=== PATIENT | male | born 1975 | race Caucasian/White ===

== ENCOUNTER → 2018-11-18 08:28 | Outpatient (CLI) | payer OTHER, SELFPAY | LOC: RT 08:30 | PROVIDERS: PCP Nurse Practitioner Family; Visit Provider Nurse Practitioner Family | DX: R00.2 Palpitations (principal) | CPT/HCPCS: 93225; 93226 ==

== ENCOUNTER → 2018-12-13 14:56 | Outpatient (CLI) | payer OTHER, SELFPAY | PROVIDERS: PCP Nurse Practitioner Family; Visit Provider Internal Medicine | DX: R07.9 Chest pain, unspecified (principal) | CPT/HCPCS: 93270 ==

== ENCOUNTER → 2018-12-26 10:10 | Outpatient (CLI) | payer OTHER, SELFPAY ==
[2018-12-26 10:31] LABS: Anion Gap 15.3 mEq/L (5-15); Blood Urea Nitrogen 29 mg/dL (7-18); Calcium 9.1 mg/dL (8.5-10.1); Carbon Dioxide 23 mmol/L (21.0-32.0); Chloride 99 mmol/L (98-107); Creatinine,Serum 1.16 mg/dL (0.70-1.30); Estimated Glomerular Filt Rate 69 ml/min (>60); GFR (African American) 84 ML/MIN (>60); Glucose 208 mg/dL (74-106); Potassium 4.3 mmoL/L (3.5-5.1); Sodium 133 mmol/L (136-145)
[2018-12-26 11:20] LABS: Basophils # 0.1 K/mm3 (0-0.2); Basophils % 0.8 % (0.1-2.0); Eosinophils # 0.4 K/mm3 (0.0-0.4); Eosinophils % 6.2 % (0.1-12.0); Hematocrit 48.8 % (42.0-52.0); Hemoglobin 15.7 g/dL (14.1-18.0); Lymphocytes # 1.7 K/mm3 (0.7-4.5); Lymphocytes % 24.3 % (10-50); Mean Corpuscular HGB Conc 32.2 g/dL (31.8-35.4); Mean Corpuscular Hemoglobin 27.8 pg (27.0-31.2); Mean Corpuscular Volume 86.4 fl (80-94); Mean Platelet Volume 8.4 fl (7.4-10.4); Monocytes # 0.3 K/mm3 (0.1-1.0); Monocytes % 4.7 % (1.7-9.3); Neutrophils # 4.6 K/mm3 (1.8-7.8); Neutrophils % 64.1 % (37.0-80.0); Platelet Count 273 K/mm3 (142-424); Red Blood Count 5.65 M/mm3 (4.60-6.20); Red Cell Distribution Width 13.3 % (11.5-17.5); White Blood Count 7.1 K/mm3 (4.8-10.8)
== END ==
PROVIDERS: Visit Provider Internal Medicine
DX: Z95.5 Presence of coronary angioplasty implant and graft (principal)
CPT/HCPCS: 36415; 80048; 85025

== ENCOUNTER 2019-03-18 20:56 | Observation (INO) ==
[2019-03-18 21:15] LABS: Basophils # 0.1 K/mm3 (0-0.2); Basophils % 0.6 % (0.1-2.0); Eosinophils # 0.3 K/mm3 (0.0-0.4); Eosinophils % 2.8 % (0.1-12.0); Hematocrit 45.1 % (42.0-52.0); Hemoglobin 15.2 g/dL (14.1-18.0); Lymphocytes # 2.8 K/mm3 (0.7-4.5); Lymphocytes % 24.9 % (10-50); Mean Corpuscular HGB Conc 33.6 g/dL (31.8-35.4); Mean Corpuscular Volume 83.1 fl (80-94); Mean Platelet Volume 7.9 fl (7.4-10.4); Monocytes # 0.7 K/mm3 (0.1-1.0); Monocytes % 6.6 % (1.7-9.3); Neutrophils # 7.2 K/mm3 (1.8-7.8); Platelet Count 311 K/mm3 (142-424); Red Blood Count 5.43 M/mm3 (4.60-6.20); Red Cell Distribution Width 13.9 % (11.5-17.5); White Blood Count 11.1 K/mm3 (4.8-10.8)
[2019-03-18 21:26] LABS: Anion Gap 19.3 mEq/L (5-15); Blood Urea Nitrogen 25 mg/dL (7-18); Calcium 9.6 mg/dL (8.5-10.1); Carbon Dioxide 24 mmol/L (21.0-32.0); Chloride 100 mmol/L (98-107); Glucose 103 mg/dL (74-106); Sodium 140 mmol/L (136-145)
[2019-03-18 22:45] LABS: Albumin Level 3.9 gm/dL (3.4-5.0); Bilirubin,Direct 0.1 mg/dL (0.0-0.2); Bilirubin,Indirect 0.3 mg/dL (0.0-0.9); Bilirubin,Total 0.4 mg/dL (0.2-1.0); Total Protein,Serum 8.4 gm/dL (6.4-8.2)
--- NOTE | 2019-03-18 22:57 | Emergency Department Note ---
ED Disposition Clinical Impression: Renal insufficiency Chest pain Qualifiers: Chest pain type: precordial pain Qualified Code(s): R07.2 - Precordial pain DM (diabetes mellitus) Qualifiers: Diabetes mellitus type: type 2 Diabetes mellitus penitentiary insulin use: unspecified penitentiary insulin use status Diabetes mellitus complication status: with other specified complication Qualified Code(s): E11.69 - Type 2 diabetes mellitus with other specified complication Disposition: Admitted as Observation Condition on Discharge: Good Referrals: Jonathan Davidson MD [Primary Care Provider] - - Critical Care Critical Care Time: No Attestation: On 03/18/19, the high probability of a clinically significant, sudden or life threatening deterioration of the following system(s) required my full and direct attention, intervention and personal management. The time I documented below is in addition to time spent performing reported procedures but includes the following listed in this critical care notation. Medical Decision Making - Medical Records Medical records reviewed: Yes: I reviewed the patient's medical records. - Angel Inquiry Pt receiving controlled substance: No Vital Signs: 03/18/19 21:03 03/18/19 22:05 03/18/19 22:14 Temperature 98 F Temperature Source Oral Pulse Rate [Left Brachial] 114 H 102 H 102 H Respiratory Rate 20 19 16 Blood Pressure [Left Arm] 154/88 H 117/64 117/64 Blood Pressure Mean [Left Arm] 110 81 81 Blood Pressure Source [Left Arm] Automatic Cuff Automatic Cuff Automatic Cuff Blood Pressure Position [Left Arm] Supine Sitting Supine 02 Sat by Pulse Oximetry 98 98 99 Oxygen Delivery Method Room Air Room Air Room Air 03/18/19 22:20 03/18/19 22:46 Temperature Temperature Source Pulse Rate [Left Brachial] 109 H 105 H Respiratory Rate 16 16 Blood Pressure [Left Arm] 110/59 L 120/51 L Blood Pressure Mean [Left Arm] 76 74 Blood Pressure Source [Left Arm] Automatic Cuff Blood Pressure Position [Left Arm] Supine 02 Sat by Pulse Oximetry 98 96 Oxygen Delivery Method Room Air Room Air - Lab Data Lab results reviewed: Yes: I reviewed the patient's lab results. Lab Results 03/18/19 21:00: WBC 11.1 H, RBC 5.43, Hgb 15.2, Hct 45.1, MCV 83.1, MCH 27.9, MCHC 33.6, RDW 13.9, Plt Count 311, MPV 7.9, Neut % (Auto) 65.0, Lymph % (Auto) 24.9, [place] % (Auto) 6.6, Eos % (Auto) 2.8, Baso % (Auto) 0.6, Neut # (Auto) 7.2, Lymph # (Auto) 2.8, [place] # (Auto) 0.7, Eos # (Auto) 0.3, Baso # (Auto) 0.1 03/18/19 21:00: Sodium 140, Potassium 3.3 L, Chloride 100, Carbon Dioxide 24, Anion Gap 19.3 H, BUN 25 H, Creatinine 1.36 H, Estimated Creat Clear 129, Estimated GFR 57 L, Est GFR ( Amer) 70, Glucose 103, Calcium 9.6, Troponin I < 0.02 03/18/19 21:00: Total Bilirubin 0.4, Direct Bilirubin 0.1, Indirect Bilirubin 0.3, AST 14 L, ALT 32, Alkaline Phosphatase 83, Total Protein 8.4 H, Albumin 3.9 03/18/19 21:11: Influenza Type A Ag Negative, Influenza Type B Ag Negative Result diagrams: 03/18/19 21:00 03/18/19 21:00 Orders (Tests/Meds): ED MEDICATIONS Generic Name Dose Route Start Last Admin Trade Name Freq PRN Reason Stop Dose Admin Sodium Chloride 1,000 mls @ 999 mls/hr 03/18/19 21:15 03/18/19 21:12 Sod Chlor 0.9% 1000ml Bag IV 03/18/19 22:15 999 mls/hr .Q1H1M JEAN-PIERRE Administration Sodium Chloride 1,000 mls @ 100 mls/hr 03/18/19 22:30 03/18/19 22:29 Sod Chlor 0.9% 1000ml Bag IV 04/17/19 22:29 100 mls/hr .Q10H JEAN-PIERRE Administration Nitroglycerin 0.4 mg 03/18/19 22:05 Nitrostat 0.4mg Sl Tablet SL 04/17/19 22:04 Q5MINP PRN Chest Pain Discontinued Medications Generic Name Dose Route Start Last Admin Trade Name Freq PRN Reason Stop Dose Admin Famotidine 20 mg 03/18/19 22:21 03/18/19 22:24 Pepcid 20mg/2ml Vial IV 03/18/19 22:22 20 mg ONCE ONE Administration Ketorolac Tromethamine 30 mg 03/18/19 21:06 03/18/19 21:12 Toradol 30mg/Ml Vial IV 03/18/19 21:07 30 mg ONCE ONE Administration Methylprednisolone Sodium Succinate 125 mg 03/18/19 21:06 03/18/19 21:12 Solu-Medrol 125mg/2ml Vial IV 03/18/19 21:07 125 mg ONCE ONE Administration Metoclopramide HCl 10 mg 03/18/19 22:21 03/18/19 22:24 Reglan 10mg/2ml Vial IVP 03/18/19 22:22 10 mg ONCE ONE Administration Morphine Sulfate 4 mg 03/18/19 22:31 03/18/19 22:34 Morphine 4mg/Ml Syringe IV 03/18/19 22:32 4 mg ONCE ONE Administration Nitroglycerin 0.4 mg 03/18/19 22:11 03/18/19 22:11 Nitrostat 0.4mg Sl Tablet SL 03/18/19 22:12 1 tab ONCE ONE Administration Nitroglycerin 1 gm 03/18/19 22:31 03/18/19 22:34 Nitroglycerin 1 Inch Oint Udp TD 03/18/19 22:32 1 gm ONCE ONE Administration Ondansetron HCl 4 mg 03/18/19 21:06 03/18/19 21:12 Zofran 4mg/2ml Vial IV 03/18/19 21:07 4 mg ONCE ONE Administration ORDERS Category Date Time Status XR chest 2V Stat Exams 03/18/19 21:10 Taken XR thoracic spine 3V Stat Exams 03/18/19 21:10 Taken Troponin I Q3H Lab 03/19/19 00:15 Ordered Troponin I Q3H Lab 03/19/19 03:15 Ordered UA [Urinalysis and Microscopic] Stat Lab 03/18/19 21:07 Ordered ECG Request by /Nse Stat Y 03/18/19 21:06 Ordered ECG Request by Dr/Nse Stat Y 03/18/19 22:08 Ordered - Radiology Data #1 Image(s): Chest, T-Spine Image Reviewed: Yes I reviewed the patient's radiology image Preliminary Findings: Normal/NAD - ECG Data Tracing #1 Arrhythmias present: sinus tach Ischemic changes: non-specific ST-T wave changes Tracing #2 Normal Sinus Rhythm: Yes Ischemic changes: non-specific ST-T wave changes - Physician Consults Physician Consulted: yas Reason -: Admission Chest Pain HPI - General Chief Complaint: Dizziness Stated Complaint: DIZZINESS; N/V; HEART PALPITATIONS Time Seen by Provider: 03/18/19 21:10 Mode of Arrival: EMS Source of Information: Patient, Spouse, EMS, Medical Record Limitations: No Limitations Description of Symptoms (Recalled from ER Triage Doc. by RN): PATIENT PRESENTS TO TX 6 VIA EMS FROM HOME C/O DIZZINESS, N/V, HEART PALPITATIONS AND UPPER BACK PAIN THAT STARTED THIS EVENING. REPORTS URI LAST WEEK. REPORTS HE WAS FEELING BETTER TODAY AND DECIDED TO GO TO A [employer] WHEN SYMPTOMS CAME ON SUDDENLY. PATIENT HAD A CARDIAC STENT PLACED IN . - History of Present Illness HPI narrative: pt with episode of feeling faint and dizzyness - has sig hx of cad and diabetes -pt dev chest pain in the ed which was similar to prev angina MD complaint: chest pain indicative of cardiac Onset (ago): hour(s) Duration: intermittent Activity at onset: during rest Pain location: substernal Severity: similar to previous episodes Quality: aching Pain radiation: none Risk Factors for CAD: Hypertension, Family Hx of CAD, Diabetes Treatments prior to or on arrival for Cardiac Chest Pain: aspirin - RENITA Score for Non-Stemi Age of Patient: 40-49 years old Heart Rate: 110-149 bpm Systolic Blood Pressure: 140-159 mmHg Serum Creatinine: 1.20-1.59 mg/dl CHF [place] Class: I-No CHF Other Risk Factors: None Non-Stemi Risk Score: 83 - Related Data Prior Cardiac Testing/Procedures: Stenting Home Medications Medication Instructions Recorded Confirmed aspirin 81 mg tablet,delayed 81 mg PO DAILY 12/13/18 03/18/19 release gabapentin 800 mg tablet 800 mg PO DAILY 12/13/18 03/18/19 insulin lispro (U-100) 100 unit/mL 100 unit SQ DAILY ml 12/13/18 03/18/19 subcutaneous cartridge metoprolol succinate ER 50 mg 50 mg PO DAILY 12/13/18 03/18/19 tablet,extended release 24 hr simvastatin 10 mg tablet 10 mg PO QHS 12/13/18 03/18/19 tizanidine 4 mg tablet 4 mg PO QHS PRN 12/13/18 03/18/19 ticagrelor 90 mg tablet 90 mg PO BID 02/15/19 03/18/19 lisinopriL [Lisinopril 20mg Tab] 20 mg PO DAILY 03/07/19 03/18/19 Allergies Allergy/AdvReac Type Severity Reaction Status Date / Time No Known Allergies Allergy Verified 03/13/19 09:24 [facility] [place] History - Hepatitis A Screen Drug use history?: No High risk sexual behaviors?: No History of sexually transmitted infection?: No Currently employed?: No Childcare worker?: No Do you have indoor plumbing?: Yes Do you have electricity?: Yes Attestation statement:: This patient has been screened for Hepatitis A risk factors. I have reviewed the patient's past medical history: Yes Medical History: Reports:: Coronary Artery Disease, Diabetes Mellitus Type 1 (INSULIN PUMP), Hyperlipidemia, Hypertension, Palpitations, Renal Disease Denies:: Cancer, Diabetes Mellitus Type 2, Internal Pacemaker, MRSA, Seizures Laterality Cases: Bilateral: Myringotomy (Ear Tubes) Other Surgeries: Yes: Cardiac Catheterization, Coronary Stent. No: Pacemaker Amputation: No Fractures: No - Social History Smoking Status: Never smoker Alcohol Intake: current Alcohol Intake Frequency:: a few times a month Substance Use Type: denies use Occupational Status: employed Housing: house Household Members: spouse Family Hx:: Coronary Artery Disease Comment: Grandfathers-CABG. Sister-Valve Regurg ROS Obtained: Yes All systems reviewed & no additional complaints - Constitutional Constitutional: Denies fever(s) - Eyes Eyes: Denies change in vision - ENT Ears, Nose, Mouth, and Throat: Denies sore throat - Cardiovascular Cardiovascular: Reports as per HPI, Reports chest pain, Denies dyspnea, Denies radiating jaw, neck or arm pain - Respiratory Respiratory: No cough - Gastrointestinal Gastrointestingal: Denies: abdominal pain - Genitourinary Male Genitourinary: Denies hematuria - Musculoskeletal Musculoskeletal: Denies joint pain - Integumentary/Breasts Skin/Breast: Denies rash - Neurologic Neurologic: Denies confusion Physical Exam - General General appearance: alert - Head Head exam: normocephalic - Eye Eye exam: Present: PERRL, EOMI - ENT ENT exam: Present: mucous membranes moist - Neck Neck exam: Present: trachea midline - Respiratory Respiratory exam: Absent: respiratory distress - Cardiovascular Cardiovascular exam: Present: regular rate, systolic murmur - Abdominal Exam Abdominal exam: Present: soft - Extremities Exam Extremities exam: Present: full ROM - Neurological Exam Neurological exam: Present: alert, CN II-XII intact - Psychiatric Psychiatric exam: Present: normal affect - Skin Skin exam: Absent: rash
[2019-03-19 03:37] LABS: Basophils % 0.2 % (0.1-2.0); Eosinophils # 0.1 K/mm3 (0.0-0.4); Hematocrit 37.6 % (42.0-52.0); Lymphocytes # 0.8 K/mm3 (0.7-4.5); Lymphocytes % 6.7 % (10-50); Mean Corpuscular Volume 86.4 fl (80-94); Mean Platelet Volume 8.1 fl (7.4-10.4); Monocytes # 0.2 K/mm3 (0.1-1.0); Monocytes % 1.3 % (1.7-9.3); Neutrophils # 10.1 K/mm3 (1.8-7.8); Neutrophils % 90.8 % (37.0-80.0); Platelet Count 222 K/mm3 (142-424); Red Blood Count 4.35 M/mm3 (4.60-6.20); Red Cell Distribution Width 14.1 % (11.5-17.5); White Blood Count 11.2 K/mm3 (4.8-10.8)
[2019-03-19 03:38] LABS: Hemoglobin 12.4 g/dL (14.1-18.0)
[2019-03-19 03:54] LABS: Blood Urea Nitrogen 34 mg/dL (7-18); Carbon Dioxide 22 mmol/L (21.0-32.0); Chloride 100 mmol/L (98-107); Sodium 135 mmol/L (136-145)
[2019-03-19 03:55] LABS: Lymphocytes % 6 % (10-50); Neutrophils % 90 % (42-76); RBC Morphology Normal; Total Cells Counted 100
[2019-03-19 03:56] LABS: Calcium 8.4 mg/dL (8.5-10.1); Glucose 335 mg/dL (74-106)
--- NOTE | 2019-03-19 09:08 | History & Physical Report ---
*Admission Date: 03/19/19 *Chief complaint: Chest pain/tachycardia *History of present illness: 43-year-old white male with history of coronary disease, status post stent placement in December, along with type 1 diabetes, with insulin pump, along with obesity, hyperlipidemia and other risk factors for cardiac disease who was at a [employer] yesterday evening and felt suddenly tachycardic. He was slightly dizzy, refused treatment at the time, and then had intense back pain that felt like "someone hit me in the back with a baseball bat." Was on his way home when he became more tachycardic and then had some chest pain. Came to the emergency department. In the emergency department x-rays and labs are unremarkable, admitted to hospital overnight. This morning he reports that he has a headache from nitro therapy, but that his chest pain is resolved but he still has a baseline tachycardia that is concerning. [facility] History I have reviewed the patient's past medical history: Yes Medical History: Reports:: Coronary Artery Disease, Diabetes Mellitus Type 1 (INSULIN PUMP), Hyperlipidemia, Hypertension, Palpitations, Renal Disease Denies:: Cancer, Diabetes Mellitus Type 2, Internal Pacemaker, MRSA, Seizures *Have you ever received a pneumonia vaccine?: No *Have you received a flu vaccine this season?: No Laterality Cases: Bilateral: Myringotomy (Ear Tubes) Other Surgeries: Yes: Cardiac Catheterization, Colonoscopy, Coronary Stent, EGD. No: Pacemaker Amputation: No Fractures: No - *Social History Educational Level: Completed High School Smoking Status: Never smoker Alcohol Intake: current Alcohol Intake Frequency:: holidays/special occasions only Substance Use Type: denies use *Occupational Status:: employed Housing: house Household Members: spouse *Travel in the last 8 weeks: None Family Hx:: Cancer, Coronary Artery Disease, Diabetes, Heart Attack, Hyperlipidemia, Hypertension, Kidney Disease Review of Systems - Review of Systems Review of systems:: pertinent systems reviewed and negative unless documented below See HPI, Otherwise 10 point review of systems negative - *Neurologic Denies confusion Meds Home Medications Medication Instructions Recorded Confirmed Type aspirin 81 mg tablet,delayed 81 mg PO DAILY 12/13/18 03/18/19 History release gabapentin 800 mg tablet 800 mg PO DAILY 12/13/18 03/18/19 History insulin lispro (U-100) 100 unit/mL 100 unit SQ DAILY ml 12/13/18 03/18/19 History subcutaneous cartridge metoprolol succinate ER 50 mg 50 mg PO DAILY 12/13/18 03/18/19 History tablet,extended release 24 hr simvastatin 10 mg tablet 10 mg PO QHS 12/13/18 03/18/19 History tizanidine 4 mg tablet 4 mg PO QHS PRN 12/13/18 03/18/19 History ticagrelor 90 mg tablet 90 mg PO BID 02/15/19 03/18/19 History lisinopriL [Lisinopril 20mg Tab] 20 mg PO DAILY 03/07/19 03/18/19 History Hydrocodone/Acetaminophen 1 each PO BID 03/19/19 03/19/19 History [Hydrocodon-Acetaminoph 7.5-325] Omeprazole [Omeprazole 40mg 40 mg PO DAILY 03/19/19 03/19/19 History Capsule] Ticagrelor [Brilinta 90mg Tablet] 90 mg PO BID 03/19/19 03/19/19 History hydroCHLOROthiazide [HCTZ 25mg 25 mg PO DAILY 03/19/19 03/19/19 History tab] Allergies Allergy/AdvReac Type Severity Reaction Status Date / Time No Known Allergies Allergy Verified 03/13/19 09:24 Exam Vital signs and Labs for Last 24 Hours: Temp Pulse Resp BP Pulse Ox 97.6 F 86 17 113/67 96 03/19/19 04:00 03/19/19 04:00 03/19/19 04:00 03/19/19 04:00 03/19/19 04:00 Laboratory Results - last 24 hr 03/18/19 21:00: WBC 11.1 H, RBC 5.43, Hgb 15.2, Hct 45.1, MCV 83.1, MCH 27.9, MCHC 33.6, RDW 13.9, Plt Count 311, MPV 7.9, Neut % (Auto) 65.0, Lymph % (Auto) 24.9, [place] % (Auto) 6.6, Eos % (Auto) 2.8, Baso % (Auto) 0.6, Neut # (Auto) 7.2, Lymph # (Auto) 2.8, [place] # (Auto) 0.7, Eos # (Auto) 0.3, Baso # (Auto) 0.1 03/18/19 21:00: Sodium 140, Potassium 3.3 L, Chloride 100, Carbon Dioxide 24, Anion Gap 19.3 H, BUN 25 H, Creatinine 1.36 H, Estimated Creat Clear 129, Estimated GFR 57 L, Est GFR ( Amer) 70, Glucose 103, Calcium 9.6, Troponin I < 0.02 03/18/19 21:00: Total Bilirubin 0.4, Direct Bilirubin 0.1, Indirect Bilirubin 0.3, AST 14 L, ALT 32, Alkaline Phosphatase 83, Total Protein 8.4 H, Albumin 3.9 03/18/19 21:11: Influenza Type A Ag Negative, Influenza Type B Ag Negative 03/19/19 00:20: Troponin I < 0.02 03/19/19 03:30: WBC 11.2 H, RBC 4.35 L, Hgb 12.4 L D, Hct 37.6 L, MCV 86.4, MCH 28.5, MCHC 33.0, RDW 14.1, Plt Count 222 D, MPV 8.1, Neut % (Auto) 90.8 H, L ymph % (Auto) 6.7 L, [place] % (Auto) 1.3 L, Eos % (Auto) 1.0, Baso % (Auto) 0.2, Neut # (Auto) 10.1 H, Lymph # (Auto) 0.8, [place] # (Auto) 0.2, Eos # (Auto) 0.1, Baso # (Auto) 0.0, Total Counted 100, Neutrophils % (Manual) 90 H, Band Neutrophils % 4.0, Lymphocytes % (Manual) 6 L, Platelet Estimate Normal, RBC Morphology Normal 03/19/19 03:30: Sodium 135 L, Potassium 5.0 D, Chloride 100, Carbon Dioxide 22, Anion Gap 18.0 H, BUN 34 H D, Creatinine 1.54 H, Estimated Creat Clear 112, Estimated GFR 50 L, Est GFR ( Amer) 60, Glucose 335 H D, Calcium 8.4 L D, Magnesium 1.6, Troponin I < 0.02 03/19/19 06:51: POC Glucose 292 H I & O for Last 24 hours: Intake & Output 03/16/19 03/17/19 03/18/19 03/19/19 11:59 11:59 11:59 11:59 Intake Total 1100 / 1100 Balance 1100 / 1100 Weight 278 lb 7.983 oz - Constitutional no acute distress, obese - *Routine HEENT Exam Head: Present: normocephalic, atraumatic Eye: Present: EOMI, PERRL ENT: Present: mucous membranes moist - *Routine Neck Exam Present: supple. Absent: lymphadenopathy - *Routine Respiratory Exam Present: CTA bilaterally - *Routine Cardiovascular Exam Present: RRR - *Routine Abdominal Exam Present: soft, normoactive bowel sounds. Absent: tenderness - *Routine Extremities Exam Absent: cyanosis, clubbing, edema - *Routine Skin Exam Present: warm. Absent: rash - *Routine Neurological Exam Present: alert, oriented X3 Assessment and Plan (1) Chest pain Current visit: Yes Status: Acute Qualifiers: Chest pain type: precordial pain Qualified Code(s): R07.2 - Precordial pain Category: Medical Code(s): R07.9 - Chest pain, unspecified Unusual chest pain. Troponins negative. Continue cardiac medications. CTA of chest today given the back pain component and his tachycardia (2) Renal insufficiency Current visit: Yes Status: Acute Category: Medical Code(s): N28.9 - Disorder of kidney and ureter, unspecified Follow creatinine tomorrow, increase fluid rate (3) DM (diabetes mellitus) Current visit: Yes Status: Chronic Qualifiers: Diabetes mellitus type: type 2 Diabetes mellitus terminal superintendent insulin use: unspecified mcfp insulin use status Diabetes mellitus complication status: with other specified complication Qualified Code(s): E11.69 - Type 2 diabetes mellitus with other specified complication Category: Medical Code(s): E11.9 - Type 2 diabetes mellitus without complications
--- NOTE | 2019-03-19 14:05 | Pharmacy Consult Notes ---
[facility] Pharmacy VTE Monitoring - Patient Demographics Admission date: 03/19/19 Report Date: 03/19/19 Time: 14:04 Allergies/Adverse Reactions: Patient Allergies No Known Allergies Allergy (Verified 03/13/19 09:24) Height: 1.85 m Weight: 126.325 kg Patient Problems: Current Active Problems Chest pain (Acute) Renal insufficiency (Acute) DM (diabetes mellitus) (Chronic) - VTE Risk Labs: VTE Related Lab Results Hgb 12.4 g/dL (14.1-18.0) L D 03/19/19 03:30 Hct 37.6 % (42.0-52.0) L 03/19/19 03:30 Plt Count 222 K/mm3 (142-424) D 03/19/19 03:30 BUN 34 mg/dL (7-18) H D 03/19/19 03:30 Creatinine 1.54 mg/dL (0.70-1.30) H 03/19/19 03:30 Estimated Creat Clear 112 mL/min (50-200) 03/19/19 03:30 VTE Score: 3 VTE Risk Level: Low Risk - Prophylaxis Types of VTE Prophylaxis: TEDS Knee High (SAUL HOSE ORDER PLACED)
[2019-03-20 06:50] LABS: Albumin/Globulin Ratio 0.9 (1.1-1.8); Anion Gap 16.1 mEq/L (5-15); Bilirubin,Total 0.2 mg/dL (0.2-1.0); Calcium 8.2 mg/dL (8.5-10.1); Globulin 3.3 gm/dl (1.3-3.2); Total Protein,Serum 6.3 gm/dL (6.4-8.2)
[2019-03-20 07:20] LABS: Basophils # 0.1 K/mm3 (0-0.2); Basophils % 0.3 % (0.1-2.0); Eosinophils # 0.1 K/mm3 (0.0-0.4); Eosinophils % 0.4 % (0.1-12.0); Hematocrit 39.3 % (42.0-52.0); Hemoglobin 12.9 g/dL (14.1-18.0); Lymphocytes % 14.1 % (10-50); Mean Corpuscular HGB Conc 32.8 g/dL (31.8-35.4); Mean Platelet Volume 7.7 fl (7.4-10.4); Monocytes # 0.7 K/mm3 (0.1-1.0); Monocytes % 5.2 % (1.7-9.3); Neutrophils # 11.1 K/mm3 (1.8-7.8); Neutrophils % 79.9 % (37.0-80.0); Platelet Count 254 K/mm3 (142-424); Red Blood Count 4.63 M/mm3 (4.60-6.20); Red Cell Distribution Width 14.3 % (11.5-17.5); White Blood Count 13.9 K/mm3 (4.8-10.8)
--- NOTE | 2019-03-20 07:28 | Consult Report ---
History of Present Illness Consult date: 03/20/19 Requesting physician: Yunior Porras Consult reason: chest pain Chief complaint: Palpitations, chest pain Additional Medical History:: 1. CAD A. [facility], 12/16/2018, ANGIOGRAPHIC RESULTS The left main artery Normal The left anterior descending artery Has proximal mild 10% luminal irregularities followed by a mid vessel concentric 70% stenosis The circumflex artery Dominant and normal The right coronary artery Nondominant yet still large with mild 10 to 20% luminal irregularities The WAYNE ventriculogram reveals Normal 65% The left ventricular end-diastolic pressure 10 mmHg IMPRESSION Severe proximal to mid LAD disease Successful stenting of the proximal to mid LAD severe disease reduced to 0% with one drug-eluting stent Normal ejection fraction Normal left ventricular end-diastolic pressure 2. DM type 1, insulin pump 3. HTN 4. HLD, on statin therapy History of present illness: 43-year-old white male with history of coronary disease, status post stent placement in December, along with type 1 diabetes, with insulin pump, along with obesity, hyperlipidemia and other risk factors for cardiac disease who was at a [employer] yesterday evening and felt suddenly tachycardic. He was slightly dizzy, refused treatment at the time, and then had intense back pain that felt like "someone hit me in the back with a baseball bat." Was on his way home when he became more tachycardic and then had some chest pain. Came to the emergency department. In the emergency department x-rays and labs are unremarkable, admitted to hospital overnight. This morning he reports that he has a headache from nitro therapy, but that his chest pain is resolved but he still has a baseline tachycardia that is concerning The above per Dr. Porras Patient had cardiac cath with subsequent stenting of his proximal LAD in December of this year. His symptoms of discomfort, shoulder and back discomfort resolved thereafter he relates he has had much more energy since then. He denies missing any of his medications or taking [id number] stimulants for recent cold symptoms. As noted above while at a [employer] party he began feeling tachycardia/palpitations with heart rate noted on his apple watch in the 120-140's bpm range. Reportedly EMS was at the alliance party and obtained a telemetry strip but that is unavailable for review. EKG's this admission have shown sinus tach without pathologic arrhythmias. Troponins have been normal. Mild renal insufficiency has improved with IV fluids. Cardiology consulted for evaluation. This AM pt relates feeling as if his uvula is swollen. No signs of respiratory distress noted and he states this happened one year ago and resolved after about 3 hrs. [facility] History Medical History: Reports:: Coronary Artery Disease, Diabetes Mellitus Type 1 (INSULIN PUMP), Hyperlipidemia, Hypertension, Palpitations, Renal Disease Denies:: Cancer, Diabetes Mellitus Type 2, Internal Pacemaker, MRSA, Seizures *Have you ever received a pneumonia vaccine?: No *Have you received a flu vaccine this season?: No Laterality Cases: Bilateral: Myringotomy (Ear Tubes) Other Surgeries: Yes: Cardiac Catheterization, Colonoscopy, Coronary Stent, EGD. No: Pacemaker Amputation: No Fractures: No - *Social History Educational Level: Completed High School Smoking Status: Never smoker Alcohol Intake: current Alcohol Intake Frequency:: holidays/special occasions only Substance Use Type: denies use *Occupational Status:: employed Housing: house Household Members: spouse *Travel in the last 8 weeks: None Family Hx:: Cancer, Coronary Artery Disease, Diabetes, Heart Attack, Hyperlipidemia, Hypertension, Kidney Disease Meds Home Medications Medication Instructions Recorded Confirmed Type aspirin 81 mg tablet,delayed 81 mg PO DAILY 12/13/18 03/18/19 History release gabapentin 800 mg tablet 800 mg PO DAILY 12/13/18 03/18/19 History insulin lispro 100 unit/mL 100 unit SQ .INSULIN PUMP ml 12/13/18 03/19/19 History subcutaneous cartridge metoprolol succinate 50 mg 50 mg PO DAILY 12/13/18 03/18/19 History tablet,extended release 24 hr simvastatin 10 mg tablet 10 mg PO QHS 12/13/18 03/18/19 History tizanidine 4 mg tablet 4 mg PO BIDP PRN 12/13/18 03/19/19 History lisinopriL [Lisinopril 20mg Tab] 20 mg PO DAILY 03/07/19 03/18/19 History Hydrocodone/Acetaminophen 1 each PO BID 03/19/19 03/19/19 History [Hydrocodon-Acetaminoph 7.5-325] Omeprazole [Omeprazole 40mg 40 mg PO DAILY 03/19/19 03/19/19 History Capsule] Ticagrelor [Brilinta 90mg Tablet] 90 mg PO BID 03/19/19 03/19/19 History hydroCHLOROthiazide [HCTZ 25mg 25 mg PO DAILY 03/19/19 03/19/19 History tab] Allergies Allergy/AdvReac Type Severity Reaction Status Date / Time No Known Allergies Allergy Verified 03/13/19 09:24 Review of Systems - Review of Systems Review of systems:: pertinent systems reviewed and negative unless documented below - *Cardiovascular Reports chest pain, Reports irregular heart rhythm - *Respiratory Denies cough, Denies shortness of breath - *Gastrointestinal Denies loose stools, Denies nausea, Denies vomiting - *Genitourinary Denies blood in urine - *Musculoskeletal Denies joint pain, Denies back pain - *Neurologic Denies confusion, Denies unsteadiness, Denies dizziness Exam Vital signs and Labs for Last 24 Hours: Temp Pulse Resp BP Pulse Ox 97.9 F 77 22 108/54 L 98 03/20/19 04:00 03/20/19 04:00 03/20/19 04:00 03/20/19 04:00 03/20/19 04:00 Laboratory Results - last 24 hr 03/19/19 11:45: POC Glucose 270 H 03/19/19 16:35: POC Glucose 172 H 03/19/19 20:55: POC Glucose 210 H 03/20/19 05:18: Sodium 139, Potassium 4.1, Chloride 103, Carbon Dioxide 24, Anion Gap 16.1 H, BUN 26 H, Creatinine 1.15 D, Estimated Creat Clear 150, Estimated GFR 70, Est GFR ( Amer) 84 D, Glucose 283 H, Calcium 8.2 L, Total Bilirubin 0.2, AST 14 L, ALT 30, Alkaline Phosphatase 76, Total Protein 6.3 L, Albumin 3.0 L D, Globulin 3.3 H, Albumin/Globulin Ratio 0.9 L I & O for Last 24 hours: Intake & Output 03/17/19 03/18/19 03/19/19 03/20/19 11:59 11:59 11:59 11:59 Intake Total 1220 / 1220 1340 / 1340 Balance 1220 / 1220 1340 / 1340 Weight 278 lb 7.983 oz 292 lb 1 oz - *Routine HEENT Exam Head: Present: normocephalic Eye: Present: EOMI, PERRL ENT: Present: mucous membranes moist - *Routine Neck Exam Present: supple. Absent: JVD, carotid bruit - *Routine Respiratory Exam Present: CTA bilaterally. Absent: accessory muscle use, rales, rhonchi, wheezes - *Routine Cardiovascular Exam Present: RRR. Absent: murmur, gallop, rubs - *Routine Abdominal Exam Present: soft. Absent: tenderness, distended, guarding - *Routine Extremities Exam Absent: edema, calf tenderness - *Routine Neurological Exam Present: alert, oriented X3, moving all extremities Assessment and Plan (1) Chest pain Current visit: Yes Status: Acute Qualifiers: Chest pain type: precordial pain Qualified Code(s): R07.2 - Precordial pain Category: Medical Code(s): R07.9 - Chest pain, unspecified (2) Renal insufficiency Current visit: Yes Status: Acute Category: Medical Code(s): N28.9 - Disorder of kidney and ureter, unspecified (3) DM (diabetes mellitus) Current visit: Yes Status: Chronic Qualifiers: Diabetes mellitus type: type 2 Diabetes mellitus rn long term care insulin use: unspecified jail insulin use status Diabetes mellitus complication status: with other specified complication Qualified Code(s): E11.69 - Type 2 diabetes mellitus with other specified complication Category: Medical Code(s): E11.9 - Type 2 diabetes mellitus without complications - Assessment and plan all Dx Assessment and Plan for all problems:: 1. Recurrent episodes of chest discomfort with associated back and shoulder discomfort similar to his angina symptoms prior to recent LAD stenting. Concern for edge stenosis and would recommend repeat left heart catheterization today. 2. Palpitations with sinus tachycardia noted on EKG and telemetry. Continue to monitor with consideration for implantable loop recorder if patient has no recurrent coronary artery disease. 3. Further recommendations to follow pending above results.
--- NOTE | 2019-03-20 08:55 | Progress Note ---
Internal Medicine - PN: Subj *Date: 03/20/19 *Time: 08:54 Interval history: Patient slept well overnight, no further chest pain, has back pain but now he tells me that he has "back pain all the time." His new complaint is posterior throat swelling and "my uvula is swollen and I feel like I am choking." Exam Vital signs and Labs for Last 24 Hours: Temp Pulse Resp BP Pulse Ox 97.9 F 77 22 108/54 L 98 03/20/19 04:00 03/20/19 04:00 03/20/19 04:00 03/20/19 04:00 03/20/19 04:00 Laboratory Results - last 24 hr 03/19/19 11:45: POC Glucose 270 H 03/19/19 16:35: POC Glucose 172 H 03/19/19 20:55: POC Glucose 210 H 03/20/19 05:18: WBC 13.9 H, RBC 4.63, Hgb 12.9 L, Hct 39.3 L, MCV 85.0, MCH 27.9, MCHC 32.8, RDW 14.3, Plt Count 254, MPV 7.7, Neut % (Auto) 79.9, Lymph % (Auto) 14.1, [place] % (Auto) 5.2, Eos % (Auto) 0.4, Baso % (Auto) 0.3, Neut # (Auto) 11.1 H, Lymph # (Auto) 2.0, [place] # (Auto) 0.7, Eos # (Auto) 0.1, Baso # (Auto) 0.1 03/20/19 05:18: Sodium 139, Potassium 4.1, Chloride 103, Carbon Dioxide 24, Anion Gap 16.1 H, BUN 26 H, Creatinine 1.15 D, Estimated Creat Clear 150, Estimated GFR 70, Est GFR ( Amer) 84 D, Glucose 283 H, Calcium 8.2 L, Total Bilirubin 0.2, AST 14 L, ALT 30, Alkaline Phosphatase 76, Total Protein 6.3 L, Albumin 3.0 L D, Globulin 3.3 H, Albumin/Globulin Ratio 0.9 L I & O for Last 24 hours: Intake & Output 03/17/19 03/18/19 03/19/19 03/20/19 11:59 11:59 11:59 11:59 Intake Total 1220 / 1220 192 / 192 Balance 1220 / 1220 1919 / 192 Weight 278 lb 7.983 oz 292 lb 1 oz Narrative: Patient is lying in bed comfortably flat, receiving an echocardiogram. Oropharynx does show minimal posterior pharyngeal swelling with lots of postnasal drainage. Heart rate regular. Breathing easily. No abdominal complaints. No peripheral edema or neurologic deficits. Assessment and Plan (1) Chest pain Current visit: Yes Status: Acute Qualifiers: Chest pain type: precordial pain Qualified Code(s): R07.2 - Precordial pain Category: Medical Code(s): R07.9 - Chest pain, unspecified (2) Renal insufficiency Current visit: Yes Status: Acute Category: Medical Code(s): N28.9 - Disorder of kidney and ureter, unspecified (3) DM (diabetes mellitus) Current visit: Yes Status: Chronic Qualifiers: Diabetes mellitus type: type 2 Diabetes mellitus rn long term care insulin use: unspecified rn long term care insulin use status Diabetes mellitus complication status: with other specified complication Qualified Code(s): E11.69 - Type 2 diabetes mellitus with other specified complication Category: Medical Code(s): E11.9 - Type 2 diabetes mellitus without comp lications - Assessment and plan all Dx Assessment and Plan for all problems:: Multiple complaints, most of which sound chronic. I agree with restudying heart cath, follow-up after this study.
--- NOTE | 2019-03-20 16:38 | Discharge Summary ---
General - General Admission date:: 03/18/19 Discharge date: 03/20/19 HPI HPI: 43-year-old white male with history of coronary disease, status post stent placement in December, along with type 1 diabetes, with insulin pump, along with obesity, hyperlipidemia and other risk factors for cardiac disease who was at a [employer] yesterday evening and felt suddenly tachycardic. He was slightly dizzy, refused treatment at the time, and then had intense back pain that felt like "someone hit me in the back with a baseball bat." Was on his way home when he became more tachycardic and then had some chest pain. Came to the emergency department. In the emergency department x-rays and labs are unremarkable, admitted to hospital overnight. This morning he reports that he has a headache from nitro therapy, but that his chest pain is resolved but he still has a baseline tachycardia that is concerning. Hospital Course Hospital Course: Patient was admitted to the hospital, ruled out for myocardial infarction by enzyme and EKG criteria. Was ruled out for MN, however given his baseline tachycardia and significant presyncopal symptoms he was taken to left heart catheter today which revealed widely patent stents, and noncritical/nonflow limiting coronary disease. Unchanged from previous heart catheter results. Recommended to have continued medical therapy. Because of his posterior chest pain CTA of the lungs was done which revealed no evidence of pulmonary embolism, did reveal a small pulmonary nodule which will be followed as an outpatient. Cardiology recommended discharge with an event monitor and close followup. Patient will be discharged today, event monitor as noted. Medications as noted and followup in my office as scheduled. Objective Vital signs: Temp Pulse Resp BP Pulse Ox 98.5 F 91 H 18 122/54 L 94 L 03/20/19 15:55 03/20/19 15:55 03/20/19 15:55 03/20/19 15:55 03/20/19 15:55 no acute distress, obese - *Routine HEENT Exam Head: Present: normocephalic Eye: Present: EOMI, PERRL - *Routine Neck Exam Present: supple, full ROM. Absent: JVD - *Routine Respiratory Exam Present: CTA bilaterally - *Routine Cardiovascular Exam Present: RRR, Normal S1, Normal S2, tachycardia - *Routine Abdominal Exam Present: soft, normoactive bowel sounds - *Routine Extremities Exam Absent: cyanosis, clubbing, edema - *Routine Skin Exam Present: intact - *Routine Neurological Exam Present: alert, oriented X3 Results Labs on day of discharge: Labs from last 24 hours 03/20/19 03/20/19 03/20/19 16:20 11:18 06:02 WBC RBC Hgb Hct MCV MCH MCHC RDW Plt Count MPV Neut % (Auto) Lymph % (Auto) [place] % (Auto) Eos % (Auto) Baso % (Auto) Neut # (Auto) Lymph # (Auto) [place] # (Auto) Eos # (Auto) Baso # (Auto) Sodium Potassium Chloride Carbon Dioxide Anion Gap BUN Creatinine Estimated Creat Clear Estimated GFR Est GFR ( Amer) Glucose POC Glucose 299 H 189 H 257 H Calcium Total Bilirubin AST ALT Alkaline Phosphatase Total Protein Albumin Globulin Albumin/Globulin Ratio 03/20/19 03/20/19 03/19/19 05:18 05:18 20:55 WBC 13.9 H RBC 4.63 Hgb 12.9 L Hct 39.3 L MCV 85.0 MCH 27.9 MCHC 32.8 RDW 14.3 Plt Count 254 MPV 7.7 Neut % (Auto) 79.9 Lymph % (Auto) 14.1 [place] % (Auto) 5.2 Eos % (Auto) 0.4 Baso % (Auto) 0.3 Neut # (Auto) 11.1 H Lymph # (Auto) 2.0 [place] # (Auto) 0.7 Eos # (Auto) 0.1 Baso # (Auto) 0.1 Sodium 139 Potassium 4.1 Chloride 103 Carbon Dioxide 24 Anion Gap 16.1 H BUN 26 H Creatinine 1.15 D Estimated Creat Clear 150 Estimated GFR 70 Est GFR ( Amer) 84 D Glucose 283 H POC Glucose 210 H Calcium 8.2 L Total Bilirubin 0.2 AST 14 L ALT 30 Alkaline Phosphatase 76 Total Protein 6.3 L Albumin 3.0 L D Globulin 3.3 H Albumin/Globulin Ratio 0.9 L 03/19/19 16:35 WBC RBC Hgb Hct MCV MCH MCHC RDW Plt Count MPV Neut % (Auto) Lymph % (Auto) [place] % (Auto) Eos % (Auto) Baso % (Auto) Neut # (Auto) Lymph # (Auto) [place] # (Auto) Eos # (Auto) Baso # (Auto) Sodium Potassium Chloride Carbon Dioxide Anion Gap BUN Creatinine Estimated Creat Clear Estimated GFR Est GFR ( Amer) Glucose POC Glucose 172 H Calcium Total Bilirubin AST ALT Alkaline Phosphatase Total Protein Albumin Globulin Albumin/Globulin Ratio DS: Diagnosis - Discharge Diagnosis (1) Chest pain Status: Resolved (2) Renal insufficiency Status: Resolved (3) DM (diabetes mellitus) Status: Chronic Discharge Plan - Patient Discharge Instructions ACTIVITY: Continue current activity DIET: continue same diet Patient Instructions: Type 2 Diabetes, Cardiac Catheterization, DI for Cardiac Catheterization, Acute Renal Failure, DI for Surgical Site Infection, DI for Chest Pain - Follow up Plan Follow up with: Jonathan Davidson MD [Primary Care Provider] - 03/27/19 Disposition: Home, [facility] Medications: Home Medications Medication Instructions Recorded Confirmed Type aspirin 81 mg tablet,delayed 81 mg PO DAILY 12/13/18 03/18/19 History release gabapentin 800 mg tablet 800 mg PO DAILY 12/13/18 03/18/19 History insulin lispro 100 unit/mL 100 unit SQ .INSULIN PUMP ml 12/13/18 03/19/19 History subcutaneous cartridge metoprolol succinate 50 mg 50 mg PO DAILY 12/13/18 03/18/19 History tablet,extended release 24 hr simvastatin 10 mg tablet 10 mg PO QHS 12/13/18 03/18/19 History tizanidine 4 mg tablet 4 mg PO BIDP PRN 12/13/18 03/19/19 History lisinopriL [Lisinopril 20mg Tab] 20 mg PO DAILY 03/07/19 03/18/19 History Hydrocodone/Acetaminophen 1 each PO BID 03/19/19 03/19/19 History [Hydrocodon-Acetaminoph 7.5-325] Omeprazole [Omeprazole 40mg 40 mg PO DAILY 03/19/19 03/19/19 History Capsule] Ticagrelor [Brilinta 90mg Tablet] 90 mg PO BID 03/19/19 03/19/19 History hydroCHLOROthiazide [HCTZ 25mg 25 mg PO DAILY 03/19/19 03/19/19 History tab] Prescriptions/Medication Reconciliation: Continued insulin lispro 100 unit/mL subcutaneous cartridge 100 unit SQ .INSULIN PUMP ml aspirin 81 mg tablet,delayed release 81 mg PO DAILY simvastatin 10 mg tablet 10 mg PO QHS tizanidine 4 mg tablet 4 mg PO BIDP PRN PRN Reason: nerves gabapentin 800 mg tablet 800 mg PO DAILY metoprolol succinate 50 mg tablet,extended release 24 hr 50 mg PO DAILY lisinopriL [Lisinopril 20mg Tab] 20 mg PO DAILY Hydrocodone/Acetaminophen [Hydrocodon-Acetaminoph 7.5-325] 1 each PO BID hydroCHLOROthiazide [HCTZ 25mg tab] 25 mg PO DAILY Omeprazole [Omeprazole 40mg Capsule] 40 mg PO DAILY Ticagrelor [Brilinta 90mg Tablet] 90 mg PO BID - Problem Reconciliation Problems Reviewed?: Yes
--- NOTE | 2019-03-20 16:59 | Electrocardiograph Report ---
APPROVED REPORT Exam: Resting ECG HR:111 bpm ECG Measurements Heart Rate 111 AXES NM 138 P 42 QRSd 92 QRS 5 QT 314 T41 QTc 427 <Conclusion> Sinus tachycardia Otherwise normal ECG Electronically signed by : Avinash Suarez, 03/20/2019 16:59:16
--- NOTE | 2019-03-20 21:02 | Cardiology Report ---
APPROVED REPORT EXAM: Comprehensive 2D, Doppler, and color-flow Echocardiogram [place] [employer]: Vida Serrano CRT Ht: 6 ft 1 in Wt: 292lbs BSA: 2.53 BP: 97110/67 mmHg Indications: Hypertension I10, CAD I25.10, Chest Pain R07.89 2D Dimensions LVOT 2.12 cm (M/F) 1.5-2.5 M-Mode Dimensions RVDd 2.77 cm (0.9-2.6)LVDd 5.72 cm (3.5-5.7) LVDs 4.02 cm (3.5-5.7)IVSd 1.30 cm (0.6-1.1) PWd 0.80 cm (0.6-1.1)EF (Teich) 56.10% FS 29.70% EDV (Teich) 161.30 mL ESV (Teich) 70.80 mL LV Diastology E/A Ratio 1.33 Mitral Valve MV A Velocity 74.00 (40-130 cm/s) Left Ventricle Left atrium is mildly enlarged, left ventricle is normal size, mild concentric left ventricular hypertrophy, visually estimated ejection fraction 55% with no regional wall motion abnormality. Grade 1 diastolic dysfunction seen without tissue Doppler evidence of raise left atrial pressure. Right Ventricle Right atrium and right ventricle mildly enlarged with normal contractility. Aortic Valve Aortic valve is minimally thickened and fibrosed leaflet chordae display good mobility, there is no aortic stenosis or aortic insufficiency. Mitral Valve Mitral valve is grossly normal, there is mild mitral regurgitation. Tricuspid Valve Tricuspid valve is grossly normal, there is mild tricuspid regurgitation, tricuspid regurgitation jet velocity is inadequate for calculation of the right ventricular systolic pressure. Pulmonic Valve Pulmonic valve is poorly visualized. Great Vessels Aortic root is normal size. Pericardium No significant pericardial effusion noted. Conclusion 1. Biatrial enlargement, normal left ventricular size, mild concentric left ventricular hypertrophy, visually estimated ejection fraction 55% with no regional wall motion abnormality, grade 1 diastolic dysfunction seen without tissue Doppler evidence of raise left atrial pressure. 2. Mildly enlarged right ventricle with normal contractility. 3. Mild mitral and tricuspid regurgitation. 4. No significant pericardial effusion noted. Electronically signed by : Ramiro Hair, 03/20/2019 21:02:21
== END 2019-03-20 19:40 | disposition home or self-care (01) ==
LOC: 2ND 20:56 → ER 20:56 → 2ND 23:35
PROVIDERS: ADMIT Family Medicine; ATTEND Internal Medicine Adolescent Medicine
CPT/HCPCS: 36415; 71020; 71046; 71275; 72072; 80048; 80053; 80076; 82962; 83735; 84484; 85007; 85025; 87275; 87276; 93005; 93270; 93308; 93458; 96365; 96366; 96375; 99152; 99284; C1725; C1760; C1769; G0378; J1644; J2405; Q9967

== ENCOUNTER → 2019-05-03 11:05 | Outpatient (CLI) | payer OTHER, SELFPAY ==
[2019-05-03 13:33] LABS: Ferritin 357 ng/mL (8-388)
== END ==
PROVIDERS: Visit Provider Nurse Practitioner Family
DX: G25.81 Restless legs syndrome (principal); G47.33 Obstructive sleep apnea (adult) (pediatric)
CPT/HCPCS: 36415; 82728

== ENCOUNTER → 2019-08-31 10:32 | Outpatient (CLI) | payer OTHER, SELFPAY ==
[2019-08-31 11:49] LABS: Coronavirus 19 IgG Antibody Negative (Negative); Coronavirus 19 IgM Antibody Negative (Negative)
== END ==
PROVIDERS: Visit Provider Internal Medicine Gastroenterology
DX: Z01.818 Encounter for other preprocedural examination (principal)
CPT/HCPCS: 36415; 86328

== ENCOUNTER 2019-09-01 08:22 | Day surgery (SDC) | payer OTHER, SELFPAY ==
[2019-08-29 15:26] VITALS: BMI 35.6
--- NOTE | 2019-08-30 09:17 | SUR.PREOP ---
08/30/2019 @ 0917--PHONE CALL MADE TO PATIENT. PATIENT UNDERSTANDS THAT LAB WORK AND COVID TESTING NEEDS TO BE COMPLETED @ 10 ON 08/31/2019. PATIENT UNDERSTANDS IF LAB WORK AND COVID-19 TESTS ARE NOT COMPLETED BY 12PM ON THAT DATE, THE SURGERY SCHEDULED WILL BE CANCELLED AND RESCHEDULED FOR ANOTHER TIME.
[2019-09-01] VITALS (7 sets, daily range): BP systolic 83–131; BP diastolic 55–79; PULSE 64–85; RESP 15–18; TEMP 36.2–36.5; O2SAT 89–99
[2019-09-01 08:57] LABS: POC Glucose,Bedside 93 (70-110)
[2019-09-01 09:45] LABS: POC Glucose,Bedside 100 (70-110)
--- NOTE | 2019-09-01 10:26 | [facility].PROC ---
[facility] Procedure Note Procedure Note:: Colonoscopy Procedure Report: Colonoscopy with cold snare polypectomy Endoscopist: Shay Mckenzie II, MD Referring physician: Jonathan Davidson MD Date of Procedure: September 01, 2019 Equipment: Olympus 180 variable stiffness pediatric colonoscope Sedation: MAC sedation Indication: Mr. Barker is a 44-year-old gentleman who has noted a change in his bowel habits over the last 6 to 8 months. He reports flat, ribbonlike stools. He does get some intermittent rectal pain. He does report incomplete defecation/incomplete bowel evacuation with excessive wiping. He does state that his mother had several adenomatous (precancerous) colon polyps removed. He reports no abdominal pain, weight loss or rectal bleeding. He does take Metamucil regularly. He did have an EGD with me in March 2019 because of dysphagia and this did show grade B reflux esophagitis and a distal esophageal ring that was dilated. He has done well with this. Colonoscopy is performed for diagnostic purposes. Procedure: Prior to the procedure, a history and physical exam was performed, and patient's medications and allergies were reviewed. The risks, benefits and alternatives of the sedation and procedure were discussed with the patient. All questions were answered and informed consent was obtained. The patient was brought to the procedure room. Patient identification and proposed procedure were verified by the physician and the nurse. The patient was placed in a left lateral decubitus position and the scope was passed under direct vision. Throughout the procedure, the patient's blood pressure, pulse, and oxygen saturations were monitored continuously. The colonoscopy was accomplished without difficulty. The patient tolerated the procedure well. Findings: On digital rectal examination there was normal rectal tone. There were no external hemorrhoids. The colonoscope was introduced through the anal canal to the rectum and advanced to the cecum. The ileocecal valve and appendiceal orifice were identified. The scope was advanced a short distance into the ileum which appeared grossly normal. The scope was then withdrawn into the colon. The cecum, ascending and transverse colon and mucosa were grossly normal. There were scattered diverticuli throughout the descending and sigmoid colon (LEFT colon). There was a 11 mm pedunculated sigmoid colon polyp that was removed via cold snare polypectomy. An Endo Clip was placed over the polypectomy site. The scope was withdrawn further and the rectum itself was normal. Upon retroflexion within the rectum there were grade 1 internal hemorrhoids. The preparation was excellent throughout with [place] Preparation Score of 9. The cecal time was 11 minutes. Impression: 1. Sigmoid colon polyp (11 mm) 2. Left-sided diverticulosis 3. Grade 1 internal hemorrhoids Plan: I will follow-up the polyp histology and recommend repeat screening/surveillance colonoscopy in 3 to 5 years based upon the size and pathology. The patient does have some obstipation related symptoms. I would encourage improved bulk fiber supplementation with Konsyl (more soluble fiber than Metamucil) daily.
[2019-09-01 10:38] LABS: POC Glucose,Bedside 137 (70-110)
== END 2019-09-01 11:20 | disposition home or self-care (01) ==
LOC: OUTP 08:24
PROVIDERS: PCP Internal Medicine Adolescent Medicine; Visit Provider Internal Medicine Gastroenterology
PROC: 0DJD8ZZ Inspection of Lower Intestinal Tract, Via Natural or Artificial Opening Endoscopic (ICD-10-PCS; CPT 45378; principal; 2019-09-01 09:30)
DX: Z83.71 Family history of colonic polyps; K63.5 Polyp of colon; K57.30 Diverticulosis of large intestine without perforation or abscess without bleeding; K64.0 First degree hemorrhoids
CPT/HCPCS: 45385; 82962

== ENCOUNTER → 2019-09-18 16:15 | Outpatient (CLI) | payer OTHER, SELFPAY ==
--- NOTE | 2019-09-18 | CT_ITS ---
PROCEDURE: CT ABDOMEN PELVIS WO CON CLINICAL INDICATION: DYSURIA Right flank pain with hematuria COMPARISON: No exams were available for comparison TECHNIQUE: Axial images obtained with sagittal and coronal reformats. All CT scans at the facility use one or more dose reduction, viz: automated exposure control, ma/kV adjustment per patient size (including targeted exams where dose is matched to indication, i.e. head), or iterative reconstruction technique. FINDINGS: LOWER THORAX: There is minimal thickening of the pericardium anteriorly and inferiorly. ABDOMEN & PELVIS: The liver has an unremarkable appearance. Small hyperdensity is noted along the posterior aspect of the gallbladder suspicious for small gallstones which may be confirmed with ultrasound. The spleen is mildly enlarged at 15 cm. Unremarkable appearing adrenal glands. There is a faint questionable calcification in the head of the pancreas image 47 series 4. This however is questionable and may be artifact. The right kidney has an unremarkable appearance. There is a 3 mm nonobstructing stone in the upper pole of the left kidney. No ureteral calculi are apparent. The urinary bladder has an unremarkable appearance. No intestinal obstruction or free air. There is a hyperdensity within the appendix suggesting a small appendicoliths. There is no evidence of appendicitis. Scattered colonic diverticula are present in the sigmoid colon. No evidence of diverticulitis. Degenerative changes are present in the lower thoracic and upper lumbar spine with mild degenerative changes of the hips. IMPRESSION: 1. Suspect cholelithiasis which may be confirmed with ultrasound. 2. Mild splenomegaly. 3. Non-obstructing left nephrolithiasis. No ureteral calculi or hydronephrosis. Dictated by: Osman Shepard MD 09/18/2019 17:02 Electronically signed by Osman Shepard MD in [place] 09/18/2019 17:02
== END ==
LOC: RAD 16:21
PROVIDERS: PCP Internal Medicine Adolescent Medicine; Visit Provider Internal Medicine Adolescent Medicine
DX: R30.0 Dysuria (principal)
CPT/HCPCS: 74176

== ENCOUNTER → 2019-09-19 12:47 | Outpatient (CLI) | payer OTHER, SELFPAY ==
[2019-09-19 13:13] LABS: Basophils # 0.1 K/mm3 (0-0.2); Basophils % 0.7 % (0.1-2.0); Eosinophils # 0.3 K/mm3 (0.0-0.4); Eosinophils % 2.9 % (0.1-12.0); Hematocrit 45.1 % (42.0-52.0); Hemoglobin 15.2 g/dL (14.1-18.0); Lymphocytes # 1.7 K/mm3 (0.7-4.5); Lymphocytes % 18.6 % (10-50); Mean Corpuscular HGB Conc 33.6 g/dL (31.8-35.4); Mean Corpuscular Hemoglobin 27.5 pg (27.0-31.2); Mean Corpuscular Volume 81.8 fl (80-94); Monocytes # 0.5 K/mm3 (0.1-1.0); Neutrophils # 6.8 K/mm3 (1.8-7.8); Neutrophils % 72.8 % (37.0-80.0); Platelet Count 226 K/mm3 (142-424); Red Blood Count 5.51 M/mm3 (4.60-6.20); Red Cell Distribution Width 13.7 % (11.5-17.5); White Blood Count 9.3 K/mm3 (4.8-10.8)
[2019-09-19 13:21] LABS: Alanine Aminotransferase 29 U/L (12-78); Albumin Level 4.8 g/dl (3.5-5.0); Albumin/Globulin Ratio 1.5 (1.1-1.8); Alkaline Phosphatase 94 U/L (38-126); Anion Gap 16.8 mEq/L (5-15); Aspartate Amino Transferase 34 U/L (17-59); Bilirubin,Total 0.6 mg/dl (0.2-1.3); Blood Urea Nitrogen 27 mg/dl (9-20); Carbon Dioxide 25 mmol/L (22.0-30.0); Chloride 96 mmol/L (98-107); Estimated Glomerular Filt Rate 123 ml/min (>60); GFR (African American) 149 ML/MIN (>60); Globulin 3.1 g/dL (1.3-3.2); Glucose 210 mg/dl (74-100); Potassium 3.8 mmoL/L (3.5-5.1); Sodium 134 mmol/L (136-145); Total Protein,Serum 7.9 g/dl (6.3-8.2)
== END ==
PROVIDERS: Visit Provider Internal Medicine Adolescent Medicine
DX: R30.0 Dysuria (principal)
CPT/HCPCS: 36415; 80053; 85025

== ENCOUNTER → 2019-10-04 08:46 | Outpatient (CLI) | payer OTHER, SELFPAY ==
[2019-10-04 10:55] LABS: Coronavirus 19 IgG Antibody Negative (Negative); Coronavirus 19 IgM Antibody Negative (Negative)
== END ==
PROVIDERS: Visit Provider Surgery
DX: Z01.818 Encounter for other preprocedural examination (principal)
CPT/HCPCS: 36415; 86328

== ENCOUNTER 2019-10-06 07:39 | Day surgery (SDC) | payer OTHER, SELFPAY ==
[2019-10-05 08:23] VITALS: BMI 36.3
[2019-10-06] VITALS (13 sets, daily range): BP systolic 120–139; BP diastolic 67–85; PULSE 77–96; RESP 12–20; TEMP 36.2–43; O2SAT 93–99
[2019-10-06 08:09] LABS: POC Glucose,Bedside 173 (70-110)
--- NOTE | 2019-10-06 08:14 | HMH.ANESCL ---
[facility] Anesthesia Checklist - Patient Identification Patient Identification: Arm Band, Verbal (Name & ) - Structural Data Admitted From: Home Planned Operative Procedure/s: lap choly Consent for Planned Operative Procedure(s) Verified: Yes Verified Documents: History and Physical - NPO Status Verified Time NPO: 00:00 - Chart Verification Results Verified: CBC, BMP - Additional verifications Patient : No Anesthesia Reactions: No Hx Blood Transfusions: No Blood Transfusion Reaction: No Cephalosporin Allergy: No Previous Colonoscopy: Yes - Cardiovascular Assessment Heart Sounds: S1 & S2 Pulse Strength: Baseline Pulse Rhythm: Regular Peripheral Edema: No - Airway Assessment C-Spine Mobility Assessed: Yes TMJ Mobility Assessed: Yes Dentition: Good Dentition - Neurological Assessment Level of Consciousness: Awake, Alert, Appropriate Hx Seizures: No Numbness or tingling in extremities: No - Anesthesia Plan Anesthesia Risk discussed: Yes Anesthesia Plan: Verified ASA Class: III Anesthesia Type: General [facility] History I have reviewed the patient's past medical history: Yes Medical History: Reports:: Arrhythmia, Coronary Artery Disease, Diabetes Mellitus Type 1, Gastroesophageal Reflux Disease(GERD), Hypertension, Kidney Stones, Migraine, Palpitations Denies:: Cancer, Diabetes Mellitus Type 2, Internal Pacemaker, MRSA, Seizures *Have you ever received a pneumonia vaccine?: No *Have you received a flu vaccine this season?: No Other Medical History: Denies: Blood Transfusion Reaction Anesthesia experience/problems:: none Laterality Cases: Bilateral: Myringotomy (Ear Tubes) Other Surgeries: Yes: Cardiac Catheterization, Colonoscopy, Coronary Stent, EGD, Sinus Surgery, Other. No: Pacemaker Amputation: No Fractures: No - *Social History Smoking Status: Never smoker Alcohol Intake: current Alcohol Intake Frequency:: a few times a month Substance Use Type: denies use *Occupational Status:: employed Housing: house Household Members: spouse, family *Travel in the last 8 weeks: None Family Hx:: No significant family history
--- NOTE | 2019-10-06 09:48 | P.OP_ITS ---
Date of procedure: 10/06/19 Pre-op Diagnosis:: Chronic calculus cholecystitis Post-op Diagnosis:: Same Procedure performed:: Laparoscopic cholecystectomy Surgeon:: Braydon Berrios MD TECHNICAL APPLICATIONS SPECIALIST:: Rashard Espinoza Anesthesia: GETA Estimated blood loss (mL): 15 Operative findings:: Gallbladder distention Severe pericholecystic fat stranding Infundibular thickening Operative note:: After informed consent was obtained, the patient was taken to the operating room and placed in the supine position. General anesthesia was induced and the abdomen was prepped and draped in a sterile fashion. After infiltration with local anesthetic an infraumbilical incision was made. A Veress needle was placed in position. The abdomen was insufflated. A 5 mm optical trocar was placed in position. Under direct visualization, a 12 mm trocar was placed in the subxiphoid position and 2 additional 5 mm trocars were placed in the right upper quadrant. The gallbladder was elevated up and over the liver margin. The tissue around the cystic duct was carefully dissected. 3 clips were placed proximally and the duct was transected with harmonic dell. Harmonic dell were then utilized to dissect the gallbladder away from the liver margin with careful attention to the control of the cystic artery. The gallbladder was placed in a retrieval bag and removed through the subxiphoid trocar site. The right upper quadrant was thoroughly irrigated. No active bleeding or bile leak was noted. Fascia at the subxiphoid trocar site was reapproximated utilizing the NeoClose device. The remaining trocars were removed. All wounds were irrigated and skin was closed with 4-0 Monocryl in a subcuticular fashion. Steri-Strips were applied. The patient's anesthetic agents were reversed and extubation was completed prior to transfer to recovery in stable condition. Condition: stable Disposition: PACU Specimens:: Gallbladder Complications:: No immediate
--- NOTE | 2019-10-06 10:01 | HMH.ANESI ---
[facility] Anesthesia Record Part I Intake, IV Amount: 2,000 Estimated blood loss (mL): 0 Urine output (mL): 0 Blood Pressure: 122/79 SaO2: 97 Pulse Rate: 81 Respiratory Rate: 12 Temperature: 98 F Patient is:: Awake, Stable Stable to PACU at:: 09:55
--- NOTE | 2019-10-06 10:48 | ECG_ITS ---
APPROVED REPORT Exam: Resting ECG HR:84 bpm ECG Measurements Heart Rate 84 AXES DC 132 P 24 QRSd 86 QRS 26 QT 358 T 41 QTc 423 <Conclusion> Normal sinus rhythm Low voltage QRS Borderline ECG Electronically signed by : Yunior Porras, 10/09/2019 17:14:30
[2019-10-06 11:12] LABS: POC Glucose,Bedside 187 (70-110)
--- NOTE | 2019-10-06 12:39 | SUR.PHASEI ---
1017- Pt c/o pain in left chest radiating into shoulder. anesthesia notified. order to medicate per Psacu orders. 2 mg Morphine Sulfate given IV. 1023- Pt c/o slight nausea. Zofran given IV per PACU order 1025- Pt states pain continuing. #4 on number scale. mediated per PACU order Morphine 2mg IV given 1030- Pt states pain continues. Morphine 2mg given IV. 1035- Pt states pain into left chest/shoulder and shoulder blades increased to #5 on number pain scale (1-10). Mediacted per PACU order with Toradol 30mg IM left buttock. Anethesia notified. Order for stat EKG. 1045- EKG done. Casi notified- cleared per EKG. 1050- Demerol 25mg given IV for increased pain/shivering. 1055- Pt given sips of ice water, tolerating well. c/o mild nausea 1103- Dr Porras beeped- quality control engineer for Stuart 1110- talking with Dr Porras notified of vitals/pain/ pt condition. Vern ordered for pt to be transferred from PACU to ER for further workup. 1115- Talked with Charisse Colon for pt to be transfered to ER from PACU. 1120- pt taken to ER via stretcher connected to vitals montior, cardiac technologist and O2 at 2l via nasal cannula. Handoff report given in ER bay 1 to July Higinio YAN.
--- NOTE | 2019-10-06 13:46 | HMH.ANESII ---
[facility] Anesthesia Record Part II Discharge Time: 11:20 Destination: Emergency Room PACU nurse assessment reviewed?: Yes Patient Condition:: Good Anesthesia Complications:: None Swallowing reflex intact?: Yes Cyanosis?: No Blood Pressure: 128/82 Pulse Rate: 90 Temperature: 97.1 F Mental Status: Alert & Oriented Pain level:: 5 Nausea and/or vomitting:: None Intake, IV Amount: 0 Comments:: Pt discharged to ER d/t persistent chest pain. Dr. Porras notified by RN and ordered to get workup through ER
== END 2019-10-06 11:20 | disposition other institution (70) ==
LOC: OR 07:40
PROVIDERS: PCP Internal Medicine Adolescent Medicine; Visit Provider Surgery
PROC: 0FT44ZZ Resection of Gallbladder, Percutaneous Endoscopic Approach (ICD-10-PCS; CPT 47562; principal; 2019-10-06 09:15)
DX: K80.10 Calculus of gallbladder with chronic cholecystitis without obstruction (principal); Z79.82 Long term (current) use of aspirin; Z79.4 Long term (current) use of insulin; Z79.899 Other long term (current) drug therapy; Z87.442 Personal history of urinary calculi; E10.9 Type 1 diabetes mellitus without complications; K21.9 Gastro-esophageal reflux disease without esophagitis; Z96.22 Myringotomy tube(s) status; I10 Essential (primary) hypertension; E78.5 Hyperlipidemia, unspecified
CPT/HCPCS: 47562; 82962; 93005; 96374; J2405; J2710

== ENCOUNTER 2019-10-06 11:35 | Observation (INO) | payer OTHER, SELFPAY ==
[2019-10-06] VITALS (12 sets, daily range): BP systolic 104–135; BP diastolic 54–77; PULSE 78–106; RESP 16–20; TEMP 36.6–36.8; O2SAT 95–99; BMI 36.3
--- NOTE | 2019-10-06 11:34 | ECG_ITS ---
APPROVED REPORT Exam: Resting ECG HR:88 bpm ECG Measurements Heart Rate 88 AXES OK 124 P 3 QRSd 88 QRS 14 QT 358 T 19 QTc 433 <Conclusion> Normal sinus rhythm Low voltage QRS Borderline ECG Electronically signed by : Yunior Porras, 10/09/2019 17:14:05
--- NOTE | 2019-10-06 11:35 | XR_ITS ---
PROCEDURE: XR CHEST PORTABLE CLINICAL HISTORY: Chest Pain Ever since gallbladder surgery today COMPARISON: XR CHEST 2V from 03/18/2019 CT ANGIO CHEST from 03/19/2019 FINDINGS: The cardiomediastinal silhouette and pulmonary vascularity are within normal limits. The lungs are clear without infiltrates, suspicious nodules, or pleural effusions. There is a small amount of free air seen beneath right hemidiaphragm consistent with the recent surgery. No acute bony abnormalities. IMPRESSION: Small amount of subdiaphragmatic free air otherwise unremarkable portable upright chest Dictated by: Dr. Michael Saldaña MD 10/06/2019 12:[address] Michael Saldaña MD in [place] 10/06/2019 12:42
--- NOTE | 2019-10-06 11:40 | HMH.EDGENADL ---
ED Disposition Clinical Impression: Chest pain Qualifiers: Chest pain type: precordial pain Qualified Code(s): R07.2 - Precordial pain Disposition: Admitted as Observation Condition on Discharge: Fair - Critical Care Critical Care Time: No Attestation: On , the high probability of a clinically significant, sudden or life threatening deterioration of the following system(s) required my full and direct attention, intervention and personal management. The time I documented below is in addition to time spent performing reported procedures but includes the following listed in this critical care notation. Medical Decision Making - Angel Inquiry Pt receiving controlled substance: Yes Angel was queried for this patient: No Reason not queried -: Emergent pt cond-no time Risks and benefits of using a controlled substance: were not discussed with pt by me Vital Signs: 10/06/19 11:35 10/06/19 12:09 10/06/19 12:41 Temperature 98.2 F Temperature Source Oral Pulse Rate Pulse Rate [Right Brachial] 88 87 89 Respiratory Rate 16 16 Blood Pressure Blood Pressure [Right Arm] 118/71 121/73 114/65 Blood Pressure Mean [Right Arm] 86 89 81 Blood Pressure Source Blood Pressure Source [Right Arm] Automatic Cuff Automatic Cuff Automatic Cuff Blood Pressure Position Blood Pressure Position [Right Arm] Sitting Sitting Sitting 02 Sat by Pulse Oximetry 99 99 95 Oxygen Delivery Method Room Air Room Air Room Air Oxygen Flow Rate (LPM) 10/06/19 13:06 10/06/19 13:35 10/06/19 14:51 Temperature Temperature Source Pulse Rate Pulse Rate [Right Brachial] 86 87 106 H Respiratory Rate 16 Blood Pressure Blood Pressure [Right Arm] 105/61 L 104/54 L 111/62 Blood Pressure Mean [Right Arm] 75 70 78 Blood Pressure Source Blood Pressure Source [Right Arm] Automatic Cuff Automatic Cuff Automatic Cuff Blood Pressure Position Blood Pressure Position [Right Arm] Sitting Sitting Sitting 02 Sat by Pulse Oximetry 97 97 98 Oxygen Delivery Method Nasal Cannula Nasal Cannula Room Air Oxygen Flow Rate (LPM) 2 2 10/06/19 15:23 10/06/19 16:28 10/06/19 16:35 Temperature 98.2 F Temperature Source Oral Pulse Rate 78 Pulse Rate [Right Brachial] 97 H 95 H Respiratory Rate 16 Blood Pressure 112/69 Blood Pressure [Right Arm] 116/72 112/69 Blood Pressure Mean [Right Arm] 86 83 Blood Pressure Source Automatic Cuff Blood Pressure Source [Right Arm] Automatic Cuff Automatic Cuff Blood Pressure Position Sitting Blood Pressure Position [Right Arm] Sitting Sitting 02 Sat by Pulse Oximetry 96 99 Oxygen Delivery Method Room Air Room Air Oxygen Flow Rate (LPM) - Lab Data Lab Results 10/06/19 11:51: WBC 11.6 H, RBC 5.10, Hgb 14.2, Hct 41.4 L, MCV 81.1, MCH 27.7, MCHC 34.2, RDW 13.9, Plt Count 216, MPV 8.2, Neut % (Auto) 86.3 H, Lymph % (Auto) 8.5 L, [place] % (Auto) 3.8, Eos % (Auto) 1.1, Baso % (Auto) 0.3, Neut # (Auto) 10.0 H, Lymph # (Auto) 1.0, [place] # (Auto) 0.4, Eos # (Auto) 0.1, Baso # (Auto) 0.0, Total Counted 100, Neutrophils % (Manual) 88 H, Lymphocytes % (Manual) 6 L, Monocytes % (Manual) 4, Eosinophils % (Manual) 2, Platelet Estimate Normal, RBC Morphology Normal 10/06/19 11:51: Sodium 132 L, Potassium 4.2, Chloride 101, Carbon Dioxide 21 L, Anion Gap 14.2, BUN 19, Creatinine 0.80, Estimated Creat Clear 210, Estimated GFR 106, Est GFR ( Amer) 128, Glucose 237 H, Calcium 9.1, Troponin I < 0.01 10/06/19 11:51: Lipase 51 10/06/19 14:35: Troponin I < 0.01 Result diagrams: 10/06/19 11:51 10/06/19 11:51 Orders (Tests/Meds): ED MEDICATIONS Generic Name Dose Route Start Last Admin Trade Name Freq PRN Reason Stop Dose Admin Acetaminophen 650 mg 10/06/19 16:36 Acetaminophen 325mg Tab PO 11/05/19 16:35 Q4HP PRN As Needed for Fever or Pain Hydrocodone Bitart/Acetaminophen 1 tab 10/06/19 21:00 Omega 7.5/325mg Tablet PO 11/05/19 20:59 BID JEAN-PIERRE Aspirin 81 mg 07
--- NOTE | 2019-10-06 11:48 | PC.NURSE ---
lab at bedside
[2019-10-06 11:59] LABS: Basophils % 0.3 % (0.1-2.0); Eosinophils # 0.1 K/mm3 (0.0-0.4); Eosinophils % 1.1 % (0.1-12.0); Hematocrit 41.4 % (42.0-52.0); Hemoglobin 14.2 g/dL (14.1-18.0); Lymphocytes % 8.5 % (10-50); Mean Corpuscular HGB Conc 34.2 g/dL (31.8-35.4); Mean Corpuscular Hemoglobin 27.7 pg (27.0-31.2); Mean Corpuscular Volume 81.1 fl (80-94); Mean Platelet Volume 8.2 fl (7.4-10.4); Monocytes # 0.4 K/mm3 (0.1-1.0); Monocytes % 3.8 % (1.7-9.3); Neutrophils % 86.3 % (37.0-80.0); Platelet Count 216 K/mm3 (142-424); Red Cell Distribution Width 13.9 % (11.5-17.5); White Blood Count 11.6 K/mm3 (4.8-10.8)
[2019-10-06 12:01] LABS: MANUAL DIFFERENTIAL MANUAL DIFFERENTIAL (MANUAL DIFF)
[2019-10-06 12:03] LABS: Chloride 101 mmol/L (98-107); Potassium 4.2 mmoL/L (3.5-5.1); Sodium 132 mmol/L (136-145)
[2019-10-06 12:06] LABS: Anion Gap 14.2 mEq/L (5-15); Blood Urea Nitrogen 19 mg/dl (9-20); Carbon Dioxide 21 mmol/L (22.0-30.0); Creatinine Clearance Estimated 210 mL/min (50-200); Estimated Glomerular Filt Rate 106 ml/min (>60); GFR (African American) 128 ML/MIN (>60)
[2019-10-06 12:07] LABS: Calcium 9.1 mg/dl (8.4-10.2); Glucose 237 mg/dl (74-100)
[2019-10-06 12:19] LABS: Troponin I < 0.01 ng/ml (0.00-0.034)
[2019-10-06 12:38] LABS: Eosinophils % 2 % (0-3); Lymphocytes % 6 % (10-50); Monocytes % 4 % (2-9); Neutrophils % 88 % (42-76); Total Cells Counted 100
[2019-10-06 12:39] LABS: Platelet Estimate Normal; RBC Morphology Normal
--- NOTE | 2019-10-06 12:44 | PC.NURSE ---
Pt states he doesn't feel any better at this time but doesn't feel any worse. Pt's at bedside
[2019-10-06 13:04] LABS: Lipase 51 U/L (23-300)
--- NOTE | 2019-10-06 13:17 | PC.NURSE ---
Pt still complains of pain at this time. aware.
--- NOTE | 2019-10-06 13:27 | PC.NURSE ---
Dr. Lance paged
--- NOTE | 2019-10-06 14:24 | PC.NURSE ---
Pt states his pain is better but he still feels like he is being squeezed.
--- NOTE | 2019-10-06 14:56 | PC.NURSE ---
pt advises his pain is coming back at this time, notified
[2019-10-06 15:21] LABS: Troponin I < 0.01 ng/ml (0.00-0.034)
--- NOTE | 2019-10-06 15:23 | PC.NURSE ---
notified MD 2nd troponin was negative. No new orders at this time
--- NOTE | 2019-10-06 15:44 | PC.NURSE ---
Dr Vern paz.
--- NOTE | 2019-10-06 15:49 | PC.NURSE ---
Dr Pang speaking with Dr Porras who is electronic security technician for Dr Davidson pt's PCP
[2019-10-06 17:53] LABS: POC Glucose,Bedside 176 (70-110)
[2019-10-06 18:48] LABS: Troponin I < 0.01 ng/ml (0.00-0.034)
--- NOTE | 2019-10-06 19:08 | PC.NURSE ---
report given to valeria
[2019-10-07] VITALS: BP 109/75; PULSE 70; PULSE 73; RESP 16; TEMP 36.7; O2SAT 96
--- NOTE | 2019-10-07 03:15 | PC.NURSE ---
AT BEGINNING OF SHIFT PT. STATES THAT HIS CHEST PAIN HAS PRETTY MUCH SUBSIDED, I JUST HAVE BURNING IN MY L SHOULDER THAT HAS NOT GONE AWAY SINCE I'VE BEEN HERE . PT. C/O PAIN IN ABD; TX WITH NORCO PER JUN; EFFECTIVENESS NOTED. DSGS INTACT, UNCHANGED FROM PREVIOUS SHIFT. NSR PER SUPERVISOR MARBLE. NO C/O N/V/D, SOA OR DIZZINESS THUS FAR.
[2019-10-07 03:58] VITALS: BP 105/59; PULSE 60; RESP 16; TEMP 36.6; O2SAT 98
[2019-10-07 04:00] VITALS: PULSE 60
[2019-10-07 05:00] VITALS: BMI 36.5
[2019-10-07 06:59] LABS: Basophils % 0.5 % (0.1-2.0); Eosinophils # 0.3 K/mm3 (0.0-0.4); Eosinophils % 3.8 % (0.1-12.0); Hematocrit 40.2 % (42.0-52.0); Hemoglobin 13.4 g/dL (14.1-18.0); Lymphocytes # 1.8 K/mm3 (0.7-4.5); Lymphocytes % 26.1 % (10-50); Mean Corpuscular HGB Conc 33.5 g/dL (31.8-35.4); Mean Corpuscular Hemoglobin 28.1 pg (27.0-31.2); Mean Platelet Volume 7.6 fl (7.4-10.4); Monocytes # 0.4 K/mm3 (0.1-1.0); Monocytes % 6.5 % (1.7-9.3); Neutrophils # 4.3 K/mm3 (1.8-7.8); Neutrophils % 63.1 % (37.0-80.0); Platelet Count 178 K/mm3 (142-424); Red Blood Count 4.78 M/mm3 (4.60-6.20); White Blood Count 6.8 K/mm3 (4.8-10.8)
[2019-10-07 07:04] LABS: Chloride 100 mmol/L (98-107); Potassium 3.8 mmoL/L (3.5-5.1); Sodium 134 mmol/L (136-145)
[2019-10-07 07:07] LABS: Anion Gap 7.8 mEq/L (5-15); Blood Urea Nitrogen 23 mg/dl (9-20); Calcium 8.4 mg/dl (8.4-10.2); Carbon Dioxide 30 mmol/L (22.0-30.0); Creatinine Clearance Estimated 241 mL/min (50-200); Estimated Glomerular Filt Rate 123 ml/min (>60); GFR (African American) 149 ML/MIN (>60); Glucose 190 mg/dl (74-100)
[2019-10-07 07:20] LABS: Troponin I < 0.01 ng/ml (0.00-0.034)
[2019-10-07 08:00] VITALS: BP 134/79; PULSE 60; PULSE 65; RESP 18; TEMP 36.4; O2SAT 100
--- NOTE | 2019-10-07 08:40 | HMH.HPDC ---
General - General Admission date:: 10/06/19 Discharge date: 10/07/19 *Admission Date: 10/06/19 *Chief complaint: Chest pain *History of present illness: 44-year-old white male with history of coronary disease, status post LAD stenting 1 year ago, repeat angiogram earlier this year with normal results with widely patent stent, who had uncomplicated laparoscopic cholecystectomy yesterday. In the PACU after the procedure was done he began to complain of chest pain. Multiple maneuvers were done to relieve the pain including IV narcotics, positioning and medicines for intestinal gas, but patient became extremely nervous about possible myocardial ischemia. EKG was done which was normal and unchanged from preoperative status. Patient was transferred to the emergency department, where he continued to complain of chest pain. 2 troponins were negative but given patient's history, and has extreme anxiety about his situation he was admitted overnight for rule out [place]. [facility] History I have reviewed the patient's past medical history: Yes Medical History: Reports:: Arrhythmia, Coronary Artery Disease, Diabetes Mellitus Type 1, Gastroesophageal Reflux Disease(GERD), Hyperlipidemia, Hypertension, Kidney Stones, Migraine, Palpitations, Renal Disease Denies:: Cancer, Diabetes Mellitus Type 2, Internal Pacemaker, MRSA, Seizures *Have you ever received a pneumonia vaccine?: No *Have you received a flu vaccine this season?: No Other Medical History: Denies: Blood Transfusion Reaction Laterality Cases: Bilateral: Myringotomy (Ear Tubes) Other Surgeries: Yes: Cardiac Catheterization, Cholecystectomy, Colonoscopy, Coronary Stent, EGD, Sinus Surgery, Other. No: Pacemaker Amputation: No Fractures: No - *Social History Last grade of school completed: Some college Smoking Status: Never smoker Alcohol Intake: current Alcohol Intake Frequency:: a few times a month Substance Use Type: denies use *Occupational Status:: employed Housing: house Household Members: spouse, children *Travel in the last 8 weeks: None Family Hx:: No significant family history Review of Systems - Review of Systems Review of systems:: pertinent systems reviewed and negative unless documented below Exam Vital signs and Labs for Last 24 Hours: Temp Pulse Resp BP Pulse Ox 97.6 F 65 18 134/79 100 10/07/19 08:00 10/07/19 08:00 10/07/19 08:00 10/07/19 08:00 10/07/19 08:00 Laboratory Results - last 24 hr 10/06/19 11:51: WBC 11.6 H, RBC 5.10, Hgb 14.2, Hct 41.4 L, MCV 81.1, MCH 27.7, MCHC 34.2, RDW 13.9, Plt Count 216, MPV 8.2, Neut % (Auto) 86.3 H, Lymph % (Auto) 8.5 L, [place] % (Auto) 3.8, Eos % (Auto) 1.1, Baso % (Auto) 0.3, Neut # (Auto) 10.0 H, Lymph # (Auto) 1.0, [place] # (Auto) 0.4, Eos # (Auto) 0.1, Baso # (Auto) 0.0, Total Counted 100, Neutrophils % (Manual) 88 H, Lymphocytes % (Manual) 6 L, Monocytes % (Manual) 4, Eosinophils % (Manual) 2, Platelet Estimate Normal, RBC Morphology Normal 10/06/19 11:51: Sodium 132 L, Potassium 4.2, Chloride 101, Carbon Dioxide 21 L, Anion Gap 14.2, BUN 19, Creatinine 0.80, Estimated Creat Clear 210, Estimated GFR 106, Est GFR ( Amer) 128, Glucose 237 H, Calcium 9.1, Troponin I < 0.01 10/06/19 11:51: Lipase 51 10/06/19 14:35: Troponin I < 0.01 10/06/19 17:02: POC Glucose 176 H 10/06/19 17:44: Troponin I < 0.01 10/07/19 06:36: WBC 6.8 D, RBC 4.78, Hgb 13.4 L, Hct 40.2 L, MCV 84.0, MCH 28.1, MCHC 33.5, RDW 14.0, Plt Count 178, MPV 7.6, Neut % (Auto) 63.1, Lymph % (Auto) 26.1, [place] % (Auto) 6.5, Eos % (Auto) 3.8, Baso % (Auto) 0.5, Neut # (Auto) 4.3, Lymph # (Auto) 1.8, [place] # (Auto) 0.4, Eos # (Auto) 0.3, Baso # (Auto) 0.0 10/07/19 06:36: Sodium 134 L, Potassium 3.8, Chloride 100, Carbon Dioxide 30 D, Anion Gap 7.8, BUN 23 H, Creatinine 0.70, Estimated Creat Clear 241, Estimated GFR 123, Est GFR ( Amer) 149, Glucose 190 H, Calcium 8.4, Troponin I < 0.01 I & O for Last 24 hours: Intake & Output 10/04/19 10/05/19 10/06/19
[2019-10-07 11:56] LABS: POC Glucose,Bedside 114 (70-110)
[2019-10-07 12:00] VITALS: PULSE 80
[2019-10-07 16:00] VITALS: PULSE 60
[2019-10-07 17:00] LABS: POC Glucose,Bedside 145 (70-110)
== END 2019-10-07 19:16 | disposition home or self-care (01) ==
LOC: ER 11:43 → 2ND 18:36
PROVIDERS: Admitting Provider Internal Medicine Adolescent Medicine; Emergency Provider Emergency Medicine; PCP Internal Medicine Adolescent Medicine; Visit Provider Internal Medicine Adolescent Medicine
DX: K80.10 Calculus of gallbladder with chronic cholecystitis without obstruction (principal); R07.9 Chest pain, unspecified; K21.9 Gastro-esophageal reflux disease without esophagitis; I25.10 Atherosclerotic heart disease of native coronary artery without angina pectoris; E11.9 Type 2 diabetes mellitus without complications; I10 Essential (primary) hypertension; E78.5 Hyperlipidemia, unspecified; Z79.4 Long term (current) use of insulin; Z79.82 Long term (current) use of aspirin; Z79.899 Other long term (current) drug therapy
CPT/HCPCS: 47562; 36415; 71045; 80048; 82962; 83690; 84484; 85007; 85025; 93005; 96374; 96375; 99284; G0378; J2405; J2710

== ENCOUNTER 2019-12-05 20:22 | Observation (INO) | payer OTHER, SELFPAY ==
[2019-12-05] VITALS (9 sets, daily range): BP systolic 109–183; BP diastolic 44–109; PULSE 90–108; RESP 16–18; TEMP 36.6–36.8; O2SAT 97–100; BMI 35.6; BMI 36.0
--- NOTE | 2019-12-05 20:42 | CT_ITS ---
PROCEDURE: CT ABDOMEN PELVIS WO CON CLINICAL INDICATION: right flank pain Right flank pain, history kidney stones COMPARISON: CT CT ABDOMEN PELVIS WO CON from 09/18/2019 TECHNIQUE: Axial images obtained with sagittal and coronal reformats. All CT scans at the facility use one or more dose reduction, viz: automated exposure control, ma/kV adjustment per patient size (including targeted exams where dose is matched to indication, i.e. head), or iterative reconstruction technique. FINDINGS: LOWER THORAX: No acute finding. There is some nonspecific pleural thickening in the left lung base posterior medially. This is unchanged. ABDOMEN & PELVIS: There is diffuse fatty liver. There has been a prior cholecystectomy. There is splenomegaly at 15 cm. The adrenal glands and pancreas have an unremarkable unenhanced appearance. There is nonobstructing 4 mm stone in the upper pole of the left kidney. No ureteral calculi. No hydronephrosis. The appendix is mildly thickened with an appendicoliths. The appendix measures 2 11 mm in with. There is an appendicoliths present. There is no stranding of the periappendiceal fat. There is colonic diverticulosis but no evidence of diverticulitis. Degenerative changes are present in the lower thoracic and upper lumbar spine. IMPRESSION: 1. Prominent appendix measuring up to 11 mm with mild thickening of the wall with an appendicoliths present. Please correlate with clinical findings as to the possibility of mild appendicitis. Follow-up study with IV and oral contrast in 12-24 hours hours may provide further evaluation if clinical findings are indeterminate. 2. Nonobstructing left nephrolithiasis. 3. Colonic diverticulosis without diverticulitis. Dictated by: Osman Shepard MD 12/06/2019 10:14 Osman Shepard MD in [place] 12/06/2019 10:14
--- NOTE | 2019-12-05 20:48 | HMH.EDGENADL ---
ED Disposition Clinical Impression: Appendicitis Qualifiers: Appendicitis type: acute appendicitis Acute appendicitis type: with localized peritonitis Appendicitis gangrene presence: unspecified whether gangrene present Appendicitis perforation presence: unspecified whether perforation present Appendicitis abscess presence: without abscess Qualified Code(s): K35.30 - Acute appendicitis with localized peritonitis, without perforation or gangrene Disposition: Admitted As Inpatient Condition on Discharge: [facility] - Critical Care Critical Care Time: No Attestation: On 12/05/19, the high probability of a clinically significant, sudden or life threatening deterioration of the following system(s) required my full and direct attention, intervention and personal management. The time I documented below is in addition to time spent performing reported procedures but includes the following listed in this critical care notation. Medical Decision Making - Angel Inquiry Pt receiving controlled substance: Yes (Patient receiving IV Dilaudid for pain control) Angel was queried for this patient: No Risks and benefits of using a controlled substance: were discussed with pt by me Vital Signs: 12/05/19 20:31 12/05/19 21:00 12/05/19 21:30 Temperature 98.2 F Temperature Source Oral Pulse Rate Pulse Rate [Left] 108 H 94 H 97 H Respiratory Rate 18 17 18 Blood Pressure Blood Pressure [Right Arm] 183/109 H 114/65 124/64 Blood Pressure Mean [Right Arm] 133 81 84 Blood Pressure Source [Right Arm] Automatic Cuff Automatic Cuff Automatic Cuff Blood Pressure Position [Right Arm] Sitting Supine Supine 02 Sat by Pulse Oximetry 97 99 99 Oxygen Delivery Method Room Air Room Air Room Air 12/05/19 22:00 12/05/19 22:30 12/05/19 23:00 Temperature Temperature Source Pulse Rate Pulse Rate [Left] 91 H 90 98 H Respiratory Rate 17 18 18 Blood Pressure Blood Pressure [Right Arm] 129/67 109/44 L 124/64 Blood Pressure Mean [Right Arm] 87 65 84 Blood Pressure Source [Right Arm] Automatic Cuff Automatic Cuff Automatic Cuff Blood Pressure Position [Right Arm] Supine Supine Supine 02 Sat by Pulse Oximetry 100 99 99 Oxygen Delivery Method Room Air Room Air Room Air 12/05/19 23:30 12/05/19 23:39 Temperature 98.2 F Temperature Source Pulse Rate 96 H Pulse Rate [Left] 104 H Respiratory Rate 17 16 Blood Pressure 120/66 Blood Pressure [Right Arm] 120/66 Blood Pressure Mean [Right Arm] 84 Blood Pressure Source [Right Arm] Automatic Cuff Blood Pressure Position [Right Arm] Supine 02 Sat by Pulse Oximetry 100 Oxygen Delivery Method Room Air Room Air - Lab Data Lab Results 12/05/19 20:30: Urine Color Yellow, Urine Appearance Clear, Urine pH 5.5, Ur Specific [place] 1.025, Urine Protein 1+, Urine Glucose (UA) 3+, Urine Ketones Negative, Urine Blood Trace-i, Urine Nitrate Negative, Urine Bilirubin Negative, Urine Urobilinogen 0.2, Ur Leukocyte Esterase Negative, Urine WBC 5-10, Ur Squamous Epith Cells 5-10 12/05/19 20:30: WBC 8.5, RBC 5.49, Hgb 15.4, Hct 44.7, MCV 81.3, MCH 28.1, MCHC 34.5, RDW 14.1, Plt Count 217, MPV 7.9, Neut % (Auto) 61.2, Lymph % (Auto) 28.4, [place] % (Auto) 6.9, Eos % (Auto) 2.7, Baso % (Auto) 0.8, Neut # (Auto) 5.2, Lymph # (Auto) 2.4, [place] # (Auto) 0.6, Eos # (Auto) 0.2, Baso # (Auto) 0.1 12/05/19 20:30: Sodium 138, Potassium 3.8, Chloride 99, Carbon Dioxide 29, Anion Gap 13.8, BUN 15, Creatinine 1.00, Estimated Creat Clear 165, Estimated GFR 82, Est GFR ( Amer) 99, Glucose 269 H, Calcium 10.0, Total Bilirubin 0.6, AST 41, ALT 39, Alkaline Phosphatase 83, Total Protein 7.9, Albumin 4.5, Globulin 3.4 H, Albumin/Globulin Ratio 1.3, Amylase 55, Lipase 43 12/05/19 20:30: SARS-CoV-2 IgG Ab (Rapid) Negative, SARS-CoV-2 IgM Ab (Rapid) Negative Result diagrams: 12/05/19 20:30 12/05/19 20:30 Orders (Tests/Meds): ED MEDICATIONS Generic Name Dose Route Start Last Admin Trade Name Freq PRN Reason Stop D
[2019-12-05 20:55] LABS: Basophils # 0.1 K/mm3 (0-0.2); Basophils % 0.8 % (0.1-2.0); Eosinophils # 0.2 K/mm3 (0.0-0.4); Eosinophils % 2.7 % (0.1-12.0); Hematocrit 44.7 % (42.0-52.0); Hemoglobin 15.4 g/dL (14.1-18.0); Lymphocytes # 2.4 K/mm3 (0.7-4.5); Lymphocytes % 28.4 % (10-50); Mean Corpuscular HGB Conc 34.5 g/dL (31.8-35.4); Mean Corpuscular Hemoglobin 28.1 pg (27.0-31.2); Mean Corpuscular Volume 81.3 fl (80-94); Mean Platelet Volume 7.9 fl (7.4-10.4); Microscopic, Urine URINE MICROSCOPIC (MICROSCOPIC); Monocytes # 0.6 K/mm3 (0.1-1.0); Monocytes % 6.9 % (1.7-9.3); Neutrophils # 5.2 K/mm3 (1.8-7.8); Neutrophils % 61.2 % (37.0-80.0); Platelet Count 217 K/mm3 (142-424); Red Blood Count 5.49 M/mm3 (4.60-6.20); Red Cell Distribution Width 14.1 % (11.5-17.5); White Blood Count 8.5 K/mm3 (4.8-10.8)
[2019-12-05 20:58] LABS: Chloride 99 mmol/L (98-107); Sodium 138 mmol/L (136-145)
[2019-12-05 20:59] LABS: Potassium 3.8 mmoL/L (3.5-5.1)
[2019-12-05 21:01] LABS: Alanine Aminotransferase 39 U/L (12-78); Albumin Level 4.5 g/dl (3.5-5.0); Albumin/Globulin Ratio 1.3 (1.1-1.8); Alkaline Phosphatase 83 U/L (38-126); Amylase 55 U/L (30-110); Anion Gap 13.8 mEq/L (5-15); Aspartate Amino Transferase 41 U/L (17-59); Bilirubin,Total 0.6 mg/dl (0.2-1.3); Blood Urea Nitrogen 15 mg/dl (9-20); Carbon Dioxide 29 mmol/L (22.0-30.0); Creatinine Clearance Estimated 165 mL/min (50-200); Estimated Glomerular Filt Rate 82 ml/min (>60); GFR (African American) 99 ML/MIN (>60); Globulin 3.4 g/dL (1.3-3.2); Glucose 269 mg/dl (74-100); Lipase 43 U/L (23-300); Total Protein,Serum 7.9 g/dl (6.3-8.2)
[2019-12-05 21:16] LABS: Appearance,Urine CLEAR (Clear); Bilirubin,Urine Negative (Negative); Blood, Urine TRACE-I (Negative); Color,Urine YELLOW (Yellow); Glucose,Urine (UA) 3+ (Negative); Ketones,Urine Negative (Negative); Leukocyte Esterase,Urine Negative (Negative); Nitrate,Urine Negative (Negative); PH,Urine 5.5 (5.0-8.5); Protein,Urine 1+ (Negative); Specific Gravity, Urine 1.025 (1.005-1.030); Urobilinogen,Urine 0.2 EU/dl (0.2)
--- NOTE | 2019-12-05 23:10 | PC.NURSE ---
Speaking with Surgeon nurse practitioner adult
--- NOTE | 2019-12-05 23:13 | PC.NURSE ---
speaking with Dr Vallejo for admission
[2019-12-05 23:20] LABS: Coronavirus 19 IgG Antibody Negative (Negative); Coronavirus 19 IgM Antibody Negative (Negative)
--- NOTE | 2019-12-05 23:33 | PC.ADMIT ---
[email or web address] Admission Note: The patient,Eren Barker,44 y/o, was given written information regarding hospital policies, unit procedures and contact persons. Patient's smoking status: Never smoker. Vital Signs - 8 hr 12/05/19 20:31 12/05/19 21:00 12/05/19 21:30 Temperature 98.2 F Pulse Rate [Left] 108 H 94 H 97 H Respiratory Rate 18 17 18 Blood Pressure [Right Arm] 183/109 H 114/65 124/64 02 Sat by Pulse Oximetry 97 99 99
--- NOTE | 2019-12-05 23:53 | PC.NURSE ---
patient up to floor via wheelchair.
[2019-12-06] VITALS (19 sets, daily range): BP systolic 105–162; BP diastolic 57–96; PULSE 69–99; RESP 14–24; TEMP 36.3–43; O2SAT 88–100; BMI 36.1; BMI 36.2
--- NOTE | 2019-12-06 00:29 | PC.NURSE ---
Pt glucometer reading 225. Self medicated from insulin pump with 3.8 units.
[2019-12-06 00:38] LABS: POC Glucose,Bedside 225 (70-110)
--- NOTE | 2019-12-06 04:26 | PC.NURSE ---
Pt admitted this shift. Denies shortness of breath. Continues to c/o right flank/back pain. Pt has insulin pump in place. Pt used insulin pump to medicate his glucometer reading of 225 at midnight. No c/o of nausea noted.
--- NOTE | 2019-12-06 06:48 | HMH.GSHP ---
HPI HPI: Patient is a pleasant 44-year-old male with history of type 1 diabetes mellitus and history of kidney stones. A couple of months ago he had been having right flank and back pain and was concerned he may have a kidney stone however work-up revealed gallstones. He underwent laparoscopic cholecystectomy by Dr. Berrios. Patient states that he had done well postoperatively from that but then over the past 3 or 4 days had recurrent progressive right posterior flank pain and was concerned he may have another kidney stone. He presented to the emergency department late yesterday evening and underwent work-up including CT scan which revealed findings of 13 mm appendix with appendicolith. Surgery was contacted and plan was made for admission for possible progressive acute appendicitis. [facility] History I have reviewed the patient's past medical history: Yes Medical History: Reports:: Arrhythmia, Coronary Artery Disease, Diabetes Mellitus Type 1, Gastroesophageal Reflux Disease(GERD), Hyperlipidemia, Hypertension, Kidney Stones, Migraine, Palpitations, Renal Disease Denies:: Cancer, Diabetes Mellitus Type 2, Internal Pacemaker, MRSA, Seizures *Have you ever received a pneumonia vaccine?: No *Have you received a flu vaccine this season?: No Other Medical History: Reports: Thyroid Disease (goiters). Denies: Blood Transfusion Reaction Laterality Cases: Bilateral: Myringotomy (Ear Tubes) Other Surgeries: Yes: Cardiac Catheterization, Cholecystectomy, Colonoscopy, Coronary Stent, EGD, Sinus Surgery, Other (BPH laser). No: Pacemaker Amputation: No Fractures: No - *Social History Smoking Status: Never smoker Alcohol Intake: never Alcohol Intake Frequency:: a few times a month Substance Use Type: denies use *Occupational Status:: employed Housing: house Household Members: spouse, children *Travel in the last 8 weeks: None Family Hx:: No significant family history Review of Systems - Review of Systems Review of systems:: pertinent systems reviewed and negative unless documented below Meds Home Medications Medication Instructions Recorded Confirmed Type aspirin 81 mg tablet,delayed 81 mg PO HS 12/13/18 12/06/19 History release gabapentin 800 mg tablet 800 mg PO HS 12/13/18 12/06/19 History metoprolol succinate 50 mg 50 mg PO HS 12/13/18 12/06/19 History tablet,extended release 24 hr tizanidine 4 mg tablet 4 mg PO BIDP PRN 12/13/18 12/06/19 History lisinopriL [Lisinopril 20mg Tab] 10 mg PO HS 03/07/19 12/06/19 History Hydrocodone/Acetaminophen 10 mg PO DAILY 03/19/19 12/06/19 History [Hydrocodone-Acetamin 7.5-325] Ticagrelor [Brilinta 90mg 90 mg PO BID 03/19/19 12/06/19 History Tablet] Venlafaxine HCl [Effexor Xr] 150 mg PO HS 09/01/19 12/06/19 History Allergies Allergy/AdvReac Type Severity Reaction Status Date / Time No Known Allergies Allergy Verified 12/05/19 21:58 Exam Vital signs and Labs for Last 24 Hours: Temp Pulse Resp BP Pulse Ox 97.7 F 73 18 105/57 L 96 12/06/19 04:54 12/06/19 04:54 12/06/19 04:54 12/06/19 04:54 12/06/19 04:54 Laboratory Results - last 24 hr 12/05/19 20:30: Urine Color Yellow, Urine Appearance Clear, Urine pH 5.5, Ur Specific [place] 1.025, Urine Protein 1+, Urine Glucose (UA) 3+, Urine Ketones Negative, Urine Blood Trace-i, Urine Nitrate Negative, Urine Bilirubin Negative, Urine Urobilinogen 0.2, Ur Leukocyte Esterase Negative, Urine WBC 5-10, Ur Squamous Epith Cells 5-10 12/05/19 20:30: WBC 8.5, RBC 5.49, Hgb 15.4, Hct 44.7, MCV 81.3, MCH 28.1, MCHC 34.5, RDW 14.1, Plt Count 217, MPV 7.9, Neut % (Auto) 61.2, Lymph % (Auto) 28.4, [place] % (Auto) 6.9, Eos % (Auto) 2.7, Baso % (Auto) 0.8, Neut # (Auto) 5.2, Lymph # (Auto) 2.4, [place] # (Auto) 0.6, Eos # (Auto) 0.2, Baso # (Auto) 0.1 12/05/19 20:30: Sodium 138, Potassium 3.8, Chloride 99, Carbon Dioxide 29, Anion Gap 13.8, BUN 15, Creatinine 1.00, Estimated Creat Clear 165, Estimated GFR 82, Est GFR ( Amer) 99, Glucose
[2019-12-06 07:55] LABS: POC Glucose,Bedside 133 (70-110)
--- NOTE | 2019-12-06 08:11 | P.CONPHA_ITS ---
[facility] Pharmacy VTE Monitoring - Patient Demographics Admission date: 12/06/19 Report Date: 12/06/19 Time: 08:11 Allergies/Adverse Reactions: Patient Allergies No Known Allergies Allergy (Verified 12/05/19 21:58) Height: 1.85 m Weight: 123.921 kg Patient Problems: Current Active Problems Appendicitis (Acute) - VTE Risk Labs: VTE Related Lab Results Hgb 15.4 g/dL (14.1-18.0) 12/05/19 20:30 Hct 44.7 % (42.0-52.0) 12/05/19 20:30 Plt Count 217 K/mm3 (142-424) 12/05/19 20:30 BUN 15 mg/dl (9-20) 12/05/19 20:30 Creatinine 1.00 mg/dl (0.66-1.25) 12/05/19 20:30 Estimated Creat Clear 165 mL/min (50-200) 12/05/19 20:30 Was VTE Risk Assessment Performed: Yes VTE Score: 1 VTE Risk Level: Very Low Risk Clinical Trial Participant: No - Prophylaxis VTE Prophylaxis Ordered?: Yes Types of VTE Prophylaxis: TEDS Knee High
--- NOTE | 2019-12-06 08:13 | HMH.ANESCL ---
[facility] Anesthesia Checklist - Patient Identification Patient Identification: Arm Band, Verbal (Name & ) - Structural Data Admitted From: Inpatient Planned Operative Procedure/s: lap appy Consent for Planned Operative Procedure(s) Verified: Yes Verified Documents: History and Physical - NPO Status Verified Time NPO: 00:00 - Additional verifications Patient : No Anesthesia Reactions: No Hx Blood Transfusions: No Blood Transfusion Reaction: No Cephalosporin Allergy: No Previous Colonoscopy: Yes - Cardiovascular Assessment Heart Sounds: S1 & S2 Pulse Strength: Baseline Pulse Rhythm: Regular Peripheral Edema: No - Airway Assessment C-Spine Mobility Assessed: Yes TMJ Mobility Assessed: Yes Dentition: Good Dentition - Neurological Assessment Level of Consciousness: Awake, Alert, Appropriate Hx Seizures: No Numbness or tingling in extremities: No - Anesthesia Plan Anesthesia Risk discussed: Yes Anesthesia Plan: Verified ASA Class: III Anesthesia Type: General [facility] History I have reviewed the patient's past medical history: Yes Medical History: Reports:: Arrhythmia, Coronary Artery Disease, Diabetes Mellitus Type 1, Gastroesophageal Reflux Disease(GERD), Hyperlipidemia, Hypertension, Kidney Stones, Migraine, Palpitations, Renal Disease Denies:: Cancer, Diabetes Mellitus Type 2, Internal Pacemaker, MRSA, Seizures *Have you ever received a pneumonia vaccine?: No *Have you received a flu vaccine this season?: No Other Medical History: Reports: Thyroid Disease (goiters). Denies: Blood Transfusion Reaction Anesthesia experience/problems:: none Laterality Cases: Bilateral: Myringotomy (Ear Tubes) Other Surgeries: Yes: Cardiac Catheterization, Cholecystectomy, Colonoscopy, Coronary Stent, EGD, Sinus Surgery, Other (BPH laser). No: Pacemaker Amputation: No Fractures: No - *Social History Smoking Status: Never smoker Alcohol Intake: never Alcohol Intake Frequency:: a few times a month Substance Use Type: denies use *Occupational Status:: employed Housing: house Household Members: spouse, children *Travel in the last 8 weeks: None Family Hx:: No significant family history
--- NOTE | 2019-12-06 08:15 | HMH.PHAINT ---
HOME MEDICATION RECONCILIATION COMPLETED USING LIST FROM HOME PHARMACY
--- NOTE | 2019-12-06 08:54 | HMH.OPNOTE ---
Date of procedure: 12/06/19 Pre-op Diagnosis:: Acute appendicitis Post-op Diagnosis:: Same with possible resolving epiploic appendagitis Procedure performed:: Laparoscopic appendectomy Surgeon:: Hamilton Calderon MD CUSTOMS MANAGER:: Yunior Haile Anesthesia: JENNIFFER Estimated blood loss (mL): 20 Clinical Note:: Patient is a pleasant 44-year-old male with history of type 1 diabetes mellitus and history of kidney stones. A couple of months ago he had been having right flank and back pain and was concerned he may have a kidney stone however work-up revealed gallstones. He underwent laparoscopic cholecystectomy by Dr. Berrios. Patient states that he had done well postoperatively from that but then over the past 3 or 4 days had recurrent progressive right posterior flank pain and was concerned he may have another kidney stone. He presented to the emergency department late yesterday evening and underwent work-up including CT scan which revealed findings of 13 mm appendix with appendicolith. Surgery was contacted and plan was made for admission for possible progressive acute appendicitis. Operative findings:: Patient had a thickened somewhat indurated appendix mostly involving the mid body without necrosis or perforation. There was a nodule consistent with scarring which was consistent with resolving epiploic appendagitis in the right lower quadrant as well. Operative note:: Patient was taken to the operating room. He was given preoperative intravenous antibiotics. In the operating room he was placed in a supine position. General anesthesia was induced via endotracheal tube. Sanchez catheter was placed. Abdomen was prepped and draped in the standard surgical fashion. Subumbilical skin incision was made and while performing abdominal wall lift Veress needle was inserted. CO2 pneumoperitoneum was achieved to 15 mmHg. 12 mm optical trocar was inserted at the umbilicus. Intraperitoneal contents were visualized. There was noted to be somewhat of a fibrotic nodule involving a pedicle of epiploic fat in the right lower quadrant. Patient was positioned in Trendelenburg left side down. 5 mm suprapubic trocar was inserted. Supraumbilical 5 mm trocar was inserted as well. 5 mm 30 degree laparoscope was inserted. Appendix was identified and grasped and retracted anteriorly. Appendix is markedly thickened and firm and indurated particularly involving the mid body of the appendix. The mesoappendix was carefully divided with IONA ultrasonic harmonic dell with care taken to coagulate the appendiceal artery and the process. Dissection was carried down to the appendiceal base which was relatively uninflamed. Appendix was divided at its base with an endoscopic JONAS linear cutting stapling device. Appendix was placed within an Endo Catch retrieval device and removed from the peritoneal cavity via the umbilical trocar site which required some extension of the fascial incision for delivery of the second enlarged appendix. The previously noted fibrotic appearing nodule in the epiploic fat was then grasped with an endoscopic Lawrence. The epiploic fat was then divided with IONA ultrasonic robotic dell. This nodule was placed within an Endo Catch retrieval device and removed via the umbilical trocar site and sent as specimen. Limited irrigation was performed of the pericecal region. There was good hemostasis. Staple line was intact with good hemostasis. Trochars were then removed as CO2 pneumoperitoneum was evacuated. Fascia at the umbilicus was closed with a couple of 0 Vicryl sutures. Local anesthetic was infiltrated. Skin incisions were closed with 4-0 Monocryl in a subcuticular fashion. Steri-Strips and dressings were applied. Condition: stable Disposition: PACU Complications:: None immediately apparent
--- NOTE | 2019-12-06 09:11 | HMH.ANESI ---
[facility] Anesthesia Record Part I Intake, IV Amount: 900 Estimated blood loss (mL): 10 Urine output (mL): 100 Blood Products used (#): none Blood Pressure: 122/69 SaO2: 97 Pulse Rate: 73 Respiratory Rate: 18 Temperature: 97.8 F Patient is:: Drowsy, Nasal O2 Stable to PACU at:: 09:08
[2019-12-06 09:21] LABS: POC Glucose,Bedside 160 (70-110)
--- NOTE | 2019-12-06 13:12 | HMH.GSPN ---
Subjective Patient reports: feels better Narrative: Patient feels better postoperative. His back pain has resolved. Progress Note: A&P Assessment and Plan for All Diagnoses:: Discharge home Exam Vital signs and Labs for Last 24 Hours: Temp Pulse Resp BP Pulse Ox 97.8 F 73 18 122/69 99 12/06/19 09:12 12/06/19 09:12 12/06/19 09:12 12/06/19 09:12 12/06/19 07:53 Laboratory Results - last 24 hr 12/05/19 20:30: Urine Color Yellow, Urine Appearance Clear, Urine pH 5.5, Ur Specific [place] 1.025, Urine Protein 1+, Urine Glucose (UA) 3+, Urine Ketones Negative, Urine Blood Trace-i, Urine Nitrate Negative, Urine Bilirubin Negative, Urine Urobilinogen 0.2, Ur Leukocyte Esterase Negative, Urine WBC 5-10, Ur Squamous Epith Cells 5-10 12/05/19 20:30: WBC 8.5, RBC 5.49, Hgb 15.4, Hct 44.7, MCV 81.3, MCH 28.1, MCHC 34.5, RDW 14.1, Plt Count 217, MPV 7.9, Neut % (Auto) 61.2, Lymph % (Auto) 28.4, [place] % (Auto) 6.9, Eos % (Auto) 2.7, Baso % (Auto) 0.8, Neut # (Auto) 5.2, Lymph # (Auto) 2.4, [place] # (Auto) 0.6, Eos # (Auto) 0.2, Baso # (Auto) 0.1 12/05/19 20:30: Sodium 138, Potassium 3.8, Chloride 99, Carbon Dioxide 29, Anion Gap 13.8, BUN 15, Creatinine 1.00, Estimated Creat Clear 165, Estimated GFR 82, Est GFR ( Amer) 99, Glucose 269 H, Calcium 10.0, Total Bilirubin 0.6, AST 41, ALT 39, Alkaline Phosphatase 83, Total Protein 7.9, Albumin 4.5, Globulin 3.4 H, Albumin/Globulin Ratio 1.3, Amylase 55, Lipase 43 12/05/19 20:30: SARS-CoV-2 IgG Ab (Rapid) Negative, SARS-CoV-2 IgM Ab (Rapid) Negative 12/06/19 00:29: POC Glucose 225 H 12/06/19 07:47: POC Glucose 133 H 12/06/19 09:13: POC Glucose 160 H I & O for Last 24 hours: Intake & Output 12/04/19 12/05/19 12/06/19 12/07/19 11:59 11:59 11:59 11:59 Intake Total 2570 / 2570 Balance 2570 / 2570 Weight 273 lb 3.2 oz - *Routine Abdominal Exam Present: soft
--- NOTE | 2019-12-06 13:14 | HMH.DCSUM ---
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 A couple of months ago he had been having right flank and back pain and was concerned he may have a kidney stone however work-up revealed gallstones. He underwent laparoscopic cholecystectomy by Dr. Berrios. Patient states that he had done well postoperatively from that but then over the past 3 or 4 days had recurrent progressive right posterior flank pain and was concerned he may have another kidney stone. He presented to the emergency department late yesterday evening and underwent work-up including CT scan which revealed findings of 13 mm appendix with appendicolith. Surgery was contacted and plan was made for admission for possible progressive acute appendicitis. Hospital Course Hospital Course: Patient was admitted and given perioperative intravenous antibiotics. He had waxing and waning severe right lower lateral flank pain. Arrangements were made for operation. He was taken to the operating room at which time he underwent laparoscopic appendectomy. He was found to have a distended enlarged indurated appendix. There was also evidence of possible resolving epiploic appendagitis. He underwent laparoscopic appendectomy and also had this fibrotic nodule of epiploic fat removed and sent as a specimen as well. Please see operative dictation for complete details. Postoperatively he was given a bland diet. He tolerated this without difficulty. He convalesced well. He felt better other than some minor abdominal soreness postoperatively and arrangements were made for discharge home several hours after recovery from surgery. Objective Vital signs: Temp Pulse Resp BP Pulse Ox 97.8 F 73 18 122/69 99 12/06/19 09:12 12/06/19 09:12 12/06/19 09:12 12/06/19 09:12 12/06/19 07:53 Results Labs on day of discharge: Labs from last 24 hours 12/06/19 12/06/19 12/06/19 09:13 07:47 00:29 WBC RBC Hgb Hct MCV MCH MCHC RDW Plt Count MPV Neut % (Auto) Lymph % (Auto) [place] % (Auto) Eos % (Auto) Baso % (Auto) Neut # (Auto) Lymph # (Auto) [place] # (Auto) Eos # (Auto) Baso # (Auto) Sodium Potassium Chloride Carbon Dioxide Anion Gap BUN Creatinine Estimated Creat Clear Estimated GFR Est GFR ( Amer) Glucose POC Glucose 160 H 133 H 225 H Calcium Total Bilirubin AST ALT Alkaline Phosphatase Total Protein Albumin Globulin Albumin/Globulin Ratio Amylase Lipase Urine Color Urine Appearance Urine pH Ur Specific [place] Urine Protein Urine Glucose (UA) Urine Ketones Urine Blood Urine Nitrate Urine Bilirubin Urine Urobilinogen Ur Leukocyte Esterase Urine WBC Ur Squamous Epith Cells SARS-CoV-2 IgG Ab (Rapid) SARS-CoV-2 IgM Ab (Rapid) 12/05/19 12/05/19 12/05/19 20:30 20:30 20:30 WBC 8.5 RBC 5.49 Hgb 15.4 Hct 44.7 MCV 81.3 MCH 28.1 MCHC 34.5 RDW 14.1 Plt Count 217 MPV 7.9 Neut % (Auto) 61.2 Lymph % (Auto) 28.4 [place] % (Auto) 6.9 Eos % (Auto) 2.7 Baso % (Auto) 0.8 Neut # (Auto) 5.2 Lymph # (Auto) 2.4 [place] # (Auto) 0.6 Eos # (Auto) 0.2 Baso # (Auto) 0.1 Sodium 138 Potassium 3.8 Chloride 99 Carbon Dioxide 29 Anion Gap 13.8 BUN 15 Creatinine 1.00 Estimated Creat Clear 165 Estimated GFR 82 Est GFR ( Amer) 99 Glucose 269 H POC Glucose Calcium 10.0 Total Bilirubin 0.6 AST 41 ALT 39 Alkaline Phosphatase 83 Total Protein 7.9 Albumin 4.5 Globulin 3.4 H Albumin/Globulin Ratio 1.3 Amylase 55 Lipase 43 Urine Color Urine Appearance U
--- NOTE | 2019-12-06 13:55 | HMH.ANESII ---
[facility] Anesthesia Record Part II Discharge Time: 09:38 Destination: Medical Surgical Department PACU nurse assessment reviewed?: Yes Patient Condition:: Good Anesthesia Complications:: None Swallowing reflex intact?: Yes Cyanosis?: No Blood Pressure: 125/73 Pulse Rate: 70 Temperature: 98.0 F Mental Status: Alert & Oriented Pain level:: 1 Nausea and/or vomitting:: None Intake, IV Amount: 25
--- NOTE | 2019-12-06 14:29 | SUR.PHASEI ---
0913: FSBS 160, no action needed per CINTHYA Bonner. Have patient reattach insulin pump as soon as he is awake.
--- NOTE | 2019-12-06 16:07 | PC.NURSE ---
THIS RN PROVIDED D/C INSTRUCTIONS IN REGARDS TO INFECTION PREVENTION, FOLLOW UP APPOINTMENT AND AFTER SURGERY CARE TO PATIENT AND SPOUSE. PATIENT RECEIVED PRESCRIPTION FOR NORCO 5MG. PATIENT REQUESTED THAT THIS RN PHONE DR. LEDEZMA FOR A HIGHER DOSE. THIS RN SPOKE WITH DR. DARIEN MD STATED THAT THE STRENGTH IS SIGNIFICANT DUE TO PATIENT BEING ABLE TO TAKE UP TO 2 AT A TIME. THIS RN EXPLAINED INFORMATION TO PATIENT , PATIENT VERBALIZED AN UNDERSTANDING.
[2019-12-06 16:48] LABS: Microscopic,Cath URINE MICROSCOPIC (MICROSCOPIC)
[2019-12-06 18:06] LABS: Appearance,Urine/Cath CLEAR (Clear); Bilirubin,Cath Negative (Negative); Blood, Urine/Cath 1+ (Negative); Color,Urine/Cath YELLOW (Yellow); Glucose,Urine/Cath (UA) Negative (Negative); Ketones,Urine/Cath Negative (Negative); Leukocyte Esterase,Cath Negative (Negative); Nitrate,Cath Negative (Negative); PH,Urine/Cath 5.5 (5.0-8.5); Protein,Urine/Cath Negative (Negative); Urobilinogen,Cath 0.2 EU/dl (0.2)
[2019-12-06 18:16] LABS: Squamous Epithelial Ur./Cath Occasional #/hpf (0-5); WBC,Urine/Cath Occasional #/hpf (0-3)
[2019-12-06 18:17] LABS: Bacteria,Urine/Cath TRACE /lpf
== END 2019-12-06 14:10 | disposition home or self-care (01) ==
LOC: ER 20:29 → 2ND 12-06 00:04
PROVIDERS: Admitting Provider Family Medicine; Emergency Provider Emergency Medicine; PCP Internal Medicine Adolescent Medicine; Visit Provider Surgery
PROC: 0DTJ4ZZ Resection of Appendix, Percutaneous Endoscopic Approach (ICD-10-PCS; CPT 44970; principal; 2019-12-06 08:00)
DX: K35.890 Other acute appendicitis without perforation or gangrene (principal); E11.9 Type 2 diabetes mellitus without complications; I25.10 Atherosclerotic heart disease of native coronary artery without angina pectoris; Z95.5 Presence of coronary angioplasty implant and graft; Z79.01 Long term (current) use of anticoagulants; K63.89 Other specified diseases of intestine; I10 Essential (primary) hypertension
CPT/HCPCS: 44970; 74176; 80053; 81001; 82150; 82962; 83690; 85025; 86328; 96365; 96375; 99285; G0378; J2405; J2543; J2710

== ENCOUNTER → 2019-12-25 15:39 | Outpatient (CLI) | payer OTHER, SELFPAY ==
--- NOTE | 2019-12-25 15:42 | US_ITS ---
PROCEDURE: US TESTICULAR CLINICAL INDICATION: RIGHT TESTICULAR PAIN COMPARISON: No exams were available for comparison FINDINGS: The right testicle is 4.4 x 2.1 x 2.5 cm in the left testicle is 4.5 x 2.1 x 2.9 cm. There is bilateral testicular blood flow. The right epididymal head is slightly prominent compared to the left side. No hydrocele or spermatocele apparent. No evidence of varicocele. IMPRESSION: No evidence torsion. Possible mild right epididymitis Dictated by: Osman Shepard MD 12/25/2019 16:39 Osman Shepard MD in [place] 12/25/2019 16:39
== END ==
PROVIDERS: PCP Internal Medicine Adolescent Medicine; Visit Provider Internal Medicine Adolescent Medicine
DX: N50.811 Right testicular pain (principal)
CPT/HCPCS: 76870

== ENCOUNTER 2020-04-22 17:41 | Observation (INO) | payer OTHER, SELFPAY ==
--- NOTE | 2020-04-22 17:28 | ECG_ITS ---
APPROVED REPORT Exam: Resting ECG HR:88 bpm ECG Measurements Heart Rate 88 AXES TX 128 P 23 QRSd 84 QRS 11 QT 350 T 29 QTc 423 Conclusion Normal sinus rhythm T wave abnormality, consider inferior ischemia Abnormal ECG Electronically signed by : Yunior Porras, 04/22/2020 19:34:00
[2020-04-22 17:42] VITALS: BP 167/93; PULSE 89; RESP 16; TEMP 36.9; O2SAT 99; BMI 33.0
[2020-04-22 17:52] VITALS: BMI 33.0
--- NOTE | 2020-04-22 17:53 | XR_ITS ---
PROCEDURE: XR CHEST PORTABLE CLINICAL HISTORY: covid/chest pain COMPARISON: CR XR CHEST 2V from 03/18/[address] ANGIO CHEST from 03/19/2019 CR XR CHEST PORTABLE from 10/06/2019 FINDINGS: The cardiomediastinal silhouette and pulmonary vascularity are within normal limits. The lungs are clear without infiltrates, suspicious nodules, or pleural effusions. No acute bony abnormalities. IMPRESSION: No acute findings. Dictated by: Osman Shepard MD 04/22/2020 19:35 Osman Shepard MD in [place] 04/22/2020 19:35
[2020-04-22 18:00] LABS: Basophils # 0.1 K/mm3 (0-0.2); Basophils % 0.7 % (0.1-2.0); Eosinophils # 0.1 K/mm3 (0.0-0.4); Eosinophils % 1.7 % (0.1-12.0); Lymphocytes # 1.5 K/mm3 (0.7-4.5); Lymphocytes % 17.4 % (10-50); Mean Corpuscular HGB Conc 33.7 g/dL (31.8-35.4); Mean Corpuscular Hemoglobin 26.9 pg (27.0-31.2); Mean Platelet Volume 7.7 fl (7.4-10.4); Monocytes # 0.6 K/mm3 (0.1-1.0); Monocytes % 6.5 % (1.7-9.3); Neutrophils # 6.2 K/mm3 (1.8-7.8); Neutrophils % 73.6 % (37.0-80.0); Platelet Count 252 K/mm3 (142-424); Red Cell Distribution Width 14.5 % (11.5-17.5); White Blood Count 8.4 K/mm3 (4.8-10.8)
[2020-04-22 18:02] LABS: Chloride 93 mmol/L (98-107); Potassium 3.9 mmoL/L (3.5-5.1); Sodium 128 mmol/L (136-145)
[2020-04-22 18:04] LABS: Adenovirus,PCR Not Detected (NotDetected); Coronavirus 229E Not Detected (NotDetected); Coronavirus NL63 Not Detected (NotDetected); Coronavirus OC43 Not Detected (NotDetected); Coronovirus HKU1,PCR Not Detected (NotDetected); Human Metapneumovirus Not Detected (NotDetected); Influenza A, PCR Not Detected (NotDetected); Influenza AH1, 2009 Not Detected (NotDetected); Influenza AH1, PCR Not Detected (NotDetected); Rhinovirus/Enterovirus Not Detected (NotDetected)
[2020-04-22 18:04] LABS: Blood Urea Nitrogen 17 mg/dl (9-20); Creatinine Clearance Estimated 191 mL/min (50-200); Estimated Glomerular Filt Rate 106 ml/min (>60); GFR (African American) 128 ML/MIN (>60)
[2020-04-22 18:05] LABS: Bordetella Pertussis Not Detected (NotDetected); Chlamydophila Pneumoniae, PCR Not Detected (NotDetected); Influenza AH3,PCR Not Detected (NotDetected); Influenza B, PCR Not Detected (NotDetected); Mycoplasma Pneumoniae, PCR Not Detected (NotDetected); Parainfluenza 1, PCR Not Detected (NotDetected); Parainfluenza 2, PCR Not Detected (NotDetected); Parainfluenza 3, PCR Not Detected (NotDetected); Parainfluenza 4, PCR Not Detected (NotDetected); Respiratory Syncytial Virus Not Detected (NotDetected)
[2020-04-22 18:05] LABS: Anion Gap 12.9 mEq/L (5-15); Calcium 9.7 mg/dl (8.4-10.2); Carbon Dioxide 26 mmol/L (22.0-30.0); Red Blood Count 7.01 M/mm3 (4.60-6.20)
[2020-04-22 18:16] LABS: Glucose 413 mg/dl (74-100)
[2020-04-22 18:17] LABS: Troponin I < 0.01 ng/ml (0.00-0.034)
--- NOTE | 2020-04-22 18:28 | HMH.EDGENADL ---
ED Disposition Clinical Impression: Pneumonia due to COVID-19 virus, Hyperglycemia, Chest pain, moderate coronary artery risk Disposition: Admitted As Inpatient Condition on Discharge: Fair Referrals: PCP,No [Primary Care Provider] - - Critical Care Critical Care Time: No Attestation: On 04/22/20, the high probability of a clinically significant, sudden or life threatening deterioration of the following system(s) required my full and direct attention, intervention and personal management. The time I documented below is in addition to time spent performing reported procedures but includes the following listed in this critical care notation. Medical Decision Making - Medical Records Medical records reviewed: Yes: I reviewed the patient's medical records. - Angel Inquiry Pt receiving controlled substance: No Vital Signs: 04/22/20 17:42 Temperature 98.5 F Temperature Source Oral Pulse Rate [Right] 89 Respiratory Rate 16 Blood Pressure [Right Arm] 167/93 H Blood Pressure Mean [Right Arm] 117 Blood Pressure Source [Right Arm] Automatic Cuff Blood Pressure Position [Right Arm] Sitting 02 Sat by Pulse Oximetry 99 Oxygen Delivery Method Room Air - Lab Data Lab Results 04/22/20 17:50: WBC 8.4, RBC 7.01 H, Hgb 18.9 H*, Hct 56.0 H, MCV 80.0, MCH 26.9 L, MCHC 33.7, RDW 14.5, Plt Count 252, MPV 7.7, Neut % (Auto) 73.6, Lymph % (Auto) 17.4, [place] % (Auto) 6.5, Eos % (Auto) 1.7, Baso % (Auto) 0.7, Neut # (Auto) 6.2, Lymph # (Auto) 1.5, [place] # (Auto) 0.6, Eos # (Auto) 0.1, Baso # (Auto) 0.1 04/22/20 17:50: Sodium 128 L, Potassium 3.9, Chloride 93 L, Carbon Dioxide 26, Anion Gap 12.9, BUN 17, Creatinine 0.80, Estimated Creat Clear 191, Estimated GFR 106, Est GFR ( Amer) 128, Glucose 413 H*, Calcium 9.7, Troponin I < 0.01 Result diagrams: 04/22/20 17:50 04/22/20 17:50 Orders (Tests/Meds): ED MEDICATIONS Generic Name Dose Route Start Last Admin Trade Name Freq PRN Reason Stop Dose Admin Sodium Chloride 1,000 mls @ 999 mls/hr 04/22/20 18:45 Sod Chlor 0.9% 1000ml Bag IV 04/22/20 19:45 .Q1H1M JEAN-PIERRE Discontinued Medications Generic Name Dose Route Start Last Admin Trade Name Jeanne PRN Reason Stop Dose Admin Iopamidol 70 ml 04/22/20 18:47 04/22/20 18:48 Iopamidol-370 (76%);100ml Bottle IV 04/22/20 18:48 70 ml ONCE ONE Administration Morphine Sulfate 4 mg 04/22/20 18:10 04/22/20 18:23 Morphine 4mg/Ml Syringe IV 04/22/20 18:11 4 mg ONCE ONE Administration Ondansetron HCl 4 mg 04/22/20 18:10 04/22/20 18:22 Ondansetron 4mg/2ml Vial IV 04/22/20 18:11 4 mg ONCE ONE Administration Sodium Chloride 50 ml 04/22/20 18:47 04/22/20 18:49 0.9 % Sodium Chloride 50 Ml Vial IV 04/22/20 18:48 50 ml ONCE ONE Administration Sodium Chloride 10 ml 04/22/20 18:47 04/22/20 18:48 Sodium Chloride 0.9% 10ml Syr (Rad Only) IV 04/22/20 18:48 10 ml ONCE ONE Administration ORDERS Category Date Time Status CTA Chest [CT angio chest] Stat Cat Scan 04/22/20 18:31 Taken XR chest portable Stat Exams 04/22/20 17:53 Taken Full Resp Panel w/COVID ([facility]) Routine Lab 04/22/20 17:30 Received Troponin I Q3H Lab 04/22/20 21:00 Ordered Troponin I Q3H Lab 04/23/20 00:00 Ordered - CT Data CT Scan: Chest Time Received: 19:[address] Reviewed: Yes: I have reviewed the patient's CT results, I have viewed the radiologist's interpretation Findings Narrative: Pulmonary nodule in the right middle lobe, unchanged from comparison. Patchy peripheral basilar disease consistent with Covid pneumonia, no pulmonary embolism. - ECG Data Tracing #1 Normal ventricular rate 88 bpm, normal CA interval, normal QTC. Consultation was normal sinus rhythm with nonspecific ST changes. ECG initial impression date: 04/22/20 ECG initial impression time: 17:30 - Reevaluation(s) Time: 19:34 Reevaluation #1: Patient has no evidence of pulmonary embolism. He is hyperglycemic
--- NOTE | 2020-04-22 18:31 | CT_ITS ---
PROCEDURE: CT ANGIO CHEST CLINCIAL INDICATION: chest pain Chest pain, positive for Covid19 COMPARISON: CT CT ANGIO CHEST from 03/19/2019 TECHNIQUE: IV Contrast: 70ML Isovue 370 Axial images obtained with sagittal and coronal reformats. All CT scans at the facility use one or more dose reduction, viz: automated exposure control, ma/kV adjustment per patient size (including targeted exams where dose is matched to indication, i.e. head), or iterative reconstruction technique. FINDINGS: HEART AND MEDIASTINAL STRUCTURES: No evidence of pulmonary embolus. Main pulmonary artery is prominent at 3.8 cm within a pulmonary artery/aorta ratio of greater than 1 suggesting pulmonary arterial hypertension. Coronary artery calcification and/or stent noted. There are some mildly prominent mediastinal and hilar lymph nodes. The there is minimal thickening of the pericardium LUNGS AND PLEURAL SPACES: Multifocal patchy areas of ground-glass infiltrate consistent with Covid19 pneumonia. 1 cm nodule in the right middle lobe not significantly changed BONY STRUCTURES: No acute bony abnormalities apparent. UPPER ABDOMEN: Splenomegaly ADDITIONAL FINDINGS: No other significant abnormalities. IMPRESSION: 1. Patchy peripheral multifocal ground-glass infiltrates consistent with Covid19 pneumonia. 2. No evidence of pulmonary embolus. 3. Stable 1 cm right middle lobe nodule Dictated by: Osman Shepard MD 04/23/2020 06:57 Osman Shepard MD in [place] 04/23/2020 06:57
[2020-04-22 19:01] LABS: Hemoglobin 18.9 g/dL (14.1-18.0)
[2020-04-22 19:56] LABS: Coronavirus 19, PCR Detected (NotDetected)
[2020-04-22 20:08] VITALS: BMI 32.6
--- NOTE | 2020-04-22 21:11 | PC.NURSE ---
Attempted to call report to 2nd floor. They state the room is being cleaned at this time. Will attempt again at another time.
[2020-04-22 21:42] VITALS: BP 151/83; PULSE 83; RESP 18; TEMP 36.9; O2SAT 94
--- NOTE | 2020-04-22 21:47 | PC.NURSE ---
patient brought up to floor @ 21:36
[2020-04-22 22:00] VITALS: PULSE 90; RESP 17; O2SAT 98
[2020-04-22 22:00] LABS: Troponin I < 0.01 ng/ml (0.00-0.034)
[2020-04-22 23:16] VITALS: PULSE 100
[2020-04-23] VITALS: BP 130/84; PULSE 90; RESP 17; TEMP 36.6; O2SAT 98
[2020-04-23 01:31] LABS: Troponin I < 0.01 ng/ml (0.00-0.034)
[2020-04-23 04:00] VITALS: BP 104/64; PULSE 60; PULSE 68; RESP 17; TEMP 36.4; O2SAT 94
--- NOTE | 2020-04-23 05:12 | PC.NURSE ---
pt has rested well t/o shift, no complaints of SOA or chest pain, has complained of back pain once and was treated per JUN, has remained on room air, O2 sats 98-99%, has ambulated independently
[2020-04-23 06:49] LABS: POC Glucose,Bedside 248 (70-110)
--- NOTE | 2020-04-23 07:12 | CA_ITS ---
APPROVED REPORT EXAM: Comprehensive 2D, Doppler, and color-flow Echocardiogram Power Manager: Neva Bolden RT(R) Ht: 6 ft 1 in Wt: 250lbs BSA: 2.37 BP: 167/93 mmHg Indications: COVID+, CP, HTN, hyperlipidemia, CAD, GERD, SOB, DM I, cardiac stents 2D Dimensions LVOT 2.04 cm (M/F) 1.5-2.5 M-Mode Dimensions RVDd 2.80 cm (0.9-2.6) LA Diam 4.35 cm (1.9-4.0) LVDd 4.89 cm (3.5-5.7) Ao Diam 3.20 cm (2.0-3.7) LVDs 3.19 cm (3.5-5.7) IVSd 0.81 cm (0.6-1.1) PWd 1.06 cm (0.6-1.1) EF (Teich) 63.80% FS 34.80% EDV (Teich) 112.30 mL ESV (Teich) 40.60 mL LV Diastology E Decel Time 167.00 (160-240 msec) E/A Ratio 1.4 MED E' 7.90 (< 7 cm/sec) E'/MED E' Ratio 12.51 (>14) LAT E' 12.30 (<10 cm/sec) E/LAT E' Ratio 8.03 (>14) Mitral Valve MV E Max Sandip. 99.00 (40-130 cm/s) MV A Velocity 69.00 (40-130 cm/s) E/A Ratio 1.44 MV Decel. Time 167.00 (160-240 ms) MV PHT 49.00 ms Left Ventricle Left atrium is mildly enlarged, left ventricle is normal size, mild concentric left ventricular hypertrophy, visually estimated ejection fraction 55% with no regional wall motion abnormality, diastolic parameters are inconclusive. Right Ventricle Right atrium and right ventricle are normal size and contractility. Aortic Valve Aortic valve is minimally thickened and fibrosed, there is no aortic stenosis or aortic insufficiency. Mitral Valve Mitral valve is grossly normal, there is mild mitral regurgitation. Tricuspid Valve Tricuspid valve is grossly normal, there is mild tricuspid regurgitation, tricuspid regurgitation jet velocity is inadequate for calculation of the right ventricular systolic pressure. Pulmonic Valve Pulmonic valve is poorly visualized. Great Vessels Aortic root is normal size. Pericardium Trivial pericardial effusion noted. Conclusion 1. Mildly enlarged left atrium, normal left ventricular size, mild concentric left ventricular hypertrophy, visually estimated ejection fraction 55% with no regional wall motion abnormality, diastolic parameters are inconclusive. 2. Mild mitral and tricuspid regurgitation. 3. Trivial pericardial effusion noted. Electronically signed by : Ramiro Hair, 04/23/2020 21:07:32
--- NOTE | 2020-04-23 07:33 | P.CONPHA_ITS ---
[facility] Pharmacy VTE Monitoring - Patient Demographics Admission date: 04/22/20 Report Date: 04/23/20 Time: 07:33 Allergies/Adverse Reactions: Patient Allergies No Known Allergies Allergy (Verified 04/22/20 22:17) Height: 1.85 m Weight: 112.179 kg Patient Problems: Current Active Problems Pneumonia due to COVID-19 virus (Acute) Hyperglycemia (Acute) Chest pain, moderate coronary artery risk (Acute) - VTE Risk Labs: VTE Related Lab Results Hgb 18.9 g/dL (14.1-18.0) H* 04/22/20 17:50 Hct 56.0 % (42.0-52.0) H 04/22/20 17:50 Plt Count 252 K/mm3 (142-424) 04/22/20 17:50 BUN 17 mg/dl (9-20) 04/22/20 17:50 Creatinine 0.80 mg/dl (0.66-1.25) 04/22/20 17:50 Estimated Creat Clear 191 mL/min (50-200) 04/22/20 17:50 VTE Score: 4 VTE Risk Level: Low Risk - Prophylaxis VTE Prophylaxis Ordered?: Yes Types of VTE Prophylaxis: TEDS Knee High, Pharmacological Location of Applied Device: Bilateral Lower Extremeties Pharmacologic Type: Enoxaparin
[2020-04-23 08:00] VITALS: BP 122/59; PULSE 62; PULSE 70; RESP 18; TEMP 36.4; O2SAT 98
--- NOTE | 2020-04-23 08:20 | HMH.HPDC ---
General - General Admission date:: 04/22/20 Discharge date: 04/23/20 *Admission Date: 04/22/20 *Chief complaint: chest pressure, COVID *History of present illness: 44-year-old gentleman with type 1 diabetes, recent Covid diagnosis (diagnosed April 08 in our office), coronary artery disease (status post LAD stenting 12/2019) who presented to the office yesterday with worsening chest pressure. On initial presentation he was complaining of chest pressure for 2 to 3 days across his chest and into his back. Denied worsening with exertion or improvement with rest. Has had a mild cough from his Covid but no significant respiratory distress. EKG obtained in the office showed nonspecific ST changes. In conjunction with chest pressure, he was sent to the ER for further work-up. On arrival to the ER he was noted to have significant elevation in his glucose, hyponatremia, and consistent ST abnormalities on his EKG. Troponins obtained that were initially normal. Patient admitted to medicine for observation overnight and further work-up. On assessment this morning, he states he has some improvement in his chest discomfort. Responds best to Dilaudid. Denies any shortness of breath, nausea, vomiting. Blood sugar better this morning on fingerstick in the 200s. Has maintained insulin regimen with his home pump during admission. Stable on room air. Improvement in his hemodynamics with decrease in his heart rate after fluid resuscitation. [facility] History I have reviewed the patient's past medical history: Yes Medical History: Reports:: Arrhythmia, Coronary Artery Disease, Diabetes Mellitus Type 1, Gastroesophageal Reflux Disease(GERD), Hyperlipidemia, Hypertension, Kidney Stones, Migraine, Palpitations, Renal Disease Denies:: Cancer, Diabetes Mellitus Type 2, Internal Pacemaker, MRSA, Seizures *Have you ever received a pneumonia vaccine?: No *Have you received a flu vaccine this season?: No Other Medical History: Reports: Blood Transfusion Reaction, Thyroid Disease Laterality Cases: Bilateral: Myringotomy (Ear Tubes) Other Surgeries: Yes: No Previous Surgery, Appendectomy, Cardiac Catheterization, Cholecystectomy, Colonoscopy, Coronary Stent, EGD, Sinus Surgery, Other (BPH laser). No: Pacemaker Amputation: No Fractures: No - *Social History Last grade of school completed: High school graduate Smoking Status: Never smoker Alcohol Intake: never Alcohol Intake Frequency:: a few times a month Substance Use Type: denies use *Occupational Status:: employed Housing: house Household Members: spouse, children *Travel in the last 8 weeks: None Family Hx:: No significant family history Review of Systems - Review of Systems Review of systems:: pertinent systems reviewed and negative unless documented below (14 point review of systems performed, pertinent positives and negatives as per HPI) - *Neurologic Reports weakness, Denies headache(s) Exam Vital signs and Labs for Last 24 Hours: Temp Pulse Resp BP Pulse Ox 97.6 F 68 17 104/64 L 94 L 04/23/20 04:00 04/23/20 04:00 04/23/20 04:00 04/23/20 04:00 04/23/20 04:00 Laboratory Results - last 24 hr 04/22/20 17:30: Chlamy pneumoniae PCR Not detected, Adenovirus (PCR) Not detected, B. pertussis DNA (PCR) Not detected, Coronavirus OC43 (PCR) Not detected, Coronavirus HKU1 (PCR) Not detected, Coronavirus 229E (PCR) Not detected, SARS-CoV-2 (PCR) Detected A, Coronavirus NL63 (PCR) Not detected, Human Metapneumovir PCR Not detected, Influenza A (H1) PCR Not detected, Influ A (H1N1/09) PCR Not detected, Influenza A (H3) PCR Not detected, Influenza Type A (PCR) Not detected, Influenza Type B (PCR) Not detected, M. pneumoniae (PCR) Not detected, Parainfluenza 1 (PCR) Not detected, Parainfluenza 2 (PCR) Not detected, Parainfluenza 3 (PCR) Not detected, Parainfluenza 4 (PCR) Not detected, RSV (PCR) Not detected, Entero/Rhino (PCR) Not detected 04/22/20 17:50: WBC 8.4, RBC 7.01 H, Hgb 18.9 H*, Hct 56.0 H, MCV
[2020-04-23 08:23] LABS: Alanine Aminotransferase 34 U/L (12-78); Albumin Level 3.4 g/dl (3.5-5.0); Albumin/Globulin Ratio 1.1 (1.1-1.8); Alkaline Phosphatase 73 U/L (38-126); Anion Gap 7.7 mEq/L (5-15); Aspartate Amino Transferase 33 U/L (17-59); Bilirubin,Total 0.5 mg/dl (0.2-1.3); Blood Urea Nitrogen 20 mg/dl (9-20); Calcium 8.8 mg/dl (8.4-10.2); Carbon Dioxide 34 mmol/L (22.0-30.0); Chloride 95 mmol/L (98-107); Creatinine Clearance Estimated 168 mL/min (50-200); Estimated Glomerular Filt Rate 92 ml/min (>60); GFR (African American) 111 ML/MIN (>60); Globulin 3.2 g/dL (1.3-3.2); Glucose 241 mg/dl (74-100); Potassium 4.7 mmoL/L (3.5-5.1); Sodium 132 mmol/L (136-145); Total Protein,Serum 6.6 g/dl (6.3-8.2)
[2020-04-23 08:37] LABS: Basophils % 0.8 % (0.1-2.0); Eosinophils # 0.1 K/mm3 (0.0-0.4); Hematocrit 54.3 % (42.0-52.0); Hemoglobin 17.9 g/dL (14.1-18.0); Lymphocytes # 1.5 K/mm3 (0.7-4.5); Mean Corpuscular HGB Conc 32.9 g/dL (31.8-35.4); Mean Platelet Volume 7.7 fl (7.4-10.4); Monocytes # 0.5 K/mm3 (0.1-1.0); Monocytes % 9.9 % (1.7-9.3); Neutrophils # 3.3 K/mm3 (1.8-7.8); Neutrophils % 60.3 % (37.0-80.0); Platelet Count 233 K/mm3 (142-424); Red Blood Count 6.62 M/mm3 (4.60-6.20); Red Cell Distribution Width 14.5 % (11.5-17.5); White Blood Count 5.4 K/mm3 (4.8-10.8)
[2020-04-23 16:34] LABS: POC Glucose,Bedside 206 (70-110)
== END 2020-04-23 13:15 | disposition home or self-care (01) ==
LOC: ER 19:35 → 2ND 20:09
PROVIDERS: Admitting Provider Internal Medicine Adolescent Medicine; Emergency Provider Emergency Medicine; Visit Provider Internal Medicine Adolescent Medicine
DX: U07.1 COVID-19 (principal); J12.82 Pneumonia due to coronavirus disease 2019; I25.118 Atherosclerotic heart disease of native coronary artery with other forms of angina pectoris; I31.9 Disease of pericardium, unspecified; Z95.5 Presence of coronary angioplasty implant and graft; E11.9 Type 2 diabetes mellitus without complications; I10 Essential (primary) hypertension; E78.5 Hyperlipidemia, unspecified; Z79.899 Other long term (current) drug therapy; Z79.4 Long term (current) use of insulin; Z79.01 Long term (current) use of anticoagulants
CPT/HCPCS: 36415; 71045; 71275; 80048; 80053; 82962; 84484; 85025; 87581; 87633; 87798; 93005; 93306; 96365; 96375; 99284; G0378; J2405; Q9967

== ENCOUNTER → 2020-05-17 08:10 | Outpatient (CLI) | payer OTHER, SELFPAY ==
--- NOTE | 2020-05-17 08:15 | CT_ITS ---
PROCEDURE: CT CERVICAL SPINE WO CON Referring Doctor: Jonathan Davidson Patient Age:44Y CLINICAL INDICATION: NECK PAIN Pain at base of skull for 2 years increased over the last few weeks. Recent covd pneumonia COMPARISON: CT CT ANGIO CHEST from 04/22/2020 TECHNIQUE: No IV contrast Helical axial images obtained with sagittal and coronal reformats. All CT scans at the facility use one or more dose reduction, viz: automated exposure control, ma/kV adjustment per patient size (including targeted exams where dose is matched to indication, i.e. head), or iterative reconstruction technique. FINDINGS: Osseous cervical spine intact-with no fracture nor subluxation is evident. Normal prevertebral soft tissues. . Facets appear intact and unremarkable. With given history attention directed to the upper C-spine/base of skull: The occipital condyles, and osseous elements at cranial cervical junction appears satisfactory with given symptoms. Base of skull appears intact with no lesions here. Mastoid air cells clear. Normal C1-C2 relationships and appearance Overall disc spaces are fairly well maintained except to note a disc space narrowing and cervical spondylosis at C6/7. At C6/7 diffuse posterior disc/osteophyte features posteriorly at this level do indent the thecal sac and yield mild central canal stenosis-with spinal canal measuring approximate 8 mm AP at midline at this level. The posterior spurring most notable just the left of midline. C5/6 disc space well maintained. Only mild Luschka joint hypertrophy to the right with minor central disc bulge. C4/5 disc intact. C3/4 disc intact with some questionable additional epidural density to the left lateral recess. C2/3. Borderline disc space narrowing. On close inspection there does seem to be some curious relative diffuse epidural thickening uppermost C-spine most evident along the posterior aspect of C2 and-C3 and diminishing inferior to this point..-for example on sagittal image 34 the anterior epidural space posterior to C2 measures up to 4.5 Mm-Is typically very thin. On the axial images feature seems slightly more evident to the left noted to extend into left recess and left foramen at C2/3 (axial image 37-39) and to less degree C3/4 (axial image 43) With this the thecal sac narrows slightly to 10-11 mm AP. This is a subtle curious finding but does warrant MRI to further evaluate. Has the patient been on blood thinners? Aurora tonsils appear enlarged bilaterally particular on the right-Where it is seen bulging towards midline coronal image 20 axial 44 of this warrants in clinical correlation and consider ENT follow-up with this degree of prominence There is scattered small-moderate nodes throughout the soft tissues of the neck a likely reactive nodes. Only the very cap of apices of lungs are are imaged and appear clear with with no acute findings.. Thyroid upper normal size a IMPRESSION: Suggestion of curious mild diffuse thickening of the epidural space anteriorly of at the upper C-spine most evident posterior to C2 and C3. This feature slightly more evident the left at C2/3, C3/4 as detailed in text C6/7. Mild disc space narrowing and cervical spondylosis. Disc osteophyte features indent anterior aspect of thecal sac-yield mild spinal stenosis at this level *Recommend MRI C-spine to further evaluate a the above features. enlarged palatine tonsils, most prominent on right. Warrants correlation Dictated by: Isma Nuñez MD 05/17/2020 09:59 Isma Nuñez MD in [place] 05/17/2020 09:59
== END ==
LOC: RAD 08:10
PROVIDERS: PCP Internal Medicine Adolescent Medicine; Visit Provider Internal Medicine Adolescent Medicine
DX: M54.2 Cervicalgia (principal)
CPT/HCPCS: 72125

== ENCOUNTER → 2020-06-13 12:53 | Outpatient (CLI) | payer OTHER, SELFPAY ==
--- NOTE | 2020-06-13 13:00 | MR_ITS ---
PROCEDURE: MR CERVICAL SPINE WO CON CLINICAL INDICATION: NECK PAIN Headaches and left arm numbness. Pt denies injury or trauma and has had a prior abnormal CT c-spine done 05/17/2020. COMPARISON: CT CT CERVICAL SPINE WO CON from 05/17/2020 TECHNIQUE: Standard multiplanar multiecho sequences are performed without contrast. 3-D MIP and myelographic images are also rendered and reviewed FINDINGS: Exam is limited secondary to motion artifact despite repeating the exam. The axial images are nondiagnostic. C2-C3 C3-C4 and C4-C5 have grossly unremarkable appearance. There is degenerative disc disease with bulging disc at C5-C6 with canal stenosis. Bulging disc is also present at C6-C7 with degenerative disc disease and canal stenosis. The bulging disc appears eccentric toward the left on the sagittal images and may be related to disc protrusion. IMPRESSION: Very limited exam. Suggest repeating exam at no additional charge if the patient can remain still. There is degenerative disc disease with bulging disc at C6-C7 with narrowing of the canal. The disc appears eccentric toward the left and may be related to disc protrusion. Cannot adequately evaluate for neural impingement based on this exam. Mild bulging disc is also present at C5-C6. Dictated by: Osman Shepard MD 06/17/2020 09:24 Osman Shepard MD in [place] 06/17/2020 09:24
== END ==
LOC: RAD 12:56
PROVIDERS: PCP Internal Medicine Adolescent Medicine; Visit Provider Internal Medicine Adolescent Medicine
DX: M54.2 Cervicalgia (principal)
CPT/HCPCS: 72141; 76376

== ENCOUNTER → 2020-06-27 11:07 | Outpatient (CLI) | payer OTHER, SELFPAY ==
[2020-06-29 09:16] LABS: Hep A Ab, IgM Negative (Negative); Hepatitis B Core Antibody IgM Negative (Negative); Hepatitis B Surface Antigen Negative (Negative)
[2020-06-29 10:27] LABS: Hepatitis C Antibody <0.1 s/co ratio (0.0-0.9); Rubella Antibodies, IgG <0.90 index (Immune >0.99)
[2020-07-02 02:15] LABS: Mumps Abs, IgG <9.0 AU/mL (Immune >10.9); QuantiFERON-TB Gold Plus Negative (Negative); Varicella Zoster IgG 1978 index (Immune >165)
== END ==
PROVIDERS: Visit Provider Internal Medicine Adolescent Medicine
DX: Z02.0 Encounter for examination for admission to educational institution (principal); I25.118 Atherosclerotic heart disease of native coronary artery with other forms of angina pectoris; I10 Essential (primary) hypertension; E78.2 Mixed hyperlipidemia; Z86.16 Personal history of COVID-19
CPT/HCPCS: 36415; 80074; 86480; 86735; 86762; 86787

== ENCOUNTER → 2020-08-01 08:00 | Outpatient (CLI) | payer OTHER, SELFPAY | PROVIDERS: PCP Internal Medicine Adolescent Medicine; Visit Provider Internal Medicine Adolescent Medicine | DX: M54.2 Cervicalgia (principal) ==

== ENCOUNTER → 2020-10-28 07:49 | Outpatient (CLI) | payer BC, OTHER, SELFPAY ==
[2020-10-28 08:14] LABS: Basophils # 0.1 K/mm3 (0-0.2); Basophils % 0.9 % (0.1-2.0); Eosinophils # 0.3 K/mm3 (0.0-0.4); Eosinophils % 5.1 % (0.1-12.0); Hemoglobin 16.3 g/dL (14.1-18.0); Lymphocytes # 1.3 K/mm3 (0.7-4.5); Lymphocytes % 21.7 % (10-50); Mean Corpuscular HGB Conc 32.6 g/dL (31.8-35.4); Mean Corpuscular Hemoglobin 27.1 pg (27.0-31.2); Mean Corpuscular Volume 83.2 fl (80-94); Mean Platelet Volume 7.9 fl (7.4-10.4); Monocytes # 0.4 K/mm3 (0.1-1.0); Neutrophils # 3.9 K/mm3 (1.8-7.8); Neutrophils % 66.3 % (37.0-80.0); Platelet Count 176 K/mm3 (142-424); Red Blood Count 6.01 M/mm3 (4.60-6.20); Red Cell Distribution Width 12.8 % (11.5-17.5); White Blood Count 5.8 K/mm3 (4.8-10.8)
[2020-10-28 08:40] LABS: Alanine Aminotransferase 54 U/L (12-78); Albumin Level 4.4 g/dl (3.5-5.0); Albumin/Globulin Ratio 1.6 (1.1-1.8); Alkaline Phosphatase 113 U/L (38-126); Aspartate Amino Transferase 33 U/L (17-59); Bilirubin,Total 0.6 mg/dl (0.2-1.3); Blood Urea Nitrogen 17 mg/dl (9-20); Calcium 9.1 mg/dl (8.4-10.2); Carbon Dioxide 30 mmol/L (22.0-30.0); Chloride 95 mmol/L (98-107); Chol/HDL Ratio 4.6 (1-3.5); Cholesterol 192 mg/dl (140-200); Estimated Glomerular Filt Rate 123 ml/min (>60); GFR (African American) 148 ML/MIN (>60); Globulin 2.7 g/dL (1.3-3.2); Glucose 361 mg/dl (74-100); HDL Cholesterol 42 mg/dl (40-60); Sodium 133 mmol/L (136-145); Total Protein,Serum 7.1 g/dl (6.3-8.2)
[2020-10-28 08:49] LABS: Triglycerides 575 mg/dl (30-150)
[2020-10-28 08:51] LABS: Direct LDL Cholesterol 73.47 mg/dL (100-129)
[2020-10-28 12:13] LABS: Hemoglobin A1C 13.9 % (4.0-6.0)
[2020-10-31 14:49] LABS: Testosterone, Total, LC/MS 167.2 ng/dL (264.0-916.0); Testosterone,Free 4.1 pg/mL (6.8-21.5)
== END ==
PROVIDERS: Visit Provider Internal Medicine Adolescent Medicine
DX: I25.10 Atherosclerotic heart disease of native coronary artery without angina pectoris (principal); I10 Essential (primary) hypertension; E10.69 Type 1 diabetes mellitus with other specified complication; R79.89 Other specified abnormal findings of blood chemistry
CPT/HCPCS: 36415; 80053; 80061; 83036; 84402; 84403; 85025

== ENCOUNTER → 2020-12-30 16:04 | Outpatient (CLI) | payer BC, OTHER, SELFPAY ==
[2020-12-30 17:26] LABS: Blood Urea Nitrogen 24 mg/dl (9-20); Estimated Glomerular Filt Rate 105 ml/min (>60); GFR (African American) 127 ML/MIN (>60)
== END ==
PROVIDERS: Visit Provider Internal Medicine Adolescent Medicine
DX: Z01.812 Encounter for preprocedural laboratory examination (principal)
CPT/HCPCS: 36415; 82565; 84520

== ENCOUNTER → 2020-12-31 12:58 | Outpatient (CLI) | payer BC, OTHER, SELFPAY ==
--- NOTE | 2020-12-31 14:37 | MR_ITS ---
PROCEDURE: MR LUMBAR SPINE W CON CLINICAL INDICATION: LUMBAR RADICULOPATHY, ACUTE COMPARISON: MR MR CERVICAL SPINE WO CON from 06/13/2020 TECHNIQUE: Standard multiplanar multiecho sequences are performed with contrast only as ordered. Technologist made multiple attempts to contact the office in an attempt to it the order change for pre and post enhanced images. These attempts however were unsuccessful.. It is recommended that the patient have a routine exam of the lumbar spine which includes the T1 and T2 and STIR images as well as a 3D myelographic images. FINDINGS: No obvious enhancing lesion. No evidence of discitis. No obvious fracture or dislocation. Spinal cord ends at the L1 level. T1-T2: Degenerative disc disease with a small right paracentral lateral and foraminal disc osteophyte complex causing right-sided lateral recess and foraminal narrowing. L2-L3: Degenerative disc disease with bulging disc and mild bilateral lateral recess and foraminal narrowing. L2-L3: Unremarkable. L3-L4: Mild facet and ligamentum hypertrophic change with mild bilateral foraminal narrowing. L4-5: Concentric bulging disc with facet and ligamentum hypertrophic change with a tiny central disc protrusion slightly eccentric toward the left. There may be minimal enhancement of the disc at this region. This is difficult to distinguish from fatty changes or enhancement without unenhanced images. There is canal stenosis at this level. There is some questionable enhancement of the right L5 nerve root at the L4-5 level. L5-S1: Facet and ligamentum hypertrophic change with mild bilateral foraminal narrowing. IMPRESSION: 1. T1-T2: Degenerative disc disease with a small right paracentral lateral and foraminal disc osteophyte complex causing right-sided lateral recess and foraminal narrowing. 2. L2-L3: Degenerative disc disease with bulging disc and mild bilateral lateral recess and foraminal narrowing. 3. L3-L4: Mild facet and ligamentum hypertrophic change with mild bilateral foraminal narrowing. 4. L4-5: Concentric bulging disc with facet and ligamentum hypertrophic change with a tiny central disc protrusion slightly eccentric toward the left. There may be minimal enhancement of the disc at this region. This is difficult to distinguish from fatty changes or enhancement without unenhanced images. There is canal stenosis at this level. There is some questionable enhancement of the right L5 nerve root at the L4-5 level. 5. L5-S1: Facet and ligamentum hypertrophic change with mild bilateral foraminal narrowing. Dictated by: Osman Shepard MD 01/03/2021 08:10 Osman Shepard MD in [place] 01/03/2021 08:10
== END ==
PROVIDERS: PCP Internal Medicine Adolescent Medicine; Visit Provider Internal Medicine Adolescent Medicine
DX: M54.16 Radiculopathy, lumbar region (principal)
CPT/HCPCS: 72149; A9576

== ENCOUNTER → 2021-02-19 10:22 | Outpatient (CLI) | payer BC, OTHER, SELFPAY ==
[2021-02-19 10:39] LABS: Microscopic, Urine URINE MICROSCOPIC (MICROSCOPIC)
[2021-02-19 11:26] LABS: Basophils # 0.1 K/mm3 (0-0.2); Basophils % 1.1 % (0.1-2.0); Eosinophils # 0.3 K/mm3 (0.0-0.4); Eosinophils % 4.1 % (0.1-12.0); Hematocrit 45.7 % (42.0-52.0); Hemoglobin 15.7 g/dL (14.1-18.0); Lymphocytes # 1.7 K/mm3 (0.7-4.5); Lymphocytes % 28.2 % (10-50); Mean Corpuscular HGB Conc 34.3 g/dL (31.8-35.4); Mean Corpuscular Hemoglobin 29.4 pg (27.0-31.2); Mean Corpuscular Volume 85.5 fl (80-94); Mean Platelet Volume 8.9 fl (7.4-10.4); Monocytes # 0.4 K/mm3 (0.1-1.0); Monocytes % 6.1 % (1.7-9.3); Neutrophils # 3.7 K/mm3 (1.8-7.8); Neutrophils % 60.5 % (37.0-80.0); Platelet Count 262 K/mm3 (142-424); Red Blood Count 5.35 M/mm3 (4.60-6.20); Red Cell Distribution Width 13.5 % (11.5-17.5); White Blood Count 6.1 K/mm3 (4.8-10.8)
[2021-02-19 12:25] LABS: Chloride 93 mmol/L (98-107); Potassium 4.7 mmoL/L (3.5-5.1); Sodium 133 mmol/L (136-145)
[2021-02-19 12:27] LABS: Blood Urea Nitrogen 24 mg/dl (9-20); Estimated Glomerular Filt Rate 66 ml/min (>60); GFR (African American) 80 ML/MIN (>60)
[2021-02-19 12:28] LABS: Alanine Aminotransferase 44 U/L (12-78); Albumin Level 4.7 g/dl (3.5-5.0); Albumin/Globulin Ratio 1.7 (1.1-1.8); Alkaline Phosphatase 116 U/L (38-126); Anion Gap 14.7 mEq/L (5-15); Aspartate Amino Transferase 35 U/L (17-59); Bilirubin,Total 0.5 mg/dl (0.2-1.3); Calcium 10.2 mg/dl (8.4-10.2); Carbon Dioxide 30 mmol/L (22.0-30.0); Cholesterol 200 mg/dl (140-200); Globulin 2.8 g/dL (1.3-3.2); Total Protein,Serum 7.5 g/dl (6.3-8.2)
[2021-02-19 12:29] LABS: Chol/HDL Ratio 4.5 (1-3.5); HDL Cholesterol 44 mg/dl (40-60)
[2021-02-19 12:39] LABS: Direct LDL Cholesterol 44.32 mg/dL (100-129)
[2021-02-19 12:57] LABS: INR 0.96 (0.9-1.1); Prothrombin Time 10.9 seconds (10.1-12.5)
[2021-02-19 12:58] LABS: Thyroid Stimulating Hormone 0.25 uIU/mL (0.465-4.68)
[2021-02-19 14:19] LABS: Hemoglobin A1C 11.6 % (4.0-6.0)
[2021-02-19 15:01] LABS: Triglycerides 1017 mg/dl (30-150)
[2021-02-19 15:06] LABS: Glucose 441 mg/dl (74-100)
[2021-02-19 18:11] LABS: Appearance,Urine CLEAR (Clear); Bilirubin,Urine Negative (Negative); Blood, Urine Negative (Negative); Color,Urine YELLOW (Yellow); Glucose,Urine (UA) 3+ (Negative); Ketones,Urine Negative (Negative); Leukocyte Esterase,Urine Negative (Negative); Nitrate,Urine Negative (Negative); Protein,Urine TRACE (Negative); Specific Gravity, Urine 1.015 (1.005-1.030); Urobilinogen,Urine 0.2 EU/dl (0.2)
[2021-02-19 18:24] LABS: WBC,Urine Occasional #/hpf (0-3)
[2021-02-22 11:30] LABS: Testosterone, Total, LC/MS 213.8 ng/dL (264.0-916.0)
== END ==
PROVIDERS: Visit Provider Registered Nurse Critical Care Medicine
DX: Z01.810 Encounter for preprocedural cardiovascular examination (principal); Z11.52 Encounter for screening for COVID-19; I25.10 Atherosclerotic heart disease of native coronary artery without angina pectoris; I10 Essential (primary) hypertension; D69.9 Hemorrhagic condition, unspecified; E10.69 Type 1 diabetes mellitus with other specified complication; R79.89 Other specified abnormal findings of blood chemistry
CPT/HCPCS: 36415; 80053; 80061; 81001; 83036; 84403; 84443; 85025; 85610; 85730; C9803; U0003; U0005

== ENCOUNTER 2021-02-20 08:32 | Day surgery (SDC) | payer BC, OTHER, SELFPAY ==
[2021-02-20] VITALS (13 sets, daily range): BP systolic 109–137; BP diastolic 63–84; PULSE 75–87; RESP 16–18; TEMP 36.8; O2SAT 93–98; BMI 37.3
--- NOTE | 2021-02-20 | IR_ITS ---
APPROVED REPORT Patient Location: Outpatient PROCEDURES Left heart catheterization Left ventriculogram Selective coronary angiogram INDICATION Known coronary artery disease, Preoperative evaluation Informed consent was obtained prior to the procedure. COMPLICATIONS NONE Estimated Blood Loss: LESS THAN 10 ML TECHNIQUE One percent lidocaine used to anesthetize the right anterior aspect of the wrist. The right radial artery was accessed via the Seldinger technique. A 6 Malian sheath was placed in the right radial artery. 2.5 mg of verapamil, 800 mcg of nitroglycerin, 1mg Lidocaine and 5000 U Heparin were given through the arterial sheath. The trap catheter was also used to perform left heart catheterization, left ventriculogram and selective coronary angiogram. At the end of the procedure the sheath was removed good hemostasis was achieved using Traclet band, patient was transferred to the postop holding area in stable condition. ANGIOGRAPHIC RESULTS The left main artery Normal The left anterior descending artery Has a stent in the proximal segment which is widely patent free of in-stent restenosis with excellent proximal distal transitioning. The remaining LAD has mild 10% luminal irregularities The circumflex artery Is a large-caliber dominant vessel and normal The right coronary artery Is nondominant yet still large and has diffuse proximal and distal 10% luminal irregularities The WAYNE ventriculogram reveals Normal 65% The left ventricular end-diastolic pressure 10 mmHg IMPRESSION Widely patent proximal LAD stent with mild nonflow limiting coronary disease throughout as described above Normal ejection fraction Normal left ventricular NaSal pressure PLAN 1. Continue medical management for coronary disease 2. Patient is a low and acceptable risk to proceed with elective back surgery Electronically signed by : Skyler Lance MD 02/20/2021 11:09:01
== END 2021-02-20 13:44 | disposition home or self-care (01) ==
LOC: CATHLAB 08:33
PROVIDERS: PCP Internal Medicine Adolescent Medicine; Visit Provider Internal Medicine
DX: I25.118 Atherosclerotic heart disease of native coronary artery with other forms of angina pectoris (principal); Z95.5 Presence of coronary angioplasty implant and graft; E11.9 Type 2 diabetes mellitus without complications; Z79.899 Other long term (current) drug therapy; I10 Essential (primary) hypertension; Z20.822 Contact with and (suspected) exposure to COVID-19
CPT/HCPCS: 93458; 99152; C1725; C1760; C1769; J1644; Q9967

== ENCOUNTER → 2021-03-04 15:43 | Outpatient (CLI) | payer OTHER, BC, SELFPAY | PROVIDERS: Visit Provider Registered Nurse Critical Care Medicine | DX: Z20.822 Contact with and (suspected) exposure to COVID-19 (principal); B34.9 Viral infection, unspecified | CPT/HCPCS: C9803; U0003; U0005 ==

== ENCOUNTER → 2021-04-29 12:58 | Outpatient (CLI) | payer BC, OTHER, SELFPAY ==
--- NOTE | 2021-04-29 13:20 | MR_ITS ---
FINAL REPORT CLINICAL HISTORY: RT LEG PAIN, S/P LUMBAR MICRODISCECTOMY 8 weeks ago, rt leg numbness/tingling. 23ml prohance FINDINGS: Multiplanar MR imaging of the lumbar spine was performed without contrast. On the sagittal T2-weighted images, there is abnormal decreased signal in the L4-L5 disc. The vertebrae are of normal height. The vertebral alignment is normal. L1-2: There is no significant canal stenosis or neural foraminal narrowing. L2-3: There is no significant canal stenosis or neural foraminal narrowing. L3-4: There is no significant canal stenosis or neural foraminal narrowing. L4-5: There is a moderate diffuse disc bulge with endplate hypertrophy. There is moderate spinal canal stenosis. There is [id number] bilateral neural foraminal narrowing. There is postoperative change involving the elements. There has been right L4-5 laminectomy. There is extensive enhancement in the right lateral recess and in the laminectomy defect consistent with fibrosis seen on image 25 of series 10. L5-S1: There is no significant canal stenosis or neural foraminal narrowing. IMPRESSION: Diffuse disc bulge at L4-L5 with moderate spinal canal stenosis and postoperative changes as described. Reviewed, Interpreted and Dictated by Elpidio Bustamante MD Transcribed by Woody Augustine Authenticated by Elpidio Bustamante MD on 04/29/2021 03:43:42 PM [facility]
[2021-04-29 13:46] LABS: Blood Urea Nitrogen 13 mg/dl (9-20); Estimated Glomerular Filt Rate 105 ml/min (>60); GFR (African American) 127 ML/MIN (>60)
== END ==
LOC: RAD 12:59
PROVIDERS: PCP Internal Medicine Adolescent Medicine; Visit Provider Neurological Surgery
DX: M79.604 Pain in right leg (principal); Z98.890 Other specified postprocedural states
CPT/HCPCS: 36415; 72158; 76376; 82565; 84520; A9576

== ENCOUNTER → 2021-07-09 14:39 | Outpatient (CLI) | payer BC, OTHER, SELFPAY ==
--- NOTE | 2021-07-09 14:43 | XR_ITS ---
FINAL REPORT CLINICAL HISTORY: LT POSTERIOR ELBOW PAIN FINDINGS: LEFT ELBOW 3 views were obtained. There is no acute fracture or dislocation. There is no joint effusion. The joint spaces are intact. There multiple small foreign bodies posterior to the distal humerus. IMPRESSION: No acute process. Multiple small foreign bodies posterior to the distal humerus. Reviewed, Interpreted and Dictated by Hamilton Gresham III, MD Transcribed by Woody Augustine Authenticated by Hamilton Gresham III, MD on 07/09/2021 03:45:51 PM [facility]
== END ==
PROVIDERS: PCP Internal Medicine Adolescent Medicine; Visit Provider Internal Medicine Adolescent Medicine
DX: M25.522 Pain in left elbow (principal)
CPT/HCPCS: 73080

== ENCOUNTER 2021-07-31 22:14 | Emergency (ER) | payer BC, OTHER, SELFPAY ==
[2021-07-31 22:15] VITALS: BP 169/87; PULSE 100; RESP 20; TEMP 36.9; O2SAT 97; BMI 32.8
[2021-07-31 22:35] VITALS: BMI 31.9
--- NOTE | 2021-07-31 22:36 | CT_ITS ---
PROCEDURE INFORMATION: Exam: CT Lumbar Spine With Contrast Exam date and time: 07/31/2021 11:26 PM Age: 46 years old Clinical indication: Other: Pain in incision post op; Prior surgery; Surgery date: 3-7 days post-operative; Surgery type: Lumbar SX last Wednesday TECHNIQUE: Imaging protocol: Computed tomography images of the lumbar spine with intravenous contrast. Radiation optimization: All CT scans at this facility use at least one of these dose optimization techniques: automated exposure control; mA and/or kV adjustment per patient size (includes targeted exams where dose is matched to clinical indication); or iterative reconstruction. Contrast material: ISOVUE; Contrast volume: 75 ml; Contrast route: IV; COMPARISON: MR LUMBAR SPINE WO/W CON 04/29/2021 1:28 PM FINDINGS: Vertebrae: Changes posterior element and interbody fusion procedure are noted at L4-5 with intact appearing hardware. Discs/Spinal canal/Neural foramina: No significant disc protrusion. No severe spinal canal stenosis. No significant neural foraminal narrowing. Gallbladder and bile ducts: Prior cholecystectomy. Kidneys and ureters: Intrarenal stone left kidney. Intraperitoneal space: Bilateral paramedian low back incisions are noted, marked by staple lines. On the right, there is a small fluid collection deep to the staple line measuring 2.8 by 2.3 cm. No rim enhancement or significant localized inflammation. This is likely a seroma. Soft tissues: Unremarkable. IMPRESSION: Small fluid collection deep to the right paramedian staple line is likely a seroma. No significant regional inflammation. No evidence of deep fluid collection. Expected postsurgical change following lumbar fusion procedure.
[2021-07-31 22:42] LABS: Microscopic, Urine URINE MICROSCOPIC (MICROSCOPIC)
[2021-07-31 22:44] LABS: Appearance,Urine CLEAR (Clear); Bilirubin,Urine Negative (Negative); Blood, Urine Negative (Negative); Color,Urine YELLOW (Yellow); Glucose,Urine (UA) 3+ (Negative); Ketones,Urine Negative (Negative); Leukocyte Esterase,Urine Negative (Negative); Nitrate,Urine POSITIVE (Negative); PH,Urine 6.5 (5.0-8.5); Protein,Urine Negative (Negative); Specific Gravity, Urine <= 1.005 (1.005-1.030); Urobilinogen,Urine 0.2 EU/dl (0.2)
[2021-07-31 22:45] LABS: Basophils # 0.1 K/mm3 (0-0.2); Basophils % 1.8 % (0.1-2.0); Eosinophils # 0.2 K/mm3 (0.0-0.4); Eosinophils % 3.4 % (0.1-12.0); Hematocrit 47.4 % (42.0-52.0); Hemoglobin 16.3 g/dL (14.1-18.0); Lymphocytes # 1.2 K/mm3 (0.7-4.5); Lymphocytes % 17.9 % (10-50); Mean Corpuscular HGB Conc 34.3 g/dL (31.8-35.4); Mean Corpuscular Hemoglobin 28.9 pg (27.0-31.2); Monocytes # 0.4 K/mm3 (0.1-1.0); Monocytes % 5.3 % (1.7-9.3); Neutrophils % 71.5 % (37.0-80.0); Platelet Count 344 K/mm3 (142-424); Red Blood Count 5.63 M/mm3 (4.60-6.20); Red Cell Distribution Width 14.4 % (11.5-17.5)
[2021-07-31 22:53] LABS: Alanine Aminotransferase 43 U/L (12-78); Albumin Level 4.4 g/dl (3.5-5.0); Albumin/Globulin Ratio 1.3 (1.1-1.8); Alkaline Phosphatase 169 U/L (38-126); Anion Gap 16.1 mEq/L (5-15); Aspartate Amino Transferase 35 U/L (17-59); Bilirubin,Total 0.6 mg/dl (0.2-1.3); Blood Urea Nitrogen 15 mg/dl (9-20); Calcium 9.8 mg/dl (8.4-10.2); Carbon Dioxide 28 mmol/L (22.0-30.0); Chloride 91 mmol/L (98-107); Creatinine Clearance Estimated 180 mL/min (50-200); Estimated Glomerular Filt Rate 122 ml/min (>60); GFR (African American) 148 ML/MIN (>60); Globulin 3.4 g/dL (1.3-3.2); Potassium 4.1 mmoL/L (3.5-5.1); Sodium 131 mmol/L (136-145); Total Protein,Serum 7.8 g/dl (6.3-8.2)
[2021-07-31 22:59] LABS: C-Reactive Protein 23.2 mg/L (0-4)
[2021-07-31 23:00] VITALS: BP 141/92; PULSE 105; O2SAT 97
[2021-07-31 23:03] LABS: Glucose 551 mg/dl (74-100)
[2021-07-31 23:04] LABS: Lactic Acid 2.7 mmol/L (0.7-2.1)
--- NOTE | 2021-07-31 23:05 | PC.NURSE ---
notified amira of critical glucose 559
[2021-07-31 23:10] LABS: Acetone, Serum (Rapid) None Detected (None Detect)
[2021-07-31 23:13] LABS: Procalcitonin 0.091 ng/mL (0.0-2.0)
--- NOTE | 2021-07-31 23:33 | HMH.EDBACK ---
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 Diabetes mellitus complication status: with other specified complication Qualified Code(s): E11.69 - Type 2 diabetes mellitus with other specified complication Disposition: Home, Self-Care Condition on Discharge: Good Instructions: DI for Low Back Pain Additional Instructions: call surg and pcp in am Referrals: Jonathan Davidson MD [Primary Care Provider] - Amador Benitez MD [Referring] - - Critical Care Critical Care Time: No Attestation: On 07/31/21, the high probability of a clinically significant, sudden or life threatening deterioration of the following system(s) required my full and direct attention, intervention and personal management. The time I documented below is in addition to time spent performing reported procedures but includes the following listed in this critical care notation. Medical Decision Making - Medical Records Medical records reviewed: Yes: I reviewed the patient's medical records. - Angel Inquiry Pt receiving controlled substance: No Vital Signs: 07/31/21 22:15 07/31/21 23:00 07/31/21 23:35 Temperature 98.4 F Temperature Source Oral Pulse Rate 105 H 110 H Pulse Rate [Right] 100 H Respiratory Rate 20 Blood Pressure 141/92 H 141/92 H Blood Pressure [Right Arm] 169/87 H Blood Pressure Mean [Right Arm] 114 02 Sat by Pulse Oximetry 97 97 94 L - Lab Data Lab results reviewed: Yes: I reviewed the patient's lab results. Lab Results 07/31/21 22:30: Acetone Level None detected 07/31/21 22:32: Urine Color Yellow, Urine Appearance Clear, Urine pH 6.5, Ur Specific [place] <= 1.005, Urine Protein Negative, Urine Glucose (UA) 3+, Urine Ketones Negative, Urine Blood Negative, Urine Nitrate Positive, Urine Bilirubin Negative, Urine Urobilinogen 0.2, Ur Leukocyte Esterase Negative, Urine RBC None, Urine WBC Occasional, Ur Squamous Epith Cells None, Urine Bacteria Trace 07/31/21 22:32: WBC 7.0, RBC 5.63, Hgb 16.3, Hct 47.4, MCV 84.0, MCH 28.9, MCHC 34.3, RDW 14.4, Plt Count 344, MPV 8.0, Neut % (Auto) 71.5, Lymph % (Auto) 17.9, [place] % (Auto) 5.3, Eos % (Auto) 3.4, Baso % (Auto) 1.8, Neut # (Auto) 5.0, Lymph # (Auto) 1.2, [place] # (Auto) 0.4, Eos # (Auto) 0.2, Baso # (Auto) 0.1 07/31/21 22:32: Sodium 131 L, Potassium 4.1, Chloride 91 L, Carbon Dioxide 28, Anion Gap 16.1 H, BUN 15, Creatinine 0.70, Estimated Creat Clear 180, Estimated GFR 122, Est GFR ( Amer) 148, Glucose 551 H*, Calcium 9.8, Total Bilirubin 0.6, AST 35, ALT 43, Alkaline Phosphatase 169 H, C-Reactive Protein 23.2 H, Total Protein 7.8, Albumin 4.4, Globulin 3.4 H, Albumin/Globulin Ratio 1.3, Procalcitonin 0.091 07/31/21 22:32: Lactate 2.7 H Result diagrams: 07/31/21 22:32 07/31/21 22:32 Orders (Tests/Meds): ED MEDICATIONS Generic Name Dose Route Start Last Admin Trade Name Freq PRN Reason Stop Dose Admin Lactated Ringer's 1,000 mls @ 999 mls/hr 07/31/21 22:45 07/31/21 22:42 Lactated Ringer's 1000 Ml Bag IV 07/31/21 23:45 999 mls/hr .Q1H1M JEAN-PIERRE Administration Discontinued Medications Generic Name Dose Route Start Last Admin Trade Name Freq PRN Reason Stop Dose Admin Hydromorphone HCl 1 mg 07/31/21 22:36 07/31/21 22:42 Hydromorphone 2mg/Ml Syringe IV 07/31/21 22:37 1 mg ONCE ONE Administration Hydromorphone HCl 2 mg 08/01/21 00:03 08/01/21 00:10 Hydromorphone 2mg/Ml Syringe IV 08/01/21 00:04 2 mg ONCE ONE Administration Insulin Human Regular 10 unit 07/31/21 23:04 07/31/21 23:07 Insulin Human Regular 100 Units/Ml 10ml Vial IVP 07/31/21 23:05 10 unit ONCE ONE Administration Iopamidol 75 ml 07/31/21 23:36 07/31/21 23:37 Iopamidol-370 (76%);100ml Bottle IV 07/31/21 23:37 75 ml ONCE ONE Administration Ketorolac Tromethamine 3
[2021-07-31 23:34] LABS: Bacteria,Urine Trace /lpf; WBC,Urine Occasional #/hpf (0-3)
[2021-07-31 23:35] VITALS: BP 141/92; PULSE 110; O2SAT 94
[2021-08-01 01:19] LABS: Erythrocyte Sedimentation Rate 6 mm/hr (0-15)
[2021-08-01 01:27] VITALS: BP 119/72; PULSE 82; RESP 18; TEMP 36.9; O2SAT 97
== END 2021-08-01 01:28 | disposition home or self-care (01) ==
PROVIDERS: Emergency Provider Emergency Medicine; PCP Internal Medicine Adolescent Medicine
DX: M54.50 Low back pain, unspecified (principal); R42 Dizziness and giddiness; R00.2 Palpitations; N28.9 Disorder of kidney and ureter, unspecified; I25.10 Atherosclerotic heart disease of native coronary artery without angina pectoris; K21.9 Gastro-esophageal reflux disease without esophagitis; E78.5 Hyperlipidemia, unspecified; E11.69 Type 2 diabetes mellitus with other specified complication; G47.33 Obstructive sleep apnea (adult) (pediatric); G43.909 Migraine, unspecified, not intractable, without status migrainosus; Z82.49 Family history of ischemic heart disease and other diseases of the circulatory system; Z79.82 Long term (current) use of aspirin; Z79.899 Other long term (current) drug therapy
CPT/HCPCS: 72132; 80053; 81001; 82009; 83605; 84145; 85025; 85651; 86140; 87040; 96361; 96374; 96375; 96376; 99284; Q9967

== ENCOUNTER → 2021-11-05 06:53 | Outpatient (CLI) | payer BC, OTHER, SELFPAY ==
[2021-11-05 07:42] LABS: Blood Urea Nitrogen 12 mg/dl (9-20); Estimated Glomerular Filt Rate 146 ml/min (>60); GFR (African American) 176 ML/MIN (>60)
--- NOTE | 2021-11-05 10:18 | MR_ITS ---
FINAL REPORT CLINICAL HISTORY: LUMBAR PAIN PT STATED LEFT LEG NERVE PAIN X 6 WEEKS PT STATED HE FELL QUITE A FEW TIMES AFTER HIS SURGERY TINGLING /NUMBNESS 23ML PROHANCE GIVEN COMPARISON: April 29, 2021 FINDINGS: Multiplanar MR imaging of the lumbar spine was performed without and with contrast. Motion on many of the images decreases exam sensitivity. There has been fusion of L4-L5. On the sagittal T2-weighted images, disc degeneration is seen at multiple levels. The vertebral alignment is normal. There is no evidence of fracture. There is significant bone marrow edema in the L4 and L5 vertebrae that may be reactive. The conus has an unremarkable appearance. T12-L1: There is an annular bulge with a right foraminal disc protrusion, stable. There is mild right neural foraminal narrowing. L1-2: There is an annular bulge, facet arthropathy and vertebral osteophytes. No significant canal stenosis or neuroforaminal narrowing is seen. L2-3: No significant canal stenosis or neuroforaminal narrowing is seen. L3-4: No significant canal stenosis or neuroforaminal narrowing is seen. L4-5: There is fusion at this level. There is mild bilateral neural foraminal narrowing. There is contrast enhancement of the posterior soft tissues likely representing postoperative fibrosis. L5-S1: There is an annular bulge and facet arthropathy. There is a new synovial cyst posterior to the left facet joint measuring 8 mm. There is mild right and moderate left neural foraminal narrowing. IMPRESSION: Fusion of L4-L5. Bone marrow edema in L4 and L5 vertebrae may be reactive. Enhancing soft tissues posteriorly at L4-5 likely represents postoperative fibrosis. Multilevel degenerative disc disease with areas of neural foraminal narrowing. Stable right foraminal disc protrusion at T12-L1. Synovial cyst posterior to the left facet joint at L5-S1. Reviewed, Interpreted and Dictated by Hamilton Gersham III, MD Transcribed by Woody Augustine Authenticated and [facility]
== END ==
PROVIDERS: PCP Internal Medicine Adolescent Medicine; Visit Provider Orthopaedic Surgery
DX: M54.50 Low back pain, unspecified (principal)
CPT/HCPCS: 36415; 72158; 76376; 82565; 84520; A9576

== ENCOUNTER 2021-12-30 13:16 | Emergency (ER) | payer BC, OTHER, SELFPAY ==
[2021-12-30] VITALS (9 sets, daily range): BP systolic 118–140; BP diastolic 65–76; PULSE 78–90; RESP 16–20; TEMP 36.6–37.1; O2SAT 96–100; BMI 32.3
--- NOTE | 2021-12-30 13:41 | CT_ITS ---
FINAL REPORT TECHNIQUE: Axial images were performed through the lumbar spine by computed tomography. Coronal and sagittal reconstruction images were also performed. This study was performed with techniques to keep radiation doses as low as reasonably achievable, (ALARA). Individualized dose reduction techniques using automated exposure control or adjustment of mA and/or kV according to the patient''s size were employed. CLINICAL HISTORY: trauma COMPARISON: July 31, 2021 FINDINGS: CT LUMBAR SPINE W/O CONTRAST Sagittal reconstruction images demonstrate no subluxation. The disk heights are preserved. There are moderate degenerative disc changes in the upper lumbar spine. There are postoperative changes from fusion at L4-5. Axial imaging demonstrates no definite central canal or neuroforaminal stenosis. IMPRESSION: No acute fracture or malalignment. Reviewed, Interpreted and Dictated by Livia Kimball MD Transcribed by Jacey Sykes Authenticated and [facility]
--- NOTE | 2021-12-30 13:54 | PC.NURSE ---
PT GONE TO CT VIA W/C
--- NOTE | 2021-12-30 14:19 | HMH.EDGENADL ---
Discharge Plan Disposition Patient Disposition: Home, Self-Care Condition: Good Prescriptions Prescriptions: New diazepam [Valium] 2 mg tablet 2 mg PO BID PRN (Reason: sedation) 4 Days Qty: 8 0RF No Action metoprolol succinate 50 mg tablet extended release 24 hr 50 mg PO HS aspirin [Adult Low Dose Aspirin] 81 mg tablet,delayed release (DR/EC) 81 mg PO HS tizanidine [Zanaflex] 4 mg tablet 4 mg PO BIDP PRN (Reason: nerves) gabapentin 800 mg tablet 800 mg PO HS duloxetine 60 mg capsule,delayed release(DR/EC) 60 mg PO Label Comments: TAKE 1 CAPSULE 1 TIME EACH DAY losartan 50 mg tablet 50 mg PO hydrochlorothiazide 25 mg tablet 25 mg PO DAILY Label Comments: TAKE 1 TABLET 1 TIME EACH DAY. hydrocodone-acetaminophen 10-325 mg tablet 1 tab PO DAILY PRN (Reason: pain) venlafaxine 225 mg tablet extended release 24hr 225 mg PO DAILY rosuvastatin 20 mg tablet 20 mg PO HS Qty: 90 3RF Referrals Follow up/Referrals: Jonathan Davidson MD [Primary Care Provider] - See instructions Clinical Impressions Clinical Impression: Acute lumbar myofascial strain Qualifiers: Encounter type: initial encounter Qualified Code(s): S39.012A - Strain of muscle, fascia and tendon of lower back, initial encounter Instructions Patient Instructions: DI for Lumbar Radiculopathy Discharge ED Provider: Bebeto Carter Adult HPI General Chief complaint: PAIN Stated complaint: Fall@home 12/29/21 back painback surgery 4 wks ago Time Seen by Provider: 12/30/21 14:00 Mode of Arrival: Ambulatory Source of Information: Patient Limitations: No Limitations Description of Symptoms (Recalled from ER Triage Doc. by RN): to ed per pvt car with c/o lower back pain pt states yesterday squatting down picking up something fell forward and caught self started with lower back pain. pt with hx of 3 prior back surgeries since mar. last surgery 11/26. pt states he took 10mg hydrocodone with no relief of symptoms History of Present Illness HPI narrative: This is a 46-year-old male presented to the emergency department with some lower back pain. The patient has a chronic history of low back pain. Has had multiple surgeries. 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 He caught himself as he was falling, however developed some back pain. He states that he has been unable to keep his pain under control since then. Patient states that the pain is dull in nature. Nonradiating. Not having any bowel or bladder issues. No fevers or chest pain or headache or change in vision. No focal weakness. No chest pain or shortness of breath no abdominal pain or vomiting. Related Data Home Medications Medication Instructions Recorded Confirmed aspirin 81 mg tablet,delayed 81 mg PO HS heart health 12/13/18 12/19/21 release (Adult Low Dose Aspirin) gabapentin 800 mg tablet 800 mg PO HS nerve pain 12/13/18 12/19/21 metoprolol succinate 50 mg 50 mg PO HS blood pressure 12/13/18 12/19/21 tablet,extended release 24 hr tizanidine 4 mg tablet (Zanaflex) 4 mg PO BIDP PRN nerves 12/13/18 12/19/21 hydrochlorothiazide 25 mg tablet 25 mg PO DAILY High blood pressure 12/25/19 12/19/21 hydrocodone 10 mg-acetaminophen 1 tab PO DAILY PRN pain 02/19/21 12/19/21 325 mg tablet venlafaxine 225 mg tablet,extended 225 mg PO DAILY 08/06/21 12/19/21 release 24 hr duloxetine 60 mg capsule,delayed 60 mg PO 09/10/21 12/19/21 release losartan 50 mg tablet 50 mg PO 09/10/21 12/19/21 Previous Rx's Medication Instructions Recorded rosuvastatin 20 mg tablet 20 mg PO HS Cholesterol #90 tabs 04/29/21 diazepam 2 mg tablet (Valium) 2 mg PO BID PRN sedation 4 days #8 12/30/21 tabs Allergies Allergy/AdvReac Type Severity Reaction Status Date / Time No Known Allergies Allergy Verified 12/18/21 10:13 [facility] Medical History (Reviewed
== END 2021-12-30 17:40 | disposition home or self-care (01) ==
PROVIDERS: Emergency Provider Emergency Medicine; PCP Internal Medicine Adolescent Medicine
DX: S39.012A Strain of muscle, fascia and tendon of lower back, initial encounter (principal); G89.29 Other chronic pain; I25.10 Atherosclerotic heart disease of native coronary artery without angina pectoris; G47.33 Obstructive sleep apnea (adult) (pediatric); F43.10 Post-traumatic stress disorder, unspecified; R42 Dizziness and giddiness; Z79.82 Long term (current) use of aspirin; Z79.899 Other long term (current) drug therapy; Z83.438 Family history of other disorder of lipoprotein metabolism and other lipidemia; Z83.3 Family history of diabetes mellitus; Z84.1 Family history of disorders of kidney and ureter; Z81.1 Family history of alcohol abuse and dependence
CPT/HCPCS: 72131; 96372; 99285

== ENCOUNTER 2022-01-19 14:31 | Emergency (ER) | payer BC, OTHER, SELFPAY ==
[2022-01-19 14:32] VITALS: BP 151/107; PULSE 109; RESP 20; TEMP 36.5; O2SAT 99; BMI 32.3
--- NOTE | 2022-01-19 14:54 | CT_ITS ---
FINAL REPORT TECHNIQUE: Axial images through the abdomen and pelvis were performed without contrast.This study was performed with techniques to keep radiation doses as low as reasonably achievable, (ALARA). Individualized dose reduction techniques using automated exposure control or adjustment of mA and/or kV according to the patient's size were employed. CLINICAL HISTORY: concern for nephrolitiasis COMPARISON: 12/05/2019 FINDINGS: ABDOMEN: The lung bases are clear. The heart size is normal. Limited images of the liver are unremarkable. Patient is status post cholecystectomy. The spleen is normal. No adrenal mass is identified. The aorta is normal in caliber. There is no significant free fluid or adenopathy. There is no nephrolithiasis. There is mild left hydroureteronephrosis secondary to a 2 mm left UVJ stone. PELVIS: The appendix is not identified. There is descending and sigmoid diverticulosis. The urinary bladder is unremarkable. There is no significant free fluid or adenopathy. Postoperative changes are noted of the lower lumbar spine. IMPRESSION: Mild left hydroureteronephrosis secondary to a 2 mm left UVJ stone. Reviewed, Interpreted and Dictated by Hamilton Gresham III, MD Transcribed by Em Felix Authenticated and [facility]
--- NOTE | 2022-01-19 14:55 | HMH.EDGENADL ---
Discharge Plan Disposition Patient Disposition: Home, Self-Care Condition: Good Prescriptions Prescriptions: New tamsulosin [Flomax] 0.4 mg capsule 0.4 mg PO Q24H Qty: 14 0RF ketorolac 10 mg tablet 10 mg PO Q6H PRN (Reason: pain) 5 Days Qty: 30 0RF No Action metoprolol succinate 50 mg tablet extended release 24 hr 50 mg PO HS aspirin [Adult Low Dose Aspirin] 81 mg tablet,delayed release (DR/EC) 81 mg PO HS tizanidine [Zanaflex] 4 mg tablet 4 mg PO BIDP PRN (Reason: nerves) gabapentin 800 mg tablet 800 mg PO HS duloxetine 60 mg capsule,delayed release(DR/EC) 60 mg PO Label Comments: TAKE 1 CAPSULE 1 TIME EACH DAY losartan 50 mg tablet 50 mg PO hydrochlorothiazide 25 mg tablet 25 mg PO DAILY Label Comments: TAKE 1 TABLET 1 TIME EACH DAY. hydrocodone-acetaminophen 10-325 mg tablet 1 tab PO DAILY PRN (Reason: pain) venlafaxine 225 mg tablet extended release 24hr 225 mg PO DAILY rosuvastatin 20 mg tablet 20 mg PO HS Qty: 90 3RF diazepam [Valium] 2 mg tablet 2 mg PO BID PRN (Reason: sedation) 4 Days Qty: 8 0RF Referrals Follow up/Referrals: Yunior Porras MD [Primary Care Provider] - See instructions Clinical Impressions Clinical Impression: Kidney stone Instructions Patient Instructions: DI for Kidney Stones Discharge ED Provider: Semaj Dougherty General Adult HPI General Chief complaint: Back Pain/Injury Stated complaint: low left side pain Time Seen by Provider: 01/19/22 14:40 Mode of Arrival: Ambulatory Limitations: No Limitations Description of Symptoms (Recalled from ER Triage Doc. by RN): PT REPORTS LEFT SIDED LOWER BACK PAIN THAT RADIATES TO GROIN, HX OF KIDNEY STONES. DECREASED URINARY OUTPUT History of Present Illness HPI narrative: Patient is a 46-year-old male with a past medical history of nephrolithiasis, CAD, diabetes, hypertension, hyperlipidemia who presents with concern for left-sided flank pain. Patient states that he started to get acute onset of left-sided back pain that started today that seems to radiate around his left side and down into his groin. He says that it feels like his previous episodes of nephrolithiasis. He says that he has little bit less urine output than normal. He states he also started develop a little bit of right-sided pain as well. The pain is not worse with movement. He says that it is constant. Rates it as a 10/10. Describes it as a stabbing pain. Has not noted any blood in his urine. Related Data Home Medications Medication Instructions Recorded Confirmed aspirin 81 mg tablet,delayed 81 mg PO HS heart health 12/13/18 12/19/21 release (Adult Low Dose Aspirin) gabapentin 800 mg tablet 800 mg PO HS nerve pain 12/13/18 12/19/21 metoprolol succinate 50 mg 50 mg PO HS blood pressure 12/13/18 12/19/21 tablet,extended release 24 hr tizanidine 4 mg tablet (Zanaflex) 4 mg PO BIDP PRN nerves 12/13/18 12/19/21 hydrochlorothiazide 25 mg tablet 25 mg PO DAILY High blood pressure 12/25/19 12/19/21 hydrocodone 10 mg-acetaminophen 1 tab PO DAILY PRN pain 02/19/21 12/19/21 325 mg tablet venlafaxine 225 mg tablet,extended 225 mg PO DAILY 08/06/21 12/19/21 release 24 hr duloxetine 60 mg capsule,delayed 60 mg PO 09/10/21 12/19/21 release losartan 50 mg tablet 50 mg PO 09/10/21 12/19/21 Previous Rx's Medication Instructions Recorded rosuvastatin 20 mg tablet 20 mg PO HS Cholesterol #90 tabs 04/29/21 diazepam 2 mg tablet (Valium) 2 mg PO BID PRN sedation 4 days #8 12/30/21 tabs ketorolac 10 mg tablet 10 mg PO Q6H PRN pain 5 days #30 01/19/22 tabs tamsulosin 0.4 mg capsule (Flomax) 0.4 mg PO Q24H #14 caps 01/19/22 Allergies Allergy/AdvReac Type Severity Reaction Status Date / Time No Known Allergies Allergy Verified 12/18/21 10:13 [facility] Medical History CAD (coronary artery disea
[2022-01-19 15:01] LABS: Basophils # 0.1 K/mm3 (0-0.2); Basophils % 1.2 % (0.1-2.0); Eosinophils # 0.3 K/mm3 (0.0-0.4); Hematocrit 40.9 % (42.0-52.0); Hemoglobin 13.3 g/dL (14.1-18.0); Lymphocytes # 1.6 K/mm3 (0.7-4.5); Lymphocytes % 21.3 % (10-50); Mean Corpuscular HGB Conc 32.6 g/dL (31.8-35.4); Mean Corpuscular Hemoglobin 26.8 pg (27.0-31.2); Mean Corpuscular Volume 82.2 fl (80-94); Mean Platelet Volume 7.8 fl (7.4-10.4); Monocytes # 0.5 K/mm3 (0.1-1.0); Monocytes % 6.1 % (1.7-9.3); Neutrophils # 5.2 K/mm3 (1.8-7.8); Neutrophils % 67.4 % (37.0-80.0); Platelet Count 298 K/mm3 (142-424); Red Blood Count 4.97 M/mm3 (4.60-6.20); Red Cell Distribution Width 16.2 % (11.5-17.5); White Blood Count 7.7 K/mm3 (4.8-10.8)
[2022-01-19 15:02] LABS: Chloride 98 mmol/L (98-107); Potassium 4.3 mmoL/L (3.5-5.1); Sodium 138 mmol/L (136-145)
[2022-01-19 15:05] LABS: Anion Gap 14.3 mEq/L (5-15); Blood Urea Nitrogen 16 mg/dl (9-20); Carbon Dioxide 30 mmol/L (22.0-30.0); Creatinine Clearance Estimated 113 mL/min (50-200); Estimated Glomerular Filt Rate 60 ml/min (>60); GFR (African American) 72 ML/MIN (>60)
[2022-01-19 15:06] LABS: Calcium 8.9 mg/dl (8.4-10.2); Glucose 208 mg/dl (74-100)
[2022-01-19 15:14] LABS: Microscopic, Urine URINE MICROSCOPIC (MICROSCOPIC)
[2022-01-19 15:17] VITALS: BP 143/86; PULSE 100; RESP 20; O2SAT 96
[2022-01-19 15:21] LABS: Appearance,Urine CLEAR (Clear); Bilirubin,Urine Negative (Negative); Blood, Urine 3+ (Negative); Color,Urine YELLOW (Yellow); Glucose,Urine (UA) 2+ (Negative); Ketones,Urine TRACE (Negative); Leukocyte Esterase,Urine Negative (Negative); Nitrate,Urine Negative (Negative); Protein,Urine 2+ (Negative); Specific Gravity, Urine >= 1.030 (1.005-1.030); Urobilinogen,Urine 0.2 EU/dl (0.2)
[2022-01-19 15:30] VITALS: BP 142/87
[2022-01-19 16:00] VITALS: BP 144/97; PULSE 96; RESP 16; O2SAT 98
--- NOTE | 2022-01-19 16:13 | PC.NURSE ---
contacted rad to check on status of Ct result, rad staff states she would check on it
--- NOTE | 2022-01-19 16:16 | PC.NURSE ---
rounded on pt at this time, notified pt we having contacted rad to check on status ct results and they are checking on it. pt verbalized understanding. pt states no needs at this time, at BS
[2022-01-19 17:15] VITALS: BP 131/78; PULSE 87; RESP 16; TEMP 36.5; O2SAT 99
== END 2022-01-19 17:15 | disposition home or self-care (01) ==
PROVIDERS: Emergency Provider Student in an Organized Health Care Education/Training Program; PCP Internal Medicine Adolescent Medicine
DX: N20.0 Calculus of kidney (principal); Z79.82 Long term (current) use of aspirin; Z79.899 Other long term (current) drug therapy; I25.10 Atherosclerotic heart disease of native coronary artery without angina pectoris; G47.30 Sleep apnea, unspecified; F43.10 Post-traumatic stress disorder, unspecified; Z83.49 Family history of other endocrine, nutritional and metabolic diseases; Z83.3 Family history of diabetes mellitus
CPT/HCPCS: 74176; 80048; 81001; 85025; 96365; 96375; 99284; J2405

== ENCOUNTER → 2022-05-12 09:27 | Outpatient (CLI) | payer BC, OTHER, SELFPAY ==
[2022-05-12 09:57] LABS: Basophils # 0.1 K/mm3 (0-0.2); Eosinophils # 0.1 K/mm3 (0.0-0.4); Hematocrit 46.7 % (42.0-52.0); Hemoglobin 15.1 g/dL (14.1-18.0); Lymphocytes # 1.1 K/mm3 (0.7-4.5); Lymphocytes % 17.8 % (10-50); Mean Corpuscular HGB Conc 32.4 g/dL (31.8-35.4); Mean Corpuscular Hemoglobin 25.9 pg (27.0-31.2); Mean Corpuscular Volume 79.8 fl (80-94); Mean Platelet Volume 7.4 fl (7.4-10.4); Monocytes # 0.4 K/mm3 (0.1-1.0); Monocytes % 5.8 % (1.7-9.3); Neutrophils # 4.4 K/mm3 (1.8-7.8); Neutrophils % 73.3 % (37.0-80.0); Platelet Count 275 K/mm3 (142-424); Red Blood Count 5.84 M/mm3 (4.60-6.20); Red Cell Distribution Width 14.8 % (11.5-17.5)
[2022-05-12 10:06] LABS: Chloride 97 mmol/L (98-107); Sodium 132 mmol/L (136-145)
[2022-05-12 10:07] LABS: Potassium 4.4 mmoL/L (3.5-5.1)
[2022-05-12 10:09] LABS: Alanine Aminotransferase 28 U/L (12-78); Albumin Level 4.3 g/dl (3.5-5.0); Alkaline Phosphatase 177 U/L (38-126); Anion Gap 11.4 mEq/L (5-15); Aspartate Amino Transferase 32 U/L (17-59); Bilirubin,Direct 0.3 mg/dl (0.0-0.4); Bilirubin,Indirect 0.4 mg/dL (0.0-0.9); Bilirubin,Total 0.7 mg/dl (0.2-1.3); Bilirubin,Unconjugated 0.4 mg/dL (0.0-1.1); Blood Urea Nitrogen 13 mg/dl (9-20); Calcium 9.3 mg/dl (8.4-10.2); Carbon Dioxide 28 mmol/L (22.0-30.0); Cholesterol 243 mg/dl (140-200); Estimated Glomerular Filt Rate 122 ml/min (>60); GFR (African American) 148 ML/MIN (>60)
[2022-05-12 10:10] LABS: Chol/HDL Ratio 7.4 (1-3.5); HDL Cholesterol 33 mg/dl (40-60); Magnesium 1.6 mg/dl (1.6-2.3)
[2022-05-12 10:20] LABS: Glucose 533 mg/dl (74-100)
[2022-05-12 10:45] LABS: Direct LDL Cholesterol 79.71 mg/dL (100-129)
[2022-05-12 10:59] LABS: Triglycerides 787 mg/dl (30-150)
[2022-05-12 11:04] LABS: Thyroid Stimulating Hormone 0.56 uIU/mL (0.465-4.68)
[2022-05-12 20:05] LABS: Free T4 (Free Thyroxine) 1.32 ng/dl (0.78-2.19)
== END ==
PROVIDERS: PCP Internal Medicine Adolescent Medicine; Visit Provider Physician Assistant
DX: I25.118 Atherosclerotic heart disease of native coronary artery with other forms of angina pectoris (principal); R00.0 Tachycardia, unspecified; R00.2 Palpitations; I31.9 Disease of pericardium, unspecified; I10 Essential (primary) hypertension; E78.2 Mixed hyperlipidemia
CPT/HCPCS: 36415; 80048; 80061; 80076; 83735; 84439; 84443; 85025

== ENCOUNTER → 2022-05-13 15:14 | Outpatient (CLI) | payer BC, OTHER, SELFPAY | PROVIDERS: PCP Nurse Practitioner Family; Visit Provider Physician Assistant | DX: R00.2 Palpitations (principal); I10 Essential (primary) hypertension | CPT/HCPCS: 93270 ==

== ENCOUNTER → 2022-05-20 08:12 | Outpatient (CLI) | payer BC, OTHER, SELFPAY ==
--- NOTE | 2022-05-20 08:20 | MR_ITS ---
FINAL REPORT TECHNIQUE: Multiplanar and multisequence imaging of the lumbar spine was obtained without contrast. CLINICAL HISTORY: LUMBAR PAIN, MULTIPLE BACK SURGERIES, LAST SURGERY 6 MONTHS AGO, ?? BROKE SCREW COMPARISON: 11/05/2021 FINDINGS: Again seen are postoperative changes from posterior fusion of L4-5. There is normal alignment of the lumbar vertebral bodies. Vertebral body height is preserved. There is a small T2 hyperintense lesion medial to the left L4 pedicle screw which was not present on the prior exam. The spinal cord ends at the level of T12-L1. There is normal signal intensity within the substance of the distal spinal cord. Bone marrow signal intensity is normal. No acute paraspinal abnormality is identified. L1-2: An annular disc bulge is present. There is no central canal stenosis, or foraminal stenosis, stable. L2-3: There is no focal disc herniation, central canal stenosis or neuroforaminal narrowing. L3-4: There is no focal disc herniation, central canal stenosis or neuroforaminal narrowing. L4-5: There is fusion at this level. There is no significant central canal stenosis. There is left greater than right foraminal narrowing due to disc osteophyte complex. This may be slightly worse than the prior. L5-S1: An annular disc bulge is present. There is bilateral facet osteoarthropathy. There is no central canal stenosis. There is mild right and moderate to severe left neural foraminal narrowing, not significantly changed. IMPRESSION: 1. Postoperative change from L4-5 posterior fusion. Small cystic lesion medial to the left L4 pedicle screw , new from prior, significance unclear. 2. Degenerative disc disease, not significantly changed. Reviewed, Interpreted and Dictated by Radha Do MD Transcribed by Jacey Sykes Authenticated and [facility]
--- NOTE | 2022-05-20 13:41 | CA_ITS ---
APPROVED REPORT EXAM: Comprehensive 2D, Doppler, and color-flow Echocardiogram Screw Remover: Neva Bolden RT(R) Ht: 6 ft 1 in Wt: 250lbs BSA: 2.37 BP: 145/84 mmHg Indications: Abn EKG, HTN, palpitations, tachycardia, CAD, VALENTINO, dizziness 2D Dimensions LVOT 2.12 cm (M/F) 1.5-2.5 LVEF ([facility]) 54.70 % M: 52 - 72 LV Volume 87.60 mL M: 62 - 150 LV Volume Index 36.96 mL/m2 M: 34 - 74 M-Mode Dimensions RVDd 2.88 cm (0.9-2.6) LA Diam 3.88 cm (1.9-4.0) LVDd 4.75 cm (3.5-5.7) Ao Diam 3.24 cm (2.0-3.7) LVDs 3.73 cm (3.5-5.7) IVSd 0.81 cm (0.6-1.1) PWd 1.10 cm (0.6-1.1) EF (Teich) 43.50% FS 21.50% EDV (Teich) 104.90 mL ESV (Teich) 59.30 mL LV Diastology E Decel Time 237.00 (160-240 msec) E/A Ratio 0.9 MED E' 8.40 (< 7 cm/sec) E'/MED E' Ratio 8.89 (>14) LAT E' 15.30 (<10 cm/sec) E/LAT E' Ratio 4.88 (>14) Mitral Valve MV E Max Sandip. 75.00 (40-130 cm/s) MV A Velocity 86.00 (40-130 cm/s) E/A Ratio 0.87 MV Decel. Time 237.00 (160-240 ms) MV PHT 69.00 ms Left Ventricle Left atrium is mildly enlarged left ventricle is normal size mild concentric left ventricular hypertrophy, estimated ejection fraction 55% with no regional wall motion abnormality, Doppler evidence of impaired LV relaxation seen. Right Ventricle Right atrium and right ventricular mildly enlarged with normal contractility. Aortic Valve Aortic valve is minimally thickened and fibrosed there is no aortic stenosis or aortic insufficiency. Mitral Valve Mitral valve is grossly normal, there is trace mitral regurgitation. Tricuspid Valve Tricuspid valve grossly normal, there is trace tricuspid regurgitation, tricuspid regurgitation jet velocity is inadequate for calculation of the right ventricular systolic pressure. Pulmonic Valve Pulmonic valve is poorly visualized. Great Vessels Aortic root is normal size. Inferior vena cava is poorly visualized. Pericardium No significant pericardial effusion noted. Conclusion 1. Mild biatrial enlargement, normal left ventricular size, mild concentric left ventricular hypertrophy, estimated ejection fraction 55% with no regional wall motion abnormality, Doppler evidence of impaired LV relaxation seen. 2. Mildly enlarged right ventricle with normal contractility. 3. Trace mitral and tricuspid regurgitation. 4. No significant pericardial effusion noted. Electronically signed by : Ramiro Hair MD 05/20/2022 21:29:36
== END ==
PROVIDERS: PCP Nurse Practitioner Family; Visit Provider Physician Assistant
DX: R00.2 Palpitations (principal); R00.0 Tachycardia, unspecified; E78.2 Mixed hyperlipidemia; I25.118 Atherosclerotic heart disease of native coronary artery with other forms of angina pectoris; I10 Essential (primary) hypertension; I31.9 Disease of pericardium, unspecified; R94.31 Abnormal electrocardiogram [ECG] [EKG]
CPT/HCPCS: 72148; 76376; 93306

== ENCOUNTER → 2022-05-20 13:29 | Outpatient (CLI) | payer BC, OTHER, SELFPAY ==
--- NOTE | 2022-05-20 13:37 | US_ITS ---
FINAL REPORT TECHNIQUE: Sonographic images of the thyroid gland were obtained in the longitudinal and transverse planes. CLINICAL HISTORY: tachycardia FINDINGS: The right lobe of the thyroid gland measures 1.9 x 2.1 x 6.2 cm. Echotexture is homogeneous. There is a small colloid cyst. There is a small hypoechoic nodule measuring 9 mm. The left lobe of the thyroid gland measures 1.9 x 6.0 x 2.0 cm. Echotexture is homogeneous. There is a 1.3 cm isoechoic nodule. The isthmus measures 4 mm. IMPRESSION: TI-RADS 4 right thyroid nodule. No follow-up recommendations based on size. TI-RADS 3 left thyroid nodule. Does not meet criteria for follow-up. Reviewed, Interpreted and Dictated by Radha Do MD Transcribed by Woody Augustine Authenticated and [facility]
== END ==
PROVIDERS: PCP Nurse Practitioner Family; Visit Provider Orthopaedic Surgery
DX: R00.2 Palpitations (principal); R00.0 Tachycardia, unspecified; I25.118 Atherosclerotic heart disease of native coronary artery with other forms of angina pectoris; I31.9 Disease of pericardium, unspecified; I10 Essential (primary) hypertension; E78.2 Mixed hyperlipidemia
CPT/HCPCS: 76536

== ENCOUNTER 2022-11-12 16:43 | Emergency (ER) | payer BC, OTHER, SELFPAY ==
[2022-11-12 16:53] VITALS: BP 153/97; PULSE 107; RESP 18; TEMP 37.1; O2SAT 98; BMI 35.6
[2022-11-12 17:01] VITALS: BP 157/99; PULSE 104; RESP 20; O2SAT 98
[2022-11-12 17:02] LABS: Microscopic, Urine URINE MICROSCOPIC (MICROSCOPIC)
[2022-11-12 17:03] LABS: Appearance,Urine CLEAR (Clear); Blood, Urine 3+ (Negative); Color,Urine YELLOW (Yellow); Glucose,Urine (UA) TRACE (Negative); Ketones,Urine Negative (Negative); Leukocyte Esterase,Urine Negative (Negative); Nitrate,Urine Negative (Negative); Protein,Urine 3+ (Negative); Specific Gravity, Urine >= 1.030 (1.005-1.030); Urobilinogen,Urine 0.2 EU/dl (0.2)
--- NOTE | 2022-11-12 17:07 | CT_ITS ---
PROCEDURE INFORMATION: Exam: CT Abdomen And Pelvis With Contrast Exam date and time: 11/12/2022 5:42 PM Age: 47 years old Clinical indication: Abdominal pain; Flank; Left; Prior surgery; Surgery date: 6+ months; Surgery type: Choleycystectomy, appendectomy, lumbar spine. ; Additional info: Left flank pain TECHNIQUE: Imaging protocol: Computed tomography of the abdomen and pelvis with contrast. Radiation optimization: All CT scans at this facility use at least one of these dose optimization techniques: automated exposure control; mA and/or kV adjustment per patient size (includes targeted exams where dose is matched to clinical indication); or iterative reconstruction. Contrast material: ISOVUE; Contrast volume: 75 ml; Contrast route: IV; REPORTING DATA: Count of CT and Cardiac NM exams in prior 12 months: This patient has received 2 known CTs and 0 known cardiac nuclear medicine studies in the 12 months prior to the current study. COMPARISON: CT ABDOMEN PELVIS WO CON 01/19/2022 3:15 PM FINDINGS: Liver: Normal. No mass. Gallbladder and bile ducts: The patient is status post cholecystectomy. Pancreas: Normal. No ductal dilation. Spleen: Normal. No splenomegaly. Adrenal glands: Normal. No mass. Kidneys and ureters: Normal. No hydronephrosis. Stomach and bowel: There are scattered colonic diverticula without CT evidence for active diverticulitis. Appendix: No evidence of appendicitis. Intraperitoneal space: Unremarkable. No free air. No significant fluid collection. Vasculature: There is atherosclerotic disease of the visualized aorta and its major branch vessels. Lymph nodes: Unremarkable. No enlarged lymph nodes. Urinary bladder: Unremarkable as visualized. Reproductive: Unremarkable as visualized. Bones/joints: There is diffuse degenerative disease of the visualized osseous structures. The patient is status post posterior fusion at L4-L5 intervertebral disc spacer place. Soft tissues: Unremarkable. IMPRESSION: No acute findings.
[2022-11-12 17:11] LABS: Bilirubin,Urine 1+ (Negative)
[2022-11-12 17:14] LABS: Basophils % 0.6 % (0.1-2.0); Eosinophils # 0.2 K/mm3 (0.0-0.4); Eosinophils % 2.3 % (0.1-12.0); Hematocrit 47.2 % (42.0-52.0); Hemoglobin 15.4 g/dL (14.1-18.0); Lymphocytes # 1.7 K/mm3 (0.7-4.5); Lymphocytes % 23.2 % (10-50); Mean Corpuscular HGB Conc 32.5 g/dL (31.8-35.4); Mean Corpuscular Hemoglobin 26.1 pg (27.0-31.2); Mean Platelet Volume 7.7 fl (7.4-10.4); Monocytes # 0.4 K/mm3 (0.1-1.0); Monocytes % 5.4 % (1.7-9.3); Neutrophils # 5.1 K/mm3 (1.8-7.8); Neutrophils % 68.5 % (37.0-80.0); Platelet Count 292 K/mm3 (142-424); Red Cell Distribution Width 15.1 % (11.5-17.5); White Blood Count 7.5 K/mm3 (4.8-10.8)
[2022-11-12 17:30] LABS: Chloride 99 mmol/L (98-107)
[2022-11-12 17:31] VITALS: BP 123/99; PULSE 100; RESP 18; O2SAT 96
[2022-11-12 17:31] LABS: Potassium 4.1 mmoL/L (3.5-5.1); Sodium 140 mmol/L (136-145)
[2022-11-12 17:33] LABS: Alanine Aminotransferase 44 U/L (12-78); Anion Gap 17.1 mEq/L (5-15); Aspartate Amino Transferase 48 U/L (17-59); Blood Urea Nitrogen 19 mg/dl (9-20); Carbon Dioxide 28 mmol/L (22.0-30.0); Creatinine Clearance Estimated 200 mL/min (50-200); Estimated Glomerular Filt Rate 104 ml/min (>60); GFR (African American) 126 ML/MIN (>60)
[2022-11-12 17:33] LABS: RBC,Urine 20-50 #/hpf (0-3)
[2022-11-12 17:34] LABS: Albumin Level 4.5 g/dl (3.5-5.0); Albumin/Globulin Ratio 1.1 (1.1-1.8); Alkaline Phosphatase 94 U/L (38-126); Bilirubin,Total 0.6 mg/dl (0.2-1.3); Calcium 10.3 mg/dl (8.4-10.2); Globulin 4.1 g/dL (1.3-3.2); Glucose 105 mg/dl (74-100); Total Protein,Serum 8.6 g/dl (6.3-8.2)
[2022-11-12 17:34] LABS: Bacteria,Urine Trace /lpf; Mucus,Urine 3+ /lpf; Sperm,Urine 1+ /lpf; Squamous Epithelial Cell,Urine Occasional #/hpf (0-5)
--- NOTE | 2022-11-12 17:39 | HMH.EDGENADL ---
Discharge Plan Disposition Patient Disposition: Home, Self-Care Condition: Fair Prescriptions Prescriptions: New cefdinir 300 mg capsule 300 mg PO BID 5 Days Qty: 10 0RF No Action aspirin [Adult Low Dose Aspirin] 81 mg tablet,delayed release (DR/EC) 81 mg PO HS tizanidine [Zanaflex] 4 mg tablet 4 mg PO BIDP PRN (Reason: nerves) losartan 50 mg tablet 50 mg PO gabapentin 600 mg tablet 600 mg PO QID Patient Comments: TAKE 1 TABLET 4 TIMES EACH DAY hydrochlorothiazide 25 mg tablet 25 mg PO DAILY Patient Comments: TAKE 1 TABLET 1 TIME EACH DAY. hydrocodone-acetaminophen 10-325 mg tablet 1 tab PO DAILY PRN (Reason: pain) ergocalciferol (vitamin D2) [Vitamin D2] 1,250 mcg (50,000 unit) capsule 1,250 mcg PO WEEKLY metoprolol succinate 100 mg tablet extended release 24 hr 100 mg PO DAILY Qty: 90 3RF buspirone 10 mg tablet 10 mg PO BID Qty: 60 1RF venlafaxine 225 mg tablet extended release 24hr 225 mg PO DAILY Qty: 60 1RF rosuvastatin 20 mg tablet 20 mg PO HS Qty: 90 3RF Referrals Follow up/Referrals: Yunior Porras MD [Primary Care Provider] - See instructions Activity Restrictions/Add. Instructions Additional Instructions/Restrictions: At this time was felt you are safe to be discharged home. If new or worsening symptoms please do not hesitate to return the emergency department. Please follow-up with your family doctor in the morning as discussed. Please take your antibiotics as prescribed. Clinical Impressions Clinical Impression: Back pain, Hematuria, Proteinuria Discharge ED Provider: Shane Young General Adult HPI General Chief complaint: Back Pain/Injury Stated complaint: back pain Time Seen by Provider: 11/12/22 17:15 Mode of Arrival: Ambulatory Source of Information: Patient Limitations: No Limitations Description of Symptoms (Recalled from ER Triage Doc. by RN): Presents via POV d/t left lumbar pain x 3 days. +chills/bodyaches that started yesterday. Hx of renal stones (last x 1 yr ago). Tx Hydrocodone without improvement. History of Present Illness HPI narrative: Patient is a 47-year-old male with past medical history of recurrent ureterolithiasis who presents emergency department for evaluation of back pain. Onset was acute, last 24 to 72 hours. Left-sided. There is associated dysuria. Patient denies chest pain, abdominal pain, fevers, other acute complaints at this time. He does state that this feels similar to his previous kidney stones. He has never required intervention for his previous kidney stones and they have all passed spontaneously. Related Data Home Medications Medication Instructions Recorded Confirmed aspirin 81 mg tablet,delayed 81 mg PO HS heart health 12/13/18 07/24/22 release (Adult Low Dose Aspirin) tizanidine 4 mg tablet (Zanaflex) 4 mg PO BIDP PRN nerves 12/13/18 07/24/22 hydrochlorothiazide 25 mg tablet 25 mg PO DAILY High blood pressure 12/25/19 07/24/22 hydrocodone 10 mg-acetaminophen 1 tab PO DAILY PRN pain 02/19/21 07/24/22 325 mg tablet losartan 50 mg tablet 50 mg PO 09/10/21 07/24/22 ergocalciferol (vitamin D2) 1,250 1,250 mcg PO WEEKLY 05/12/22 07/24/22 mcg (50,000 unit) capsule (Vitamin D2) gabapentin 600 mg tablet 600 mg PO QID 06/03/22 07/24/22 Previous Rx's Medication Instructions Recorded rosuvastatin 20 mg tablet 20 mg PO HS Cholesterol #90 tabs 05/08/22 metoprolol succinate 100 mg 100 mg PO DAILY #90 tabs 05/12/22 tablet,extended release 24 hr buspirone 10 mg tablet 10 mg PO BID #60 tabs 07/24/22 venlafaxine 225 mg tablet,extended 225 mg PO DAILY #60 tabs 07/24/22 release 24 hr cefdinir 300 mg capsule 300 mg PO BID 5 days #10 caps 11/12/22 Allergies Allergy/AdvReac Type Severity Reaction Status Date / Time No Known Allergies Allergy Verified 07/24/22 11:23 [facility] Disclaimer: The information contained in this section may have b
[2022-11-12 18:03] VITALS: BP 124/94; PULSE 114; RESP 18; O2SAT 98
--- NOTE | 2022-11-12 18:03 | PC.NURSE ---
MD notified of continued pain. VO Dilaudid 0.5mg IVP once.
[2022-11-12 18:31] VITALS: BP 122/95; PULSE 109; RESP 20; O2SAT 96
[2022-11-12 19:36] VITALS: BP 131/75; PULSE 104; RESP 18; TEMP 37.1; O2SAT 96
== END 2022-11-12 19:37 | disposition home or self-care (01) ==
PROVIDERS: Emergency Provider Emergency Medicine; PCP Internal Medicine Adolescent Medicine
DX: M54.50 Low back pain, unspecified (principal); R31.9 Hematuria, unspecified; I25.10 Atherosclerotic heart disease of native coronary artery without angina pectoris; G47.33 Obstructive sleep apnea (adult) (pediatric); F43.10 Post-traumatic stress disorder, unspecified
CPT/HCPCS: 36415; 74177; 80053; 81001; 85025; 96361; 96374; 96375; 96376; 99285; J2405; Q9967

== ENCOUNTER → 2023-02-13 10:20 | Outpatient (CLI) | payer BC, OTHER, SELFPAY ==
[2023-02-13 11:23] LABS: Alanine Aminotransferase 24 U/L (12-78); Albumin Level 4.2 g/dl (3.5-5.0); Albumin/Globulin Ratio 1.4 (1.1-1.8); Alkaline Phosphatase 70 U/L (38-126); Anion Gap 13.4 mEq/L (5-15); Aspartate Amino Transferase 29 U/L (17-59); Bilirubin,Total 0.3 mg/dl (0.2-1.3); Blood Urea Nitrogen 10 mg/dl (9-20); Calcium 9.5 mg/dl (8.4-10.2); Carbon Dioxide 29 mmol/L (22.0-30.0); Chloride 98 mmol/L (98-107); Chol/HDL Ratio 2.6 (1-3.5); Cholesterol 98 mg/dl (140-200); Estimated Glomerular Filt Rate 91 ml/min (>60); GFR (African American) 110 ML/MIN (>60); Globulin 2.9 g/dL (1.3-3.2); Glucose 72 mg/dl (74-100); HDL Cholesterol 38 mg/dl (40-60); Potassium 3.4 mmoL/L (3.5-5.1); Sodium 137 mmol/L (136-145); Total Protein,Serum 7.1 g/dl (6.3-8.2); Triglycerides 155 mg/dl (30-150); VLDL Cholesterol 31 mg/dL (0-40)
[2023-02-13 11:34] LABS: Direct LDL Cholesterol 47.45 mg/dL (100-129)
[2023-02-13 11:39] LABS: 25-OH Vitamin D, Total 31.2 ng/mL (30-100)
[2023-02-14 08:01] LABS: Testosterone,Total >1500 ng/dL (264-916)
== END ==
PROVIDERS: PCP Internal Medicine Adolescent Medicine; Visit Provider Nurse Practitioner Family
DX: I10 Essential (primary) hypertension (principal); E78.2 Mixed hyperlipidemia; R79.89 Other specified abnormal findings of blood chemistry; E55.9 Vitamin D deficiency, unspecified
CPT/HCPCS: 36415; 80053; 80061; 82306; 84403

== ENCOUNTER 2023-02-24 08:56 | Emergency (ER) | payer BC, SELFPAY ==
[2023-02-24] VITALS (9 sets, daily range): BP systolic 103–137; BP diastolic 60–83; PULSE 62–110; RESP 17–29; TEMP 36.6; O2SAT 95–99; BMI 36.9
--- NOTE | 2023-02-24 08:56 | ECG_ITS ---
APPROVED REPORT Exam: Resting ECG HR:107 bpm ECG Measurements Heart Rate 107 AXES MI 145 P 5 QRSd 90 QRS 6 QT 298 T 124 QTc 361 Conclusion SINUS TACHYCARDIA POSSIBLE INFERIOR MYOCARDIAL INFARCTION , PROBABLY OLD [30 ms Q WAVE IN II/aVF] MODERATE T-WAVE ABNORMALITY, CONSIDER LATERAL ISCHEMIA [-0.1+ mV T-WAVE IN I/aVL/V5/V6] ABNORMAL ECG UNCONFIRMED REPORT Electronically signed by : Yunior Porras MD 02/24/2023 17:10:24
--- NOTE | 2023-02-24 09:02 | XR_ITS ---
FINAL REPORT CLINICAL HISTORY: chest pain COMPARISON: 04/22/2020 FINDINGS: Two views of the chest were obtained. The heart size and pulmonary vascularity are within normal limits. The mediastinum is normal. No acute pulmonary abnormality is identified. There is no pneumothorax. The bony thorax is intact. IMPRESSION: No active cardiopulmonary disease. Reviewed, Interpreted and Dictated by Hamilton Gresham III, MD Transcribed by Rhina Lozano Authenticated and [facility]
--- NOTE | 2023-02-24 09:12 | HMH.EDGENADL ---
Discharge Plan Disposition Patient Disposition: Home, Self-Care Condition: Good Prescriptions Prescriptions: New promethazine 25 mg tablet 25 mg PO Q6H PRN (Reason: sedation) Qty: 12 0RF No Action aspirin [Adult Low Dose Aspirin] 81 mg tablet,delayed release (DR/EC) 81 mg PO HS tizanidine [Zanaflex] 4 mg tablet 4 mg PO BIDP PRN (Reason: nerves) losartan 50 mg tablet 50 mg PO DAILY gabapentin 600 mg tablet 600 mg PO QID Patient Comments: TAKE 1 TABLET 4 TIMES EACH DAY hydrochlorothiazide 25 mg tablet 25 mg PO DAILY Patient Comments: TAKE 1 TABLET 1 TIME EACH DAY. ergocalciferol (vitamin D2) [Vitamin D2] 1,250 mcg (50,000 unit) capsule 1,250 mcg PO WEEKLY metoprolol succinate 100 mg tablet extended release 24 hr 100 mg PO DAILY Qty: 90 3RF rosuvastatin 20 mg tablet 20 mg PO HS Qty: 90 3RF buspirone 10 mg tablet 10 mg PO BID Qty: 60 1RF venlafaxine 225 mg tablet extended release 24hr 225 mg PO DAILY Qty: 60 1RF cefdinir 300 mg capsule 300 mg PO BID 5 Days Qty: 10 0RF Referrals Follow up/Referrals: Yunior Porras MD [Primary Care Provider] - See instructions Activity Restrictions/Add. Instructions Additional Instructions/Restrictions: You were evaluated in the emergency department today. 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 Make sure that you are staying hydrated and keeping an eye on your blood sugar. Use your insulin at home. Take Tylenol and ibuprofen as needed for pain. Follow-up with your primary care provider over the next 3 days. Return to the emergency department for new or worsening symptoms. Clinical Impressions Clinical Impression: Chest pain, Enteritis, Vomiting Instructions Patient Instructions: DI for Atypical Chest Pain, DI for Vomiting -- Adult Discharge ED Provider: Angie Nye General Adult HPI General Chief complaint: Back Pain/Injury Stated complaint: chest pain Time Seen by Provider: 02/24/23 09:01 Mode of Arrival: Ambulatory Source of Information: Patient Limitations: No Limitations Description of Symptoms (Recalled from ER Triage Doc. by RN): Presents to ED with c/o midsternal chest pain, vomiting, and SOA that began at 0400 this morning. Patient states the chest pain woke him up out of his sleep; patient states he was very diaphoretic. PMH: 1-2 stents. Patient states he took 4mg SL Zofran this morning with no relief. -blood thinner History of Present Illness HPI narrative: This patient is a 47-year-old male with a history of type 1 diabetes, hypertension, hyperlipidemia, CAD, VALENTINO, and renal insufficiency presenting to the emergency department for evaluation with concern for vomiting and chest pain. He states that he woke up around 4:00 this morning after going to bed normal last night. When he woke up, he had to run to the bathroom to throw up. After vomiting, he noted that he was having substernal chest pain that is nonradiating. He took 4 mg sublingual Zofran without good relief. He did not have chest pain prior to onset of vomiting. He also complains of mild upper abdominal pain. He denies any fevers, shortness of breath, hematemesis, change in bowel movements, rashes, or other concerns. He does note that he has intermittently been having swelling of his hands and feet, for which she is supposed to follow-up with cardiology today. His last cardiac catheterization was in 2020 on medical record review. He has cardiac stents. Related Data Home Medications Medication Instructions Recorded Confirmed aspirin 81 mg tablet,delayed 81 mg PO [facility] 12/13/18 02/24/23 release (Adult Low Dose Aspirin) tizanidine 4 mg tablet (Zanaflex) 4 mg PO BIDP PRN nerves 12/13/18 02/24/23 hydrochlorothiazide 25 mg tablet 25 mg PO DAILY High blood pressure 12/25/19 02/24/23 losartan 50 mg tablet 50 mg PO DAILY 09/10/21 02/24/23 ergocalcifero
[2023-02-24 09:21] LABS: Basophils % 0.2 % (0.1-2.0); Eosinophils # 0.1 K/mm3 (0.0-0.4); Eosinophils % 0.8 % (0.1-12.0); Hematocrit 50.8 % (42.0-52.0); Hemoglobin 16.4 g/dL (14.1-18.0); Lymphocytes # 0.5 K/mm3 (0.7-4.5); Lymphocytes % 4.6 % (10-50); Mean Corpuscular HGB Conc 32.3 g/dL (31.8-35.4); Mean Corpuscular Hemoglobin 27.1 pg (27.0-31.2); Mean Platelet Volume 7.6 fl (7.4-10.4); Monocytes # 0.3 K/mm3 (0.1-1.0); Monocytes % 2.4 % (1.7-9.3); Neutrophils # 10.4 K/mm3 (1.8-7.8); Platelet Count 272 K/mm3 (142-424); Red Blood Count 6.06 M/mm3 (4.60-6.20); Red Cell Distribution Width 15.8 % (11.5-17.5); White Blood Count 11.3 K/mm3 (4.8-10.8)
[2023-02-24 09:23] LABS: VBG Base Excess 1.2 mmol/L (-2.4-2.3); VBG HCO3 24.6 mmol/L (23-30); VBG Oxygen Saturation 88.1 % (50-70); VBG PCO2 33.5 mmol/L (35-51); VBG PH 7.48 mmol/L (7.31-7.41); VBG PO2 49.1 mmol/L (28-40); VBG Total CO2 25.6 mmol/L (23-27)
[2023-02-24 09:23] LABS: MANUAL DIFFERENTIAL MANUAL DIFFERENTIAL (MANUAL DIFF)
[2023-02-24 09:26] LABS: Alanine Aminotransferase 39 U/L (12-78); Albumin Level 4.4 g/dl (3.5-5.0); Albumin/Globulin Ratio 1.4 (1.1-1.8); Alkaline Phosphatase 77 U/L (38-126); Anion Gap 15.1 mEq/L (5-15); Aspartate Amino Transferase 50 U/L (17-59); Bilirubin,Total 0.7 mg/dl (0.2-1.3); Blood Urea Nitrogen 12 mg/dl (9-20); Calcium 8.9 mg/dl (8.4-10.2); Carbon Dioxide 23 mmol/L (22.0-30.0); Chloride 101 mmol/L (98-107); Creatinine Clearance Estimated 166 mL/min (50-200); Estimated Glomerular Filt Rate 80 ml/min (>60); GFR (African American) 97 ML/MIN (>60); Globulin 3.2 g/dL (1.3-3.2); Glucose 175 mg/dl (74-100); Lactic Acid 2.6 mmol/L (0.7-2.1); Lipase 37 U/L (23-300); Potassium 4.1 mmoL/L (3.5-5.1); Sodium 135 mmol/L (136-145); Total Protein,Serum 7.6 g/dl (6.3-8.2)
[2023-02-24 09:32] LABS: C-Reactive Protein 11.8 mg/L (0-4)
--- NOTE | 2023-02-24 09:38 | PC.NURSE ---
pt to restroom
--- NOTE | 2023-02-24 09:40 | CT_ITS ---
FINAL REPORT CLINICAL HISTORY: chest pain after forceful vomiting, tachy COMPARISON: 04/22/2020 FINDINGS: Thin section axial CT images of the chest were obtained with contrast. 3D reformatted images were also obtained. This study was performed with techniques to keep radiation doses as low as reasonably achievable (ALARA). Individualized dose reduction techniques using automated exposure control or adjustment of mA and/or kV according to the patient's size were employed. There is no evidence of pulmonary embolism. There is no evidence of thoracic aortic aneurysm or dissection. There is no evidence of mediastinal or hilar mass or adenopathy. There is a partially calcified nodule in the medial right lung. There is mild bibasilar atelectasis. There is no evidence of mediastinal air. IMPRESSION: No evidence of pulmonary embolism. No evidence of mediastinal air. Reviewed, Interpreted and Dictated by Hamilton Gresham III, MD Transcribed by Rhina Lozano Authenticated and [facility]
--- NOTE | 2023-02-24 09:40 | CT_ITS ---
FINAL REPORT CLINICAL HISTORY: upper abd pain, intractable vomiting COMPARISON: 11/12/2022 FINDINGS: CT OF THE ABDOMEN AND PELVIS WITH CONTRAST Axial CT images of the abdomen and pelvis were obtained after the administration of IV contrast. Coronal reformatted images were also obtained and reviewed. This study was performed with techniques to keep radiation doses as low as reasonably achievable (ALARA). Individualized dose reduction techniques using automated exposure control or adjustment of mA and/or kV according to the patient's size were employed. Abdomen: The liver has an unremarkable appearance, without evidence of mass or biliary ductal dilatation. Postcholecystectomy. The spleen is unremarkable. No adrenal mass is present. The pancreas has an unremarkable appearance. The kidneys are normal, without evidence of mass or hydronephrosis. The aorta is normal in caliber. There is no free fluid or adenopathy. No mass or abnormal fluid collection is seen. There are fluid-filled bowel loops in a nonspecific pattern. Pelvis: The appendix not visualized. There are several sigmoid diverticula. The urinary bladder is unremarkable. No inflammatory process is seen. There is no evidence of mass or adenopathy. There is no evidence of bowel obstruction. There are postoperative changes in the lower lumbar spine. IMPRESSION: Fluid-filled bowel loops in a nonspecific pattern. Reviewed, Interpreted and Dictated by Hamilton Gresham III, MD Transcribed by Rhina Lozano Authenticated and . [facility]
[2023-02-24 09:42] LABS: Troponin I < 0.01 ng/ml (0.00-0.034)
[2023-02-24 09:46] LABS: Lymphocytes % 3 % (10-50); Monocytes % 4 % (2-9); Neutrophils % 93 % (42-76); Total Cells Counted 100
[2023-02-24 09:47] LABS: Platelet Estimate Normal; RBC Morphology Normal
--- NOTE | 2023-02-24 09:58 | HMH.ITSTN ---
pt requesting meds that use his IV, per rn it takes about 15min
[2023-02-24 10:03] LABS: Erythrocyte Sedimentation Rate 8 mm/hr (0-15)
[2023-02-24 11:49] LABS: Coronavirus 19, PCR Not Detected (NotDetected); Influenza A, PCR Not Detected (NotDetected); Influenza B, PCR Not Detected (NotDetected)
[2023-02-24 12:34] LABS: Troponin I < 0.01 ng/ml (0.00-0.034)
[2023-02-24 13:13] LABS: Reflex Lactic Add Lactic Reflex
== END 2023-02-24 13:10 | disposition home or self-care (01) ==
PROVIDERS: Emergency Provider Emergency Medicine; PCP Internal Medicine Adolescent Medicine
DX: R07.9 Chest pain, unspecified (principal); R00.0 Tachycardia, unspecified; K52.9 Noninfective gastroenteritis and colitis, unspecified; R11.2 Nausea with vomiting, unspecified; E10.9 Type 1 diabetes mellitus without complications; E78.5 Hyperlipidemia, unspecified; I25.10 Atherosclerotic heart disease of native coronary artery without angina pectoris; I11.9 Hypertensive heart disease without heart failure
CPT/HCPCS: 71046; 71275; 74177; 80053; 82803; 83605; 83690; 84484; 85007; 85025; 85378; 85651; 86140; 87636; 93005; 96361; 96374; 96375; 99285; J2405; Q9967

== ENCOUNTER 2023-09-20 12:52 | Outpatient (CLI) | payer MEDICARE, SELFPAY ==
[2023-09-20 13:00] LABS: Microscopic, Urine URINE MICROSCOPIC (MICROSCOPIC)
[2023-09-20 13:33] LABS: Basophils % 0.5 % (0.1-2.0); Eosinophils # 0.1 K/mm3 (0.0-0.4); Hematocrit 53.1 % (42.0-52.0); Hemoglobin 16.6 g/dL (14.1-18.0); Lymphocytes # 1.3 K/mm3 (0.7-4.5); Lymphocytes % 14.4 % (10-50); Mean Corpuscular HGB Conc 31.2 g/dL (31.8-35.4); Mean Corpuscular Hemoglobin 24.4 pg (27.0-31.2); Mean Corpuscular Volume 78.3 fl (80-94); Mean Platelet Volume 7.5 fl (7.4-10.4); Monocytes # 0.8 K/mm3 (0.1-1.0); Monocytes % 8.9 % (1.7-9.3); Neutrophils # 6.6 K/mm3 (1.8-7.8); Neutrophils % 75.2 % (37.0-80.0); Platelet Count 278 K/mm3 (142-424); Red Blood Count 6.78 M/mm3 (4.60-6.20); Red Cell Distribution Width 16.3 % (11.5-17.5); White Blood Count 8.8 K/mm3 (4.8-10.8)
[2023-09-20 13:38] LABS: Appearance,Urine CLEAR (Clear); Blood, Urine 1+ (Negative); Color,Urine YELLOW (Yellow); Glucose,Urine (UA) TRACE (Negative); Ketones,Urine Negative (Negative); Leukocyte Esterase,Urine Negative (Negative); Nitrate,Urine Negative (Negative); Protein,Urine 3+ (Negative); Specific Gravity, Urine >= 1.030 (1.005-1.030); Urobilinogen,Urine 0.2 EU/dl (0.2)
[2023-09-20 14:08] LABS: Blood Urea Nitrogen 14 mg/dl (9-20); Estimated Glomerular Filt Rate 80 ml/min (>60); GFR (African American) 97 ML/MIN (>60)
[2023-09-20 14:17] LABS: Bilirubin,Urine 1+ (Negative)
[2023-09-21 07:14] LABS: Sex Hormone Binding Globulin 25.2 nmol/L (16.5-55.9)
[2023-09-21 12:13] LABS: PSA, Free 0.12 ng/mL; Prostate Specific Ag 0.3 ng/mL (0.0-4.0); Testosterone,Total >1500 ng/dL (264-916)
[2023-09-24 01:08] LABS: Testosterone,Free 31.3 pg/mL (6.8-21.5)
[2023-10-16 09:58] LABS: Dihydrotestosterone DHT 89
== END 2023-09-20 23:59 | disposition home or self-care (01) ==
PROVIDERS: PCP Internal Medicine Adolescent Medicine; Visit Provider Urology
DX: R31.9 Hematuria, unspecified (principal); N20.0 Calculus of kidney; N40.0 Benign prostatic hyperplasia without lower urinary tract symptoms; N20.2 Calculus of kidney with calculus of ureter
CPT/HCPCS: 36415; 81001; 82565; 82670; 84146; 84153; 84154; 84270; 84402; 84403; 84520; 85025

== ENCOUNTER 2023-09-30 08:13 | Outpatient (CLI) | payer MEDICARE, SELFPAY ==
--- NOTE | 2023-09-30 08:13 | CT_ITS ---
FINAL REPORT TECHNIQUE: Axial CT of the abdomen and pelvis, without and with IV contrast. Coronal and sagittal reconstructions were obtained and reviewed. This study was performed with techniques to keep radiation doses as low as reasonably achievable, (ALARA). Individualized dose reduction techniques using automated exposure control or adjustment of mA and/or kV according to the patient's size were employed. CLINICAL HISTORY: Kideny stones enlarged prostate , hematuria COMPARISON: 02/24/2023 FINDINGS: Abdomen: Lung bases are clear. There is moderate splenomegaly with the spleen measuring up to 16.0 cm, similar to the prior study. The remaining solid abdominal organs are unremarkable. Status postcholecystectomy. Precontrast imaging shows no renal stone disease. Postcontrast imaging of the kidneys shows no mass or obstruction. No bowel obstruction or bowel wall thickening. No fluid collection is seen. Pelvis: Status post appendectomy. The prostate is unremarkable. The bladder is within normal limits. Pelvic bowel loops are unremarkable. No fluid collection or adenopathy is seen. IMPRESSION: No evidence of renal stone disease or findings to account for hematuria. Incidental stable splenomegaly. Reviewed, Interpreted and Dictated by Livia Kimball MD Transcribed by Rhina Lozano Authenticated and [facility]
[2023-09-30] MEDS: SODIUM CHLORIDE 0.9% 10ML SYR (RAD ONLY) 10 ML IV (08:29)
[2023-09-30] MEDS: IOPAMIDOL-370 (76%);100ML BOTTLE 75 ML IV (08:29)
== END 2023-09-30 23:59 | disposition home or self-care (01) ==
LOC: RAD 08:13
PROVIDERS: PCP Internal Medicine Adolescent Medicine; Visit Provider Urology
DX: R31.9 Hematuria, unspecified (principal); N20.0 Calculus of kidney; N40.0 Benign prostatic hyperplasia without lower urinary tract symptoms
CPT/HCPCS: 74178; Q9967

== ENCOUNTER 2023-10-05 07:07 | Outpatient (CLI) | payer MEDICARE, SELFPAY ==
[2023-10-05 07:44] LABS: Basophils # 0.1 K/mm3 (0-0.2); Basophils % 0.8 % (0.1-2.0); Eosinophils # 0.2 K/mm3 (0.0-0.4); Eosinophils % 3.2 % (0.1-12.0); Hematocrit 47.3 % (42.0-52.0); Hemoglobin 16.7 g/dL (14.1-18.0); Lymphocytes # 1.8 K/mm3 (0.7-4.5); Lymphocytes % 23.5 % (10-50); Mean Corpuscular HGB Conc 35.2 g/dL (31.8-35.4); Mean Corpuscular Hemoglobin 27.4 pg (27.0-31.2); Mean Corpuscular Volume 77.8 fl (80-94); Mean Platelet Volume 7.2 fl (7.4-10.4); Monocytes # 0.5 K/mm3 (0.1-1.0); Monocytes % 6.7 % (1.7-9.3); Neutrophils # 4.9 K/mm3 (1.8-7.8); Neutrophils % 65.9 % (37.0-80.0); Platelet Count 221 K/mm3 (142-424); Red Blood Count 6.08 M/mm3 (4.60-6.20); Red Cell Distribution Width 16.8 % (11.5-17.5); White Blood Count 7.5 K/mm3 (4.8-10.8)
[2023-10-05 08:43] LABS: Alanine Aminotransferase 25 U/L (12-78); Albumin Level 3.9 g/dl (3.5-5.0); Albumin/Globulin Ratio 1.3 (1.1-1.8); Alkaline Phosphatase 85 U/L (38-126); Anion Gap 8.6 mEq/L (5-15); Aspartate Amino Transferase 32 U/L (17-59); Bilirubin,Total 0.5 mg/dl (0.2-1.3); Blood Urea Nitrogen 12 mg/dl (9-20); Calcium 9.2 mg/dl (8.4-10.2); Carbon Dioxide 30 mmol/L (22.0-30.0); Chloride 102 mmol/L (98-107); Estimated Glomerular Filt Rate 90 ml/min (>60); GFR (African American) 109 ML/MIN (>60); Glucose 92 mg/dl (74-100); Potassium 3.6 mmoL/L (3.5-5.1); Sodium 137 mmol/L (136-145); Total Protein,Serum 6.9 g/dl (6.3-8.2)
[2023-10-05 08:58] LABS: Free Thyroxine Index 1.6 ug/dL (5.93-13.13); T4 (Thyroxine) 4.8 ug/dl (5.53-11.0); Triiodothryronine (T3) Uptake 34 % (23.5-40.5)
[2023-10-05 09:11] LABS: Thyroid Stimulating Hormone 0.97 uIU/mL (0.465-4.68)
[2023-10-05 09:32] LABS: Vitamin B12 385 pg/mL (239-931)
[2023-10-05 09:51] LABS: 25-OH Vitamin D, Total 40.1 ng/mL (30-100)
[2023-10-06 08:32] LABS: Prolactin 14.2 ng/mL (3.9-22.7); Testosterone,Total 331 ng/dL (264-916)
== END 2023-10-05 23:59 | disposition home or self-care (01) ==
LOC: LAB 07:08
PROVIDERS: PCP Internal Medicine Adolescent Medicine; Visit Provider Internal Medicine Adolescent Medicine
DX: E29.1 Testicular hypofunction (principal); E55.9 Vitamin D deficiency, unspecified; R61 Generalized hyperhidrosis; R53.81 Other malaise; R53.83 Other fatigue
CPT/HCPCS: 36415; 80050; 80053; 82306; 82533; 82607; 84146; 84403; 84436; 84443; 84479; 85025

== ENCOUNTER 2023-10-18 15:13 | Outpatient (CLI) | payer MEDICARE, SELFPAY ==
[2023-10-18 15:23] LABS: Microscopic, Urine URINE MICROSCOPIC (MICROSCOPIC)
[2023-10-18 15:50] LABS: Basophils # 0.1 K/mm3 (0-0.2); Basophils % 0.9 % (0.1-2.0); Eosinophils # 0.2 K/mm3 (0.0-0.4); Eosinophils % 2.4 % (0.1-12.0); Hematocrit 49.6 % (42.0-52.0); Hemoglobin 15.6 g/dL (14.1-18.0); Lymphocytes # 1.9 K/mm3 (0.7-4.5); Lymphocytes % 23.4 % (10-50); Mean Corpuscular HGB Conc 31.4 g/dL (31.8-35.4); Mean Corpuscular Volume 76.3 fl (80-94); Mean Platelet Volume 7.4 fl (7.4-10.4); Monocytes # 0.7 K/mm3 (0.1-1.0); Monocytes % 8.3 % (1.7-9.3); Neutrophils # 5.2 K/mm3 (1.8-7.8); Neutrophils % 65.1 % (37.0-80.0); Platelet Count 234 K/mm3 (142-424); Red Cell Distribution Width 17.3 % (11.5-17.5)
[2023-10-18 20:26] LABS: Appearance,Urine CLEAR (Clear); Bilirubin,Urine Negative (Negative); Blood, Urine TRACE-I (Negative); Color,Urine DARK YELLOW (Yellow); Glucose,Urine (UA) TRACE (Negative); Ketones,Urine Negative (Negative); Leukocyte Esterase,Urine Negative (Negative); Nitrate,Urine Negative (Negative); Protein,Urine 3+ (Negative); Specific Gravity, Urine >= 1.030 (1.005-1.030)
[2023-10-18 20:49] LABS: Bacteria,Urine 1+ /lpf; Mucus,Urine 1+ /lpf
[2023-10-20 10:14] LABS: Prolactin 15.2 ng/mL (3.9-22.7)
[2023-10-20 13:00] LABS: Sex Hormone Binding Globulin 24.9 nmol/L (16.5-55.9)
[2023-10-20 15:04] LABS: Testosterone,Total 824 ng/dL (264-916)
== END 2023-10-18 23:59 | disposition home or self-care (01) ==
PROVIDERS: PCP Internal Medicine Adolescent Medicine; Visit Provider Urology
DX: N28.9 Disorder of kidney and ureter, unspecified (principal); R31.9 Hematuria, unspecified; N40.0 Benign prostatic hyperplasia without lower urinary tract symptoms
CPT/HCPCS: 36415; 81001; 84146; 84270; 84403; 85025

== ENCOUNTER 2023-11-19 07:55 | Day surgery (SDC) | payer MEDICARE, SELFPAY ==
[2023-11-17 13:20] VITALS: BMI 39.5
[2023-11-19] VITALS (10 sets, daily range): BP systolic 110–153; BP diastolic 64–93; PULSE 72–88; RESP 12–18; TEMP 36.3–36.7; O2SAT 94–99
[2023-11-19] MEDS: LACTATED RINGERS 1000ML 1,000 ML 25 ML IV (08:25)
[2023-11-19 08:40] LABS: POC Glucose,Bedside 109 (70-110)
--- NOTE | 2023-11-19 09:35 | P.PNANES_ITS ---
[facility] Disclaimer: The information contained in this section may have been updated after the patient was seen, as this information can be updated by other users. Medical History Right chronic serous otitis media Tinnitus, right ear History of ear infection Hearing difficulty of right ear Abnormal electrocardiography Angina pectoris Appendicitis Chest pain Coronary artery disease Diabetes mellitus Hyperlipidemia Hypertension Palpitations Renal insufficiency Shortness of breath Syncope and collapse Sinus tachycardia Posttraumatic stress disorder VALENTINO (obstructive sleep apnea) Dizziness CAD (coronary artery disease) Surgical History History of placement of ear tubes Hx of appendectomy History of extraction of renal calculus History of back surgery Hx laparoscopic cholecystectomy Family History Grandfather Alcoholism Mother Thyroid disorder Kidney disease Diabetes Daughter Seizures Social History Smoking Status: Never smoker second hand exposure: No alcohol intake: current alcohol intake frequency: a few times a week counseling given: No substance use type: denies use current occupational status: retired Travel in the last 8 weeks: None caregiver/support person: Yes (for his sister in law; she is totally blind) foster care: No household members: spouse housing: house marital status: number of children: 2 number of grandchildren: 0 education level: high school service: No long term: No current occupation: retired; he worked with [employer] current occupational exposures/hazards: No Hx Recent Travel: No sexually active: Yes caffeine: Yes physical activity: none working smoke detector in home: Yes fire extinguisher in home: Yes carbon monox detector in home: No firearms in home: Yes firearms unloaded and locked: Yes do you feel safe at home: Yes victim of physical abuse: No victim of emotional abuse: No victim of sexual abuse: No [facility] Anesthesia Checklist Patient Identification Patient Identification: Arm Band, Family and Verbal (Name & ) Structural Data Admitted From: Home Planned Operative Procedure/s: Cysto Consent for Planned Operative Procedure(s) Verified: Yes Verified Documents: Surgical Consent and History and Physical NPO Status Verified Time NPO: 22:30 Chart Verification Results Verified: CBC, BMP, ECG and Chest Xray Additional verifications Fingerstick Blood Glucose: 114 Patient : No Anesthesia Reactions: No Hx Blood Transfusions: No Blood Transfusion Reaction: No Cardiovascular Assessment Heart Sounds: S1 & S2 Pulse Rhythm: Irregular Peripheral Edema: No Airway Assessment Mallampati Score:: Class II C-Spine Mobility Assessed: Yes (FROM) TMJ Mobility Assessed: Yes Dentition: Good Dentition (Nothing loose per pt.) Neurological Assessment Level of Consciousness: Awake, Alert, Appropriate and Follows Commands Hx Seizures: No Numbness or tingling in extremities: No Anesthesia Plan Anesthesia Risk discussed: Yes Anesthesia Plan: Verified ASA Class: III Anesthesia Type: General
[2023-11-19] MEDS: DEXTROSE 5%-LACTATED RINGERS 1,000 ML 100 ML IV (09:43)
--- NOTE | 2023-11-19 10:07 | HMH.PROCNOTE ---
[facility] Procedure Note Date: 11/19/23 Time: 10:08 Procedure Note:: Preop diagnosis: Hematuria Postop diagnosis: Hematuria Operative note: The patient was brought to the operating room LMAC anesthesia was administered. He was prepped and draped using a sterile technique. He underwent flexible cystoscopy. The anterior urethra is unremarkable. The patient's prostatic urethra is open from a prior TUR prostate. The bladder shows fine trabeculation throughout. There is no evidence of bladder stone, tumor, hemorrhage, or infection. The ureteral orifices are normal bilaterally with clear reflux of urine. The patient tolerated the procedure well.
--- NOTE | 2023-11-19 10:20 | EXP.ANES.I ---
[facility] Anesthesia Record Part I Anesthesia Record I Intake, IV Amount: 250 Hydration: Adequate Estimated blood loss (mL): 0 Urine output (mL): 0 Blood Products used (#): none Blood Pressure: 125/76 SaO2: 97 Pulse Rate: 74 Airway Patency: Patent Respiratory Rate: 16 Temperature: 97.9 F Patient is:: Drowsy, Mask O2 (10L/min), Oral/Nasal airway (10.0 oral airway & 34F nasal trumpet in Rt. nare in place upon arrival to PACU. Removed @10:25) and Stable Stable to PACU at:: 10:23
[2023-11-19 10:30] LABS: POC Glucose,Bedside 140 (70-110)
--- NOTE | 2023-11-19 11:29 | EXP.ANES.II ---
[facility] Anesthesia Record Part II Anesthesia Record Part II Discharge Time: 10:48 Destination: Surgical Day Care (OP Surgery) PACU nurse assessment reviewed?: Yes Patient Condition:: Good Anesthesia Complications:: None Swallowing reflex intact?: Yes Airway Patency: Patent Cyanosis?: No Blood Pressure: 125/71 SaO2: 98 Respiratory Rate: 17 Pulse Rate: 75 Temperature: 97.7 F Mental Status: Alert & Oriented Pain level:: 0 Nausea and/or vomitting:: None Intake, IV Amount: 250 Hydration: Adequate
[2023-11-19 14:01] LABS: Microscopic,Cath URINE MICROSCOPIC (MICROSCOPIC)
[2023-11-19 14:42] LABS: Appearance,Urine/Cath CLEAR (Clear); Bilirubin,Cath Negative (Negative); Blood, Urine/Cath Negative (Negative); Color,Urine/Cath YELLOW (Yellow); Glucose,Urine/Cath (UA) Negative (Negative); Ketones,Urine/Cath Negative (Negative); Leukocyte Esterase,Cath Negative (Negative); Nitrate,Cath Negative (Negative); Protein,Urine/Cath 2+ (Negative); Specific Gravity, Urine/Cath 1.025 (1.005-1.030); Urobilinogen,Cath 0.2 EU/dl (0.2)
[2023-11-19 14:58] LABS: WBC,Urine/Cath Occasional #/hpf (0-3)
[2023-11-20 08:36] LABS: PSA, Free 0.13 ng/mL; Prostate Specific Ag 0.4 ng/mL (0.0-4.0)
== END 2023-11-19 11:19 | disposition home or self-care (01) ==
PROVIDERS: PCP Internal Medicine Adolescent Medicine; Visit Provider Urology
PROC: 0TJB8ZZ Inspection of Bladder, Via Natural or Artificial Opening Endoscopic (ICD-10-PCS; CPT 52000; principal; 2023-11-19 10:15)
DX: N40.0 Benign prostatic hyperplasia without lower urinary tract symptoms (principal); R31.9 Hematuria, unspecified; Z80.52 Family history of malignant neoplasm of bladder; E29.1 Testicular hypofunction; N52.9 Male erectile dysfunction, unspecified; R35.1 Nocturia; E11.8 Type 2 diabetes mellitus with unspecified complications; Z79.4 Long term (current) use of insulin
CPT/HCPCS: 52000; 36415; 81001; 82962; 84153; 84154; 87086; J1100; J1885; J2250; J2405; J3010; J7120

== ENCOUNTER 2023-12-03 12:23 | Emergency (ER) | payer MEDICARE, SELFPAY ==
--- NOTE | 2023-12-03 12:28 | XR_ITS ---
FINAL REPORT CLINICAL HISTORY: Left foot pain COMPARISON: None FINDINGS: LEFT FOOT Three views of the left foot demonstrate no acute fracture or dislocation. The visualized joint spaces are normally aligned. The soft tissues are unremarkable. IMPRESSION: No acute bony abnormality. Reviewed, Interpreted and Dictated by Elpidio Bustamante MD Transcribed by Rhina Lozano Authenticated and [facility]
[2023-12-03 12:45] VITALS: BP 144/80; PULSE 88; RESP 22; TEMP 36.9; O2SAT 97; BMI 36.9
--- NOTE | 2023-12-03 13:10 | EXP.UTC ---
Discharge Plan Disposition Patient Disposition: Home, Self-Care Condition: Good Prescriptions Prescriptions: No Action losartan 50 mg tablet 50 mg PO DAILY Patient Comments: TAKE 1 TABLET 1 TIME EACH DAY gabapentin 600 mg tablet 600 mg PO QID Patient Comments: TAKE 1 TABLET 4 TIMES EACH DAY DIRECTED tizanidine 4 mg tablet 4 mg PO BID Patient Comments: TAKE 1 TABLET 2 TIMES EACH DAY metoprolol succinate 100 mg tablet extended release 24 hr 100 mg PO DAILY Patient Comments: TAKE 1 TABLET 2 TIMES EACH DAY oxycodone-acetaminophen 10-325 mg tablet 1 tab PO QIDP PRN (Reason: Pain) Patient Comments: TAKE 1/2 TO 1 TABLET 4 TIMES EACH DAY NEEDED insulin aspart U-100 [Novolog U-100 Insulin aspart] 100 unit/mL solution 200 unit SQ DAILY Patient Comments: INJECT 200 UNITS UNDER THE SKIN 1 TIME EACH DAY DIRECTED USING THE INSULIN PUMP diclofenac sodium 50 mg tablet,delayed release (DR/EC) 50 mg PO DAILY Patient Comments: TAKE 1 TABLET 2 TIMES EACH DAY azelastine 137 mcg (0.1 %) spray,non-aerosol 1 spray INTRANASAL DAILY Patient Comments: SPRAY 2 TIMES IN EACH NOSTRIL 2 TIMES EACH DAY fluticasone propionate 50 mcg/actuation spray,suspension 1 spray INTRANASAL DAILY Patient Comments: SPRAY 1 TIME IN EACH NOSTRIL 1 TIME EACH DAY tadalafil 5 mg tablet 5 mg PO DAILY Patient Comments: TAKE 1 TABLET 1 TIME EACH DAY Referrals Follow up/Referrals: Pattie Sheppard APRN [Nurse Practitioner] - See instructions Yunior Porras MD [Primary Care Provider] - See instructions Crystal May DPM [Staff Physician] - See instructions Activity Restrictions/Add. Instructions Additional Instructions/Restrictions: *weight bearing as tolerated *RICE, Rest the extremity, Ice 15-20 minutes 3-4 times daily, Compress- wear the niles wrap as discussed as much as possible to help reduce swelling and pain, Elevate the extremity when at rest *Niles wrap is for support and help control swelling, use it except in the shower. Be sure that is not to tight but not to loose either *Elevate when resting? *Ibuprofen 600-800mg every 6-8 hours as needed for pain an inflammation. If need something more can take Tylenol in between doses of Ibuprofen to help Immediately follow up with your family doctor for new or worsening of symptoms, or no noticeable improvement over the next 3-5 days Clinical Impressions Clinical Impression: Foot sprain Qualifiers: Encounter type: initial encounter Laterality: left Qualified Code(s): S93.602A - Unspecified sprain of left foot, initial encounter Instructions Patient Instructions: How To Perform RICE (Rest, Ice, Compress, Elevate), Ibuprofen, How to Use a Walking Boot Print Language Print Language: Occitan Discharge ED Provider: Mary Alice Penny [facility] [place] HPI General Stated complaint: AO-Pain and swelling L foot Mode of Arrival: Ambulatory Source of Information: Patient Limitations: No Limitations Time Seen by Provider: 12/03/23 13:10 Description of Symptoms (Recalled from Triage Doc. by RN): PATIENT C/O PAIN TO LEFT FOOT. HE STATES THAT LAST NIGHT HE WAS WALKING THROUGH A QUAIL CAGE ON 2 2X6 BOARDS WHEN HE LOST HIS BALANCE AND ALL OF HIS WEIGHT COME DOWN ON HIS LEFT FOOT ON TE EDGE OF ONE OF THE BOARDS. PATIENT C/O PAIN WITH WEIGHT BEARING TO LATERAL SIDE OF LEFT FOOT HEENT Symptoms (Recalled from RN notes): No Resp Symptoms (Recalled from RN notes): No Skin Symptoms (Recalled from RN notes): No MS Symptoms (Recalled from RN notes): Yes Functional Status (Recalled from RN notes): WNL History of Present Illness Provider Complaint: Patient states he was walking in his coop last night when he lost his balance and all his weight went onto the side of his left foot, and felt and heard a pop states that since then he has been having pain and swelling in his left foot so he came in to get [facility]
[2023-12-03 13:40] VITALS: BP 144/80; PULSE 88; RESP 22; TEMP 36.9; O2SAT 97
== END 2023-12-03 13:50 | disposition home or self-care (01) ==
PROVIDERS: Emergency Provider Nurse Practitioner; PCP Internal Medicine Adolescent Medicine
DX: S93.602A Unspecified sprain of left foot, initial encounter (principal); M79.672 Pain in left foot; W18.30XA Fall on same level, unspecified, initial encounter
CPT/HCPCS: 73630; 99203; 99212; G0463

== ENCOUNTER 2023-12-23 09:07 | Outpatient (POV) | payer MEDICARE, SELFPAY | END 2023-12-23 23:59 | disposition home or self-care (01) | LOC: SC 09:08 | PROVIDERS: Visit Provider Specialist/Technologist | DX: Z00.00 Encounter for general adult medical examination without abnormal findings (principal) ==

== ENCOUNTER 2023-12-25 16:15 | Outpatient (CLI) | payer MEDICARE, SELFPAY ==
--- NOTE | 2023-12-25 16:38 | XR_ITS ---
PROCEDURE INFORMATION: Exam: XR Left Foot Complete; Alignment Exam date and time: 12/25/2023 4:39 PM Age: 48 years old Clinical indication: Pain; Foot; Left; Additional info: Foot pain TECHNIQUE: Imaging protocol: Radiologic exam of the left foot. Views: 3 or more views. COMPARISON: CR XR FOOT LT MIN 3V 12/03/2023 12:27 PM FINDINGS: Bones/joints: A fracture is noted at the proximal 4th metatarsal. No significant displacement. No dislocation or subluxation noted. No radiopaque foreign bodies. Joint spaces are grossly preserved. Soft tissues: See Bones/joints finding. IMPRESSION: Nondisplaced proximal 4th metatarsal fracture
== END 2023-12-25 23:59 | disposition home or self-care (01) ==
LOC: RAD 16:19
PROVIDERS: PCP Internal Medicine Adolescent Medicine; Visit Provider Podiatrist
DX: M79.672 Pain in left foot (principal); S92.345A Nondisplaced fracture of fourth metatarsal bone, left foot, initial encounter for closed fracture; S93.602A Unspecified sprain of left foot, initial encounter
CPT/HCPCS: 73630

== ENCOUNTER 2024-01-18 10:31 | Outpatient (CLI) | payer MEDICARE, SELFPAY ==
--- NOTE | 2024-01-18 10:39 | XR_ITS ---
FINAL REPORT CLINICAL HISTORY: Foot Pain left 4th met fracture COMPARISON: 12/25/2023 FINDINGS: LEFT FOOT Three views of the left foot demonstrate a transverse lucency of the base of the fourth metatarsal, also seen on the prior exam of December 24 and consistent with a subacute fracture. No new fracture is identified. The visualized joint spaces are normally aligned. The soft tissues are unremarkable. IMPRESSION: Transverse lucency of the base of the fourth metatarsal, stable in appearance since the prior exam of December 24, and consistent with a subacute fracture. Reviewed, Interpreted and Dictated by Elpidio Bustamante MD Transcribed by Leslie Reno Authenticated and [facility]
== END 2024-01-18 23:59 | disposition home or self-care (01) ==
LOC: RAD 10:32
PROVIDERS: PCP Internal Medicine Adolescent Medicine; Visit Provider Podiatrist
DX: M79.672 Pain in left foot (principal)
CPT/HCPCS: 73630

== ENCOUNTER 2024-01-24 10:18 | Day surgery (SDC) | payer MEDICARE, SELFPAY ==
[2024-01-18 14:21] VITALS: BMI 36.9
[2024-01-24] MEDS: LACTATED RINGERS 1000ML 1,000 ML 25 ML IV (10:44)
[2024-01-24 11:05] VITALS: BP 136/87; PULSE 86; RESP 18; TEMP 36.3; O2SAT 95
[2024-01-24 11:18] LABS: POC Glucose,Bedside 221 (70-110)
--- NOTE | 2024-01-24 11:24 | P.PNANES_ITS ---
[facility] Disclaimer: The information contained in this section may have been updated after the patient was seen, as this information can be updated by other users. Medical History Mixed hearing loss of right ear SNHL (sensorineural hearing loss) Tympanic membrane perforation Right chronic serous otitis media Tinnitus, right ear History of ear infection Hearing difficulty of right ear Abnormal electrocardiography Angina pectoris Appendicitis Chest pain Coronary artery disease Diabetes mellitus Hyperlipidemia Hypertension Palpitations Renal insufficiency Shortness of breath Syncope and collapse Sinus tachycardia Posttraumatic stress disorder VALENTINO (obstructive sleep apnea) Dizziness CAD (coronary artery disease) Surgical History History of placement of ear tubes Hx of appendectomy History of extraction of renal calculus History of back surgery Hx laparoscopic cholecystectomy Family History Grandfather Alcoholism Mother Thyroid disorder Kidney disease Diabetes Daughter Seizures Social History Smoking Status: Never smoker second hand exposure: No alcohol intake: current alcohol intake frequency: a few times a week counseling given: No substance use type: denies use current occupational status: retired Travel in the last 8 weeks: None caregiver/support person: Yes (for his sister in law; she is totally blind) foster care: No household members: spouse housing: house marital status: number of children: 2 number of grandchildren: 0 education level: high school service: No fpc: No current occupation: retired; he worked with [employer] current occupational exposures/hazards: No Hx Recent Travel: No sexually active: Yes caffeine: Yes physical activity: none working smoke detector in home: Yes fire extinguisher in home: Yes carbon monox detector in home: No firearms in home: Yes firearms unloaded and locked: Yes do you feel safe at home: Yes victim of physical abuse: No victim of emotional abuse: No victim of sexual abuse: No [facility] Anesthesia Checklist Patient Identification Patient Identification: Arm Band and Verbal (Name & ) Structural Data Admitted From: Home Planned Operative Procedure/s: Colonoscopy Consent for Planned Operative Procedure(s) Verified: Yes Verified Documents: Surgical Consent and History and Physical NPO Status Verified Time NPO: 00:00 Additional verifications Anesthesia Reactions: No Hx Blood Transfusions: No Blood Transfusion Reaction: No Airway Assessment Mallampati Score:: Class I C-Spine Mobility Assessed: Yes TMJ Mobility Assessed: Yes Dentition: Good Dentition Neurological Assessment Level of Consciousness: Awake Hx Seizures: No Numbness or tingling in extremities: No Anesthesia Plan Anesthesia Risk discussed: Yes Anesthesia Plan: Verified ASA Class: III Anesthesia Type: MAC
--- NOTE | 2024-01-24 11:48 | EXP.HP ---
History of Present Illness *Admission Date: 01/24/24 *Reason for visit:: Surveillance-personal history of adenomatous polyps and family history *History of present illness: Mr. Barker is a 48-year-old gentleman who is here for surveillance colonoscopy secondary to a personal history of adenomatous polyps and family history of colon cancer (mother in her 40s). The examination is deemed medically necessary for colonoscopy. The patient has been seen, interviewed and examined prior to the procedure by both myself and the anesthesia provider. [facility] Disclaimer: The information contained in this section may have been updated after the patient was seen, as this information can be updated by other users. Medical History Mixed hearing loss of right ear SNHL (sensorineural hearing loss) Tympanic membrane perforation Right chronic serous otitis media Tinnitus, right ear History of ear infection Hearing difficulty of right ear Abnormal electrocardiography Angina pectoris Appendicitis Chest pain Coronary artery disease Diabetes mellitus Hyperlipidemia Hypertension Palpitations Renal insufficiency Shortness of breath Syncope and collapse Sinus tachycardia Posttraumatic stress disorder VALENTINO (obstructive sleep apnea) Dizziness CAD (coronary artery disease) Surgical History History of placement of ear tubes Hx of appendectomy History of extraction of renal calculus History of back surgery Hx laparoscopic cholecystectomy Family History Grandfather Alcoholism Mother Thyroid disorder Kidney disease Diabetes Daughter Seizures Social History Smoking Status: Never smoker second hand exposure: No alcohol intake: current alcohol intake frequency: a few times a week counseling given: No substance use type: denies use current occupational status: retired Travel in the last 8 weeks: None caregiver/support person: Yes (for his sister in law; she is totally blind) foster care: No household members: spouse housing: house marital status: number of children: 2 number of grandchildren: 0 education level: high school service: No senior living: No current occupation: retired; he worked with [employer] current occupational exposures/hazards: No Hx Recent Travel: No sexually active: Yes caffeine: Yes physical activity: none working smoke detector in home: Yes fire extinguisher in home: Yes carbon monox detector in home: No firearms in home: Yes firearms unloaded and locked: Yes do you feel safe at home: Yes victim of physical abuse: No victim of emotional abuse: No victim of sexual abuse: No Other Medical History Have you received the Flu Vaccine for this season: No Have you received the Pneumonia Vaccine: No Review of Systems Review of Systems Review of systems (narrative): Negative *Cardiovascular Comments: Negative *Gastrointestinal Comments: Negative *Genitourinary Comments: Negative *Musculoskeletal Comments: Negative *Neurologic Comments: Negative Meds Home Medications and Allergies Home Medications ?Medication ?Instructions ?Recorded ?Confirmed ?Type diclofenac sodium 50 mg 50 mg PO DAILY 12/03/23 01/18/24 History tablet,delayed release gabapentin 600 mg tablet 600 mg PO QID 12/03/23 01/18/24 History insulin aspart U-100 100 unit/mL 200 unit SQ DAILY 12/03/23 01/18/24 History subcutaneous solution (Novolog U-100 Insulin aspart) losartan 50 mg tablet 50 mg PO DAILY 12/03/23 01/18/24 History metoprolol succinate 100 mg 100 mg PO DAILY 12/03/23 01/18/24 History tablet,extended release 24 hr oxycodone-acetaminophen 10 mg-325 1 tab PO QIDP PRN Pain 12/03/23 01/18/24 History mg tablet tadalafil 5 mg tablet (Cialis) 5 mg PO DAILY 12/03/23 01/18/24 History tizanidine 4 mg tablet 4 mg PO BID 12/03/23 01/18/24 History sodium,potassium,mag sulfates 17.5 See Rx Instructions PO .COMPLEX 01/17/24 01/18/24 Rx gram-3.13 gram-1.6 gram oral soln #354 mL (Suprep Bowel Prep Kit) aspirin 81 mg tablet 81 mg PO DAILY 01/18/24 01/18/24 History buspirone 10 mg tablet 10 mg PO BID 01/18/24 01/18/24 History escitalopram oxalate 20 mg tablet 20 mg PO DAILY 01/18/24 01/18/24 History finerenone 10 mg tablet (Kerendia) 10 mg PO DAILY 01/18/24 01/18/24 History hydrochlorothiazide 25 mg tablet 25 mg PO DAILY 01/18/24 01/18/24 History venlafaxine 225 mg tablet,extended 225 mg PO DAILY 01/18/24 01/18/24 History release 24 hr New Prescriptions to Start Prescriptions: Allergies Allergy/AdvReac Type Severity Reaction Status Date / Time No Known Allergies Allergy Verified 01/18/24 14:08 Exam Data for Last 24 hours Vital signs and Labs for Last 24 Hours: Temp Pulse Resp BP Pulse Ox O2 Del Method 97.3 F L 86 18 136/87 95 Room Air 01/24/24 11:05 01/24/24 11:05 01/24/24 11:05 01/24/24 11:05 01/24/24 11:05 01/24/24 11:05 Laboratory Results - last 24 hr 01/24/24 11:02: POC Glucose 221 H *Routine HEENT Exam Head: Present normocephalic Eye: Present EOMI and PERRL ENT: Present mucous membranes moist *Routine Neck Exam Neck: Present supple *Routine Respiratory Exam Respiratory: Present CTA bilaterally *Routine Cardiovascular Exam Cardiovascular: Present RRR *Routine Abdominal Exam Abdominal: Present soft and normoactive bowel sounds; Absent tenderness *Routine Rectal Exam Rectal:: deferred *Routine Genitalia Exam Genitalia:: deferred *Routine Extremities Exam Extremities: Absent cyanosis, clubbing or edema *Routine Skin Exam Skin: Present warm; Absent rash *Routine Neurological Exam Neurological: Present alert and oriented X3 Assessment and Plan *Assessment and plan (1) Personal history of adenomatous and serrated colon polyps: Status: Acute Category: Medical Code(s): Z86.0101 - Personal history of adenomatous and serrated colon polyps (2) Family history of colon cancer in mother: Status: Acute Category: Medical Code(s): Z80.0 - Family history of malignant neoplasm of digestive organs Plan A/P: 1. Surveillance colonoscopy secondary to personal history of colon polyps and family history of colon cancer (mother with colon cancer in her 40s) is the preprocedural diagnosis. The patient will be anesthetized/sedated using MAC sedation. The patient has been seen and examined. Cardiac and lung assessment prior to the examination is stable. Proceed with planned colonoscopy
[2024-01-24 11:53] VITALS: O2SAT 98
--- NOTE | 2024-01-24 11:59 | P.PCN_ITS ---
[facility] Procedure Note Date: 01/24/24 Time: 12:17 Procedure Note:: Colonoscopy Procedure Report: Colonoscopy Endoscopist: Shay Mckenzie II, MD Referring physician: Yunior Porras M.D. Date of Procedure: January 24, 2024 Equipment: Olympus 190 variable stiffness pediatric colonoscope Sedation: MAC sedation Indication: Mr. Barker is a 48-year-old gentleman who is here for follow-up surveillance colonoscopy secondary to a personal history of adenomatous polyps and family history of colon cancer. The patient did have a colonoscopy in August 2019 and had a single polyp (tubular adenoma) removed. His mother had colon cancer in her 40s. He reports no abdominal pain, weight loss or rectal bleeding. He has noted some flat ribbon shaped stools over the last year. Procedure: Prior to the procedure, a history and physical exam was performed, and patient's medications and allergies were reviewed. The risks, benefits and alternatives of the sedation and procedure were discussed with the patient. All questions were answered and informed consent was obtained. The patient was brought to the procedure room. Patient identification and proposed procedure were verified by the physician and the nurse. The patient was placed in a left lateral decubitus position and the scope was passed under direct vision. Throughout the procedure, the patient's blood pressure, pulse, and oxygen saturations were monitored continuously. The colonoscopy was accomplished without difficulty. The patient tolerated the procedure well. Findings: On digital rectal examination there was normal rectal tone. There were no external hemorrhoids. The prostate was 2+, soft, smooth and mildly asymmetric without nodules. The colonoscope was introduced through the anal canal to the rectum and advanced to the cecum. The ileocecal valve and appendiceal orifice were identified. The scope was advanced a short distance into the ileum which appeared grossly normal. The scope was then withdrawn into the colon. The cecum, ascending and transverse colon and mucosa were grossly normal. There were scattered diverticuli throughout the descending and sigmoid colon (LEFT colon). The rectum itself was normal. Upon retroflexion within the rectum there were grade 2 internal hemorrhoids. The preparation was excellent throughout with [place] Preparation Score of 9. The cecal time was 9 minutes. Impression: 1. Left-sided diverticulosis 2. Grade 2 internal hemorrhoids Plan: Based upon the patient's family history (mother with colon cancer in her 40s), I would recommend repeat surveillance colonoscopy again in 5 years. I would encourage bulking psyllium/Konsyl fiber supplementation on a daily maintenance basis.
[2024-01-24 12:18] VITALS: BP 106/73; PULSE 75; RESP 18; TEMP 36.6; O2SAT 97
[2024-01-24 12:25] VITALS: BP 120/66; PULSE 73; RESP 18; O2SAT 97
[2024-01-24 12:38] VITALS: BP 135/69; PULSE 71; RESP 18; O2SAT 97
[2024-01-24 12:48] VITALS: BP 141/74; PULSE 71; RESP 18; O2SAT 98
== END 2024-01-24 12:48 | disposition home or self-care (01) ==
PROVIDERS: PCP Internal Medicine Adolescent Medicine; Visit Provider Internal Medicine Gastroenterology
PROC: 0DJD8ZZ Inspection of Lower Intestinal Tract, Via Natural or Artificial Opening Endoscopic (ICD-10-PCS; CPT 45378; principal; 2024-01-24 12:00)
DX: K57.30 Diverticulosis of large intestine without perforation or abscess without bleeding (principal); K64.1 Second degree hemorrhoids; Z86.0101 Personal history of adenomatous and serrated colon polyps; Z80.0 Family history of malignant neoplasm of digestive organs; Z79.85 Long-term (current) use of injectable non-insulin antidiabetic drugs
CPT/HCPCS: 45378; 82962; J7120

== ENCOUNTER 2024-04-12 08:07 | Outpatient (CLI) | payer MEDICARE, SELFPAY ==
--- NOTE | 2024-04-12 | CA_ITS ---
FINAL REPORT TECHNIQUE: Ultrasound images of the deep venous system were obtained from the left groin to the calf veins. CLINICAL HISTORY: LEFT FOOT SWELLING X 4 DAYS COMPARISON: None FINDINGS: The deep venous system is normally compressible. Normal flow is identified. IMPRESSION: No evidence of left lower extremity DVT. Reviewed, Interpreted and Dictated by Elpidio Bustamante MD Transcribed by Rhina Lozano Authenticated and [facility]
== END 2024-04-12 23:59 | disposition home or self-care (01) ==
LOC: RT 08:10
PROVIDERS: PCP Internal Medicine Adolescent Medicine; Visit Provider Physician Assistant
DX: M79.89 Other specified soft tissue disorders (principal)
CPT/HCPCS: 93971

== ENCOUNTER 2024-05-09 11:15 | Outpatient (CLI) | payer MEDICARE, SELFPAY ==
[2024-05-09 11:54] LABS: Basophils # 0.1 K/mm3 (0-0.2); Eosinophils # 0.3 K/mm3 (0.0-0.4); Eosinophils % 3.3 % (0.1-12.0); Hematocrit 54.8 % (42.0-52.0); Hemoglobin 17.7 g/dL (14.1-18.0); Lymphocytes # 2.3 K/mm3 (0.7-4.5); Lymphocytes % 25.1 % (10-50); Mean Corpuscular HGB Conc 32.3 g/dL (31.8-35.4); Mean Corpuscular Hemoglobin 25.9 pg (27.0-31.2); Mean Corpuscular Volume 80.1 fl (80-94); Mean Platelet Volume 8.6 fl (7.4-10.4); Monocytes # 0.8 K/mm3 (0.1-1.0); Monocytes % 8.4 % (1.7-9.3); Neutrophils # 5.6 K/mm3 (1.8-7.8); Neutrophils % 61.9 % (37.0-80.0); Platelet Count 258 K/mm3 (142-424); Red Blood Count 6.84 M/mm3 (4.60-6.20); Red Cell Distribution Width 14.6 % (11.5-17.5); White Blood Count 9.1 K/mm3 (4.8-10.8)
[2024-05-09 12:15] LABS: Albumin Level 4.2 g/dl (3.5-5.0)
[2024-05-09 12:16] LABS: Chloride 99 mmol/L (98-107); Sodium 136 mmol/L (136-145)
[2024-05-09 12:18] LABS: Bilirubin,Unconjugated 0.3 mg/dL (0.0-1.1); Blood Urea Nitrogen 15 mg/dl (9-20); Carbon Dioxide 25 mmol/L (22.0-30.0); Estimated Glomerular Filt Rate 104 ml/min (>60); GFR (African American) 125 ML/MIN (>60)
[2024-05-09 12:19] LABS: Alanine Aminotransferase 29 U/L (12-78); Alkaline Phosphatase 100 U/L (38-126); Aspartate Amino Transferase 37 U/L (17-59); Bilirubin,Direct 0.1 mg/dl (0.0-0.4); Bilirubin,Indirect 0.2 mg/dL (0.0-0.9); Bilirubin,Total 0.3 mg/dl (0.2-1.3); Calcium 9.2 mg/dl (8.4-10.2); Chol/HDL Ratio 3.2 (1-3.5); Cholesterol 114 mg/dl (140-200); Glucose 145 mg/dl (74-100); HDL Cholesterol 36 mg/dl (40-60); Magnesium 1.6 mg/dl (1.6-2.3); Total Protein,Serum 7.1 g/dl (6.3-8.2); Triglycerides 207 mg/dl (30-150); VLDL Cholesterol 41 mg/dL (0-40)
[2024-05-09 12:30] LABS: Direct LDL Cholesterol 53.47 mg/dL (100-129)
[2024-05-09 12:36] LABS: Free T4 (Free Thyroxine) 0.64 ng/dl (0.78-2.19)
[2024-05-09 12:40] LABS: Hemoglobin A1C 6.8 % (4.0-6.0)
[2024-05-09 12:50] LABS: Thyroid Stimulating Hormone 0.17 uIU/mL (0.465-4.68)
== END 2024-05-09 23:59 | disposition home or self-care (01) ==
LOC: LAB 11:16
PROVIDERS: PCP Internal Medicine Adolescent Medicine; Visit Provider Nurse Practitioner
DX: I25.118 Atherosclerotic heart disease of native coronary artery with other forms of angina pectoris (principal); R42 Dizziness and giddiness; G47.33 Obstructive sleep apnea (adult) (pediatric); I10 Essential (primary) hypertension; E78.5 Hyperlipidemia, unspecified; E11.9 Type 2 diabetes mellitus without complications; R06.00 Dyspnea, unspecified
CPT/HCPCS: 36415; 80048; 80061; 80076; 83036; 83735; 84439; 84443; 85025

== ENCOUNTER 2024-05-12 10:27 | Outpatient (CLI) | payer MEDICARE, SELFPAY ==
--- NOTE | 2024-05-12 10:30 | CA_ITS ---
APPROVED REPORT EXAM: Comprehensive 2D, Doppler, and color-flow Echocardiogram Chemical Lab Technician: LISA Zamora, RVS Ht: 6 ft 1 in Wt: 316lbs BSA: 2.61 BP: 148/79 mmHg Indications: Chest pain, DM, HTN, CAD, HLD 2D Dimensions IVSd 1.12 cm LVEF (Visual) 48.20 % PWd 1.08 cm LA Volume 61.20 mL LVDd 5.76 cm LA Volume Index 22.80 mL/m2 (M/F) 16-34 LVDs 4.34 cm EF AP4 47.70 % Left Atrium 3.96 cm GL Strain -12.7 % M-Mode Dimensions LA Diam 4.28 cm (1.9-4.0) EPSs 1.32 cm TAPSE 1.45 (<1.7) LV Diastology E Decel Time 253 (160-240 msec) E/A Ratio 1.15 MED A' 9.40 cm/s LAT A' 9.20 cm/s Aortic Valve NIGEL Index 1.03 cm2/m2 AoV Peak Sandip. 146.0 (50-130 cm/s) AO Peak GR. 8.50 mmHg AO Mean GR. 5.00 (<5 mmHg) AO VTI 29.2 (18-25 cm) NIGEL (VTI) 2.75 (2.5-4.5 cm2) Mitral Valve MV A Velocity 82.0 (40-130 cm/s) E/A Ratio 1.15 Pulmonary Valve PV Peak Velocity 101.0 (50-150 cm/s) Left Ventricle The left ventricle is normal size. The left ventricular systolic function is normal. The left ventricular ejection fraction is within the normal range. There is normal left ventricular wall thickness. There is normal LV segmental wall motion. The left ventricular diastolic function is normal. LVEF is 55%. Right Ventricle The right ventricle is normal size. The right ventricular systolic function is normal. Atria The left atrium size is normal. The right atrium size is normal. There is no Doppler evidence of interatrial shunt. Aortic Valve The aortic valve opens well. There is no aortic valvular stenosis. No aortic regurgitation is present. Mitral Valve The mitral valve is normal in structure. No evidence of mitral valve stenosis. Trace mitral regurgitation. Tricuspid Valve Tricuspid valve is grossly normal in structure and function. There is no tricuspid valve regurgitation noted. Pulmonic Valve The pulmonary valve is normal in structure. Trace pulmonic regurgitation. Great Vessels The aortic root is normal in size. The ascending aorta is not well visualized. IVC is normal in size and collapses >50% with inspiration. Pericardium There is no pericardial effusion. Other Information Study Quality: Adequate Conclusion Normal biventricular systolic function. No significant valvular stenosis or regurgitation. Electronically signed by : Adeline Soliman MD 05/17/2024 19:15:39
== END 2024-05-12 23:59 | disposition home or self-care (01) ==
LOC: RT 10:28
PROVIDERS: PCP Internal Medicine Adolescent Medicine; Visit Provider Internal Medicine
DX: I25.118 Atherosclerotic heart disease of native coronary artery with other forms of angina pectoris (principal); R42 Dizziness and giddiness
CPT/HCPCS: 93306

== ENCOUNTER 2024-05-18 09:02 | Day surgery (SDC) | payer MEDICARE, SELFPAY ==
[2024-05-18] VITALS (14 sets, daily range): BP systolic 108–151; BP diastolic 57–90; PULSE 67–95; RESP 16–18; TEMP 36.9; O2SAT 91–97; BMI 40.2
--- NOTE | 2024-05-18 07:08 | IR_ITS ---
APPROVED REPORT Patient Location: Outpatient Bill Cutter: Brandon Haji, RT (R) PROCEDURES Left heart catheterization Left ventriculogram Selective coronary angiogram INDICATION Known coronary artery disease, Elevated angina pectoris Informed consent was obtained prior to the procedure. COMPLICATIONS NONE Estimated Blood Loss: LESS THAN 10 ML TECHNIQUE One percent lidocaine used to anesthetize the right anterior aspect of the wrist. The right radial artery was accessed via the Seldinger technique. A 6 Mal[place]ian sheath was placed in the right radial artery. 2.5 mg of Verapamil, 800 mcg of nitroglycerin, 1mg Lidocaine and 5000 U Heparin were given through the arterial sheath. The JL 3 was also used to perform left heart catheterization, left ventriculogram and selective coronary angiogram. At the end of the procedure the sheath was removed good hemostasis was achieved using Traclet band, patient was transferred to the postop holding area in stable condition. ANGIOGRAPHIC RESULTS The left main artery Normal The left anterior descending artery Mild proximal 10% luminal regularities with a mid vessel stent which is widely patent free of in-stent restenosis with excellent proximal distal transitioning The circumflex artery Dominant with mild 10% luminal regularities The right coronary artery Nondominant 10% luminal regularities The WAYNE ventriculogram reveals Normal 65% The left ventricular end-diastolic pressure 10 mmHg IMPRESSION Widely patent mid LAD stent Normal ejection fraction Normal LVEDP PLAN 1. Continue medical management for coronary disease 2. Patient appears to have advanced sleep apnea. This could be contributing to his symptoms. Recommend evaluation and treatment if not already performed Electronically signed by : Skyler Lance MD 05/18/2024 11:14:06
[2024-05-18 09:25] LABS: Basophils # 0.1 K/mm3 (0-0.2); Eosinophils # 0.4 K/mm3 (0.0-0.4); Eosinophils % 4.5 % (0.1-12.0); Hematocrit 55.2 % (42.0-52.0); Hemoglobin 17.7 g/dL (14.1-18.0); Lymphocytes # 2.5 K/mm3 (0.7-4.5); Mean Corpuscular HGB Conc 32.1 g/dL (31.8-35.4); Mean Corpuscular Hemoglobin 25.5 pg (27.0-31.2); Mean Corpuscular Volume 79.7 fl (80-94); Mean Platelet Volume 8.9 fl (7.4-10.4); Monocytes # 0.7 K/mm3 (0.1-1.0); Monocytes % 8.4 % (1.7-9.3); Neutrophils # 4.1 K/mm3 (1.8-7.8); Neutrophils % 53.8 % (37.0-80.0); Platelet Count 252 K/mm3 (142-424); Red Blood Count 6.93 M/mm3 (4.60-6.20); Red Cell Distribution Width 15.6 % (11.5-17.5); White Blood Count 7.7 K/mm3 (4.8-10.8)
[2024-05-18 09:36] LABS: Anion Gap 13.1 mEq/L (5-15); Blood Urea Nitrogen 16 mg/dl (9-20); Calcium 9.2 mg/dl (8.4-10.2); Carbon Dioxide 37 mmol/L (22.0-30.0); Chloride 90 mmol/L (98-107); Creatinine Clearance Estimated 162 mL/min (50-200); Estimated Glomerular Filt Rate 72 ml/min (>60); GFR (African American) 87 ML/MIN (>60); Glucose 149 mg/dl (74-100); Potassium 3.1 mmoL/L (3.5-5.1); Sodium 137 mmol/L (136-145)
[2024-05-18] MEDS: diphenhydrAMINE 50MG/ML VIAL 50 MG IV (10:42)
[2024-05-18] MEDS: LIDOCAINE 1% 10ML MDV 20 ML IJ (10:42)
[2024-05-18] MEDS: HEPARIN 1,000 UNITS/ML 10ML VIAL (CATH LAB) 10000 UNIT IV (10:42)
[2024-05-18] MEDS: HEPARIN 1,000 UNITS/500ML NS (CATH LAB) 3000 UNIT IV (10:43)
[2024-05-18] MEDS: 0.9 % SODIUM CHLORIDE 500 ML 25 ML IV (10:43)
[2024-05-18] MEDS: VERAPAMIL 2.5MG/ML 2ML VIAL 2.5 MG IV (10:43)
[2024-05-18] MEDS: MIDAZOLAM HCL 1MG/ML 5ML VIAL 1 MG IV (11:12)
[2024-05-18] MEDS: FENTANYL 100MCG/2ML VIAL 50 MCG IV (11:13)
[2024-05-18] MEDS: IOPAMIDOL-370 (76%);100ML BOTTLE 50 ML IV (11:47)
== END 2024-05-18 14:24 | disposition home or self-care (01) ==
PROVIDERS: PCP Internal Medicine Adolescent Medicine; Visit Provider Internal Medicine
DX: I25.118 Atherosclerotic heart disease of native coronary artery with other forms of angina pectoris (principal); R07.9 Chest pain, unspecified; I10 Essential (primary) hypertension; E11.9 Type 2 diabetes mellitus without complications; G47.33 Obstructive sleep apnea (adult) (pediatric); Z79.4 Long term (current) use of insulin; Z79.899 Other long term (current) drug therapy
CPT/HCPCS: 80048; 85025; 93458; 99152; C1725; C1769; J1200; J1644; J2250; J3010

== ENCOUNTER → 2024-06-08 07:31 | Outpatient (CLI) | payer MEDICARE, SELFPAY | LOC: SL 07:31 | PROVIDERS: PCP Nurse Practitioner Family; Visit Provider Nurse Practitioner Family | DX: G47.33 Obstructive sleep apnea (adult) (pediatric) (principal); R06.00 Dyspnea, unspecified; I10 Essential (primary) hypertension; R06.02 Shortness of breath; E11.69 Type 2 diabetes mellitus with other specified complication | CPT/HCPCS: G0399 ==

== ENCOUNTER 2024-06-22 10:11 | Outpatient (CLI) | payer MEDICARE, SELFPAY ==
--- NOTE | 2024-06-22 10:29 | XR_ITS ---
FINAL REPORT TECHNIQUE: 5 views CLINICAL HISTORY: CERVICALGIA FINDINGS: Seven views of the cervical spine were obtained. There is no fracture present. There is no malalignment. There is moderate degenerative disc disease and spondylosis at C6-7. The bony neuroforamina are widely patent. IMPRESSION: Degenerative changes at C6-7. Reviewed, Interpreted and Dictated by Livia Kimball MD Transcribed by Camelia Rios Authenticated and [facility]
[2024-06-22 11:12] LABS: Chloride 98 mmol/L (98-107); Potassium 4.1 mmoL/L (3.5-5.1); Sodium 134 mmol/L (136-145)
[2024-06-22 11:15] LABS: Anion Gap 10.1 mEq/L (5-15); Blood Urea Nitrogen 15 mg/dl (9-20); Calcium 9.6 mg/dl (8.4-10.2); Carbon Dioxide 30 mmol/L (22.0-30.0); Estimated Glomerular Filt Rate 90 ml/min (>60); GFR (African American) 109 ML/MIN (>60); Glucose 170 mg/dl (74-100)
== END 2024-06-22 23:59 | disposition home or self-care (01) ==
LOC: LAB 10:13
PROVIDERS: PCP Internal Medicine Adolescent Medicine; Visit Provider Nurse Practitioner Family
DX: E78.2 Mixed hyperlipidemia (principal); E11.69 Type 2 diabetes mellitus with other specified complication; I10 Essential (primary) hypertension; I25.118 Atherosclerotic heart disease of native coronary artery with other forms of angina pectoris
CPT/HCPCS: 36415; 72050; 80048

== ENCOUNTER 2024-06-29 14:17 | Emergency (ER) | payer MEDICARE, SELFPAY ==
[2024-06-29 14:21] VITALS: BP 126/76; PULSE 83; RESP 18; TEMP 36.7; O2SAT 98; BMI 39.5
[2024-06-29 15:52] VITALS: BP 111/65; PULSE 80; O2SAT 94
--- NOTE | 2024-06-29 16:46 | ED_ITS ---
Discharge Plan Disposition Patient Disposition: Home, Self-Care Prescriptions Prescriptions: No Action testosterone cypionate 200 mg/mL oil 200 mg IM WEEKLY Patient Comments: INJECT 2 ML INTO A MUSCLE EVERY OTHER WEEK rosuvastatin 20 mg tablet 20 mg PO HS Patient Comments: TAKE 1 TABLET 1 TIME EACH DAY Mounjaro 2.5 mg/0.5 mL pen injector 2.5 mg SQ WEEKLY Rx Instructions: for 4 weeks spironolactone [Aldactone] 25 mg tablet 25 mg PO DAILY Qty: 90 3RF metoprolol succinate 100 mg tablet extended release 24 hr 100 mg PO DAILY Qty: 90 3RF oxycodone 10 mg tablet 10 mg PO QID torsemide 20 mg tablet 20 mg PO DAILY Qty: 30 2RF buspirone 10 mg Tablet 10 mg PO BID Kerendia 10 mg Tablet 10 mg PO DAILY venlafaxine 225 mg tablet extended release 24hr 225 mg PO DAILY Patient Comments: TAKE 1 TABLET 1 TIME EACH DAY aspirin 81 mg Tablet 81 mg PO DAILY losartan 50 mg tablet 50 mg PO DAILY Patient Comments: TAKE 1 TABLET 1 TIME EACH DAY gabapentin 600 mg tablet 600 mg PO QID Patient Comments: TAKE 1 TABLET 4 TIMES EACH DAY DIRECTED tizanidine 4 mg tablet 4 mg PO BID Patient Comments: TAKE 1 TABLET 2 TIMES EACH DAY insulin aspart U-100 [Novolog U-100 Insulin aspart] 100 unit/mL solution 200 unit SQ DAILY Patient Comments: INJECT 200 UNITS UNDER THE SKIN 1 TIME EACH DAY DIRECTED USING THE INSULIN PUMP tadalafil [Cialis] 5 mg tablet 5 mg PO DAILY Patient Comments: TAKE 1 TABLET 1 TIME EACH DAY Referrals Follow up/Referrals: Yunior Porras MD [Primary Care Provider] - See instructions Activity Restrictions/Add. Instructions Additional Instructions/Restrictions: Call your family doctor to establish care for this visit to the emergency department and schedule follow-up within 48 hours to ensure improvement. If you have any worsening of your condition or any other concerning signs or symptoms, return to the emergency department or your primary care doctor for further evaluation. If you continue having pain or have any other injuries, you can call Dr. Benitez's office, information is attached here. Boot for weightbearing as tolerated. You do not need to wear it at night Clinical Impressions Clinical Impression: Gastrocnemius muscle tear Print Language Print Language: Citizen Of [place] Discharge ED Provider: Frederic Walton General Adult HPI General Chief complaint: PAIN Stated complaint: Sharp shooting pain Lower L calf muscle Time Seen by Provider: 06/29/24 15:15 Mode of Arrival: Ambulatory Source of Information: Patient Description of Symptoms (Recalled from ER Triage Doc. by RN): Pt states he was getting off of a 4 garrido, and felt a popping sensation from his ankle to the back of his leg. History of Present Illness HPI narrative: Please note that above description of symptoms, in this electronic medical record under categorization of recalled from ER triage doctor by RN are reflective of an initial nursing assessment, however, is not reflective of my full history and physical exam that was personally taken and clarified. Consequentially, this preceding description of symptoms, which may include the patient's categorized chief complaint in the EMR, do not reflect my personal clinical impression, and the ultimate description of history of present illness and patient stated complaints should be deferred to this section of the note. Unless stated otherwise or congruent with this section of the note, additional signs, symptoms, or incongruence should be interpreted as inaccurate with my clinical impression. Related Data Home Medications ?Medication ?Instructions ?Recorded ?Confirmed gabapentin 600 mg tablet 600 mg PO QID 12/03/23 06/22/24 insulin aspart U-100 100 unit/mL 200 unit SQ DAILY 12/03/23 06/22/24 subcutaneous solution (Novolog U-100 Insulin aspart) losartan 50 mg tablet 50 mg PO DAILY 12/03/23 06/22/24 tadalafil 5 mg tablet (Cialis) 5 mg PO DAILY 12/03/23 06/22/24 tizanidine 4 mg tablet 4 mg PO BID 12/03/23 06/22/24 aspirin 81 mg tablet 81 mg PO DAILY 01/18/24 06/22/24 buspirone 10 mg tablet 10 mg PO BID 01/18/24 06/22/24 finerenone 10 mg tablet (Kerendia) 10 mg PO DAILY 01/18/24 06/22/24 venlafaxine 225 mg tablet,extended 225 mg PO DAILY 01/18/24 06/22/24 release 24 hr rosuvastatin 20 mg tablet 20 mg PO HS 05/09/24 06/22/24 testosterone cypionate 200 mg/mL 200 mg IM WEEKLY 05/09/24 06/22/24 intramuscular oil oxycodone 10 mg tablet 10 mg PO QID Chronic back pain 05/25/24 06/22/24 tirzepatide 2.5 mg/0.5 mL 2.5 mg SQ WEEKLY 06/22/24 06/22/24 subcutaneous pen injector (Neetu) Previous Rx's ?Medication ?Instructions ?Recorded torsemide 20 mg tablet 20 mg PO DAILY #30 tabs 05/25/24 metoprolol succinate 100 mg 100 mg PO DAILY #90 tabs 06/22/24 tablet,extended release 24 hr spironolactone 25 mg tablet 25 mg PO DAILY #90 tabs 06/22/24 (Aldactone) Allergies Allergy/AdvReac Type Severity Reaction Status Date / Time No Known Allergies Allergy Verified 06/22/24 09:54 [facility] Disclaimer: The information contained in this section may have been updated after the patient was seen, as this information can be updated by other users. Medical History Mixed hearing loss of right ear SNHL (sensorineural hearing loss) moderate SNHL @ 3-4 KHZ per audiometric Tympanic membrane perforation Right chronic serous otitis media Tinnitus, right ear History of ear infection Hearing difficulty of right ear Abnormal electrocardiography Angina pectoris Appendicitis Chest pain Coronary artery disease Diabetes mellitus Hyperlipidemia Hypertension Palpitations Renal insufficiency Shortness of breath Syncope and collapse Sinus tachycardia Posttraumatic stress disorder VALENTINO (obstructive sleep apnea) Dizziness CAD (coronary artery disease) Surgical History History of cardiac cath History of placement of ear tubes Hx of appendectomy History of extraction of renal calculus History of back surgery Hx laparoscopic cholecystectomy Family History Grandfather Alcoholism Mother Thyroid disorder Kidney disease Diabetes Daughter Seizures Social History Smoking Status: Unknown if ever smoked second hand exposure: No alcohol intake: current alcohol intake frequency: a few times a week counseling given: No substance use type: denies use current occupational status: retired Travel in the last 8 weeks: None caregiver/support person: Yes (for his sister in law; she is totally blind) foster care: No household members: spouse housing: house marital status: number of children: 2 number of grandchildren: 0 education level: high school service: No senior care: No current occupation: retired; he worked with [employer] current occupational exposures/hazards: No Hx Recent Travel: No sexually active: Yes caffeine: Yes physical activity: none working smoke detector in home: Yes fire extinguisher in home: Yes carbon monox detector in home: No firearms in home: Yes firearms unloaded and locked: Yes do you feel safe at home: Yes victim of physical abuse: No victim of emotional abuse: No victim of sexual abuse: No Have you lived/traveled outside US in past 30 days?: No Contact w/someone who lives/traveled outside US past 30 days?: No Exposure to someone with infectious disease in past 14 days?: No Do you have a fever (greater than 100.4 F or 38 C)?: No Have you tested positive for COVID-19: No Exposed to someone with COVID-19 in past 14 days?: No Do you have a sore throat?: No Do you have a cough?: No Do you have any weakness?: No Do you have any diarrhea?: No Are you experiencing any unusual bleeding?: No Do you have any muscle aches/pain?: No Do you have any abdominal pain?: No Are you experiencing loss of taste or smell?: No Other Medical History Have you received the Flu Vaccine for this season: No Have you received the Pneumonia Vaccine: No ROS Obtained: Yes All systems reviewed & no additional complaints except as documented Physical Exam General General appearance: alert Head Head exam: atraumatic and normocephalic Eye Eye exam: Present normal appearance, PERRL and EOMI Neck Neck exam: Present normal inspection, full ROM and trachea midline Respiratory Respiratory exam: Absent respiratory distress, wheezes, stridor, accessory muscle use or prolonged expiratory phase Cardiovascular Cardiovascular exam: Present other (Pulses equal symmetric in upper and lower extremities) Abdominal Exam Abdominal exam: Present soft; Absent distention, tenderness or pulsatile mass Extremities Exam Extremities exam: Absent edema Neurological Exam Neurological exam: Present alert, oriented X3 and CN II-XII intact; Absent motor sensory deficit Skin Skin exam: Present warm and dry; Absent diaphoresis or erythema Medical Decision Making Medical Records Medical records reviewed: Yes I reviewed the patient's medical records. Screening: Per USPSTF and CDC recommendations, given the prevalence of disease in our reg ion, it is our hospital?s policy to screen for HIV and viral Hepatitis for all patients aged 18 and over and those with ongoing risk factors. Angel Inquiry Pt receiving controlled substance: No Angel was queried for this patient: No Vital Signs: 06/29/24 14:21 06/29/24 15:52 06/29/24 16:57 Temperature 98.0 F 98.5 F Temperature Source Temporal Artery Scan Pulse Rate 80 70 Pulse Rate [Right] 83 Respiratory Rate 18 18 Blood Pressure 111/65 135/80 Blood Pressure [Right Arm] 126/76 Blood Pressure Mean [Right Arm] 92 Blood Pressure Source [Right Arm] Automatic Cuff Blood Pressure Position [Right Arm] Sitting 02 Sat by Pulse Oximetry 98 94 L Oxygen Delivery Method Room Air Room Air Room Air Orders (Tests/Meds): ORDERS Category Date Time Status POCUS Point of Care (ER Only) Stat Exams 06/29/24 16:27 Completed Medical Decision Narrative: 48-year-old male presenting with atraumatic left lower extremity pain. He states that he stepped down onto the ball of his left foot, had a acute popping sensation in the back of his calf that he audibly heard. Unable to bear weight due to significant pain. Range of motion still intact, has not taken anything for the pain, came in for further evaluation.. history was obtained via conversation with patient. On arrival, patient hemodynamically stable, alert, oriented x4, appropriate, GCS 15, moving all extremities spontaneously, pupils equal and reactive to light. Full physical exam performed and significant for very clinically well-appearing male no acute distress. He does have tenderness about the posterior medial aspect of his calf. Some swelling. No outward signs of abnormality. Achilles tendon intact, dorsiflexion and plantarflexion of the ankle intact. Neurovascularly intact left lower extremity. Differential includes muscle tear, tendon rupture, among others. X-rays were considered, not deemed necessary. Given structural stability on physical exam, I feel this would be unlikely to yield any obvious or positive results. Bedside [id number] ultrasound was performed. Patient has partial tear of the medial head of his gastrocnemius with associated hematoma along the fascial plane. Patient placed in walking boot because he is unable to bear weight. Because patient at baseline without signs or symptoms of clinical decompensation, deemed appropriate for discharge. Results were relayed to patient who voiced understanding and were agreeable to outpatient management and follow up. I discussed my clinical impression with patient and answered all questions. At this time, the evidence for any other entities in the differential is insufficient to warrant any further testing or ED observation. This was explained as well. Advisory was given that persistent or worsening symptoms require further evaluation. I confirmed the understanding of this discussion. Product Control And Logistics Analyst disclaimer Much of this encounter note is an electronic mathematics improvement teacher spoken language to printed text. Electronic mathematics improvement teacher of the spoken language may permit errors. Although I have reviewed the note, some errors may still exist. Procedures Limited Ultrasound Indication:: Limited soft tissue ultrasound Indication: Soft tissue swelling and pain, audible pop Identified structures: Location: Left lower extremity at the calf Findings: Tear of the muscular body medial head of the gastrocnemius as well as associated hematoma along the fascial plane Impression: Partial tear of the medial head of the gastrocnemius with associated hematoma Images were saved to permanent archive The study was technically adequate Soft Tissue CPT Codes: CPT Neck: 02156-76 CPT Upper extremity: 96532-64 CPT Axilla: 86916-22 CPT Chest wall: 76802-68 CPT Breast: 30414-96-XJ/LT (complete), 22024-76-VS/LT (limited), CPT Upper Back: 09005-64 CPT Lower Back: 47300-10 CPT Abdominal Wall: 33019-12 CPT Pelvic Wall: 10768-84 CPT Lower Extremity: 55978-80 CPT Other Soft Tissue: 53147-09 This study was performed by me, and I personally interpreted all images/videos. Based on my clinical judgement, these images were adequate and did not necessitate further imaging. Critical Care Critical Care Time Critical Care Time: No
[2024-06-29 16:57] VITALS: BP 135/80; PULSE 70; RESP 18; TEMP 36.9; O2SAT 94
== END 2024-06-29 16:59 | disposition home or self-care (01) ==
PROVIDERS: Emergency Provider Emergency Medicine; PCP Internal Medicine Adolescent Medicine
DX: S86.119A Strain of other muscle(s) and tendon(s) of posterior muscle group at lower leg level, unspecified leg, initial encounter (principal); M79.662 Pain in left lower leg; X58.XXXA Exposure to other specified factors, initial encounter; Y93.89 Activity, other specified; Y92.9 Unspecified place or not applicable
CPT/HCPCS: 99283

== ENCOUNTER 2025-01-16 07:12 | Outpatient (CLI) | payer MEDICARE, SELFPAY ==
--- OUTSIDE RECORDS SUMMARY | 2023-11-15 10:00 | XMS_ITS ---
Author Organization [facility] [place] Address [facility] [place] [address] Care Team Providers Care Product Design Manager Name Role Phone EMMANUEL AUGUSTINE Unavailable [phone] Emmanuel Augustine MD Unavailable Unavailable MELLISSA BURK Unavailable [phone] REASON FOR VISIT f/u on Insulin pump Encounters Encounter Location Date Provider Diagnosis [facility] [place] [address] 11/15/2023 MELLISSA BURK Plan Of Treatment No Information Progress Notes * Eren BARKER DDOB:[birth year] (49 yo M)Acc No.[id number]:11/15/2023 Progress Notes Patient: Rand Eren LANTIGUA Provider: Wendy BURK :1975 A ge:48 Y S ex:Male Date:11/15/2023 Address:[address], [place], [id number] Subjective: * Chief Complaints: * 1 . f/u on Insulin pump. * Medical History: Objective: * Vitals: Assessment: Plan: * Treatment: * * Electronic signature of ERNESTO BURK MD on 01/16/2025 at 07:17 AM EDT Sign off status: Pending * Provider: Wendy BURK Date: 0 11/15/2023 Generated for Elbai ng/Fatiffanieg/eTransmitting on: 1 07:17 AM EDT
--- OUTSIDE RECORDS SUMMARY | 2024-07-06 04:45 | XMS_ITS ---
Author Organization [facility] D [facility]KO Address [address] [place] [address] Care Team Providers Care Fiber Optic Technician Name Role Phone Noris Ernst Primary Care Provider [phone] Yunior Porras Unavailable [phone] REASON FOR VISIT med ck,labs Encounters Encounter Location Date Provider Diagnosis [address] [address] 07/06/2024 Yunior Porras Plan Of Treatment Next Appt Details Provider Name:Yunior Porras, 02/13/2025 04:00:00 PM, [address] [place] [address], [id number], Progress Notes * Eren BARKER DDOB:[birth year] (49 yo M)Acc No.[id number]:07/06/2024 Progress Notes Patient: Eren HOU Provider: Reno Porras MD :1975 A ge:49 Y S ex:Male Date:07/06/2024 Address:[address], [id number] Pcp:Noris Ernst Subjective: * Chief Complaints: * 1 . Med ck,labs. * Medical History: Objective: * Vitals: Assessment: Plan: * Treatment: * * Electronic signature of Edilberto Porras MD FAAP on 01/16/2025 at 07:15 AM EDT Sign off status: Pending * Provider: Reno Porras MD Date: 0 07/06/2024 Generated for Rhiannon rothman/Jasmin/Sybil on: 1 07:15 AM EDT
--- OUTSIDE RECORDS SUMMARY | 2024-07-08 17:30 | XMS_ITS ---
Author Organization [facility] Natasha [facility] Address [address] [facility] [address] [place] [address] Care Team Providers Care Biofuels Technology Development Manager Name Role Phone Klever Noris Primary Care Provider [phone] Migration, Provider Unavailable Unavailable REASON FOR VISIT [place] To [facility] Conversion Encounter Medications Medication SIG (Take, [...] Active CONTOUR NEXT GLUCOSE TEST STRIPS BY [facility] [employer] *Please review for potential replacement for e-prescription [...] review and pick correct strength-formulat ion from [employer]es options. If intended option is not shown, [...] review and pick correct strength-formulat ion from [employer]es options. If intended option is not shown, discontinue and re-order from Quick Search* 06/20/2024 Active Encounters Encounter Location Date Provider Diagnosis [facility] [address] [facility] [address] [place], [place] [address] 07/08/2024 Provider Migration Androgen deficiency E29.1 and [...] *Please review and pick correct strength-formulation from [facility] options. If intended option is not shown, discontinue and re-order from Quick Search* Next Appt Details Provider Name:Yunior Porras, 02/13/2025 04:00:00 PM, [address], [address], Progress Notes * Eren BARKER DDOB:[birth year] (49 yo M)Acc No.[id number]:07/08/2024 Patient: Eren HOU Provider: Dylan Frederick :1975 A ge:49 Y S ex:Male Date:07/08/2024 Address:[address] [place] [address], [facility] Pcp:Noris Ernst Subjective: * Chief Complaints: * 1 . [facility] Conversion Encounter. * Medical History: * Medications: T aking Torsemide 20 MG Tablet 1 tab(s) orally once a day , Taking Spironolactone 25 MG Tablet 1 tab(s) orally once a day , Taking Vitamin D3 125 MCG CAPSULE 1 CAP(S) ORALLY ONCE A DAY , Notes to Pharmacist: 500mcg *Please review and pick correct strength-formulation from [facility] options. If intended option is not shown, [...] *Please review and pick correct strength-formulation from [employer]version [employer] options. If intended option is not shown, [...] Electronic signature of Prov ider Migration on 01/16/2025 at 07:14 AM EDT Sign off status: Pending * Provider: Dylan lópez Migration Date: 0 07/08/2024 Generated for Rhiannon rothman/Jamsin/Sybil on: 1 07:14 AM EDT
--- OUTSIDE RECORDS SUMMARY | 2024-12-21 06:00 | XMS_ITS ---
Author Organization [facility] D PAKO Address [address] [place] [address] Care Team Providers Care Technical Documentation Specialist Name Role Phone Noris Ernst Primary Care Provider Yunior Porras Unavailable [phone] REASON FOR VISIT Annual Wellness Encounters Encounter Location Date Provider Diagnosis [address] [address] 12/21/2024 Yunior Porras Plan Of Treatment Next Appt Details Provider Name:Yunior Porras, 02/13/2025 04:00:00 PM, [address] [place] [address], [phone], Progress Notes * Eren BARKER DDOB:[birth year] (49 yo M)Acc No.[id number]:12/21/2024 Progress notes Patient: Eren HOU Provider: Reno Porras MD :1975 A ge:49 Y S ex:Male Date:12/21/2024 Address:[address], [id number] Pcp:Noris Ernst Subjective: * Chief Complaints: * 1 . Annual Wellness. * HPI: g en: Needs flu vaccine. Needs labs unless obtained outside. Needs repeat colonoscopy. * Medical History: Objective: * Vitals: Assessment: Plan: * Treatment: * * Electronic signature of Step sharon Porras MD FAAP on 01/16/2025 at 07:15 AM EDT Sign off status: Pending * Provider: Reno Porras MD Date: 0 12/21/2024 Generated for Rhiannon rothman/Jasmin/Sybil on: 1 07:15 AM EDT History and Physical Notes * HPI (History of Present Illness) Category Sub-Category Detail Notes Category Not es gen Needs flu vaccine. Needs labs unless obtained outside. Needs repeat colonoscopy.
--- OUTSIDE RECORDS SUMMARY | 2024-12-28 07:15 | XMS_ITS ---
Author Organization [facility] Address [address] [place] [address] Care Team Providers Care Station Supervisor Name Role Phone Noris Ernst Primary Care Provider [phone] Yunior Porras Unavailable [phone] Allergies No Known Allergies Results Component Value Reference Range Notes Urinalysis Reviewed date:12/28/2024 11:47:21 AM Interpretation: Performing Lab: Notes/Report: Color/Clarity dark yellow Leuk neg Nitrite neg Urobili 1.0 Protein >=300mg pH 6.0 Blood neg Sp. Gr. 1.025 Ketone 15mg Bili small Glucose >=1000mg Microalbumin (In-House) Reviewed date:12/28/2024 11:47:21 AM Interpretation:Abnormal Performing Lab: Notes/Report: Abnormal ALB 150mg CRE 300mg A:C 30-300mg LIPID PANEL, STANDARD (7600) Reviewed date:01/01/2025 10:17:57 AM Interpretation: Performing Lab:CB, [facility] [id number], [facility] [id number] Rios Diaz Notes/Report: NON-FASTING; NON-FASTING; NON-FASTING; NON-FASTING CHOLESTEROL, TOTAL 145 <200 mg/dL HDL CHOLESTEROL 40 > OR = 40 mg/dL TRIGLYCERIDES 156 <150 mg/dL LDL-CHOLESTEROL 80 Reference range: <100 Desirable range <100 mg/dL for primary prevention; <70 mg/dL for patients with CHD or diabetic patients with > or = 2 CHD risk factors. LDL-C is now calculated using the Luis-Krishnan calculation, which is a validated novel method providing better accuracy than the Friedewald equation in the estimation of LDL-C. Luis SS et al. GRETTA. 2013;310(56): 4103-7732 (http://[employer].[facility]/faq/ZUK462) CHOL/HDLC RATIO 3.6 <5.0 (calc) NON HDL CHOLESTEROL 105 <130 mg/dL (calc) For patients with diabetes plus 1 major ASCVD risk factor, treating to a non-HDL-C goal of <100 mg/dL (LDL-C of <70 mg/dL) is considered a therapeutic option. COMPREHENSIVE METABOLIC PANE (44221) Reviewed date:01/01/2025 10:17:57 AM Interpretation: Performing Lab:TRENA, [place] [employer] [id number] [employer] PublonsDyhoUO[address] Rios Diaz Notes/Report: NON-FASTING; NON-FASTING; NON-FASTING; NON-FASTING GLUCOSE 78 65-99 mg/dL Fasting reference interval UREA NITROGEN (BUN) 12 7-25 mg/dL CREATININE 0.83 0.60-1.29 mg/dL EGFR 108 > OR = 60 mL/min/1.73m2 BUN/CREATININE RATIO SEE NOTE: 6-22 (calc) Not Reported: BUN and Creatinine are within reference range. SODIUM 140 135-146 mmol/L POTASSIUM 4.9 3.5-5.3 mmol/L CHLORIDE 103 98-110 mmol/L CARBON DIOXIDE 30 20-32 mmol/L CALCIUM 9.9 8.6-10.3 mg/dL PROTEIN, TOTAL 7.1 6.1-8.1 g/dL ALBUMIN 4.2 3.6-5.1 g/dL GLOBULIN 2.9 1.9-3.7 g/dL (calc) ALBUMIN/GLOBULIN RATIO 1.4 1.0-2.5 (calc) BILIRUBIN, TOTAL 0.5 0.2-1.2 mg/dL ALKALINE PHOSPHATASE 79 36-130 U/L AST 14 10-40 U/L ALT 15 9-46 U/L HEMOGLOBIN A1c (496) Reviewed date:01/01/2025 10:17:57 AM Interpretation: Performing Lab:TRENA, [address] [employer] [facility] CenterFwjwZQ[address] Rios Diaz Notes/Report: NON-FASTING; NON-FASTING; NON-FASTING; NON-FASTING HEMOGLOBIN A1c 6.4 <5.7 % For someone without known diabetes, a hemoglobin A1c value between 5.7% and 6.4% is consistent with prediabetes and should be confirmed with a follow-up test. For someone with known diabetes, a value <7% indicates that their diabetes is well controlled. A1c targets should be individualized based on duration of diabetes, age, comorbid conditions, and other considerations. This assay result is consistent with an increased risk of diabetes. Currently, no consensus exists regarding use of hemoglobin A1c for diagnosis of diabetes for children. PSA, TOTAL (5363) Reviewed date:01/01/2025 10:17:57 AM Interpretation: Performing Lab:[facility] [id number] [facility] CenterUfksAH[address] Rios Diaz Notes/Report: NON-FASTING; NON-FASTING; NON-FASTING; NON-FASTING PSA, TOTAL 0.39 < OR = 4.00 ng/mL The total PSA value from this assay system is standardized against the WHO standard. The test result will be approximately 20% lower when compared to the equimolar-standardized total PSA ([place]). Comparison of serial PSA results should be interpreted with this fact in mind. This test was performed using the Siemens chemiluminescent method. Values obtained from different assay methods cannot be used interchangeably. PSA levels, regardless of value, should not be interpreted as absolute evidence of the presence or absence of disease. REASON FOR VISIT wellness, labs - is fasting , add PSA Medications Medication SIG (Take, Route, Frequency, Duration) Notes Start Date End Date Status CONTOUR NEXT GLUCOSE TEST STRIPS BY [employer] *Please review for potential replacement for e-prescription and drug interaction check* Active Aspirin 81 MG 1 tab(s) orally once a day; Duration: 30 day(s) Active Kerendia 10 MG 1 tab orally once a day Active oxyCODONE HCl 10 MG 1 tab(s) orally ever y 6 hours Active Losartan Potassium 25 MG 1 tablet Orally Once a day; Duration: 90 days 12/28/2024 Active Mounjaro 10 MG/0.5ML 10mg SUBCUTANEOUSLY ONCE A WEEK; Duration: 30 days 06/20/2024 Active tiZANidine HCl 4 mg TAKE 1 TABLET EVERY 12 HOURS NEEDED FOR BACK AND NECK SPASMS; Duration: 30 Active Vitamin D3 125 MCG 1 CAP(S) ORALLY ONCE A DAY 500mcg *Please review and pick correct strength-formulati on from [employer] options. If intended option is not shown, discontinue and re-order from Quick Search* Active NovoLOG 100 UNIT/ML INJECT 200 UNITS UNDER THE SKIN PRN USING THE INSULIN PUMP. Injection prn using insulin pump; Duration: 30 days Active Testosterone Cypionate 200 MG/ML INJECT 2 ML INTO A MUSCLE EVERY OTHER WEEK; Duration: 30 06/27/2024 Active busPIRone HCl 10 MG 1 tab(s) orally 2 times a day; Duration: 90 days Active Venlafaxine HCl ER 225 MG 1 tab(s) orally once a day; Duration: 90 days Active Metoprolol Succinate ER 25 MG 1 tablet Orally Once a day; Duration: 90 days Active BD SYRINGE 3CC - IM ONCE EVERY 2 WEEKS; Duration: 1 DAYS *Please review for potential replacement for e-prescription and drug interaction check* 03/13/2020 Active Gabapentin 600 MG 1 tab(s) orally 4 times a day; Duration: 30 day(s) 04/26/2023 Active Social History Tobacco Use: Social History Observation Description Date Details (start date - stop date) Never Smoker NA - NA Smoking: Question Answer Notes Are you a: nonsmoker Problems Problem Type SNOMED Code ICD Code Onset Dates Problem Status W/U Status Risk Notes Problem Periapical abscess (disorder) (383562038) Periapical abscess without sinus (K04.7) Active confirmed Problem Dental caries (23195092) Dental caries, unspecified (K02.9) Active confirmed Problem General examination of patient (344868365) Routine medical exam (Z00.00) Active confirmed Problem Neck pain (39671626) Neck pain (M54.2) Active confirmed Problem Cervical radiculopathy (43341278) Radiculopathy, cervical region (M54.12) Active confirmed Vital Signs Temperature 97.6 degrees Fahrenheit 12/29/19 25 Heart Rate 80 /min 12/28/2024 Blood pressure systolic 142 mm Hg 12/29/19 25 Blood pressure diastolic 90 mm Hg 025 Height 73 in 12/28/2024 Weight 252 lbs 12/28/2024 BMI 33.24 kg/m2 12/28/2024 Encounters Encounter Location Date Provider Diagnosis [facility] [address] [address] 12/28/2024 Yunior Porras Essential hypertensi on I10 ; Routine medical exam Z00.00 ; Type 1 diabetes mellitus with other specified complication E10.69 ; Dental caries, unspecified K02.9 ; Neck pain M54.2 ; Elevated PSA R97.20 and Radiculopathy, cervical region M54.12 Assessments Encounter Date Diagnosis (ICD Code) Assessment Notes Treatment Notes Treatment Clinical Notes Section Notes 12/28/2024 Essential hypertension (ICD-10 - I10) - BP slightly elevated in clinic but notes pain from dental infection, notes BP 116/80s average at home - previously discontinued Losartan and spironolactone due to BP improving with weight loss - has history of CAD, will try to initiate low dose Losartan back given CKD and may need to d/c metoprolol 12/28/2024 Routine medical exam (ICD-10 - Z00.00) HRA reviewed. Depression screening normal. No need for cognitive impairment screening. Colonoscopy normal 01/26, 5-year follow-up recommended given mother's family history. Up-to-date with vaccines. No recent falls. Excellent functional status. Nontobacco user Wears seatbelts 12/28/2024 Type 1 diabetes mellitus with other specified complication (ICD-10 - E10.69) - on insluin pump with decreasing insulin requirement given 70 lb weight loss since starting wegovy - continue on insulin pump, will increase dose of Wegovy today - Hgb A1c ordered today as well as urine microalbumin 12/28/2024 Dental caries, unspecified (ICD-10 - K02.9) - following with dentist, treating for dental abscess with clindamycin followed by tooth extraction January 03 per patient 12/28/2024 Neck pain (ICD-10 - M54.2) -Subsacute, notes right sided neck pain radiating with n/t to the right shoulder and down to the right posterior elbow - had X-ray 06/2024 showing DDD in C6-7 - notes he has oingoing pain, did not complete PT/OT due to his concerns with lumbar surgery in the past - will order MRI C-spine to further classify pain and if needing surgical follow up 12/28/2024 Elevated PSA (ICD-10 - R97.20) 12/28/2024 Radiculopathy, cervical region (ICD-10 - M54.12) Plan Of Treatment Medication Medication Name Sig Start Date Stop Date Notes Losartan Potassium 25 MG 1 tablet Orally Once a day; Duration: 90 days 12/28/2024 Mounjaro 10 MG/0.5ML 10mg SUBCUTANEOUSLY ONCE A WEEK; Duration: 30 days 06/20/2024 Treatment Notes Assessment Notes Essential hypertension - BP slightly elevated in clinic but notes pain from dental infection, notes BP 116/80s average at home - previously discontinued Losartan and spironolactone due to BP improving with weight loss - has history of CAD, will try to initiate low dose Losartan back given CKD and may need to d/c metoprolol Routine medical exam HRA reviewed. Depression screening normal. No need for cognitive impairment screening. Colonoscopy normal 01/26, 5-year follow-up recommended given mother's family history. Up-to-date with vaccines. No recent falls. Excellent functional status. Nontobacco user Wears seatbelts Type 1 diabetes mellitus wit h other specified complication - on insluin pump with decreasing insulin requirement given 70 lb weight loss since starting wegovy - continue on insulin pump, will increase dose of Wegovy today - Hgb A1c ordered today as well as urine microalbumin Dental caries, unspecified - following w [facility] dentist, treating for dental abscess with clindamycin followed by tooth extraction January 03 per patient Neck pain -Subsacute, notes right sided neck pain radiating with n/t to the right shoulder and down to the right posterior elbow - had X-ray 06/2024 showing DDD in C6-7 - notes he has oingoing pain, did not complete PT/OT due to his concerns with lumbar surgery in the past - will order MRI C-spine to further classify pain and if needing surgical follow up Pending Test Test Name Order Date MRI SPINE CERVICL WO 12/28/2024 Next Appt Details Follow Up: 2 Months, Reason: Provider Name:Yunior Porras, 02/13/2025 04:00:00 PM, [address] [address], [place], [address], Progress Notes * Eren BARKER DDOB:[birth year] (49 yo M)Acc No.[id number]:12/28/2024 Progress notes Patient: Eren HOU Provider: Reno Porras MD :1975 A ge:49 Y S ex:Male Date:12/28/2024 Address:[facility], [facility] [place], [place]-[address] Pcp:Noris Ernst Subjective: * Chief Complaints: * 1 . Wellness. 2. labs - is fasting , add PSA. * HPI: g en: - asking for PSA, has some straining with urination but not so bad as to want flomax, will obtain these with routine labs -- Hgb A1c, lipid panel, CMP, urine albumin-creatinine ratio - on insulin pump, has steady decrease in requirement of insulin with use of Mounjaro which he is tolerating well currently, denies issues with nausea, vomiting or abdominal pain and having good amount of weight loss (70 lbs since starting 6 months ago) - notes some recent issues with dental infection which he is completing an oral antibiotic for and planning for tooth extractions the first of this month but notes the pain from this is what currently is causing his BP to be elevated, notes home readings are usually 116/80s. - he also notes ongoing right shoulder pain with radiation from the right side of the neck. He notes it has been present since June 2024 and had X-ray then showing DDD in C6-C7, he has not completed PT/OT as he notes he has concerns with doing this due to prior thee,bar surgery, he would be interested in surgery if indicated. - notes adherance to current medication regimen without issues. * Medical History: t ype 1 DM, HTN, Chronic back pain, CAD, Kidney Stones, VALENTINO, Carpal Tunnel release, bilaterally. [facility]. , Thyroid nodules, C-Pap, Normal colonoscopy 01/26. * Surgical History: c ardiac cath with stent, repeat cath in 2020 normal 12/2018, adenoidectomy/ear tubes as child , rectal fistula , Prostate Surgery: [facility] 2016?, cardiac cath 03/2019, L4-5 fusion 07/2021, oral surgery 12/2022. * Hospitalization/Major Diagno stic Procedure: c ardiac-[facility] 03/2019, L4-5 fusion 07/2021, BAck surgery 11/30/21-. * Family History: F ather: alive, diagnosed with Hypertension. M other: alive, diagnosed with Cancer, Diabetes, Hypertension. P aternal Grand Father: alive, diagnosed with Hypertension. P aternal Grand Mother: alive, diagnosed with Hypertension. M aternal Grand Father: alive, diagnosed with Hypertension, Heart Disease. M aternal Grand Mother: , thyroid ca, diagnosed with Hypertension, Heart Disease, Stroke, Cancer, Diabetes. S iblings: alive. C rossy: alive. 1 brother(s) , 1 sister(s) . 2 daughter(s) - healthy. . Mother with colon ca in 40s. * Social History: S moking A re you a: n onsmoker. R ecreational drug use: no. Exercise: no. Home smoke detector use: yes. Caffeine: yes, frequency: rarely. Living Will: No. Alcohol: socially. Travel outside [place]: no. Occupation: retired. * Medications: T aking Vitamin D3 125 MCG CAPSULE 1 CAP(S) ORALLY ONCE A DAY , Notes to Pharmacist: 500mcg *Please review and pick correct strength-formulation from [employer] options. If intended option is not shown, discontinue and re-order from Quick Search*, Taking oxyCODONE HCl 10 MG Tablet 1 tab(s) orally every 6 hours , Taking Kerendia 10 MG Tablet 1 tab orally once a day , Taking Aspirin 81 MG Tablet Delayed Release 1 tab(s) orally once a day , Taking CONTOUR NEXT GLUCOSE TEST STRIPS BY ASCART , Notes to Pharmacist: *Please review for potential replacement for e-prescription and drug interaction check*, Taking BD SYRINGE 3CC - IM ONCE EVERY 2 WEEKS , Notes to Pharmacist: *Please review for potential replacement for e-prescription and drug interaction check*, Taking Gabapentin 600 MG Tablet 1 tab(s) orally 4 times a day , Taking Metoprolol Succinate ER 25 MG Tablet Extended Release 24 Hour 1 tablet Orally Once a day , Taking Venlafaxine HCl ER 225 MG Tablet Extended Release 24 Hour 1 tab(s) orally once a day , Taking busPIRone HCl 10 MG Tablet 1 tab(s) orally 2 times a day , Taking Testosterone Cypionate 200 MG/ML Solution INJECT 2 ML INTO A MUSCLE EVERY OTHER WEEK , Taking NovoLOG 100 UNIT/ML Solution INJECT 200 UNITS UNDER THE SKIN PRN USING THE INSULIN PUMP. Injection prn using insulin pump , Taking Mounjaro 7.5 MG/0.5ML Solution Auto-injector 7.5mg SUBCUTANEOUSLY ONCE A WEEK , Taking tiZANidine HCl 4 mg Tablet TAKE 1 TABLET EVERY 12 HOURS NEEDED FOR BACK AND NECK SPASMS , Discontinued Tadalafil 5 MG Tablet 1 tab(s) orally once a day , Discontinued Crestor 20 MG Tablet 1 tab(s) orally once a day , Medication List reviewed and reconciled with the patient * Allergies: N .K.D.A. Objective: * Vitals: N urse: dw, Pain: 3, Temp: 97.6, RR: 20, HR: 80, BP: 142/90, Ht: 73, Wt: 252, BMI:33.24. * Examination: G eneral Examination: General P leasant and Cooperative, NAD on RA,. Chest: c oncern for samantha prominence that is xyphoid process now palpable due to loss of subcutaneous fat. Heart: R egular Rate and Rhythm, no murmur, rubs or gallops. Lungs: L CTAB, No wheezes, crackles or rhonchi, Good air movement,. Extremities: n o lower extremity edema, right deltoid ttp but notes worsening nerve type pain when turning his head toward the affected side - no focal weakness or deficits. Assessment: * Assessment: 1. E ssential hypertension - I10 (Primary) 2 . R outine medical exam - Z00.00 3 . T ype 1 diabetes mellitus with other specified complication - E10.69 4 . D ental caries, unspecified - K02.9 5 . N chris pain - M54.2 6. E levated PSA - R97.20 7 . R adiculopathy, cervical region - M54.12 Plan: * Treatment: Value Reference Range T RIGLYCERIDES 156 H <150 - mg/dL * C HOLESTEROL, TOTAL 145 <200 - mg/dL * H DL CHOLESTEROL 40 > OR = 40 - mg/dL * L DL-CHOLESTEROL 80 - mg/dL (calc) * C HOL/HDLC RATIO 3.6 <5.0 - (calc) * N ON HDL CHOLESTEROL 105 <130 - mg/dL (calc) * White, Tristian R 01/01/2025 0 8:47:57 AM EDT > na Shira [facility] 01/01/2025 10:17:48 AM EDT > pt [facility] lab was reviewed by Tristian Silva on 01/01/2025 at 10:17 AM EDT ?LAB: COMPREHENSIVE METABOLIC PANEL (75118)* Value Reference Range G LUCOSE 78 65-99 - mg/dL * U MICA NITROGEN (BUN) 12 7-25 - mg/dL * C REATININE 0.83 0.60-1.29 - mg/dL * B UN/CREATININE RATIO SEE NOTE: 6-22 - (calc) * S ODIUM 140 135-146 - mmol/L * P OTASSIUM 4.9 3.5-5.3 - mmol/L * C HLORIDE 103 98-110 - mmol/L * C ARBON DIOXIDE 30 20-32 - mmol/L * C ALCIUM 9.9 8.6-10.3 - mg/dL * P ROTEIN, TOTAL 7.1 6.1-8.1 - g/dL * A LBUMIN 4.2 3.6-5.1 - g/dL * G LOBULIN 2.9 1.9-3.7 - g/dL (calc ) * A LBUMIN/GLOBULIN RATIO 1.4 1.0-2.5 - (calc) * B ILIRUBIN, TOTAL 0.5 0.2-1.2 - mg/dL * A LKALINE PHOSPHATASE 79 36-130 - U/L * A ST 14 10-40 - U/L * A LT 15 9-46 - U/L * E GFR 108 > OR = 60 - mL/min/1 .73m2 * Shira [facility] 01/01/2025 0 8:47:57 AM EDT > na Shira [facility] 01/01/2025 10:17:48 AM EDT > pt [facility] lab was reviewed by Tristian Silva on 01/01/2025 at 10:17 AM EDT ?LAB: HEMOGLOBIN A1c (496)* Value Reference Range H EMOGLOBIN A1c 6.4 H <5.7 - % * Shira [facility] 01/01/2025 0 8:47:57 AM EDT > na Shira [facility] 01/01/2025 10:17:48 AM EDT > pt notifiedThis lab was reviewed by Tristiangurpreet Silva on 01/01/2025 at 10:17 AM EDT ?LAB: PSA, TOTAL (5363)* Value Reference Range P SA, TOTAL 0.39 < OR = 4.00 - ng/mL * Shira Tristian 01/01/2025 0 8:47:57 AM EDT > na Shira [facility] 01/01/2025 10:17:48 AM EDT > pt notifiedThis lab was reviewed by Tristian Silva on 01/01/2025 at 10:17 AM EDT ?LAB: Microalbumin (In-House) (Collection Date & Time - 12/28/2024)?Abnormal * Value Reference Range A LB 150mg * C RE 300mg * A :C 30-300mg * Shira [facility] 12/28/2024 1 1:38:27 AM EDT > Notes: - BP slightly elevated in clinic but notes pain from dental infection, notes BP 116/80s average at home - previously discontinued Losartan and spironolactone due to BP improving with weight loss - has history of CAD, will try to initiate low dose Losartan back given CKD and may need to d/c metoprolol ??2.?Routine medical exam?LAB: Urinalysis (Collection Date & Time - 12/28/2024)* Value Reference Range C olor/Clarity dark yellow * L euk neg * N itrite neg * U robili 1.0 * P rotein >=300mg * p H 6.0 * B lood neg * S p. Gr. 1.025 * K etone 15mg * B iraida small * G lucose >=1000mg * Shira [facility] 12/28/2024 1 1:36:32 AM EDT > Notes: HRA reviewed. Depression screening normal. No need for cognitive impairment screening. Colonoscopy normal 01/26, 5-year follow-up recommended given mother's family history. Up-to-date with vaccines. No recent falls. Excellent functional status. Nontobacco user Wears seatbelts??3.?Type 1 diabetes mellitus with other specified complication? Increase Mounjaro Solution Auto-injector, 10 MG/0.5ML, 10mg, SUBCUTANEOUSLY, ONCE A WEEK, 30 days, 4, Refills 3;?Start Losartan Potassium Tablet, 25 MG, 1 tablet, Orally, Once a day, 90 days, 90Tablet, Refills 1.?LAB: LIPID PANEL, STANDARD (3970)* Value Reference Range T RIGLYCERIDES 156 H <150 - mg/dL * C HOLESTEROL, TOTAL 145 <200 - mg/dL * H DL CHOLESTEROL 40 > OR = 40 - mg/dL * L DL-CHOLESTEROL 80 - mg/dL (calc) * C HOL/HDLC RATIO 3.6 <5.0 - (calc) * N ON HDL CHOLESTEROL 105 <130 - mg/dL (calc) * Tristian Silva R 01/01/2025 0 8:47:57 AM EDT > na Tristian Silva R 01/01/2025 10:17:48 AM EDT > pt notifiedThis lab was reviewed by Tristian Silva on 01/01/2025 at 10:17 AM EDT ?LAB: COMPREHENSIVE METABOLIC PANEL (12017)* Value Reference Range G LUCOSE 78 65-99 - mg/dL * U MICA NITROGEN (BUN) 12 7-25 - mg/dL * C REATININE 0.83 0.60-1.29 - mg/dL * B UN/CREATININE RATIO SEE NOTE: 6-22 - (calc) * S ODIUM 140 135-146 - mmol/L * P OTASSIUM 4.9 3.5-5.3 - mmol/L * C HLORIDE 103 98-110 - mmol/L * C ARBON DIOXIDE 30 20-32 - mmol/L * C ALCIUM 9.9 8.6-10.3 - mg/dL * P ROTEIN, TOTAL 7.1 6.1-8.1 - g/dL * A LBUMIN 4.2 3.6-5.1 - g/dL * G LOBULIN 2.9 1.9-3.7 - g/dL (calc ) * A LBUMIN/GLOBULIN RATIO 1.4 1.0-2.5 - (calc) * B ILIRUBIN, TOTAL 0.5 0.2-1.2 - mg/dL * A LKALINE PHOSPHATASE 79 36-130 - U/L * A ST 14 10-40 - U/L * A LT 15 9-46 - U/L * E GFR 108 > OR = 60 - mL/min/1 .73m2 * Shira [facility] 01/01/2025 0 8:47:57 AM EDT > na Shira [facility] 01/01/2025 10:17:48 AM EDT > pt notifiedThis lab was reviewed by Tristian Silva on 01/01/2025 at 10:17 AM EDT ?LAB: HEMOGLOBIN A1c (496)* Value Reference Range H EMOGLOBIN A1c 6.4 H <5.7 - % * Shira [facility] 01/01/2025 0 8:47:57 AM EDT > na Shira [facility] 01/01/2025 10:17:48 AM EDT > pt notifiedThis lab was reviewed by Tristian Silva on 01/01/2025 at 10:17 AM EDT ?LAB: PSA, TOTAL (5363)* Value Reference Range P SA, TOTAL 0.39 < OR = 4.00 - ng/mL * Shira [facility] 01/01/2025 0 8:47:57 AM EDT > na Shira [facility] 01/01/2025 10:17:48 AM EDT > pt notifiedThis lab was reviewed by Tristian Silva on 01/01/2025 at 10:17 AM EDT ?LAB: Urinalysis (Collection Date & Time - 12/28/2024)* Value Reference Range C olor/Clarity dark yellow * L euk neg * N itrite neg * U robili 1.0 * P rotein >=300mg * p H 6.0 * B lood neg * S p. Gr. 1.025 * K etone 15mg * B iraida small * G lucose >=1000mg * Shira [facility] 12/28/2024 1 1:36:32 AM EDT > ?LAB: Microalbumin (In-House) (Collection Date & Time - 12/28/2024)?Abnormal * Value Reference Range A LB 150mg * C RE 300mg * A :C 30-300mg * Shira [facility] 12/28/2024 1 1:38:27 AM EDT > Notes: - on insluin pump with decreasing insulin requirement given 70 lb weight loss since startingwegovy - continue on insulin pump, will increase dose of Wegovy today - Hgb A1c ordered today as well as urine microalbumin??4.?Dental caries, unspecified? Notes: - following with dentist, treating for dental abscess with clindamycin followed by tooth extraction January 03 per patient??5.?Neck pain?Imaging: MRI SPINE CERVICL WO* Notes: -Subsacute, notes right sided neck pain radiating with n/t to the right shoulder and down tothe right posterior elbow - had X-ray 06/2024 showing DDD in C6-7 - notes he has oingoing pain, did not complete PT/OT due to his concerns with lumbar surgery in [facility] - will order MRI C-spine to further classify pain and if needing surgical follow up ??6.?Elevated PSA?LAB: LIPID PANEL, STANDARD (8700)* Value Reference Range T RIGLYCERIDES 156 H <150 - mg/dL * C HOLESTEROL, TOTAL 145 <200 - mg/dL * H DL CHOLESTEROL 40 > OR = 40 - mg/dL * L DL-CHOLESTEROL 80 - mg/dL (calc) * C HOL/HDLC RATIO 3.6 <5.0 - (calc) * N ON HDL CHOLESTEROL 105 <130 - mg/dL (calc) * ShiraBernardta R 01/01/2025 0 8:47:57 AM EDT > na Shira Tristian R 01/01/2025 10:17:48 AM EDT > pt notifiedThis lab was reviewed by Tristian Silva on 01/01/2025 at 10:17 AM EDT ?LAB: COMPREHENSIVE METABOLIC PANEL (83790)* Value Reference Range G LUCOSE 78 65-99 - mg/dL * U MICA NITROGEN (BUN) 12 7-25 - mg/dL * C REATININE 0.83 0.60-1.29 - mg/dL * B UN/CREATININE RATIO SEE NOTE: 09-24 - (calc) * S ODIUM 140 135-146 - mmol/L * P OTASSIUM 4.9 3.5-5.3 - mmol/L * C HLORIDE 103 98-110 - mmol/L * C ARBON DIOXIDE 30 20-32 - mmol/L * C ALCIUM 9.9 8.6-10.3 - mg/dL * P ROTEIN, TOTAL 7.1 6.1-8.1 - g/dL * A LBUMIN 4.2 3.6-5.1 - g/dL * G LOBULIN 2.9 1.9-3.7 - g/dL (calc ) * A LBUMIN/GLOBULIN RATIO 1.4 1.0-2.5 - (calc) * B ILIRUBIN, TOTAL 0.5 0.2-1.2 - mg/dL * A LKALINE PHOSPHATASE 79 36-130 - U/L * A ST 14 10-40 - U/L * A LT 15 9-46 - U/L * E GFR 108 > OR = 60 - mL/min/1 .73m2 * Shira [facility] 01/01/2025 0 8:47:57 AM EDT > na [facility] 01/01/2025 10:17:48 AM EDT > pt notifiedThis lab was reviewed by Tristian Silva on 01/01/2025 at 10:17 AM EDT ?LAB: HEMOGLOBIN A1c (496)* Value Reference Range H EMOGLOBIN A1c 6.4 H <5.7 - % * Shira [facility] 01/01/2025 0 8:47:57 AM EDT > na [facility] 01/01/2025 10:17:48 AM EDT > pt notifiedThis lab was reviewed by Tristian Silva on 01/01/2025 at 10:17 AM EDT ?LAB: PSA, TOTAL (5363)* Value Reference Range P SA, TOTAL 0.39 < OR = 4.00 - ng/mL * Shira [facility] 01/01/2025 0 8:47:57 AM EDT > na Shira [facility] 01/01/2025 10:17:48 AM EDT > pt notifiedThis lab was reviewed by Tristian Silva on 01/01/2025 at 10:17 AM EDT 7.?Radiculopathy, cervical region?Imaging: MRI SPINE CERVICL WO* * Procedure Codes: 8 1002 URINALYSIS, Modifiers: QW , 39158 MICROALBUMIN, URINE, Modifiers: QW , G2211 Complex e/m visit add on * Follow Up: 2 Months * * Sign off status: Completed true * Provider: Reno Porras MD Date: 0 12/28/2024 Generated for Printi ng/Faxing/eTransmitting on: 1 07:16 AM EDT History and Physical Notes * HPI (History of Present Illness) Category Sub-Category Detail Notes Category Not es gen - asking for PSA, has some straining with urination but not so bad as to want flomax, will obtain these with routine labs -- Hgb A1c, lipid panel, CMP, urine albumin-creatinine ratio - on insulin pump, has steady decrease in requirement of insulin with use of Mounjaro which he is tolerating well currently, denies issues with nausea, vomiting or abdominal pain and having good amount of weight loss (70 lbs since starting 6 months ago) - notes some recent issues with dental infection which he is completing an oral antibiotic for and planning for tooth extractions the first of this month but notes the pain from this is what currently is causing his BP to be elevated, notes home readings are usually 116/80s. - he also notes ongoing right shoulder pain with radiation from the right side of the neck. He notes it has been present since June 2024 and had X-ray then showing DDD in C6-C7, he has not completed PT/OT as he notes he has concerns with doing this due to prior thee,bar surgery, he would be interested in surgery if indicated. - notes adherance to current medication regimen without issues Examination Category Sub-Category Detail Notes Category Not es General Examination Heart: Regular Rate and Rhythm, no murmur, rubs or gallops Lungs: LCTAB, No wheezes, c rackles or rhonchi, Good air movement, Extremities: no lower extremity e kayla, right deltoid ttp but notes worsening nerve type pain when turning his head toward the affected side - no focal weakness or deficits Chest: concern for samantha pr ominence that is xyphoid process now palpable due to loss of subcutaneous fat General [place] t[place], NAD on RA,
--- NOTE | 2025-01-16 07:14 | MR_ITS ---
FINAL REPORT TECHNIQUE: Multiplanar and multisequence imaging of the cervical spine was obtained. CLINICAL HISTORY: NECK PAIN, RADICULOPATHY. NECK AND SHOULDER PAIN ON RIGHT SIDE. NO INJURY OR TRAUMA FINDINGS: Alignment is normal. Vertebral body height is preserved. Signal intensity within the substance of the spinal cord is normal. There are Modic type I changes at C6-7. No acute bone marrow edema. No acute paraspinal abnormality. C2/3: No focal disc herniation, central canal stenosis, or neural foraminal narrowing. C3/4: Annular disc bulge with degenerative endplate changes and facet osteoarthropathy. There is moderate right and mild left neuroforaminal narrowing. C4/5: Annular disc bulge with degenerative endplate changes and facet osteoarthropathy. There is mild central canal stenosis with moderate bilateral neuroforaminal narrowing. C5/6: Right paracentral disc protrusion superimposed on annular disc bulge. There are degenerative endplate changes and facet osteoarthropathy. There is moderate to severe central canal stenosis asymmetric to the right. There is severe right and moderate left neuroforaminal narrowing. C6/7: Annular disc bulge with degenerative endplate changes and facet osteoarthropathy. There is moderate central canal stenosis and severe bilateral neuroforaminal narrowing. C7/T1: No focal disc herniation, central canal stenosis, or neural foraminal narrowing. IMPRESSION: 1. Right paracentral disc protrusion at C5-6 superimposed on annular disc bulge. 2. Multilevel degenerative disc disease most pronounced at C5-6 and C6-7. Reviewed, Interpreted and Dictated by Radha Do MD Transcribed by Em Felix Authenticated and [facility]
--- OUTSIDE RECORDS SUMMARY | 2025-01-16 07:15 | XMS_ITS | Patient Health Record ---
Author Organization [facility] [place] Address [address] [place] [address] Care Team Providers Care Gallery Host Name Role Phone EMMANUEL AUGUSTINE Unavailable [phone] Emmanuel Augustine MD Unavailable Unavailable Allergies No Known Allergies Reason For Referral No Information Medications Medication SIG (Take, Route, Frequency, Duration) Notes Start Date End Date Status Torsemide 20 MG as directed Orally Once a day; Duration: 30 days Active Rosuvastatin Calcium 10 MG 1 tablet Oral ly Once a day Active Morphine Sulfate 15 MG 1 tablet as neede d Orally Once a day 02/16/2023 Active Losartan Potassium 50 MG 1 tablet Orally Once a day Active Potassium Chloride ER 20 MEQ 1 tablet wi th food Orally Once a day; Duration: 30 days Active Vitamin D (Ergocalciferol) 1 .25 MG (13033 UT) 1 capsule Orally weekly Active Metoprolol Succinate ER 50 MG 1 tablet O rally Twice a day Active tiZANidine HCl 4 MG 1 tablet as needed Orally Once a day Active Venlafaxine HCl ER 225 MG 1 tablet with food Orally Once a day Active HYDROcodone-Acetaminophen 10-325 MG 1 tablet as needed Orally Three times a day Active Aspirin 81 MG 1 tablet Orally Once a day Active Kerendia 10 MG 1 tablet Orally Once a day; Duration: 30 day(s) Active busPIRone HCl 10 MG 1 tablet Orally Twic e a day Active Gabapentin 600 MG 1 tablet Orally four times a day Active NovoLOG 100 unit/mL INJECT 200 UNITS UNDER THE SKIN DIRECTED USING THE INSULIN PUMP pump every day; Duration: 30 days Active hydroCHLOROthiazide 25 MG 1 tablet in th e morning Orally Once a day Active Problems Problem Type SNOMED Code ICD Code Onset Dates Problem Status W/U Status Risk Notes Problem Hyperglycemia due to type 2 diabetes mellitus (997811684378116) Type 2 diabetes mellitus with hyperglycemia (E11.65) Active confirmed Problem Isolated proteinuria (68178308715364) Isolated proteinuria (R80.0) Active confirmed Problem Vitamin D deficiency (15700523) Vitamin D deficiency (E55.9) Active confirmed Problem Benign essential hypertension (9798683) Benign essential hypertension (I10) Active confirmed Problem Coronary atherosclerosis (812783852) Coronary atherosclerosis (I25.10) Active confirmed Problem Mixed hyperlipidemia (733120041) Hyperlipemia, mixed (E78.2) Active confirmed Problem Lower urinary tract symptoms due to benign prostatic hypertrophy (38501069091099) BPH w/o urinary obs/LUTS (N40.0) Active confirmed Problem Vertebrogenic low back pain (76535552817841329 1) Vertebrogenic low back pain (M54.51) Active confirmed Encounters Encounter Location Date Provider Diagnosis [facility] [address] [place] [address] 06/02/2024 EMMANUEL AUGUSTINE Benign essential hypertension I10 Assessments Encounter Date Diagnosis (ICD Code) Assessment Notes Treatment Notes Treatment Clinical Notes Section Notes 06/02/2024 Benign essential hypertension (ICD-10 - I10) Plan Of Treatment Pending Test Test Name Order Date Uric Acid, Serum 10/15/2023 Hemoglobin A1c 10/15/2023 Magnesium, Serum 10/15/2023 Prot+CreatU (Random) 10/15/2023 Urinalysis, Complete 10/15/2023 TSH 10/15/2023 CBC With Differential/Platelet 4 Prostate-Specific Ag, Serum 10/15/2023 Vitamin D, 25-Hydroxy 10/15/2023 Lipid Panel With LDL/HDL Ratio 4 Comp. Metabolic Panel (14) 10/15/2023 Insurance Providers Payer Name Payer Address Payer Phone Subscriber Number Group Number Insured Name Patient Relationship to Insured Coverage Start Date Coverage End Date [employer] [address] [address] [place] [address] [id number] Eren Barker Self - patient is the insured Medical (General) History Medical History History ICD Code Diabetes Heart Disease Surgical History Surgery Date(Month/Year) L4 and L5 Fusion 2021 Left and Right Carpel Tunnel Surgery Heart Stent 2020 Hospitalization History Reason Date(Month/Year) [facility] 2020
--- OUTSIDE RECORDS SUMMARY | 2025-01-16 07:15 | XMS_ITS | Clinical Summary ---
Author Organization [facility] , [facility] Address [address] [place] [address] Phone Care Team Providers Care Theatrical Rigger Name Role Phone Jonathan Davidson MD Unavailable [phone] Emmanuel FRYE, Amador Mohamud Unavailable [phone] Reason for Visit and Chief Complaint The Chief Complaint is: increased LBP Problems Includes: Problems addressed during this encounter and other active Problems Current Visit Onset Date Resolved Date Provider Conditio n Status Lower Back Pain 07/03/2021 Amador Benitez MD Act lorna Last Documented On 2 2:29PM ; [facility] Past Visits Onset Date Resolved Date Provider Condition Status Joint Pain Right Thumb 01/28/2022 Victorino Sawyer MD Active Last Documented On 2 8:21AM ; [facility], [facility] Neck Pain 07/03/2021 Amador Benitez MD Active Last Documented On 2 2:43PM ; [facility], [facility] Plan of Treatment Patient was seen by myself Brandon Sykes PA-C. Patient will follow up with Dr. Benitez after we get a lumbar spine MRI. - Last Documented On 05/12/2022 1:48PM ; [facility], [facility] Instructions to patient Lose weight Last Documented On 3 12:50PM ; [facility], [facility] Assessments Includes: Assessments from this encounter Findings Low back pain possible pseudoarthrosis - Last Documented On 05/12/2022 1:48PM ; [facility], [facility] Instructions Includes: Instructions from this encounter Instructions to patient Lose weight Last Documented On 3 12:50PM ; [facility], [facility] Medical Equipment - Implanted Devices Includes: Current Devices No Medical Equipment Recorded Medications Includes: Medications discussed during this encounter and other current Medications Current Medications (continue as prescribed) Venlafaxine HCl ER 225 MG Or al Tablet Extended Release 24 Hour 06/30/2021 Provider: Jonathan Davidson Diagnosis: Last Documented On 2 3:42PM By Laila Loyd ; [facility], [facility] Vitamin D (Ergocalciferol) 1 .25 MG (42743 UT) Oral Capsule 06/28/2021 Provider: Jonathan Davidson Diagnosis: Last Documented On 2 3:43PM By Laila Loyd ; [facility], [facility] tiZANidine HCl 4 MG Oral Tablet 06/28/2021 Provider: Jonathan Davidson Diagnosis: Last Documented On 2 3:43PM By Laila Loyd ; [facility], [facility] Testosterone Cypionate 200 M G/ML Intramuscular Solution 06/28/2021 Provider: Jonathan Davidson Diagnosis: Last Documented On 2 3:43PM By Laila Loyd ; [facility], [facility] Rosuvastatin Calcium 20 MG Oral Tablet 06/28/2021 Pr ovider: Diagnosis: Last Documented On 2 3:42PM By Laila Loyd ; [facility], [facility] Metoprolol Succinate ER 50 M G Oral Tablet Extended Release 24 Hour 06/28/2021 Provider: Jonathan Davidson Diagnosis: Last Documented On 2 3:42PM By Laila Loyd ; [facility], [facility] Losartan Potassium 50 MG Oral Tablet 06/28/2021 Prov ider: Jonathan Davidson Diagnosis: Last Documented On 2 3:42PM By Laila Loyd ; [facility], [facility] hydroCHLOROthiazide 25 MG Oral Tablet 06/28/2021 Pro vider: Jonathan Davidson Diagnosis: Last Documented On 2 3:42PM By Laila Loyd ; [facility], [facility] DULoxetine HCl 60 MG Oral Ca psule Delayed Release Particles 06/28/2021 Provider: Jonathan Davidson Diagnosis: Last Documented On 2 3:42PM By Laila Loyd ; [facility], [facility] Gabapentin 800 MG Oral Tablet 06/11/2021 Provider: Jonathan Davidson Diagnosis: 400mg bid / 800mg qhs Last Documented On 2 3:44PM By Laila Loyd ; [facility] HYDROcodone-Acetaminophen 10-325 MG Oral Tablet 2021 Provider: Diagnosis: Last Documented On 2 3:44PM By Laila Loyd ; [facility] Past Medications on file Diclofenac Sodium 50 MG Oral Tablet Delayed Release 03/24/2022 - 04/23/2022 Provider: Victorino Sawyer MD Diagnosis: take 1 tablet Q 8hrs for pain Last Documented On 2 3:32PM By Roma Salazar ; [facility] Diclofenac Sodium 50 MG Oral Tablet Delayed Release 03/10/2022 - 04/09/2022 Provider: Victorino Sawyer MD Diagnosis: take 1 tablet Q 8hrs for pain Last Documented On 2 11:41AM By Roma Salazar ; [facility] oxyCODONE HCl 5 MG Oral Tablet 01/01/2022 - 01/16/2022 Provider: Amador Benitez MD Diagnosis: 1 tab every 12 hours prn pain Last Documented On 2 12:15PM By Amador Benitez ; [facility] Clindamycin HCl 300 MG Oral Capsule 12/16/2021 - 12/23/2021 Provider: Brandon Low Diagnosis: Take 2 tablets by mouth every 8 hours Last Documented On 2 10:25AM By Joanne Lutz ; [facility] Percocet 5-325 MG Oral Tablet 12/15/2021 - 12/30/2021 Provider: Amador Benitez MD Diagnosis: Take 1 tablet every 8 hrs prn pain Last Documented On 2 3:58PM By Amador Benitez ; [facility] Clindamycin HCl 300 MG Oral Capsule 12/10/2021 - 12/24/2021 Provider: Brandon Low Diagnosis: three times a day Last Documented On 2 11:23AM By Joanne Lutz ; [facility] Percocet 10-325 MG Oral Tablet 11/24/2021 - 12/09/2021 Provider: Amador Benitez MD Diagnosis: 1 po q 4h prn pain Last Documented On 2 2:25PM By Amador Benitez ; [facility] Percocet 5-325 MG Oral Tablet 08/04/2021 - 09/03/2021 Provider: Amador Benitez MD Diagnosis: 1 tab every 6 hrs breathrough pain Last Documented On 2 4:50PM By Amador Benitez ; [facility] Percocet 5-325 MG Oral Tablet 07/23/2021 - 08/07/2021 Provider: Amador Benitez MD Diagnosis: 1 po q 4h prn pain Last Documented On 2 10:24AM By Amador Benitez ; [facility] Medications Administered Includes: Administered Medications from this encounter No Administered Medications Recorded Vital Signs Includes: Vital Signs from this encounter Vital Name 05/12/2022 01:02P Height (in) 73 Weight (lb) 265 Body Mass Index 35 Body Surface Area 2.4 Note: MG Last Documented: On 05/12/2022 1:02PM ; [facility] Results Includes: Results discussed during this encounter No Results Recorded For Specified Dates History of Present Illness Includes: History of Present Illness from this encounter HPI Eren Barker is a 46 year old male. - Allergy list reviewed - Problem list reviewed - Medication list reviewed with patient Follow-up on his L4-L5 lumbar fusion previous surgery was done July 23, 2021 he said he was doing well up until about 2 months ago when he started to get this constant left sided lower back pain radiates to the back of the knee especially with standing movement does tend to seem to help it. No bowel or bladder issues with this. He says his A1c is around 8. No complaints of any bowel or bladder issues. He is on [place] 10 Social History Description Last Updated Tobacco non-user 05/29/2022 Last Documented On 3 12:49PM ; [facility] Not a current smoker. 05/29/2022 Last Documented On 3 12:49PM ; [facility] Retired from work 12/22/2021 Last Documented On 3 12:49PM ; [facility] No tobacco use 11/23/2021 Last Documented On 3 12:49PM ; [facility], [facility] Not a smoker 11/01/2021 Last Documented On 3 12:49PM ; [facility], [facility] Alcohol use 07/03/2021 Last Documented On 3 12:49PM ; [facility], [facility] No caffeine use 07/03/2021 Last Documented On 3 12:49PM ; [facility], [facility] Not exercising regularly 07/03/2021 Last Documented On 3 12:49PM ; [facility], [facility] Not using drugs 07/03/2021 Last Documented On 3 12:49PM ; [facility], [facility] Recent change in diet Type 1 diabetic Last Documented On 3 12:49PM ; [facility], [facility] Non-smoker 07/03/2021 Last Documented On 3 12:49PM ; [facility], [facility] Smoking Status Unknown Procedures and Surgical History Includes: Procedures from this encounter Procedures Code Diagnosis Performing Provider Service L ocation Service Date use of tobacco assessment performed 1000F Last Documented On 3 12:50PM ; [facility], [facility] no influenza immunization patient refuse d Last Documented On 3 12:50PM ; [facility], [facility] an X-ray was performed 14418 Last Documented On 3 12:50PM ; [facility] a CT scan was performed 48943 Last Documented On 3 12:50PM ; [facility] an MRI was performed [id number] Last Documented On 3 12:50PM ; [facility], [facility] History of EKG Last Documented On 3 12:50PM ; [facility], [facility] Surgical History Last Updated History of appendectomy 07/03/2021 Last Documented On 3 12:49PM ; [facility], [facility] History of back surgery 07/03/2021 Last Documented On 3 12:49PM ; [facility], [facility] History of History of Gallbladder 2021 Last Documented On 3 12:49PM ; [facility], [facility] Medical History Includes: Medical History addressed during this encounter Description Last Updated History of arthritis 07/03/2021 Last Documented On 3 12:49PM ; [facility], [facility] History of diabetes mellitus 07/03/2021 Last Documented On 3 12:49PM ; [facility], [facility] History of heart disease 07/03/2021 Last Documented On 3 12:49PM ; [facility], [facility] No recent immunization for flu 04/2021 Last Documented On 3 12:49PM ; [facility], [facility] Recent immunization for pneumococcal pne umonia 04/202107/03/2021 Last Documented On 3 12:49PM ; [facility], [facility] Family History Includes: Family History addressed during this encounter Description Last Updated Diabetes mellitus 07/03/2021 Last Documented On 3 12:49PM ; [facility], [facility] Family history of cancer 07/03/2021 Last Documented On 3 12:49PM ; [facility], [facility] Family history of heart disease 07/04/19 22 Last Documented On 3 12:49PM ; [facility], [facility] Review of Systems Includes: Review of Systems from this encounter Systemic: Not feeling tired and no recent weight loss. Recent weight gain. Head: No headache and no sinus pain. Eyes: No vision problems, no Cataracts, no Glasses/Contacts, and no Glaucoma. Otolaryngeal: No hearing loss and no tinnitus. Cardiovascular: No chest pain or discomfort. Palpitations. No Hypertension. High Cholesterol. Pulmonary: No daytime asthma symptoms and no chronic cough. No wheezing. Gastrointestinal: No heartburn and no abdominal pain. No Indigestion, no Acid Reflux, no Peptic Ulcer, no GI Stomach Bleed, and no Ulcers. Endocrine: No hot flashes. Muscle weakness and Diabetes. No Hypothyroid and no Hyperthyroid. Hematologic: No easy bleeding, no tendency for easy bruising, and no Anemia. Musculoskeletal: Arthritis and lower back pain. No soft tissue swelling and no localized joint pain. Neurological: No dizziness and no convulsions. Numbness. Psychological: No anxiety, no emotional lability, no depression, and no insomnia. Not crying for no reason. Skin: No dry skin. No Ulcers, no Scars, and no rash. Allergic and Immunologic: No complaint of seasonal allergic reaction. Mental Status Includes: Mental Status from this encounter Description No anxiety Functional Status Includes: Functional Status from this encounter No Functional Status Recorded Physical Exam Includes: Physical Exam from this encounter Allergies Includes: Active Allergies No Known Allergies Encounters Encounter Provider Location Date Check-In Time Check- Out Time Diagnosis Follow Up Brandon Sykes PA-C [facility] 3 12:47PM 1:24PM Insurance Includes: Active Insurance Policies Plan Name Member ID Group # Subscriber Relationship Effect lorna Dates 1 - [facility] [id number] Eren Barker Self 04/05/2021 - Unknown 2 - [facility] [id number] JACKELINE BARKER 022 - Unknown Clinical Notes Includes: Clinical Notes from this encounter * Progress note Date Encounter Last Documented by 05/12/2022 Follow Up Last documented on 05/12/2022; 1:48 PM, Brandon Sykes PA-C; [facility], [facility] Active Problems & Conditions - Joint Pain Right Thumb - Lower Back Pain - Neck Pain Chief Complaint The Chief Complaint is: Increased LBP. Referred Here Referred by PCP. History of Present Illness Eren Barker is a 46 year old male. - Allergy list reviewed - Problem list reviewed - Medication list reviewed with patient Follow-up on his L4-L5 lumbar fusion previous surgery was done July 23, 2021 he said he was doing well up until about 2 months ago when he started to get this constant left sided lower back pain radiates to the back of the knee especially with standing movement does tend to seem to help it. No bowel or bladder issues with this. He says his A1c is around 8. No complaints of any bowel or bladder issues. He is on [place] 10 Current Medication - DULoxetine HCl 60 MG Oral Capsule Delayed Release Particles once a day 30 days, 0 refills - Gabapentin 800 MG Oral Tablet 400mg bid / 800mg qhs, 30 days, 0 refills - hydroCHLOROthiazide 25 MG Oral Tablet once a day 30 days, 0 refills - HYDROcodone-Acetaminophen 10-325 MG Oral Tablet three times a day 30 days, 0 refills - Losartan Potassium 50 MG Oral Tablet once a day 30 days, 0 refills - Metoprolol Succinate ER 50 MG Oral Tablet Extended Release 24 Hour once a day 30 days, 0 refills - Rosuvastatin Calcium 20 MG Oral Tablet once a day 30 days, 0 refills - Testosterone Cypionate 200 MG/ML Intramuscular Solution once a week 28 days, 0 refills - tiZANidine HCl 4 MG Oral Tablet once a day 30 days, 0 refills - Venlafaxine HCl ER 225 MG Oral Tablet Extended Release 24 Hour once a day 30 days, 0 refills - Vitamin D (Ergocalciferol) 1.25 MG (04955 UT) Oral Capsule once a week 28 days, 0 refills Past Medical/Surgical History Reported: Immunization History: No recent immunization for flu 04/2021. Recent immunization for pneumococcal pneumonia. Diagnoses: Heart disease. Diabetes mellitus. Arthritis Procedural: - History of Gallbladder Surgical: - Appendectomy - Back surgery Social History Not a current smoker. Current diet: Recent change in diet Type 1 diabetic. Caffeine use: No caffeine use. Tobacco use: No tobacco use. Tobacco non-user. Not a smoker. Non-smoker. Alcohol: Alcohol use. Drug Use: Not using drugs. Habits: Not exercising regularly. Work: Retired from work. Allergies - No Known Allergies Family History Cancer Heart disease Diabetes mellitus Review Of Systems Systemic: Not feeling tired and no recent weight loss. Recent weight gain. Head: No headache and no sinus pain. Eyes: No vision problems, no Cataracts, no Glasses/Contacts, and no Glaucoma. Otolaryngeal: No hearing loss and no tinnitus. Cardiovascular: No chest pain or discomfort. Palpitations. No Hypertension. High Cholesterol. Pulmonary: No daytime asthma symptoms and no chronic cough. No wheezing. Gastrointestinal: No heartburn and no abdominal pain. No Indigestion, no Acid Reflux, no Peptic Ulcer, no GI Stomach Bleed, and no Ulcers. Endocrine: No hot flashes. Muscle weakness and Diabetes. No Hypothyroid and no Hyperthyroid. Hematologic: No easy bleeding, no tendency for easy bruising, and no Anemia. Musculoskeletal: Arthritis and lower back pain. No soft tissue swelling and no localized joint pain. Neurological: No dizziness and no convulsions. Numbness. Psychological: No anxiety, no emotional lability, no depression, and no insomnia. Not crying for no reason. Skin: No dry skin. No Ulcers, no Scars, and no rash. Allergic and Immunologic: No complaint of seasonal allergic reaction. Physical Findings - Vitals taken 05/12/2022 01:02 pm MG Height 73 in Weight 265 lbs Body Mass Index 35 kg/m2 Body Surface Area 2.4 m2 Standard Measurements: - Patient was overweight. Previous scar with his back was healed he had 5 out of 5 EHL gastroc quadricep tibialis anterior strength bilaterally blunted Achilles and patellar reflexes bilaterally negative straight leg raise bilaterally he can walk on his toes Tests 2 views of the lumbar spine show hardware looks okay there may be a halo around left L5 screw May 12, 2022 Assessment Low back pain possible pseudoarthrosis Previous Tests Musculoskeletal: History of EKG. Imaging: X-Ray: An X-ray was performed. CT Scan: A CT scan was performed. MRI Scan: An MRI was performed. Available previous imaging studies were reviewed Available previous history reviewed Counseling/Education - Lose weight Plan Patient was seen by myself Brandon Sykes PA-C. Patient will follow up with Dr. Benitez after we get a lumbar spine MRI. Notes This dictation was done with voice recognition software and may contain errors and omissions. Practice Management Use of tobacco assessment performed; No influenza immunization patient refused. Care Team - Jonathan Davidson
--- OUTSIDE RECORDS SUMMARY | 2025-01-16 07:15 | XMS_ITS | Clinical Summary ---
Author Organization [facility] , [facility] Address [address] [place] [address] Phone Care Team Providers Care Message Clerk Name Role Phone Jonathan Davidson MD Unavailable [phone] Amador Benitez MD Unavailable [phone] Reason for Visit and Chief Complaint [facility] Problems Includes: Problems addressed during this encounter and other active Problems All Visits Onset Date Resolved Date Provider Condition S tatus Joint Pain Right Thumb 01/28/2022 Victorino Sawyer MD Active Last Documented On 2 8:21AM ; [facility] Lower Back Pain 07/03/2021 Amador Benitez MD Act lorna Last Documented On 2 2:29PM ; [facility] Neck Pain 07/03/2021 Amador Benitez MD Active Last Documented On 2 2:43PM ; [facility] Plan of Treatment No Plan of Treatment Recorded Assessments Includes: Assessments from this encounter No Assessments Recorded Medical Equipment - Implanted Devices Includes: Current Devices No Medical Equipment Recorded Medications Includes: Medications discussed during this encounter and other current Medications New / Renewed during this visit Victorino Sawyer MD on 03/24/2022 Diclofenac Sodium 50 MG Oral Tablet Delayed Release Provider: Victorino Sawyer MD 30 day supply: 60 tablet, 0 refills Diagnosis: take 1 tablet Q 8hrs for pain Pharmacy: [facility] - [address] [facility], [phone] - Last Documented On 2 3:32PM By Roma Salazar ; [facility], [facility] Current Medications (continue as prescribed) Venlafaxine HCl ER 225 MG Or al Tablet Extended Release 24 Hour 06/30/2021 Provider: Jonathan Davidson Diagnosis: Last Documented On 2 3:42PM By Laila Loyd ; [facility], [facility] Vitamin D (Ergocalciferol) 1 .25 MG (03188 UT) Oral Capsule 06/28/2021 Provider: Jonathan Davidson Diagnosis: Last Documented On 2 3:43PM By Laila Loyd ; [facility], [facility] tiZANidine HCl 4 MG Oral Tablet 06/28/2021 Provider: Jonathan Davidson Diagnosis: Last Documented On 2 3:43PM By Laila Loyd ; [facility] Testosterone Cypionate 200 M G/ML Intramuscular Solution 06/28/2021 Provider: Jonathan Davidson Diagnosis: Last Documented On 2 3:43PM By Laila Loyd ; [facility] Rosuvastatin Calcium 20 MG Oral Tablet 06/28/2021 Pr ovider: Diagnosis: Last Documented On 2 3:42PM By Laila Loyd ; [facility], [facility] Metoprolol Succinate ER 50 M G Oral Tablet Extended Release 24 Hour 06/28/2021 Provider: Jonathan Davidson Diagnosis: Last Documented On 2 3:42PM By Laila Loyd ; [facility], [facility] Losartan Potassium 50 MG Oral Tablet 06/28/2021 Prov ider: Jonathan Davidson Diagnosis: Last Documented On 2 3:42PM By Laila Loyd ; [facility], [facility] hydroCHLOROthiazide 25 MG Oral Tablet 06/28/2021 Pro vider: Jonathan Davidson Diagnosis: Last Documented On 2 3:42PM By Laila Loyd ; [facility], [facility] DULoxetine HCl 60 MG Oral Ca psule Delayed Release Particles 06/28/2021 Provider: Jonathan Davidson Diagnosis: Last Documented On 2 3:42PM By Laila Loyd ; [facility], [facility] Gabapentin 800 MG Oral Tablet 06/11/2021 Provider: Jonathan Davidson Diagnosis: 400mg bid / 800mg qhs Last Documented On 2 3:44PM By Laila [facility] HYDROcodone-Acetaminophen 10-325 MG Oral Tablet 2021 Provider: Diagnosis: Last Documented On 3:44PM By [facility] Medications Administered Includes: Administered Medications from this encounter No Administered Medications Recorded Results Includes: Results discussed during this encounter No Results Recorded For Specified Dates History of Present Illness Includes: History of Present Illness from this encounter No History of Present Illness Recorded Social History No Social History Recorded - Smoking Status Unknown Medical History Includes: Medical History addressed during this encounter No Medical History Recorded Family History Includes: Family History addressed during this encounter No Family History Recorded Review of Systems Includes: Review of Systems from this encounter No Review of Systems Recorded Mental Status Includes: Mental Status from this encounter No Mental Status Recorded Functional Status Includes: Functional Status from this encounter No Functional Status Recorded Physical Exam Includes: Physical Exam from this encounter No Physical Exam Recorded Allergies Includes: Active Allergies No Known Allergies Encounters Encounter Provider Location Date Check-In Time Check-Out Time Diagnosis [facility] Victorino Sawyer MD Surgery 03/24/2022 2:50PM 11:59PM Insurance Includes: Active Insurance Policies Plan Name Member ID Group # Subscriber Relationship Effect lorna Dates 1 - [facility] [id number] Eren Barker Self 04/05/2021 - Unknown 2 - [facility] [id number] TAMIKAJACKELINE 022 - Unknown Clinical Notes Includes: Clinical Notes from this encounter No Clinical Notes Recorded
--- OUTSIDE RECORDS SUMMARY | 2025-01-16 07:15 | XMS_ITS ---
Author Organization [facility] Address [address] [place] [address] Phone Care Team Providers Care Resaw Feeder Name Role Phone Jonathan Davidson MD Unavailable [phone] Amador Benitez MD Unavailable [phone] Reason for Referral Date Encounter Description Provider Reason for Referral 04/29/22 Post Op Victorino Sawyer MD Referral To Physician 02/25/22 Follow Up Victorino Sawyer MD Referral To Physician 02/11/22 Post Op Victorino Sawyer MD Referral To Physician Problems Includes: Active, inactive, and resolved Problems All Visits Onset Date Resolved Date Provider Condition S tatus Joint Pain Right Thumb 01/28/2022 Victorino Sawyer MD Active Last Documented On 2 8:21AM ; [facility] Lower Back Pain 07/03/2021 Amador Benitez MD Act lorna Last Documented On 2 2:29PM ; [facility] Neck Pain 07/03/2021 Amador Benitez MD Active Last Documented On 2 2:43PM ; [facility] Plan of Treatment Referrals To Diagnosis Consult for Pain Management Panchito Hoskins MD Note: DENNISE HOSKINS FOR [facility] TRIAL Last Documented On 3 10:06AM ; [facility] Instructions to patient Lose weight Last Documented On 4 1:42PM ; [facility] Lose weight Last Documented On 3 12:50PM ; [facility] Lose weight Last Documented On 3 10:39AM ; [facility] Lose weight Last Documented On 2 9:32AM ; [facility] Lose weight Last Documented On 2 1:03PM ; [facility] Lose weight Last Documented On 2 8:25AM ; [facility] Lose weight Last Documented On 2 9:37AM ; [facility] No intervention and counseli ng on cessation of tobacco use Last Documented On 2 1:24PM ; [facility] Lose weight Last Documented On 2 1:24PM ; [facility] No intervention and counseli ng on cessation of tobacco use Last Documented On 2 9:48AM ; [facility] Lose weight Last Documented On 2 9:48AM ; [facility] No intervention and counseli ng on cessation of tobacco use Last Documented On 2 9:37AM ; [facility] Lose weight Last Documented On 2 9:37AM ; [facility] No intervention and counseli ng on cessation of tobacco use Last Documented On 2 11:28AM ; [facility] Lose weight Last Documented On 2 1:00PM ; [facility] Lose weight Last Documented On 2 8:46AM ; [facility] Lose weight Last Documented On 2 2:30PM ; [facility] Lose weight Last Documented On 2 8:44AM ; [facility] Lose weight Last Documented On 2 3:02PM ; [facility] Assessments Includes: Assessments for all patient encounters Findings Encounter Date Overweight Follow Up with Amador Benitez MD 05/28/2022 Last Documented On 4 1:42PM ; [facility] Instructions Includes: Instructions for all patient encounters Instructions to patient Lose weight Last Documented On 4 1:42PM ; [facility] Lose weight Last Documented On 3 12:50PM ; [facility] Lose weight Last Documented On 3 10:39AM ; [facility] Lose weight Last Documented On 2 9:32AM ; [facility] Lose weight Last Documented On 2 1:03PM ; [facility] Lose weight Last Documented On 2 8:25AM ; [facility] Lose weight Last Documented On 2 9:37AM ; [facility] No intervention and counseli ng on cessation of tobacco use Last Documented On 2 1:24PM ; [facility] Lose weight Last Documented On 2 1:24PM ; [facility] No intervention and counseli ng on cessation of tobacco use Last Documented On 2 9:48AM ; [facility] Lose weight Last Documented On 2 9:48AM ; [facility] No intervention and counseli ng on cessation of tobacco use Last Documented On 2 9:37AM ; [facility] Lose weight Last Documented On 2 9:37AM ; [facility] No intervention and counseli ng on cessation of tobacco use Last Documented On 2 11:28AM ; [facility] Lose weight Last Documented On 2 1:00PM ; [facility] Lose weight Last Documented On 2 8:46AM ; [facility] Lose weight Last Documented On 2 2:30PM ; [facility] Lose weight Last Documented On 2 8:44AM ; [facility] Lose weight Last Documented On 2 3:02PM ; [facility] Medical Equipment - Implanted Devices Includes: Current and historical Devices No Medical Equipment Recorded Medications Includes: Current and historical Medications Current Medications (continue as prescribed) Venlafaxine HCl ER 225 MG Or al Tablet Extended Release 24 Hour 06/30/2021 Provider: Jonathan Davidson Diagnosis: Last Documented On 2 3:42PM By Laila Loyd ; [facility] Vitamin D (Ergocalciferol) 1 .25 MG (75809 UT) Oral Capsule 06/28/2021 Provider: Jonathan Davidson Diagnosis: Last Documented On 2 3:43PM By Laila Loyd ; [facility] tiZANidine HCl 4 MG Oral Tablet 06/28/2021 Provider: Jonathan Davidson Diagnosis: Last Documented On 2 3:43PM By Laila Loyd ; [facility] Testosterone Cypionate 200 M G/ML Intramuscular Solution 06/28/2021 Provider: Jonathan Davidson Diagnosis: Last Documented On 2 3:43PM By Laila Loyd ; [facility] Rosuvastatin Calcium 20 MG Oral Tablet 06/28/2021 Pr ovider: Diagnosis: Last Documented On 2 3:42PM By Laila Loyd ; [facility] Metoprolol Succinate ER 50 M G Oral Tablet Extended Release 24 Hour 06/28/2021 Provider: Jonathan Davidson Diagnosis: Last Documented On 2 3:42PM By Laila Loyd ; [facility] Losartan Potassium 50 MG Oral Tablet 06/28/2021 Prov ider: Jonathan Davidson Diagnosis: Last Documented On 2 3:42PM By Laila Loyd ; [facility] hydroCHLOROthiazide 25 MG Oral Tablet 06/28/2021 Pro vider: Jonathan Davidson Diagnosis: Last Documented On 2 3:42PM By Laila Loyd ; [facility] DULoxetine HCl 60 MG Oral Ca psule Delayed Release Particles 06/28/2021 Provider: Jonathan Davidson Diagnosis: Last Documented On 2 3:42PM By Laila Loyd ; [facility] Gabapentin 800 MG Oral Tablet 06/11/2021 Provider: Jonathan Davidson Diagnosis: 400mg bid / 800mg qhs Last Documented On 2 3:44PM By Laila Loyd ; [facility] HYDROcodone-Acetaminophen 10-325 MG Oral Tablet 2021 Provider: Diagnosis: Last Documented On 2 3:44PM By Laila Loyd ; [facility] Past Medications on file Diclofenac Sodium 50 MG Oral Tablet Delayed Release 03/24/2022 - 04/23/2022 Provider: Victorino Sawyer MD Diagnosis: take 1 tablet Q 8hrs for pain Last Documented On 2 3:32PM By Roma Salazar ; [facility] Diclofenac Sodium 50 MG Oral Tablet Delayed Release 03/10/2022 - 04/09/2022 Provider: Victorino Sawyer MD Diagnosis: take 1 tablet Q 8hrs for pain Last Documented On 2 11:41AM By Roma Salazar ; [facility] oxyCODONE HCl 5 MG Oral Tablet 01/01/2022 - 01/16/2022 Provider: Amador Benitez MD Diagnosis: 1 tab every 12 hours prn pain Last Documented On 2 12:15PM By Amador Benitez ; [facility] Clindamycin HCl 300 MG Oral Capsule 12/16/2021 - 12/23/2021 Provider: Brandon Low Diagnosis: Take 2 tablets by mouth every 8 hours Last Documented On 2 10:25AM By Joanne Lutz ; [facility] Percocet 5-325 MG Oral Tablet 12/15/2021 - 12/30/2021 Provider: Amador Benitez MD Diagnosis: Take 1 tablet every 8 hrs prn pain Last Documented On 2 3:58PM By Amador Benitez ; [facility] Clindamycin HCl 300 MG Oral Capsule 12/10/2021 - 12/24/2021 Provider: Brandon Low Diagnosis: three times a day Last Documented On 2 11:23AM By Joanne Lutz ; [facility] Percocet 10-325 MG Oral Tablet 11/24/2021 - 12/09/2021 Provider: Amador Benitez MD Diagnosis: 1 po q 4h prn pain Last Documented On 2 2:25PM By Amador Benitez ; [facility] Percocet 5-325 MG Oral Tablet 08/04/2021 - 09/03/2021 Provider: Amador Benitez MD Diagnosis: 1 tab every 6 hrs breathrough pain Last Documented On 2 4:50PM By Amador Benitez ; [facility] Percocet 5-325 MG Oral Tablet 07/23/2021 - 08/07/2021 Provider: Amador Benitez MD Diagnosis: 1 po q 4h prn pain Last Documented On 2 10:24AM By Amador Benitez ; [facility] Medications Administered Includes: Administered Medications in patient's chart No Administered Medications Recorded Results Includes: Results from 01/17/2024 through 01/16/2025 No Results Recorded For Specified Dates History of Present Illness History of Present Illness not supported for this document type No History of Present Illness Recorded Social History Description Last Updated Tobacco non-user 05/29/2022 Last Documented On 4 1:42PM ; [facility] Not a current smoker. 05/29/2022 Last Documented On 4 1:42PM ; [facility] Retired from work 12/22/2021 Last Documented On 2 1:57PM ; [facility] No tobacco use 11/23/2021 Last Documented On 2 11:29AM ; [facility] Not a smoker 11/01/2021 Last Documented On 2 12:26PM ; [facility] Alcohol use 07/03/2021 Last Documented On 2 10:51AM ; [facility] No caffeine use 07/03/2021 Last Documented On 2 10:51AM ; [facility] Not exercising regularly 07/03/2021 Last Documented On 2 10:51AM ; [facility] Not using drugs 07/03/2021 Last Documented On 2 10:51AM ; [facility] Recent change in diet Type 1 diabetic Last Documented On 2 10:51AM ; [facility] Non-smoker 07/03/2021 Last Documented On 2 10:51AM ; [facility] Smoking Status Unknown Procedures and Surgical History Surgical History Last Updated History of appendectomy 07/03/2021 Last Documented On 2 10:51AM ; [facility] History of back surgery 07/03/2021 Last Documented On 2 10:51AM ; [facility] History of History of Gallbladder 2021 Last Documented On 2 10:51AM ; [facility] Medical History Includes: Medical History in patient's chart Description Last Updated History of arthritis 07/03/2021 Last Documented On 2 10:51AM ; [facility] History of diabetes mellitus 07/03/2021 Last Documented On 2 10:51AM ; [facility] History of heart disease 07/03/2021 Last Documented On 2 10:51AM ; [facility] No recent immunization for flu 04/2021 Last Documented On 2 10:51AM ; [facility] Recent immunization for pneumococcal pne umonia 04/202107/03/2021 Last Documented On 2 10:51AM ; [facility] Family History Includes: Family History in patient's chart Description Last Updated Diabetes mellitus 07/03/2021 Last Documented On 2 10:51AM ; [facility] Family history of cancer 07/03/2021 Last Documented On 2 10:51AM ; [facility] Family history of heart disease 07/04/19 22 Last Documented On 2 10:51AM ; [facility] Review of Systems Review of Systems not supported for this document type No Review of Systems Recorded Mental Status Description No anxiety Functional Status No Functional Status Recorded Physical Exam Physical Exam not supported for this document type No Physical Exam Recorded Allergies Includes: Active, inactive, and resolved Allergies No Known Allergies Insurance Includes: Active Insurance Policies Plan Name Member ID Group # Subscriber Relationship Effect lorna Dates 1 - [facility] [id number] Eren Barker Self 04/05/2021 - Unknown 2 - [facility] [id number] JACKELINE BARKER 022 - Unknown Clinical Notes Includes: Signed Clinical Notes starting from 03/19/2022 No Clinical Notes Recorded
--- OUTSIDE RECORDS SUMMARY | 2025-01-16 07:15 | XMS_ITS | Clinical Summary ---
Author Organization [facility] Address [address] [place] [address] Care Team Providers Care Meat Stock Clerk Name Role Phone Sindi Hyatt Xi WALKER Primary Care Provider [phone] Allergies Active Allergy Reactions Criticality Noted Date Comments Meloxicam Other (See Comments) Low 06/11/2016 Migraine Headache Medications gabapentin (NEURONTIN) 800 MG tablet Take 800 mg by mouth Daily. 2 7 Active lisinopril (PRINIVIL,ZESTR IL) 30 MG tablet Take 30 mg by mouth Daily. 2 7 Active simvastatin (ZOCOR) 10 MG tablet Take 10 mg by mouth Daily. 2 7 Active tiZANidine (ZANAFLEX) 4 MG tablet Take 4 mg by mouth Daily As Needed. 2 7 Active aspirin 81 MG EC tablet Take 81 mg by mouth Daily. Active GLUCAGON EMERGENCY 1 MG injection Inject 1 mg under the skin As Needed. 3 7 Active VIVIENNE CONTOUR NEXT TEST test strip 2 7 Active alfuzosin (UROXATRAL) 10 MG 24 hr tablet Take 10 mg by mouth Daily. Active Insulin Infusion Pump device Inject under the skin Continuous As Needed (PT STATES HE AVERAGES ABOUT 100 UNITS OF HUMALOG PER DAY PER PUMP.). Active HYDROcodone-anjum taminophen (NORCO) 7.5-325 MG per tablet Take 1 tablet by mouth Every 6 (Six) Hours As Needed for Moderate Pain . 20 tablet 8 Active metoprolol succinate XL (TOPROL-XL) 50 MG 24 hr tablet Take 50 mg by mouth Daily. Active diclofenac (VOLTAREN) 75 MG EC tablet Take 75 mg by mouth 2 (Two) Times a Day. Active Testosterone Cypionate 200 MG/ML kit Inject into the shoulder, thigh, or buttocks. Active Active Problems Problem Noted Date Diagnosed Date Spondylosis of lumbar region without myelopathy or radiculopathy 09/15/2016 Spinal stenosis of lumbar region 09/15/2016 Displacement of lumbar inter vertebral disc without myelopathy 09/15/2016 Diabetes mellitus type 1 with complications 09/03 Essential hypertension 09/15/2016 Diabetic polyneuropathy asso ciated with type 1 diabetes mellitus 09/15/2016 Lumbar foraminal stenosis 09/15/2016 Family History Medical History Relation Name Comments Hypertension Father Cancer Maternal Aunt Arthritis Mother Diabetes Mother Hearing loss Mother Hypertension Mother Thyroid disease Mother Relation Name Status Comments Father Maternal Aunt Mother Social History Tobacco Use Types Packs/Day Years Used Date Smoking Tobacco: Never Smokeless Tobacco: Never Alcohol Use Standard Drinks/Week Comments Yes 0 (1 standard drink = 0.6 oz pur e alcohol) Abuse Screen Answer Date Recorded Unsafe at Home or Work/School Not on file Feels Threatened by Someone? Not on file 02/2023 Does Anyone Keep You from Co ntacting Others or Doint Things Outside the Home? Not on file 01/13/2023 Physical Sign of Abuse Present Not on file 1 Housing Stability Answer Date Recorded Current Living Arrangements Not on file 01/03 Potentially Unsafe Housing Conditions Not on noel e 01/13/2023 Family and Community Support Answer Skip e Recorded Help with Day-to-Day Activities Not on file 01/13/2023 Lonely or Isolated Not on file 01/13/2023 Employment Answer Date Recorded Do you want help finding or keeping work or a cyndy b? Not on file 01/13/2023 Disabilities Answer Date Recorded Concentrating, Remembering, or Making Decisions Difficulty Not on file 01/13/2023 Doing Errands Independently Difficulty Not on fi le 01/13/2023 Education Answer Date Recorded Help with school or training? Not on file Preferred Language Not on file 01/13/2023 Sex and Gender Information Value Date Recorded Sex Assigned at Not on file Legal Sex Male 2:19 PM EST Gender Identity Not on file Sexual Orientation Not on file Last Filed Vital Signs Vital Sign Reading Time Taken Comments Blood Pressure 129/68 09/02/2017 11:45 AM EDT Pulse 72 09/02/2017 11:45 AM EDT Temperature 36.8 C (98.2 F) 12/31/2017 9:15 AM EDT Respiratory Rate 16 09/02/2017 11:15 AM EDT Oxygen Saturation 99% 09/02/2017 11:45 AM EDT Inhaled Oxygen Concentration - - Weight 131 kg (288 lb) 12/31/2017 9:15 AM EDT Height 185.4 cm (6' 1 ) 12/31/2017 9:15 AM EDT Body Mass Index 38 12/31/2017 9:15 AM EDT Plan of Treatment Health Maintenance Due Date Last Done Comments TDAP/TD VACCINES (1 - Tdap) 07/03/1995 ANNUAL PHYSICAL 08/04/2016 HEPATITIS C SCREENING 08/04/2016 COLOGUARD 2021 COLON CANCER SCREENING 5 YEA R SIGMOIDOSCOPY 2021 COLONOSCOPY 2021 COL[address]ECTAL CANCER SCREENING 2021 CT COLONOGRAPHY 2021 FECAL OCCULT BLOOD TEST 2021 FIT Testing (1 year) 2021 INFLUENZA VACCINE 11/03/2024 Pneumococcal Vaccine 0-49 Aged Out No longer eligible based on patient's age to complete this topic Insurance [employer] Care Teams Meat Stock Clerk Relationship Specialty Start Date End Date Sindi Hyatt APRN [address] [place] [id number] PCP - General Family Medicine 06/08/17
--- OUTSIDE RECORDS SUMMARY | 2025-01-16 07:16 | XMS_ITS | Clinical Summary ---
Author Organization [facility] Address [address] [place] [address] Care Team Providers Care Financial Investigator Name Role Phone AmriktalKlarissa mehta RN Unavailable [phone] Jonathan Davidson MD Primary Care Provider [phone] DostalKlarissa mehta RN Unavailable [phone] Darryl Larry MD Unavailable Allergies No known active allergies Medications lisinopril 10 MG tablet TAKE 1 TABLET 1 TIME EACH DAY 1 Active rosuvastatin (Crestor) 20 MG tablet TAKE 1 TABLET 1 TIME EACH DAY FOR CHOLESTEROL. 1 Active metoprolol succinate XL (Toprol-XL) 50 MG 24 hr tablet TAKE 1 TABLET 1 TIME EACH DAY 1 Active gabapentin (Neurontin) 800 MG tablet 1 (one) time each day. 1 Active hydroCHLOROthiazide (HYDRODiuril) 25 MG tablet TAKE 1 TABLET 1 TIME EACH DAY 1 Active venlafaxine XR (Effoxor-XR) 150 MG 24 hr capsule TAKE 1 TABLET 1 TIME EACH DAY 1 Active HYDROcodone-acetami nophen ([place]) 10-325 MG tablet TAKE 1 TABLET 3 TIMES EACH DAY 1 Active ergocalciferol 1.25 MG (06872 UT) capsule TAKE 1 CAPSULE 1 TIME EACH WEEK 1 Active oxyCODONE-acetamino phen (Percocet) 10-325 MG tablet TAKE 1 AND 1/2 TABLETS EVERY 6 HOURS NEEDED FOR PAIN Active tiZANidine (Zanaflex) 4 MG tablet at night if needed. Active testosterone cypionate (Depo-Testosterone) 200 MG/ML injection INJECT 2 ML INTO A MUSCLE 1 TIME EACH WEEK Active losartan (Cozaar) 50 MG tablet TAKE 1 TABLET 1 TIME EACH DAY Active Insulin Infusion Pump device Inject under the skin. Novolog R Active NovoLOG 100 UNIT/ML injection USE DIRECTED IN INSULIN PUMP. UP TO 100 UNITS A DAY. 1 Active DULoxetine (Cymbalta) [address] capsule Take 60 mg by mouth 1 (one) time each day. Do not crush or chew. Active aspirin (Aspirin Low Dose) 81 MG EC tablet 1 (one) time each day at the same time. Active pregabalin (Lyrica) 50 MG capsuleIndications: Right foot drop,Diabetic polyneuropathy associated with type 1 diabetes mellitus Take 1 capsule (50 mg total) by mouth 3 (three) times a day. 90 capsule 1 1 Active Active Problems Problem Noted Date Diagnosed Date Chronic pain 03/21/2021 Mixed hyperlipidemia 03/21/2021 Multiple complications of type 1 diabetes [facility] 03/21/2021 Obstructive sleep apnea syndrome 03/21/2021 Posttraumatic stress disorder 03/21/2021 CAD (coronary artery disease) 03/04/2021 Chronic renal insufficiency 03/04/2021 Diabetic peripheral neuropathy 08/24/2018 Sinus tachycardia 08/24/2018 Benign prostatic hyperplasia 11/05/2016 Diabetes mellitus type 1 with complications 09/03 Displacement of lumbar inter vertebral disc without myelopathy 09/15/2016 Diabetic polyneuropathy asso ciated with type 1 diabetes mellitus 09/15/2016 Essential hypertension 09/15/2016 Lumbar foraminal stenosis 09/15/2016 Spinal stenosis of lumbar region 09/15/2016 Resolved Problems Problem Noted Date Diagnosed Date Resolved Date Chronic sinusitis 03/21/2021 12/24/2024 Immunizations Immunization Administration Dates Next Due Hep A, Adult 07/25/2020 Hep B, Adolescent or Pediatric 07/25/2020 MMR 07/25/2020 Tdap 07/29/2020 Family History Medical History Relation Name Comments Diabetes Father Diabetes Mother Coronary artery disease Other Grandparent Relation Name Status Comments Father Mother Other Grandparent Social History Tobacco Use Types Packs/Day Years Used Date Smoking Tobacco: Never Smokeless Tobacco: Never Alcohol Use Standard Drinks/Week Comments Never 0 (1 standard drink = 0.6 oz pur e alcohol) Sex and Gender Information Value Date Recorded Sex Assigned at Male 03/07/2021 6:35 AM EST Legal Sex Male 6:00 PM EDT Gender Identity Male 03/07/2021 6:35 AM EST Sexual Orientation Not on file Last Filed Vital Signs Vital Sign Reading Time Taken Comments Blood Pressure 112/74 04/15/2021 3:02 PM EST Pulse 84 03/07/2021 1:00 PM EST Temperature 37.1 C (98.8 F) 03/07/2021 12:30 PM EST Respiratory Rate 16 03/07/2021 1:00 PM EST Oxygen Saturation 90% 03/07/2021 1:00 PM EST Inhaled Oxygen Concentration - - Weight 118 kg (260 lb) 04/15/2021 3:02 PM EST Height 185.4 cm (6' 1 ) 04/15/2021 3:02 PM EST Body Mass Index 34.3 04/15/2021 3:02 PM EST Plan of Treatment Health Maintenance Due Date Last Done Comments [facility]-Depression Screening 1976 [facility]-/Child/Adol SDOH Screenings 1976 [facility]- SDOH Screenings 1994 [facility]-Adult SDOH Screenings 1994 [facility]-Hepatitis B Vaccines (2 of 3 - 19+ 3-dose series) 08/22/2020 07/25/2020 CT Colonography 2021 Colonoscopy 2021 FIT-DNA 2021 FIT 2021 FOBT 2021 Sigmoidoscopy 2021 [facility]-Colorectal Cancer Screening 2021 [id number] Vaccine (2 - 20 - season) 2024 08/16/2020 [facility]-Influenza Vaccine (#1) 2024 [facility]-Zoster Vaccines (1 of 2) 2026 [facility]-DTaP,Tdap,and Td Vaccine s (2 - Td or Tdap) 07/29/2030 07/29/2020 [facility]-Hepatitis A Vaccines Aged Out 07/25/2020 No longer eligible based on patient's age to complete this topic HPV Vaccines Aged Out No longer eligi ble based on patient's age to complete this topic [facility]-HIB Vaccines Aged Out No longer e ligible based on patient's age to complete this topic [facility]-IPV Vaccines Aged Out No longer e ligible based on patient's age to complete this topic [facility]-Pneumococcal Vaccine: Pediatrics (0 to 5 Years) and At-Risk Patients (6 to 49 Years) Aged Out No long er eligible based on patient's age to complete this topic [facility]-Rotavirus Vaccines Aged Out No lo nger eligible based on patient's age to complete this topic Medical Devices Implanted Type Area Pressing Machine Operator Device Identifier Shelf Expiration Date Model / Serial / Lot Insulin Pump Insulin Pump Left: Hip Insurance [facility] Care Teams Financial Investigator Relationship Specialty Start Date End Date Jonathan Davidson MD [address] [facility] [address] [place] [address] PCP - General 02/13/21 Klarissa Karimi RN [address] [place] [address] Nurse Practitioner Neurosurgery 01/29/21 Klarissa Karimi RN [address] [place] [address] Nurse Practitioner Neurosurgery 02/13/21 Darryl Larry MD [id number] [place] [address] Surgeon Neurosurgery 04/15/21
--- OUTSIDE RECORDS SUMMARY | 2025-01-16 07:16 | XMS_ITS ---
Care Plan - [facility], [facility] Created on: January 16, 2025 Eren Barker : 1975 Sex: Male Author Organization [facility] , [facility] Address [address] [place] [address] Phone Care Team Providers Care Pressure Sealer And Tester Name Role Phone Jonathan Davidson MD Unavailable [phone] Emmanuel FRYE, Amador Mohamud Unavailable [phone]
--- OUTSIDE RECORDS SUMMARY | 2025-01-16 07:16 | XMS_ITS | Clinical Summary ---
Author Organization [facility] ([place], [place], [place], [place]) Address [address] [place] [address] Care Team Providers Care Breed To Wean Production Technician Name Role Phone Unavailable Primary Care Provider Unavailabl e Social History Tobacco Use Types Packs/Day Years Used Date Smoking Tobacco: Never Assessed Sex and Gender Information Value Date Recorded Sex Assigned at Not on file Legal Sex Male 6:45 PM CDT Gender Identity Not on file Sexual Orientation Not on file Plan of Treatment Not on file
--- OUTSIDE RECORDS SUMMARY | 2025-01-16 07:16 | XMS_ITS | Clinical Summary ---
Author Organization [facility] , [facility] Address [address] [place] [address] Phone Care Team Providers Care Motor Vehicle Technician Name Role Phone Jonathan Davidson MD Unavailable [phone] Amador Benitez MD Unavailable [phone] Reason for Referral Date Encounter Description Provider Reason for Referral 04/29/22 Post Op Victorino Sawyer MD Referral To Physician Reason for Visit and Chief Complaint The Chief Complaint is: right thumb pain Problems Includes: Problems addressed during this encounter and other active Problems Current Visit Onset Date Resolved Date Provider Conditio n Status Lower Back Pain 07/03/2021 Amador Benitez MD Act lorna Last Documented On 2 2:29PM ; [facility], [facility] Past Visits Onset Date Resolved Date Provider Condition Status Joint Pain Right Thumb 01/28/2022 Victorino Sawyer MD Active Last Documented On 2 8:21AM ; [facility], [facility] Neck Pain 07/03/2021 Amador Benitez MD Active Last Documented On 2 2:43PM ; [facility] Plan of Treatment Overall Smooth is doing very well with regard to his bilateral carpal tunnel, he had a great result from surgery. His nocturnal symptoms have resolved and his day time carpal tunnel symptoms have improve greatly. Pre-operatively we discussed his underlying diabetic polyneuropathy which is longstanding ans has been present for over 10 years. He does have some residual hand numbness and difficulty performing some tasks that limits his hand function. Overall his carpal tunnel symptoms have improved significantly and it is my opinion that his residual symptoms are attributes to his underlying diabetic polyneuropathy which will likely continue to be limiting for him and may worsen over time. He also lacks protection sensation of his feet and notes diabetic neuropathy in his feet. - Last Documented On 04/29/2022 11:27AM ; [facility], [facility] Instructions to patient Lose weight Last Documented On 3 10:39AM ; [facility], [facility] Assessments Includes: Assessments from this encounter No Assessments Recorded Instructions Includes: Instructions from this encounter Instructions to patient Lose weight Last Documented On 3 10:39AM ; [facility], [facility] Medical Equipment - Implanted Devices Includes: Current Devices No Medical Equipment Recorded Medications Includes: Medications discussed during this encounter and other current Medications Current Medications (continue as prescribed) Venlafaxine HCl ER 225 MG Or al Tablet Extended Release 24 Hour 06/30/2021 Provider: Jonathan Davidson Diagnosis: Last Documented On 2 3:42PM By Laila Javier [facility], [facility] Vitamin D (Ergocalciferol) 1 .25 MG (74287 UT) Oral Capsule 06/28/2021 Provider: Jonathan Davidson Diagnosis: Last Documented On 2 3:43PM By Laila Javier [facility], [facility] tiZANidine HCl 4 MG Oral Tablet 06/28/2021 Provider: Jonathan Davidson Diagnosis: Last Documented On 2 3:43PM By Laila Javier [facility], [facility] Testosterone Cypionate 200 M G/ML Intramuscular Solution 06/28/2021 Provider: Jonathan Davidson Diagnosis: Last Documented On 2 3:43PM By Laila Javier [facility], [facility] Rosuvastatin Calcium 20 MG Oral Tablet 06/28/2021 Pr ovider: Diagnosis: Last Documented On 2 3:42PM By Laila Javier [facility], [facility] Metoprolol Succinate ER 50 M G Oral Tablet Extended Release 24 Hour 06/28/2021 Provider: Jonathan Davidson Diagnosis: Last Documented On 2 3:42PM By Laila Javier [facility], [facility] Losartan Potassium 50 MG Oral Tablet 06/28/2021 Prov ider: Jonathan Davidson Diagnosis: Last Documented On 2 3:42PM By Laila Loyd ; [facility], [facility] hydroCHLOROthiazide 25 MG Oral Tablet 06/28/2021 Pro vider: Jonathan Davidson Diagnosis: Last Documented On 2 3:42PM By Laila Loyd ; [facility], [facility] DULoxetine HCl 60 MG Oral Ca psule Delayed Release Particles 06/28/2021 Provider: Jonathan Davidson Diagnosis: Last Documented On 2 3:42PM By Laila Loyd ; [facility], [facility] Gabapentin 800 MG Oral Tablet 06/11/2021 Provider: Jonathan Davidson Diagnosis: 400mg bid / 800mg qhs Last Documented On 2 3:44PM By Laila Loyd ; [facility], [facility] HYDROcodone-Acetaminophen 10-325 MG Oral Tablet 2021 Provider: Diagnosis: Last Documented On 2 3:44PM By Laila Loyd ; [facility], [facility] Past Medications on file Diclofenac Sodium 50 MG Oral Tablet Delayed Release 03/24/2022 - 04/23/2022 Provider: Victorino Sawyer MD Diagnosis: take 1 tablet Q 8hrs for pain Last Documented On 2 3:32PM By Roma Salazar ; [facility], [facility] Diclofenac Sodium 50 MG Oral Tablet Delayed Release 03/10/2022 - 04/09/2022 Provider: Victorino Sawyer MD Diagnosis: take 1 tablet Q 8hrs for pain Last Documented On 2 11:41AM By Roma Salazar ; [facility], [facility] oxyCODONE HCl 5 MG Oral Tablet 01/01/2022 - 01/16/2022 Provider: Amador Benitez MD Diagnosis: 1 tab every 12 hours prn pain Last Documented On 2 12:15PM By Amador Benitez ; [facility], [facility] Clindamycin HCl 300 MG Oral Capsule 12/16/2021 - 12/23/2021 Provider: Brandon Low Diagnosis: Take 2 tablets by mouth every 8 hours Last Documented On 2 10:25AM By Joanne Lutz ; [facility], [facility] Percocet 5-325 MG Oral Tablet 12/15/2021 - 12/30/2021 Provider: Amador Benitez MD Diagnosis: Take 1 tablet every 8 hrs prn pain Last Documented On 2 3:58PM By Amador Benitez ; [facility], [facility] Clindamycin HCl 300 MG Oral Capsule 12/10/2021 - 12/24/2021 Provider: Brandon Low Diagnosis: three times a day Last Documented On 2 11:23AM By Joanne Lutz ; [facility], [facility] Percocet 10-325 MG Oral Tablet 11/24/2021 - 12/09/2021 Provider: Amador Benitez MD Diagnosis: 1 po q 4h prn pain Last Documented On 2 2:25PM By Amador Benitez ; [facility], [facility] Percocet 5-325 MG Oral Tablet 08/04/2021 - 09/03/2021 Provider: Amador Benitez MD Diagnosis: 1 tab every 6 hrs breathrough pain Last Documented On 2 4:50PM By Amador Benitez ; [facility], [facility] Percocet 5-325 MG Oral Tablet 07/23/2021 - 08/07/2021 Provider: Amador Benitez MD Diagnosis: 1 po q 4h prn pain Last Documented On 2 10:24AM By Amador Benitez ; [facility], [facility] Medications Administered Includes: Administered Medications from this encounter No Administered Medications Recorded Vital Signs Includes: Vital Signs from this encounter Vital Name 04/29/2022 10:45A Blood Pressure Sitting R 135/81 Pulse Rate-Sitting (bpm) 89 Height (in) 73 Weight (lb) 260 Body Mass Index 34.3 Body Surface Area 2.4 Note: bb Last Documented: On 04/29/2022 10:46A M ; [facility], [facility] Results Includes: Results discussed during this encounter No Results Recorded For Specified Dates History of Present Illness Includes: History of Present Illness from this encounter HPI Eren Barker is a 46 year old male. - Allergy list reviewed - Problem list reviewed - Medication list reviewed - Previous history of new onset pain Injury is not work related or an automotive accident - Patient pain level from 1-10: was 0 0 - No previous treatment. 46-year-old male returns for an initial postoperative follow up of a right ultrasound guided carpal tunnel release performed on 03/24/2022. His nocturnal median nerve symptoms have completely resolved, his day time symptoms are improving but he has some residual numbness at the tips of all fingers which is likely due to his diabetic neuropathy. He now has some occasional nocturnal numbness in the small finger and he describes sleeping in a position with his elbow maximally flexed. He also lacks protection sensation of his feet and notes diabetic neuropathy in his feet. Social History Description Last Updated Tobacco non-user 05/29/2022 Last Documented On 3 10:39AM ; [facility], [facility] Not a current smoker. 05/29/2022 Last Documented On 3 10:39AM ; [facility] Retired from work 12/22/2021 Last Documented On 3 10:39AM ; [facility], [facility] No tobacco use 11/23/2021 Last Documented On 3 10:39AM ; [facility], [facility] Not a smoker 11/01/2021 Last Documented On 3 10:39AM ; [facility], [facility] Alcohol use 07/03/2021 Last Documented On 3 10:39AM ; [facility], [facility] No caffeine use 07/03/2021 Last Documented On 3 10:39AM ; [facility], [facility] Not exercising regularly 07/03/2021 Last Documented On 3 10:39AM ; [facility], [facility] Not using drugs 07/03/2021 Last Documented On 3 10:39AM ; [facility], [facility] Recent change in diet Type 1 diabetic Last Documented On 3 10:39AM ; [facility], [facility] Non-smoker 07/03/2021 Last Documented On 3 10:39AM ; [facility], [facility] Smoking Status Unknown Procedures and Surgical History Includes: Procedures from this encounter Procedures Code Diagnosis Performing Provider Service L ocation Service Date use of tobacco assessment performed 1000F Last Documented On 3 10:39AM ; [facility] follow-up visit in one month Last Documented On 3 10:39AM ; [facility] referral to physician Last Documented On 3 10:39AM ; [facility], [facility] an X-ray was performed 50009 Last Documented On 3 10:46AM ; [facility] Surgical History Last Updated History of appendectomy 07/03/2021 Last Documented On 3 10:39AM ; [facility], [facility] History of back surgery 07/03/2021 Last Documented On 3 10:39AM ; [facility], [facility] History of History of Gallbladder 2021 Last Documented On 3 10:39AM ; [facility], [facility] Medical History Includes: Medical History addressed during this encounter Description Last Updated History of arthritis 07/03/2021 Last Documented On 3 10:39AM ; [facility] History of diabetes mellitus 07/03/2021 Last Documented On 3 10:39AM ; [facility], [facility] History of heart disease 07/03/2021 Last Documented On 3 10:39AM ; [facility] No recent immunization for flu 04/2021 Last Documented On 3 10:39AM ; [facility] Recent immunization for pneumococcal pne umonia 04/202107/03/2021 Last Documented On 3 10:39AM ; [facility], [facility] Family History Includes: Family History addressed during this encounter Description Last Updated Diabetes mellitus 07/03/2021 Last Documented On 3 10:39AM ; [facility] Family history of cancer 07/03/2021 Last Documented On 3 10:39AM ; [facility] Family history of heart disease 07/04/19 22 Last Documented On 3 10:39AM ; [facility] Review of Systems Includes: Review of Systems [...] GI Stomach Bleed, and no Ulcers. Endocrine: Hot flashes. No muscle weakness. Diabetes and Hypothyroid. No Hyperthyroid. Hematologic: No easy bleeding, no tendency for easy bruising, and no Anemia. Musculoskeletal: No Arthritis. Lower back pain. No soft tissue swelling. Pain localized to one or more joints. Neurological: No dizziness and no convulsions. Numbness. Psychological: Anxiety and emotional lability. No depression. Insomnia. Not crying for no reason. Skin: No dry skin. No Ulcers, no Scars, and no rash. Allergic and Immunologic: No complaint of seasonal allergic reaction. Reviewed on 04-29-2022 Mental Status Includes: Mental Status from this encounter Description Anxiety Functional Status Includes: Functional Status from this encounter No Functional Status Recorded Physical Exam Includes: Physical Exam from this encounter Allergies Includes: Active Allergies No Known Allergies Encounters Encounter Provider Location Date Check-In Time Check- Out Time Diagnosis Post Op Victorino Sawyer MD [facility] 3 10:35AM 11:27AM Insurance Includes: Active Insurance Policies Plan Name Member ID Group # Subscriber Relationship Effect lorna Dates 1 - [facility] [id number] Eren Barker Self 04/05/2021 - Unknown 2 - [facility] [id number] JACKELINE BARKER 022 - Unknown Clinical Notes Includes: Clinical Notes from this encounter * Progress note Date Encounter Last Documented by 04/29/2022 Post Op Last documented on 04/29/2022; 11:27 AM, [facility] Sawyer [facility] Active Problems & Conditions - Joint Pain Right Thumb - Lower Back Pain - Neck Pain Chief Complaint The Chief Complaint is: Right thumb pain. Referred Here Referred by. History of Present Illness Eren Barker is a 46 year old male. - Allergy list reviewed - Problem list reviewed - Medication list reviewed - Previous history of new onset pain Injury is not work related or an automotive accident - Patient pain level from 1-10: was 0 0 - No previous treatment. 46-year-old male returns for an initial postoperative follow up of a right ultrasound guided carpal tunnel release performed on 03/24/2022. His nocturnal median nerve symptoms have completely resolved, his day time symptoms are improving but he has some residual numbness at the tips of all fingers which is likely due to his diabetic neuropathy. He now has some occasional nocturnal numbness in the small finger and he describes sleeping in a position with his elbow maximally flexed. He also lacks protection sensation of his feet and notes diabetic neuropathy in his feet. Current Medication - DULoxetine HCl 60 MG [...] refills - Vitamin D (Ergocalciferol) 1.25 MG (51356 UT) Oral Capsule once a week 28 [...] GI Stomach Bleed, and no Ulcers. Endocrine: Hot flashes. No muscle weakness. Diabetes and Hypothyroid. No Hyperthyroid. Hematologic: No easy bleeding, no tendency for easy bruising, and no Anemia. Musculoskeletal: No Arthritis. Lower back pain. No soft tissue swelling. Pain localized to one or more joints. Neurological: No dizziness and no convulsions. Numbness. Psychological: Anxiety and emotional lability. No depression. Insomnia. Not crying for no reason. Skin: No dry skin. No Ulcers, no Scars, and no rash. Allergic and Immunologic: No complaint of seasonal allergic reaction. Reviewed on 04-29-2022 Physical Findings - Vitals taken 04/29/2022 10:45 am bb BP-Sitting R 135/81 mmHg Pulse Rate-Sitting 89 bpm Height 73 in Weight 260 lbs Body Mass Index 34.3 kg/m2 Body Surface Area 2.4 m2 Standard Measurements: - Patient was overweight. PHYSICAL EXAM: CONSTITUTIONAL: Well developed, well groomed, well nourished patient in no acute distress who appears stated age, height and weight. PSYCHIATRIC: The patient is alert and oriented to person, place, date and situation. Mood and affect are normal for current situation. NEUROLOGICAL: Sensation normal bilateral upper and lower extremities. LYMPHATIC: No pitting edema noted in the lower extremities. SKIN: No lesions noted on upper or lower extremities. Skin is dry, warm and with normal turgor. VASCULAR: No swelling in upper or lower extremities other than described below in extremity exam. Radial Pulses normal in both upper extremities. GAIT AND STATION: Normal gait without assistive devices. Station normal. RIGHT WRIST/HAND: Able to make a full composite fist Able to fully flex and extend all fingers Hand is warm and well perfused Well healed incision with no sign of infection Improved median nerve sensation Sensation intact to light touch distally in all nerve distribution. Mild postoperative pillar pain Elbow hyperflexion is negative. Tinel at the wrist negative. He reports decreased sensation in all fingers from the nail bed to the finger tip. Previous Tests Imaging: X-Ray: An X-ray was performed. Therapy - Follow-up visit in one month. - Referral to physician. Counseling/Education - Lose weight Plan Overall Smooth is doing very well with regard to his bilateral carpal tunnel, he had a great result from surgery. His nocturnal symptoms have resolved and his day time carpal tunnel symptoms have improve greatly. Pre-operatively we discussed his underlying diabetic polyneuropathy which is longstanding ans has been present for over 10 years. He does have some residual hand numbness and difficulty performing some tasks that limits his hand function. Overall his carpal tunnel symptoms have improved significantly and it is my opinion that his residual symptoms are attributes to his underlying diabetic polyneuropathy which will likely continue to be limiting for him and may worsen over time. He also lacks protection sensation of his feet and notes diabetic neuropathy in his feet. Notes Transcribed by Danna Flowers, acting as a scribe for Dr. Sawyer. This dictation was done with voice recognition software and may contain errors and omissions. Practice Management Use of tobacco assessment performed. Care Team - Jonathan Davidson
--- OUTSIDE RECORDS SUMMARY | 2025-01-16 07:16 | XMS_ITS | Clinical Summary ---
Author Organization [facility] Address [address] [place] [address] Phone Care Team Providers Care Music Therapist Name Role Phone Jonathan Davidson MD Unavailable [phone] Emmanuel FRYE, Amador Mohamud Unavailable [phone] Reason for Visit and Chief Complaint The Chief Complaint is: increased LBP Problems Includes: Problems addressed during this encounter and other active Problems Current Visit Onset Date Resolved Date Provider Conditio n Status Lower Back Pain 07/03/2021 Amador Benitez MD Act lorna Last Documented On 2 2:29PM ; [facility] Past Visits Onset Date Resolved Date Provider Condition Status Joint Pain Right Thumb 01/28/2022 Victorino Sawyer MD Active Last Documented On 2 8:21AM ; [facility] Neck Pain 07/03/2021 Amador Benitez MD Active Last Documented On 2 2:43PM ; [facility], [facility] Plan of Treatment Pending Tests Order Diagnosis Results Due Ordering P rovider Therapy - Physical Therapy Lumbar 05/28/22 Amador Benitez MD Last Documented On 3 11:08AM ; [facility], [facility] Referrals To Diagnosis Consult for Pain Management Panchito Hoskins MD Note: DENNISE HOSKINS FOR SCS TRIAL Last Documented On 3 10:06AM ; [facility], [facility] Instructions to patient Lose weight Last Documented On 4 1:42PM ; [facility], [facility] Assessments Includes: Assessments from this encounter Findings - Overweight - Last Documented On 06/18/2023 1:42PM ; [facility], [facility] Instructions Includes: Instructions from this encounter Instructions to patient Lose weight Last Documented On 4 1:42PM ; [facility], [facility] Medical Equipment - Implanted Devices Includes: Current Devices No Medical Equipment Recorded Medications Includes: Medications discussed during this encounter and other current Medications Current Medications (continue as prescribed) Venlafaxine HCl ER 225 MG Or al Tablet Extended Release 24 Hour 06/30/2021 Provider: Jonathan Davidson Diagnosis: Last Documented On 2 3:42PM By Laila Loyd ; [facility], [facility] Vitamin D (Ergocalciferol) 1 .25 MG (71155 UT) Oral Capsule 06/28/2021 Provider: Jonathan Davidson Diagnosis: Last Documented On 2 3:43PM By Laila Loyd ; [facility], [facility] tiZANidine HCl 4 MG Oral Tablet 06/28/2021 Provider: Jonathan Davidson Diagnosis: Last Documented On 2 3:43PM By Laila Loyd ; [facility] Testosterone Cypionate 200 M G/ML Intramuscular Solution 06/28/2021 Provider: Jonathan Davidson Diagnosis: Last Documented On 2 3:43PM By Laila Loyd ; [facility], [facility] Rosuvastatin Calcium 20 MG Oral Tablet 06/28/2021 Pr ovider: Diagnosis: Last Documented On 2 3:42PM By Laila Loyd ; [facility], [facility] Metoprolol Succinate ER 50 M G Oral Tablet Extended Release 24 Hour 06/28/2021 Provider: Jonathan Davidson Diagnosis: Last Documented On 2 3:42PM By Laila Loyd ; [facility], [facility] Losartan Potassium 50 MG Oral Tablet 06/28/2021 Prov ider: Jonathan Davidson Diagnosis: Last Documented On 2 3:42PM By Laila Loyd ; [facility], [facility] hydroCHLOROthiazide 25 MG Oral Tablet 06/28/2021 Pro vider: Jonathan Davidson Diagnosis: Last Documented On 2 3:42PM By Laila Loyd ; [facility], [facility] DULoxetine HCl 60 MG Oral Ca psule Delayed Release Particles 06/28/2021 Provider: Jonathan Davidson Diagnosis: Last Documented On 2 3:42PM By Laila Loyd ; [facility], [facility] Gabapentin 800 MG Oral Tablet 06/11/2021 Provider: Jonathan Davidson Diagnosis: 400mg bid / 800mg qhs Last Documented On 2 3:44PM By Laila Loyd ; [facility] HYDROcodone-Acetaminophen 10-325 MG Oral Tablet 2021 Provider: Diagnosis: Last Documented On 2 3:44PM By Laila Loyd ; [facility], [facility] Past Medications on file Diclofenac Sodium 50 MG Oral Tablet Delayed Release 03/24/2022 - 04/23/2022 Provider: Victorino Sawyer MD Diagnosis: take 1 tablet Q 8hrs for pain Last Documented On 2 3:32PM By Roma Salazar ; [facility] Diclofenac Sodium 50 MG Oral Tablet Delayed Release 03/10/2022 - 04/09/2022 Provider: Victorino Sawyer MD Diagnosis: take 1 tablet Q 8hrs for pain Last Documented On 2 11:41AM By Roma Salazar ; [facility], [facility] oxyCODONE HCl 5 MG Oral Tablet 01/01/2022 - 01/16/2022 Provider: Amador Benitez MD Diagnosis: 1 tab every 12 hours prn pain Last Documented On 2 12:15PM By Amador Benitez ; [facility], [facility] Clindamycin HCl 300 MG Oral Capsule 12/16/2021 - 12/23/2021 Provider: Brandon Low Diagnosis: Take 2 tablets by mouth every 8 hours Last Documented On 2 10:25AM By Joanne Lutz ; [facility], [facility] Percocet 5-325 MG Oral Tablet 12/15/2021 - 12/30/2021 Provider: Amador Benitez MD Diagnosis: Take 1 tablet every 8 hrs prn pain Last Documented On 2 3:58PM By Amador Benitez ; [facility] Clindamycin HCl 300 MG Oral Capsule 12/10/2021 - 12/24/2021 Provider: Brandon Low Diagnosis: three times a day Last Documented On 2 11:23AM By Joanne Lutz ; [facility] Percocet 10-325 MG Oral Tablet 11/24/2021 - 12/09/2021 Provider: Amador Benitez MD Diagnosis: 1 po q 4h prn pain Last Documented On 2 2:25PM By Amador Benitez ; [facility] Percocet 5-325 MG Oral Tablet 08/04/2021 - 09/03/2021 Provider: Amador Benitez MD Diagnosis: 1 tab every 6 hrs breathrough pain Last Documented On 2 4:50PM By Amador Benitez ; [facility] Percocet 5-325 MG Oral Tablet 07/23/2021 - 08/07/2021 Provider: Amador Benitez MD Diagnosis: 1 po q 4h prn pain Last Documented On 2 10:24AM By Amador Benitez ; [facility] Medications Administered Includes: Administered Medications from this encounter No Administered Medications Recorded Vital Signs Includes: Vital Signs from this encounter Vital Name 05/28/2022 08:28A Height (in) 73 Weight (lb) 260 Body Mass Index 34.3 Body Surface Area 2.4 Note: mg Last Documented: On 05/28/2022 8:28AM ; [facility] Results Includes: Results discussed during this encounter No Results Recorded For Specified Dates History of Present Illness Includes: History of Present Illness from this encounter MAYO Barker is a 46 year old male. - Allergy list reviewed - Problem list reviewed - Medication list reviewed with patient Social History Description Last Updated Tobacco non-user 05/29/2022 Last Documented On 4 1:42PM ; [facility] Not a current smoker. 05/29/2022 Last Documented On 4 1:42PM ; [facility] Retired from work 12/22/2021 Last Documented On 3 8:26AM ; [facility] Alcohol use 07/03/2021 Last Documented On 3 8:26AM ; [facility] No caffeine use 07/03/2021 Last Documented On 3 8:26AM ; [facility] Not exercising regularly 07/03/2021 Last Documented On 3 8:26AM ; [facility] Not using drugs 07/03/2021 Last Documented On 3 8:26AM ; [facility], [facility] Recent change in diet Type 1 diabetic Last Documented On 3 8:26AM ; [facility], [facility] Smoking Status Unknown Procedures and Surgical History Includes: Procedures from this encounter Procedures Code Diagnosis Performing Provider Service L ocation Service Date use of tobacco assessment performed 1000F Last Documented On 3 8:28AM ; [facility], [facility] review of medications documented 1160F Last Documented On 4 1:42PM ; [facility], [facility] Surgical History Last Updated History of appendectomy 07/03/2021 Last Documented On 3 8:26AM ; [facility] History of back surgery 07/03/2021 Last Documented On 3 8:26AM ; [facility] History of History of Gallbladder 2021 Last Documented On 3 8:26AM ; [facility] Medical History Includes: Medical History addressed during this encounter Description Last Updated History of arthritis 07/03/2021 Last Documented On 3 8:26AM ; [facility] History of diabetes mellitus 07/03/2021 Last Documented On 3 8:26AM ; [facility] History of heart disease 07/03/2021 Last Documented On 3 8:26AM ; [facility] No recent immunization for flu 04/2021 Last Documented On 3 8:26AM ; [facility], [facility] Recent immunization for pneumococcal pne umonia 04/202107/03/2021 Last Documented On 3 8:26AM ; [facility], [facility] Family History Includes: Family History addressed during this encounter Description Last Updated Diabetes mellitus 07/03/2021 Last Documented On 3 8:26AM ; [facility] Family history of cancer 07/03/2021 Last Documented On 3 8:26AM ; [facility], [facility] Family history of heart disease 03/31/20 22 Last Documented On 3 8:26AM ; [facility] Review of Systems Includes: Review of Systems [...] Location Date Check-In Time Check-Out Time Diagnosis Follow Up Amador Benitez MD [facility] 3 8:23AM 8:56AM Overweight Insurance Includes: Active Insurance Policies Plan Name Member ID Group # Subscriber Relationship Effect lorna Dates 1 - [facility] [id number] Eren Barker Self 04/05/2021 - Unknown 2 - [facility] [id number] JACKELINE BARKER 022 - Unknown Clinical Notes Includes: Clinical Notes from this encounter * Progress note Date Encounter Last Documented by 05/28/2022 Follow Up Last documented on 06/18/2023; 1:42 PM, Amador Benitez MD; [facility] Active Problems & Conditions - Joint Pain Right Thumb - Lower Back Pain - Neck Pain Chief Complaint The Chief Complaint is: Increased LBP. Referred Here Referred by PCP. History of Present Illness Eren Barker is a 46 year old male. - Allergy list reviewed - Problem list reviewed - Medication list reviewed with patient Current Medication - DULoxetine HCl 60 MG Oral Capsule Delayed Release Particles Capsule, delayed-release particles once a day 30 days, 0 refills [...] MG Oral Tablet Extended Release 24 Hour Tablet, extended-release 24 hour once a day 30 days, 0 refills - Rosuvastatin Calcium 20 MG Oral Tablet once a day 30 days, 0 refills - Testosterone Cypionate 200 MG/ML Intramuscular Solution once a week 28 days, 0 refills - tiZANidine HCl 4 MG Oral Tablet once a day 30 days, 0 refills - Venlafaxine HCl ER 225 MG Oral Tablet Extended Release 24 Hour Tablet, extended-release 24 hour once a day 30 days, 0 refills - Vitamin D (Ergocalciferol) 1.25 MG (27229 UT) Oral Capsule Capsule, conventional once a week 28 days, 0 refills Past Medical/Surgical History Reported: Immunization History: No recent immunization for flu 04/2021. Recent immunization for pneumococcal pneumonia. Diagnoses: Heart disease. Diabetes mellitus. Arthritis Surgical: - Appendectomy - History of Gallbladder - Back surgery Social History Not a current smoker. Current diet: Recent change in diet Type 1 diabetic. Caffeine use: No caffeine use. Tobacco use: Tobacco non-user. Alcohol: Alcohol use. Drug Use: Not using [...] allergic reaction. Physical Findings - Vitals taken 05/28/2022 08:28 am mg Height 73 in Weight 260 lbs Body Mass Index 34.3 kg/m2 Body Surface Area 2.4 m2 Assessment - Overweight Previous Tests Available previous imaging studies were reviewed Available previous history reviewed Counseling/Education - Lose weight Plan StartCited - Other Therapy/Physical Therapy: Lumbar Instructions: See PT order attached Referral/Pain Management: Consult for Pain Management Instructions: DENNISE HOSKINS FOR SCS TRIAL EndCited Notes This dictation was done with voice recognition software and may contain errors and omissions. Patient is here for follow-up of her his lumbar MRI for his low back pain. He has good strength in both lower extremities and his incision is healed.The MRI was reviewed and he does not have significant stenosis and he may have a questionable pseudoarthrosis. We discussed various treatment options and would like to refer him to pain management to help him address this discomfort. He may be a candidate for spinal cord stimulator. I would like him to do his stretching and strengthening program so we will set him up for some therapy as well. we are not going to consider revision surgery at this time. Practice Management Use of tobacco assessment performed Review of medications documented. Care Team - Jonathan Davidson Health Reminders - Assess BMI satisfied 05/28/2022. - Assess Tobacco Use satisfied 05/29/2022. - Follow Up Plan BMI Management satisfied 06/18/2023.
--- OUTSIDE RECORDS SUMMARY | 2025-01-16 07:16 | XMS_ITS | Encounter Summary ---
Author Organization Healthcare Address [address] [place] [address] Care Team Providers Care Meal Room Hand Name Role Phone Dostaler, Klarissa Reina RN Unavailable [phone] Jonathan Davidson MD Primary Care Provider [phone] DostalerKlarissa RN Unavailable [phone] Darryl Larry MD Unavailable Encounter Details Date Type Department Care Team (Late st Contact Info) Description 03/19/2023 [facility] [address] [place] [address] LucaNoris S, PLASTICS TOOLING ENGINEER [address] [place] [address] Erectile dysfunction, unspecified erectile dysfunction type (Primary Dx) Social History Tobacco Use Types Packs/Day Years [...] AM EST Sexual Orientation Not on file documented as of this encounter Plan of Treatment Not on file documented as of this encounter Visit Diagnoses Diagnosis Erectile dysfunction, unspecified erectile dysfunction type- Primary documented in this encounter Additional Health Concerns Assessment Noted Time A fall risk assessment has been complete d for the patient 04/15/2021 3:09 PM EST documented as of this encounter Care Teams Meal Room Hand Relationship Specialty Start Date End Date Jonathan Davidson MD [facility] [address], [place] [id number] PCP - General 02/13/21 Klarissa Karimi RN [address] [place] [address] Nurse Practitioner Neurosurgery 01/29/21 Klarissa Karimi RN [address] [place] [address] Nurse Practitioner Neurosurgery 02/13/21 Darryl Larry MD [address] [facility] [address] [place] [address] Surgeon Neurosurgery 04/15/21 documented as of this encounter
--- OUTSIDE RECORDS SUMMARY | 2025-01-16 07:16 | XMS_ITS | Referral Summary ---
Author Organization [employer] ([place], [place], [place], [place]) Address [address] [place] [address] Care Team Providers Care Materials Engineering Technician Name Role Phone Unavailable Primary Care [...]
--- OUTSIDE RECORDS SUMMARY | 2025-01-16 07:16 | XMS_ITS | Encounter Summary ---
Author Organization [employer] ([place], [place], [place], [place]) Address [address] [place] [address] Care Team Providers Care Laboratory Apparatus Glass Grinder Name Role Phone Unavailable Primary Care Provider Unavailabl e Encounter Details Date Type Department Care Team (Late st Contact Info) Description 07/07/2022 Outside Orders [facility] Central Scheduling [address] [place] [address] Panchito Castillo MD [address] [place] [address] [address] [place] [address] Chronic pain syndrome (Primary Dx) Social History Tobacco Use Types Packs/Day Years Used Date Smoking Tobacco: Never Assessed Sex and Gender Information Value Date Recorded Sex Assigned at Not on file Legal Sex Male 6:45 PM CDT Gender Identity Not on file Sexual Orientation Not on file documented as of this encounter Plan of Treatment Not on file documented as of this encounter Visit Diagnoses Diagnosis Chronic pain syndrome- Primary documented in this encounter
--- OUTSIDE RECORDS SUMMARY | 2025-01-16 07:17 | XMS_ITS | Patient Health Record ---
Author Organization [facility] Address [address] [place], [place] [address] Care Team Providers Care Electronic Systems Technician Name Role Phone Klever Noris Primary Care Provider Yunior Porras Unavailable [phone] Shivani Chavarria Unavailable [phone] Shivani Singh Unavailable [phone] Migration, Provider Unavailable Unavailable Allergies No Known Allergies Results Component Value Reference Range Notes Urinalysis Reviewed date:12/28/2024 11:47:21 AM Interpretation: Performing Lab: Notes/Report: Color/Clarity dark yellow Leuk neg Nitrite neg Urobili 1.0 Protein >=300mg pH 6.0 Blood neg Sp. Gr. 1.025 Ketone 15mg Bili small Glucose >=1000mg Microalbumin (In-House) Reviewed date:12/28/2024 11:47:21 AM Interpretation:Abnormal Performing Lab: Notes/Report: Abnormal ALB 150mg CRE 300mg A:C 30-300mg LIPID PANEL, STANDARD (3060) Reviewed date:01/01/2025 10:17:57 AM Interpretation: Performing Lab:CB, [facility] [address] [facility], [place] OrtizJullPS[address] [place] Notes/Report: NON-FASTING; NON-FASTING; NON-FASTING; NON-FASTING CHOLESTEROL, TOTAL 145 <200 mg/dL HDL CHOLESTEROL 40 > OR = 40 mg/dL TRIGLYCERIDES 156 <150 mg/dL LDL-CHOLESTEROL 80 Reference range: <100 Desirable range <100 mg/dL for primary prevention; <70 mg/dL for patients with CHD or diabetic patients with > or = 2 CHD risk factors. LDL-C is now calculated using the Mary calculation, which is a validated novel method providing better accuracy than the Friedewald equation in the estimation of LDL-C. Luis DARLING et al. GRETTA. 2013;310(19): 9905-0405 (http://TapTalents.Collision Hub/faq/ACT663) CHOL/HDLC RATIO 3.6 <5.0 (calc) NON HDL CHOLESTEROL 105 <130 mg/dL (calc) For patients with diabetes plus 1 major ASCVD risk factor, treating to a non-HDL-C goal of <100 mg/dL (LDL-C of <70 mg/dL) is considered a therapeutic option. COMPREHENSIVE METABOLIC PANE Rand (18675) Reviewed date:01/01/2025 10:17:57 AM Interpretation: Performing Lab:CB, [facility] [address], [place] BrennanDcopTK[address] [place] Notes/Report: NON-FASTING; NON-FASTING; NON-FASTING; NON-FASTING [...] Reviewed date:01/01/2025 10:17:57 AM Interpretation: Performing Lab:TRENA, [facility] [address] [facility], [facility]X[address] [place] Notes/Report: NON-FASTING; NON-FASTING; NON-FASTING; NON-FASTING [...] (5363) Reviewed date:01/01/2025 10:17:57 AM Interpretation: Performing Lab:TRENA, [facility] [address] [facility], Bessie KnagQY[address] [place] Notes/Report: NON-FASTING; NON-FASTING; NON-FASTING; NON-FASTING PSA, TOTAL 0.39 < OR = 4.00 ng/mL The total PSA value from this assay system is standardized against the WHO standard. The test result will be approximately 20% lower when compared to the equimolar-standardized total PSA (Stephanie Syracuse). Comparison of serial PSA results should be interpreted with this fact in mind. This test was performed using the Siemens chemiluminescent method. Values obtained from different assay methods cannot be used interchangeably. PSA levels, regardless of value, should not be interpreted as absolute evidence of the presence or absence of disease. Venous Doppler : Lower Extre mity Reviewed date:04/12/2024 10:19:45 AM Interpretation: Performing Lab: Notes/Report: Reason For Referral Reason Please arrange Left Lower Extremity venous US for left foot edema, need to rule out DVT. Patient prefers US to be done at [facility] if possible to be done quickly. Diagnosis 1 Swelling of left madhav t (M79.89) Referral Organization [facility] Referring Provider First Name Shivani Referring Provider Last Name Francisco Referring Provider Speciality Family Pra ctice Referral Priority Urgent Referral Appointment Date 04/12/2024 Medications Medication SIG (Take, Route, Frequency, Duration) Notes Start Date End Date Status Mounjaro 10 MG/0.5ML 10mg SUBCUTANEOUSLY ONCE A WEEK; Duration: 30 days 06/20/2024 Active BD SYRINGE 3CC - IM ONCE EVERY 2 WEEKS; Duration: 1 DAYS *Please review for potential replacement for e-prescription and drug interaction check* 03/13/2020 Active Kerendia 10 MG 1 tab orally once a day Active Metoprolol Succinate ER 25 MG 1 tablet Orally Once a day; Duration: 90 days Active Losartan Potassium 25 MG 1 tablet Orally Once a day; Duration: 90 days 12/28/2024 Active tiZANidine HCl 4 mg TAKE 1 TABLET EVERY 12 HOURS; Duration: 30 Active CONTOUR NEXT GLUCOSE TEST STRIPS BY [employer] *Please review for potential replacement for e-prescription and drug interaction check* Active Aspirin 81 MG 1 tab(s) orally once a day; Duration: 30 day(s) Active Vitamin D3 125 MCG 1 CAP(S) ORALLY ONCE A DAY 500mcg *Please review and pick correct strength-formulati on from [employer] options. If intended option is not shown, discontinue and re-order from Quick Search* Active NovoLOG 100 UNIT/ML INJECT 200 UNITS UNDER THE SKIN PRN USING THE INSULIN PUMP. Injection prn using insulin pump; Duration: 30 days Active oxyCODONE HCl 10 MG 1 tab(s) orally ever y 6 hours Active Testosterone Cypionate 200 MG/ML INJECT 2 ML INTO A MUSCLE EVERY OTHER WEEK; Duration: 30 06/27/2024 Active Gabapentin 600 MG 1 tab(s) orally 4 times a day; Duration: 30 day(s) 04/26/2023 Active Venlafaxine HCl ER 225 mg TAKE 1 TABLET 1 TIME EACH DAY; Duration: 90 Active busPIRone HCl 10 MG 1 tab(s) orally 2 times a day; Duration: 90 days Active Immunizations Vaccine Route Administration Date Status Comme nts MMR-ll SC Subcutaneous 07/25/2020 Administered Hep-B (Pediatric/Adol.)preservat lorna free/Engerix-B IM Intramuscular 07/25/2020 Administered Hep A Adult 2 Dose IM Intramuscular 07/25/2020 Administere d Boostrix IM Intramuscular 07/29/2020 Administered Social History Tobacco Use: Social History Observation Description Date Details (start date - stop date) Never Smoker NA - NA Smoking: Question Answer Notes Are you a: nonsmoker Problems Problem Type SNOMED Code ICD Code Onset Dates Problem Status W/U Status Risk Notes Problem Type 1 diabetes mellitus with other specified complication (E10.69) Active confirmed Problem Mixed hyperlipidemia (353789259) Mixed hyperlipidemia (E78.2) Active confirmed Problem Insomnia (110799823) Other insomnia (G47.09) Active confirmed Problem Chronic pain (87119149) Other chronic pain (G89.29) Active confirmed Problem Dental caries (43217492) Dental caries, unspecified (K02.9) Active confirmed Problem Periapical abscess (disorder) (399022146) Periapical abscess without sinus (K04.7) Active confirmed Problem Cervical radiculopathy (49027477) Radiculopathy, cervical region (M54.12) Active confirmed Problem Cervicalgia (44908903) Cervicalgia (M54.2) Active confirmed Problem Vitamin D deficiency (36894902) Vitamin D deficiency (E55.9) Active confirmed Problem General examination of patient (077046916) Routine medical exam (Z00.00) Active confirmed Problem Hematuria (25782465) Hematuria (R31.9) Active confirmed Problem Neuropathy (981989570) Neuropathy (G62.9) Active confirmed Problem Essential hypertension (51683002) Essential hypertension (I10) Active confirmed Problem Androgen deficiency (60491691) Androgen deficiency (E29.1) Active confirmed Problem Inflammatory polyarthropathy (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, 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) Active confirmed Problem Neck pain (30968216) Neck pain (M54.2) Active confirmed Problem Atherosclerosis of coronary artery without angina pectoris (449437175513344) Atherosclerosis of three affiliated coronary artery of three affiliated heart without angina pectoris (I25.10) Active confirmed Problem Atherosclerotic heart disease of three affiliated coronary artery without angina pectoris (282439386741714) Coronary artery disease involving three affiliated coronary artery of three affiliated heart without angina pectoris (I25.10) Active confirmed Problem Erectile dysfunction (disorder) (242146254) Erectile dysfunction, unspecified erectile dysfunction type (N52.9) Active confirmed Problem History of polyp of colon (situation) (892420029) History of colon polyps (Z86.010) Active confirmed Problem Posttraumatic stress disorder (90874179) PTSD (post-traumatic stress disorder) (F43.10) Active confirmed Problem Obstructive sleep apnea syndrome (28874844) VALENTINO (obstructive sleep apnea) (G47.33) Active confirmed Problem Generalized anxiety disorder (10177269) JOS (generalized anxiety disorder) (F41.1) Active confirmed Problem Polyneuropathy due to diabetes mellitus type I (894278303) Diabetic polyneuropathy associated with type 1 diabetes mellitus (E10.42) Active confirmed Problem Chronic sinusitis (61916092) Purulent post-nasal discharge (J32.9) Active confirmed Problem Anxiety attack (047090870) Anxiety attack (F41.0) Active confirmed Problem Carpal tunnel syndrome (95757391) Carpal tunnel syndrome, bilateral (G56.03) Active confirmed Problem Other specified diabetes mellitus with other specified complication, unspecified whether brand ambassadors promotional sales insulin use (E13.69) Active confirmed Vital Signs Heart Rate 80 /min 12/28/2024 Temperature 97.6 degrees Fahrenheit 12/28/2024 Blood pressure diastolic 90 mm Hg 12/28/2024 Height 73 in 12/28/2024 Blood pressure systolic 142 mm Hg 12/28/2024 Weight 252 lbs 12/28/2024 BMI 33.24 kg/m2 12/28/2024 Encounters Encounter Location Date Provider Diagnosis [facility] [address] [place] [address] 07/08/2024 Provider Migration Androgen deficiency E29.1 and Diabetic polyneuropathy associated with type 1 diabetes mellitus E10.42 [facility] [address] [address] 02/08/2024 Yunior Porras Androgen deficiency E29.1 ; VALENTINO (obstructive sleep apnea) G47.33 ; Type 1 diabetes mellitus with other specified complication E10.69 ; Coronary artery disease involving three affiliated coronary artery of three affiliated heart without angina pectoris I25.10 and Routine medical exam Z00.00 [place] [facility] [address] [address] 02/23/2024 Shivani Aura ALYI with cough and congestion J06.[address] [address] 04/11/2024 Shivani Francisco Swelling of left madhav t M79.89 and Recurrent acute suppurative otitis media of right ear without spontaneous rupture of tympanic membrane H66.004 [facility] [address] [address] 05/16/2024 Yunior Porras Essential hypertensi on I10 ; Androgen deficiency E29.1 ; Peripheral edema R60.9 and Atherosclerosis of three affiliated coronary artery of three affiliated heart without angina pectoris I25.10 [place] [facility] [address] [address] 06/20/2024 Yuniorsharon Porras Cervicalgia M54.2 ; Diabetic polyneuropathy associated with type 1 diabetes mellitus E10.42 ; Type 1 diabetes mellitus with other specified complication E10.69 and VALENTINO (obstructive sleep apnea) G47.33 [place] [facility] [address] [address] 08/08/2024 Yuniorsharon Porras Type 1 diabetes mellitus with other specified complication E10.69 and Coronary artery disease involving three affiliated coronary artery of three affiliated heart without angina pectoris I25.10 [place] [facility] [address] [address] 10/05/2024 Yunior Porras Type 1 diabetes mellitus with other specified complication E10.69 ; Essential hypertension I10 and Routine medical exam Z00.00 [place] [facility] [address] [address] 12/28/2024 Yuniorsharon Porras Essential hypertensi on I10 ; Routine medical exam Z00.00 ; Type 1 diabetes mellitus with other specified complication E10.69 ; Dental caries, unspecified K02.9 ; Neck pain M54.2 ; Elevated PSA R97.20 and Radiculopathy, cervical region M54.12 [place] [facility] [address] [address] 02/21/2024 Yunior Zacson Muscle spasm of back M62.830 [place] [facility] [address] [address] 02/23/2024 Noris McNees Muscle spasm of back M62.830 [facility] [address] [address] 03/30/2024 Norsi McNees [place] [facility] [address] [address] 05/18/2024 Yunior Besson [place] [facility] [address] [address] 06/12/2024 Yunior Besson [facility] [address] [address] 07/11/2024 Noris Ernst [facility] [facility] [address] [address] 10/10/2024 Yunior Porras Muscle spasm of back M62.830 [place] [facility] [address] [address] 01/05/2025 Noris Ernst [facility] [address] [address] 01/15/2025 Noris Ernst Type 1 diabetes mellitus with other specified complication E10.69 and Muscle spasm of back M62.830 Assessments Encounter Date Diagnosis (ICD Code) Assessment Notes Treatment Notes Treatment Clinical Notes Section Notes 02/21/2024 Muscle spasm of back (ICD-10 - M62.830) 02/23/2024 URI with cough and congestion (ICD-10 - J06.9) Discussed the etiology and expected course of a viral URI. Discussed supportive care and symptom management with PO fluids, Antipyretics, and antihistamines. Discussed the rational for not prescribing antibiotics for viral infection. Discussed the signs and symptoms of worsening condition and need for reassessment in clinic or ED. 02/23/2024 Muscle spasm of back (ICD-10 - M62.830) 07/08/2024 Androgen deficiency (ICD-10 - E29.1) 07/08/2024 Diabetic polyneuropathy associated with type 1 diabetes mellitus (ICD-10 - E10.42) 10/10/2024 Muscle spasm of back (ICD-10 - M62.830) 01/15/2025 Type 1 diabetes mellitus with other specified complication (ICD-10 - E10.69) 12/28/2024 Routine medical exam (ICD-10 - Z00.00) HRA reviewed. Depression screening normal. No need for cognitive impairment screening. Colonoscopy normal 01/26, 5-year follow-up recommended given mother's family history. Up-to-date with vaccines. No recent falls. Excellent functional status. Nontobacco user Wears seatbelts 12/28/2024 Essential hypertension (ICD-10 - I10) - BP slightly elevated in clinic but notes pain from dental infection, notes BP 116/80s average at home - previously discontinued Losartan and spironolactone due to BP improving with weight loss - has history of CAD, will try to initiate low dose Losartan back given CKD and may need to d/c metoprolol 10/05/2024 Type 1 diabetes mellitus with other specified complication (ICD-10 - E10.69) - Currently on Mounjaro 5mg and tolerating well - Able to decrease insulin requirement, has lost a total of over 40lbs - Interested to increase dose, will go up to 7.5mg - Continue follow up with endocrine 10/05/2024 Essential hypertension (ICD-10 - I10) - BP well controlled in clinic - Discontinued losartan and has remained normotensive at home - He has also discontinued his furosemide and spironolactone since losing weight as BP has become low - Agree with holding BP meds and monitroing at home - Continue metoprolol and aspirin for CAD 06/20/2024 Diabetic polyneuropathy associated with type 1 diabetes mellitus (ICD-10 - E10.42) Good candidate for GLP for weight loss as well as neuropathy improvement as well as VALENTINO and other issues. 05/16/2024 Essential hypertension (ICD-10 - I10) Stable, WNL in clinic today, continue current management. 05/16/2024 Androgen deficiency (ICD-10 - E29.1) CBC on 05/09 with cardiology noted hgb of 17.7, otherwise labs grossly stable. Will have patient follow up in 2 months for repeat CBC and total testosterone. 02/08/2024 VALENTINO (obstructive sleep apnea) (ICD-10 - G47.33) Doing well on CPAP device. Patient feels like it is helpful 08/08/2024 Type 1 diabetes mellitus with other specified complication (ICD-10 - E10.69) Overall doing very nicely. Good weight loss, good improvement of diabetes control. Increase dose to 5 mg weekly. Follow-up 2 months for titration and side effect reevaluation 08/08/2024 Coronary artery disease involving three affiliated coronary artery of three affiliated heart without angina pectoris (ICD-10 - I25.10) Doing well with the addition of GLP. No side effects of chest pain, abdominal pain. On statin and other goal-directed therapies 04/11/2024 Recurrent acute suppurative otitis media of right ear without spontaneous rupture of tympanic membrane (ICD-10 - H66.004) Recurrent otitis media. Discouraged Qtip use. Discontinue ciprodex drops as he does not have a perforation and his ear canals are normal. Start Augmentin as above, start probiotic, and increase Flonase to bid for the next week. Asked patient to call his ENT and schedule a follow-up with him having recurrent otitis media. Patient voices understanding and agrees with the plan of care above. 04/11/2024 Swelling of left foot (ICD-10 - M79.89) Patient low risk per Well's criteria without extensive unilateral lower leg edema, but he is diabetic and on testosterone shots which increase his risk for DVT so will proceed with obtaining a left lower leg venous US. I personally will review results once final. Encouraged patient to wear compression stocking, but he refuses as it aggravates his chronic neuropathy. Reviewed s/s of PE and for patient to seek care in the ED immediately if they develop. Patient and his voice understanding and agree with the plan of care above. Patient discussed with Attending Dr. Porras who agrees with the plan of care above. 06/20/2024 Cervicalgia (ICD-10 - M54.2) X-ray ordered. Please note all reviewed personally, then will reassess whether PT or other intervention will be needed 02/08/2024 Androgen deficiency (ICD-10 - E29.1) Overall doing well. Monitoring of testosterone continues. CBC has been normal. Good therapeutic response to androgen therapy 05/16/2024 Peripheral edema (ICD-10 - R60.9) No notable edema on exam today, patient has been taking torsemide per cardiology. Continue management per cardiology. 02/08/2024 Type 1 diabetes mellitus with other specified complication (ICD-10 - E10.69) Follows with endocrinology. On insulin pump device. No changes in plan 06/20/2024 Type 1 diabetes mellitus with other specified complication (ICD-10 - E10.69) Discussed risk of hypoglycemia, he continues to monitor glucose well. A1c has been very well-controlled 10/05/2024 Routine medical exam (ICD-10 - Z00.00) HRA [...] ordered today as well as urine microalbumin 01/15/2025 Muscle spasm of back (ICD-10 - M62.830) 12/28/2024 Dental caries, unspecified (ICD-10 - K02.9) - following with dentist, treating for dental abscess with clindamycin followed by tooth extraction January 03 per patient 05/16/2024 Atherosclerosis of three affiliated coronary artery of three affiliated heart without angina pectoris (ICD-10 - I25.10) Patient scheduled for heart cath this coming Wednesday, 05/19 because of dyspnea that cardiology thinks is his anginal equivalent -he has had a normal echo and normal stress test but they plan to do cath because of a previous situation which he had an isolated stent put in during similar circumstances in 2019. Please note I reviewed cardiology notes and results, will review cardiac cath data once it is available 06/20/2024 VALENTINO (obstructive sleep apnea) (ICD-10 - G47.33) Discussed side effect profile of to his appetite. He has an aunt who has been diagnosed with thyroid cancer. She does not have any in syndrome. He will find out exactly what kind of cancer she has and I have given him a written note about medullary cancer and he will not start the medicine if it is getting 02/08/2024 Coronary artery disease involving three affiliated coronary artery of three affiliated heart without angina pectoris (ICD-10 - I25.10) Currently asymptomatic. On goal-directed therapy 02/08/2024 Routine medical exam (ICD-10 - Z00.00) Up-to-date with vaccines. Up-to-date with colon screening. No recent falls. Excellent functional status. Depression screening not indicated given his ongoing treatment which has been doing well. No evidence of cognitive impairment. Does not use tobacco or alcohol products 12/28/2024 Neck pain (ICD-10 - M54.2) -Subsacute, [...] region (ICD-10 - M54.12) Plan Of Treatment Pending Test Test Name Order Date X ray : Spines, Cervical 06/20/2024 C-TESTOSTERONE 03/04/2020 C-TESTOSTERONE 05/30/2020 C-CMP 05/30/2020 C-TSH 05/30/2020 C-THYROID PROFILE 03/27/2019 C-HGBA1C 05/30/2020 C-DRUG SCREEN 10 PANEL 07/05/2020 M-Complete Blood Count Auto Diff 021 M-Comprehensive Metabolic Panel 07/26/19 M-Comprehensive Metabolic Panel 12/19/19 23 M-Comprehensive Metabolic Panel 02/24/20 M-Basic Metabolic Panel 05/15/2019 M-Hemoglobin A1C 05/15/2019 M-Hemoglobin A1C 02/17/2019 M-Hemoglobin A1C 07/25/2020 M-Hemoglobin A1C 02/23/2022 M-Lipid Panel 07/25/2020 M-Lipid Panel 05/15/2019 M-Lipid Panel 02/23/2022 M-Lipid Panel 12/18/2022 M-Vitamin B12 09/30/2023 M-Vitamin D 25 Hydroxy 09/30/2023 M-Vitamin D 25 Hydroxy 12/18/2022 M-Testosterone, Free+Total LC/MS 022 M-Testosterone, Total, LC/MS 07/25/2020 M-Testosterone 12/18/2022 M-QuantiFERON TB Gold (In Tube) 06/28/19 21 SED RATE BY MODIFIED WESTERGREN (809) RHEUMATOID FACTOR (4418) 07/06/2023 DANIAL MULTIPLEX W/REFLEX 11 AB CASCADE (69 936) 07/06/2023 MRI SPINE CERVICL WO 12/28/2024 Next Appt Details Provider Name:Yunior Porras, 02/13/2025 04:00:00 PM, [address] [address], [place], [address], Insurance Providers Payer Name Payer Address Payer Phone Subscriber Number Group Number Insured Name Patient Relationship to Insured Coverage Start Date Coverage End Date [employer] [address] [address] [place] [address] [id number] Lucero Eren Self - patient is the insured Medications Administered Medication Instructions Date of Administration Dosage Notes Ceftriaxone 500 10/26/2023 500 mg Medical (General) History Medical History History ICD Code type 1 DM HTN Chronic back pain CAD Kidney Stones VALENTINO Carpal Tunnel release, bilaterally. [facility] Thyroid nodules C-Pap Normal colonoscopy 01/26 Surgical History Surgery Date(Month/Year) cardiac cath with stent, repeat cath in 2020 normal 12/2018 adenoidectomy/ear tubes as child rectal fistula Prostate Surgery: [facility] Procedure 2016? cardiac cath 03/2019 L4-5 fusion 07/2021 oral surgery 12/2022 Hospitalization History Reason Date(Month/Year) BAck surgery 11/30/21- L4-5 fusion 07/2021 [facility] 03/2019
--- OUTSIDE RECORDS SUMMARY | 2025-01-16 07:17 | XMS_ITS | Clinical Summary ---
Author Organization [facility] , [facility] Address [address] [place] [address] Phone Care Team Providers Care Chemical Detection Expert Name Role Phone Jonathan Davidson MD Unavailable [phone] Amador Benitez MD Unavailable [phone] Reason for Visit and Chief Complaint [Patient Encounter] Problems Includes: Problems addressed during this encounter and other active Problems All Visits Onset Date Resolved Date Provider Condition S tatus Joint Pain Right Thumb 01/28/2022 Victorino Sawyer MD Active Last Documented On 2 8:21AM ; [facility] Lower Back Pain 07/03/2021 Amador Benitez MD Act lorna Last Documented On 2 2:29PM ; [facility], [facility] Neck Pain 07/03/2021 Amador Benitez MD Active Last Documented On 2 2:43PM ; [facility], [facility] Plan of Treatment No Plan of Treatment Recorded Assessments Includes: Assessments from this encounter No Assessments Recorded Medical Equipment - Implanted Devices Includes: Current Devices No Medical Equipment Recorded Medications Includes: Medications discussed during this encounter and other current Medications New / Renewed during this visit Victorino Sawyer MD on 03/10/2022 Diclofenac Sodium 50 MG Oral Tablet Delayed Release Provider: Victorino Sawyer MD 30 day supply: 60 tablet, 0 refills Diagnosis: take 1 tablet Q 8hrs for pain Pharmacy: [facility] - [address], [id number] - Last Documented On 2 11:41AM By Roma Salazar ; [facility], [facility] Current Medications (continue as prescribed) Venlafaxine HCl ER 225 MG Or al Tablet Extended Release 24 Hour 06/30/2021 Provider: Jonathan Davidson Diagnosis: Last Documented On 2 3:42PM By Laila Loyd ; [facility], [facility] Vitamin D (Ergocalciferol) 1 .25 MG (69058 UT) Oral Capsule 06/28/2021 Provider: Jonathan Davidson Diagnosis: Last Documented On 2 3:43PM By Laila Loyd ; [facility], [facility] tiZANidine HCl 4 MG Oral Tablet 06/28/2021 Provider: Jonathan Davidson Diagnosis: Last Documented On 2 3:43PM By Laila Loyd ; [facility] Testosterone Cypionate 200 M G/ML Intramuscular Solution 06/28/2021 Provider: Jonathan Davidson Diagnosis: Last Documented On 2 3:43PM By Laila Loyd ; [facility] Rosuvastatin Calcium 20 MG Oral Tablet 06/28/2021 Pr ovider: Diagnosis: Last Documented On 2 3:42PM By Laila Loyd ; [facility], [facility] Metoprolol Succinate ER 50 M G Oral Tablet Extended Release 24 Hour 06/28/2021 Provider: Jonathan Davidson Diagnosis: Last Documented On 2 3:42PM By Laila Loyd ; [facility], [facility] Losartan Potassium 50 MG Oral Tablet 06/28/2021 Prov ider: Jonathan Davidson Diagnosis: Last Documented On 2 3:42PM By Laila Loyd ; [facility], [facility] hydroCHLOROthiazide 25 MG Oral Tablet 06/28/2021 Pro vider: Jonathan Davidson Diagnosis: Last Documented On 2 3:42PM By Laila Loyd ; [facility], [facility] DULoxetine HCl 60 MG Oral Ca psule Delayed Release Particles 06/28/2021 Provider: Jonathan Davidson Diagnosis: Last Documented On 2 3:42PM By Laila Loyd ; [facility], [facility] Gabapentin 800 MG Oral Tablet 06/11/2021 Provider: Jonathan Davidson Diagnosis: 400mg bid / 800mg qhs Last Documented On 2 3:44PM By Laila Washingtonsarah LUGO[facility] HYDROcodone-Acetaminophen 10-325 MG Oral Tablet [...] Location Date Check-In Time Check-Out Time Diagnosis [Patient Encounter] Victorino Sawyer MD 03/10/2022 11:09AM 11:59PM Insurance Includes: Active Insurance Policies Plan Name Member ID Group # Subscriber Relationship Effect lorna Dates 1 - [facility] [id number] Eren Barker Self 04/05/2021 - Unknown 2 - [facility] [id number] - Unknown Clinical Notes Includes: Clinical Notes from this encounter No Clinical Notes Recorded
== END 2025-01-16 23:59 | disposition home or self-care (01) ==
LOC: RAD 07:12
PROVIDERS: PCP Internal Medicine Adolescent Medicine; Visit Provider Internal Medicine Adolescent Medicine
DX: M50.122 Cervical disc disorder at C5-C6 level with radiculopathy (principal); M50.123 Cervical disc disorder at C6-C7 level with radiculopathy
CPT/HCPCS: 72141

== ENCOUNTER 2025-03-11 02:03 | Observation (INO) | payer MEDICARE, SELFPAY ==
--- OUTSIDE RECORDS SUMMARY | 2024-07-08 16:30 | XMS_ITS ---
Author Organization [facility] Natasha [facility] Address [address] [facility] [address] [place] [address] Care Team Providers Care Document Photographer Name Role Phone Klever Noris Primary Care Provider Migration, Provider Unavailable Unavailable REASON FOR VISIT [facility] To [facility] Conversion Encounter Medications Medication SIG (Take, Route, Frequency, Duration) Notes Start Date End Date Status NovoLOG 100 UNIT/ML INJECT 150 UNITS UNDER THE SKIN PRN USING THE INSULIN PUMP. Active Tadalafil 5 MG 1 tab(s) orally once a day; Duration: 90 days Active tiZANidine HCl 4 MG 1 tab orally ever 12 hours; Duration: 30 days Active Metoprolol Succinate ER 100 MG TAKE 1 TABLET 2 TIMES EACH DAY; Duration: 90 Active Cetirizine HCl 10 MG 1 tab(s) orally at bedtime; Duration: 30 days 11/04/2023 Active Gabapentin 600 MG 1 tab(s) orally 4 times a day; Duration: 30 day(s) 04/26/2023 Active BD SYRINGE 3CC - IM ONCE EVERY 2 WEEKS; Duration: 1 DAYS *Please review for potential replacement for e-prescription and drug interaction check* 03/13/2020 Active CONTOUR NEXT GLUCOSE TEST STRIPS BY [employer] *Please review for potential replacement for e-prescription and drug interaction check* Active Aspirin 81 MG 1 tab(s) orally once a day; Duration: 30 day(s) Active Kerendia 10 MG 1 tab orally once a day Active oxyCODONE HCl 10 MG 1 tab(s) orally every 6 hours Active Vitamin D3 125 MCG 1 CAP(S) ORALLY ONCE A DAY 500mcg *Please review and pick correct strength-formulat ion from [employer] options. If intended option is not shown, discontinue and re-order from Quick Search* Active busPIRone HCl 10 MG 1 tab(s) orally 2 times a day; Duration: 90 days Active Spironolactone 25 MG 1 tab(s) orally onc e a day Active Losartan Potassium 50 MG 1 tab(s) orally once a day; Duration: 90 days Active Crestor 20 MG 1 tab(s) orally once a day; Duration: 90 days Active Venlafaxine HCl ER 225 MG 1 tab(s) orally once a day; Duration: 90 days Active Torsemide 20 MG 1 tab(s) orally once a day Active Testosterone Cypionate 200 MG/ML INJECT 2 ML INTO A MUSCLE EVERY OTHER WEEK; Duration: 06/27/2024 Active Mounjaro 2.5 MG/0.5 ML 2.5MG SUBCUTANEOUSLY ONCE A WEEK; Duration: 90 DAYS *Please review and pick correct strength-formulat ion from [employer] options. If intended option is not shown, discontinue and re-order from Quick Search* 06/20/2024 Active Encounters Encounter Location Date Provider Diagnosis [facility] [address] [facility] [address] [place], [place] [address] 07/08/2024 Provider Migration Androgen deficiency E29.1 and Diabetic polyneuropathy associated with type 1 diabetes mellitus E10.42 Assessments Encounter Date Diagnosis (ICD Code) Assessment Notes Treatment Notes Treatment Clinical Notes Section Notes 07/08/2024 Androgen deficiency (ICD-10 - E29.1) 07/08/2024 Diabetic polyneuropathy associated with type 1 diabetes mellitus (ICD-10 - E10.42) Plan Of Treatment Medication Medication Name Sig Start Date Stop Date Notes busPIRone HCl 10 MG 1 tab(s) orally 2 ti mes a day; Duration: 90 days Losartan Potassium 50 MG 1 tab(s) orally once a day; Duration: 90 days Crestor 20 MG 1 tab(s) orally once a day; Duration: 90 days Venlafaxine HCl ER 225 MG 1 tab(s) orally once a day; Duration: 90 days Testosterone Cypionate 200 MG/ML INJECT 2 ML INTO A MUSCLE EVERY OTHER WEEK; Duration: 06/27/2024 Mounjaro 2.5 MG/0.5 ML 2.5MG SUBCUTANEOUSLY ONCE A WEEK; Duration: 90 DAYS 06/20/2024 *Please review and pick correct strength-formulation [facility]. If intended option is not shown, discontinue and re-order from Quick Search* Next Appt Details Provider Name:Yunior Porras, 06/12/2025 04:30:00 PM, [address], [address], Progress Notes * Eren BARKER DDOB:[birth year] (49 yo M)Acc No.[id number]:07/08/2024 Patient: Eren HOU Provider: Dylan Frederick :1975 A ge:49 Y S ex:Male Date:07/08/2024 Address:[address] [place] [address], [phone] Pcp:Noris Ernst Subjective: * Chief Complaints: * 1 . [facility] En[facility]. * Medical History: * Medications: T aking Torsemide 20 MG Tablet 1 tab(s) orally once a day , Taking Spironolactone 25 MG Tablet 1 tab(s) orally once a day , Taking Vitamin D3 125 MCG CAPSULE 1 CAP(S) ORALLY ONCE A DAY , Notes to Pharmacist: 500mcg *Please review and pick correct strength-formulation from [facility] options. If intended option is not shown, discontinue and re-order from Quick Search*, Taking oxyCODONE HCl 10 MG Tablet 1 tab(s) orally every 6 hours , Taking Kerendia 10 MG Tablet 1 tab orally once a day , Taking Aspirin 81 MG Tablet Delayed Release 1 tab(s) orally once a day , Taking CONTOUR NEXT GLUCOSE TEST STRIPS BY [facility] , Notes to Pharmacist: *Please review for potential replacement for e-prescription and drug interaction check*, Taking BD SYRINGE 3CC - IM ONCE EVERY 2 WEEKS , Notes to Pharmacist: *Please review for potential replacement for e-prescription and drug interaction check*, Taking Gabapentin 600 MG Tablet 1 tab(s) orally 4 times a day , Taking Cetirizine HCl 10 MG Tablet 1 tab(s) orally at bedtime , Taking Metoprolol Succinate ER 100 MG Tablet Extended Release 24 Hour TAKE 1 TABLET 2 TIMES EACH DAY , Taking tiZANidine HCl 4 MG Tablet 1 tab orally ever 12 hours , Taking Tadalafil 5 MG Tablet 1 tab(s) orally once a day , Taking NovoLOG 100 UNIT/ML Solution INJECT 150 UNITS UNDER THE SKIN PRN USING THE INSULIN PUMP. Objective: * Vitals: Assessment: * Assessment: 1. A ndrogen deficiency - E29.1 2 . D iabetic polyneuropathy associated with type 1 diabetes mellitus - E10.42 Plan: * Treatment: 2. D iabetic polyneuropathy associated with type 1 diabetes mellitus Start Mounjaro SOLUTION, 2.5 MG/0.5 ML, 2.5MG, SUBCUTANEOUSLY, ONCE A WEEK, 90 DAYS, 12, Refills 1, Notes to Pharmacist: *Please review and pick correct strength-formulation from [employer]Underline. [employer] options. If intended option is not shown, discontinue and re-order from Quick Search*. 3. O thers Start Crestor Tablet, 20 MG, 1 tab(s), orally, once a day, 90 days, 90, Refills 1; S tart Venlafaxine HCl ER Tablet Extended Release 24 Hour, 225 MG, 1 tab(s), orally, once a day, 90 days, 90, Refills 1; S tart busPIRone HCl Tablet, 10 MG, 1 tab(s), orally, 2 times a day, 90 days, 180 Tablet, Refills 1; S tart Losartan Potassium Tablet, 50 MG, 1 tab(s), orally, once a day, 90 days, 90, Refills 1. * * Electronic signature of Prov ider Migration on 03/11/2025 at 02:09 AM EST Sign off status: Pending * Provider: Dylan lópez Migration Date: 0 07/08/2024 Generated for Rhiannon rothman/Jasmin/Sybil on: 1 05/12/2024 02:09 AM EST
--- OUTSIDE RECORDS SUMMARY | 2024-12-21 05:00 | XMS_ITS ---
Author Organization 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 Name Role Phone Noris Ernst Primary Care Provider Yunior Porras Unavailable [phone] REASON FOR VISIT Annual Wellness Encounters Encounter Location Date Provider Diagnosis [address] [address] 12/21/2024 Yunior Porras Plan Of Treatment Next Appt Details Provider Name:Yunior Porras, 06/12/2025 04:30:00 PM, [address] [place] [address], [phone], Progress Notes * Eren BARKER DDOB:[birth year] (49 yo M)Acc No.[id number]:12/21/2024 Progress notes Patient: Eren HOU Provider: Reno Porras MD :1975 A ge:49 Y S ex:Male Date:12/21/2024 Address:[address], [id number] Pcp:Noris Ernst Subjective: * Chief Complaints: * 1 . Annual Wellness. * HPI: g en: Needs flu vaccine. Needs labs unless obtained outside. Needs repeat colonoscopy. * Medical History: Objective: * Vitals: Assessment: Plan: * Treatment: * * Electronic signature of Step sharon Porras MD FAAP on 03/11/2025 at 02:11 AM EST Sign off status: Pending * Provider: Reno Porras MD Date: 0 12/21/2024 Generated for Rhiannon rothman/Jasmin/Sybil on: 1 05/12/2024 02:11 AM EST History and Physical Notes * HPI (History of Present Illness) Category Sub-Category Detail Notes Category Not es gen Needs flu vaccine. Needs labs unless obtained outside. Needs repeat colonoscopy.
--- OUTSIDE RECORDS SUMMARY | 2025-02-13 11:00 | XMS_ITS ---
Author Organization [facility] Address [address] [place] [address] Care Team Providers Care Griddle Attendant Name Role Phone Noris Ernst Primary Care Provider [phone] Yunior Porras Unavailable [phone] REASON FOR VISIT med ck Encounters Encounter Location Date Provider Diagnosis [address] [address] 02/13/2025 Yunior Porras Plan Of Treatment Next Appt Details Provider Name:Yunior Porras, 06/12/2025 04:30:00 PM, [address] [place] [address], [phone], Progress Notes * Eren BARKER DDOB:[birth year] (49 yo M)Acc No.[id number]:02/13/2025 Progress Notes Patient: Eren HOU Provider: Reno Porras MD :1975 A ge:49 Y S ex:Male Date:02/13/2025 Address:[address], [id number] Pcp:Noris Ernst Subjective: * Chief Complaints: * 1 . Med ck. * Medical History: Objective: * Vitals: Assessment: Plan: * Treatment: * * Electronic signature of Edilberto Porras MD FAAP on 03/11/2025 at 02:10 AM EST Sign off status: Pending * Provider: Reno Porras MD Date: 1 04/15/2024 Generated for Rhiannon rothman/Jasmin/Sybil on: 05/12/2024 02:10 AM EST
[2025-03-11] VITALS (12 sets, daily range): BP systolic 127–173; BP diastolic 64–90; PULSE 78–90; RESP 12–19; TEMP 36.4–37.1; O2SAT 97–99; BMI 31.6; BMI 32.6
--- OUTSIDE RECORDS SUMMARY | 2025-03-11 02:10 | XMS_ITS | Clinical Summary ---
Author Organization [facility] Address [address] [place] [address] Care Team Providers Care Farm Demonstrator Name Role Phone Sindi Hyatt Xi WALKER Primary Care Provider [phone] Allergies Active Allergy Reactions Criticality Noted Date [...] patient's age to complete this topic Insurance [employer] Care Teams Farm Demonstrator Relationship Specialty Start Date End Date Sindi Hyatt APRN [address] [place] [id number] PCP - General Family Medicine 06/08/17
--- OUTSIDE RECORDS SUMMARY | 2025-03-11 02:11 | XMS_ITS | Patient Health Record ---
Author Organization [facility] Address [address] [address] Care Team Providers Care Linux Kernel Engineer Name Role Phone EMMANUEL AUGUSTINE Unavailable [phone] Emmanuel Augustine MD Unavailable Unavailable Allergies No [...] Active Vitamin D (Ergocalciferol) 1 .25 MG (48951 UT) 1 capsule Orally weekly Active Metoprolol [...] Hyperglycemia due to type 2 diabetes mellitus (092396980862380) Type 2 diabetes mellitus with hyperglycemia (E11.65) Active confirmed Problem Isolated proteinuria (12996019845910) Isolated proteinuria (R80.0) Active confirmed Problem Vitamin D deficiency (73860554) Vitamin D deficiency (E55.9) Active confirmed Problem Benign essential hypertension (6717139) Benign essential hypertension (I10) Active confirmed Problem Coronary atherosclerosis (238888249) Coronary atherosclerosis (I25.10) Active confirmed Problem Mixed hyperlipidemia (321620836) Hyperlipemia, mixed (E78.2) Active confirmed Problem Lower urinary tract symptoms due to benign prostatic hypertrophy (68416365502384) BPH w/o urinary obs/LUTS (N40.0) Active confirmed Problem Vertebrogenic low back pain (37160255629889598 1) Vertebrogenic low back pain (M54.51) Active confirmed Encounters Encounter Location Date Provider Diagnosis [facility] [address] [place] [address] 06/02/2024 EMMANUEL AUGUSTINE Benign essential hypertension I10 [...] Coverage End Date [employer] [address] [address] [place] [address] [id number] Eren Barker Self - patient is the insured Medical (General) History Medical History History ICD Code Diabetes Heart Disease Surgical History Surgery Date(Month/Year) L4 and L5 Fusion 2021 Left and Right Carpel Tunnel Surgery Heart Stent 2020 Hospitalization History Reason Date(Month/Year) [facility] 2020
--- OUTSIDE RECORDS SUMMARY | 2025-03-11 02:12 | XMS_ITS | Data Portability ---
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 If symptoms are not improved with Uroxatral and we will proceed with cystoscopy with possible TURP. [email or web address] Not available 08/21/2017 11:31:44 09/09/2017 09/09/2017 Force of stream much improved after procedure. Urine for C&S. [email or web address] Not available 09/19/2017 19:49:23 Plan of Treatment Reminders Order Date Submit Date Provider Last Modified By Organization Details Last Modified Time Details Appointments None recorded. Lab urinalysis , dipstick, auto 2017 018 [email or web address] 14 [facility], [address] [place] [address], [address], [place], [address], 8 18:36:59 culture, urine 2017 018 [email or web address] 14 [facility], [address] [place] [address], [place], [address], 8 12:19:04 urinalysis , dipstick, auto 2017 018 [email or web address] 14 [facility], [address], [address], [place], [address], 8 11:31:10 Referral None recorded. Procedures None recorded. Surgeries transureth ral incision of prostate (SURG) 2017 018 [facility], [address], [place], [address], 8 12:55:27 Imaging electrocar diogram 2018 019 [email or web address] [facility], [address] [facility] , [facility], [place], [address], 9 14:45:44 Medication Orders Bactrim DS 800 mg-160 mg tablet 2017 018 [facility], [address] [place] [address], [id number], 9 14:06:24 alfuzosin ER 10 mg tablet,ext ended release 24 hr 2017 018 [facility], [address] [place] [address], [id number], 9 14:06:19 Patient TargetsNo targets recorded. Patient InstructionsNo instructions recorded. Reason for Referral None Reported. Results Created Date Observation Date Name Description Value Unit Range Abnormal Flag Note LastModifiedBy Organization Detail LastModifiedTime 09/10/19 18 09/09/2017 urina lysis , dipst ick, auto Unknown Analyte Red Not Available Critical access hospital With [facility] [address], [place], [address], 09/09/2017 15:15:50 09/10/19 18 09/09/2017 urina lysis , dipst ick, auto Unknown Analyte Bloody Not Available Critical access hospital With [facility] [address], [place], [address], 09/09/2017 15:15:50 09/10/19 18 09/09/2017 urina lysis , dipst ick, auto Unknown Analyte 1.020 Not Available Critical access hospital With [address], [place], [address], 09/09/2017 15:15:50 09/10/19 18 09/09/2017 urina lysis , dipst ick, auto Unknown Analyte 5.0 Not Available Critical access hospital With [address], [place], [address], 09/09/2017 15:15:50 09/10/19 18 09/09/2017 urina lysis , dipst ick, auto Unknown Analyte 500 Mildred/ul (++) Not Available [facility] With [address], [place], [address], 09/09/2017 15:15:50 09/10/19 18 09/09/2017 urina lysis , dipst ick, auto Unknown Analyte Positi ve Not Available [facility] With [address], [place], [address], 09/09/2017 15:15:50 09/10/19 18 09/09/2017 urina lysis , dipst ick, auto Unknown Analyte 30 mg/dl (+) Not Available [facility] With [address], [place], [address], 09/09/2017 15:15:50 09/10/19 18 09/09/2017 urina lysis , dipst ick, auto Unknown Analyte >1000 mg/dl Not Available [facility] With [address], [place], [address], 09/09/2017 15:15:50 09/10/19 18 09/09/2017 urina lysis , dipst ick, auto Unknown Analyte Negati ve Not Available [facility] With [address], [place], [address], 09/09/2017 15:15:50 09/10/19 18 09/09/2017 urina lysis , dipst ick, auto Unknown Analyte 1 mg/dl Not Available [facility] With [address], [place], [address], 09/09/2017 15:15:50 09/10/19 18 09/09/2017 urina lysis , dipst ick, auto Unknown Analyte Negati ve Not Available [facility] With [address], [place], [address], 09/09/2017 15:15:50 09/10/19 18 09/09/2017 urina lysis , dipst ick, auto Unknown Analyte *Color interf erence Not Available [facility] With [address], [place], [address], 09/09/2017 15:15:50 09/10/19 18 09/09/2017 urina lysis , dipst ick, auto Unknown Analyte Clean Catch Not Available [facility] With [address], [place], [address], 09/09/2017 15:15:50 09/10/19 18 09/09/2017 urina lysis , dipst ick, auto Unknown Analyte Automa joe Not Available [facility] With [address], [place], [address], 09/09/2017 15:15:50 08/13/19 18 08/12/2017 urina lysis , dipst ick, auto Unknown Analyte Yellow Not Available Critical access hospital With [address], [place], [address], 08/12/2017 16:44:37 08/13/19 18 08/12/2017 urina lysis , dipst ick, auto Unknown Analyte Clear Not Available Critical access hospital With [address], [place], [address], 08/12/2017 16:44:37 08/13/19 18 08/12/2017 urina lysis , dipst ick, auto Unknown Analyte 1.015 Not Available Critical access hospital With [address], [place], [address], 08/12/2017 16:44:37 08/13/19 18 08/12/2017 urina lysis , dipst ick, auto Unknown Analyte 6.5 Not Available Critical access hospital With [address], [place], [address], 08/12/2017 16:44:37 08/13/19 18 08/12/2017 urina lysis , dipst ick, auto Unknown Analyte Negati ve Not Available [facility] With [address], [place], [address], 08/12/2017 16:44:37 08/13/19 18 08/12/2017 urina lysis , dipst ick, auto Unknown Analyte Negati ve Not Available [facility] With [address], [place], [address], 08/12/2017 16:44:37 08/13/19 18 08/12/2017 urina lysis , dipst ick, auto Unknown Analyte 30 mg/dl (+) Not Available [facility] With [address], [place], [address], 08/12/2017 16:44:37 08/13/19 18 08/12/2017 urina lysis , dipst ick, auto Unknown Analyte 100 mg/dl Not Available [facility] With [address], [place], [address], 08/12/2017 16:44:37 08/13/19 18 08/12/2017 urina lysis , dipst ick, auto Unknown Analyte Negati ve Not Available Critical access hospital [facility] [place] With [address], [place], [address], 08/12/2017 16:44:37 08/13/19 18 08/12/2017 urina lysis , dipst ick, auto Unknown Analyte 1 mg/dl Not Available [facility] [address], [place], [address], 08/12/2017 16:44:37 08/13/19 18 08/12/2017 urina lysis , dipst ick, auto Unknown Analyte Negati ve Not Available [facility] With [address], [place], [address], 08/12/2017 16:44:37 08/13/19 18 08/12/2017 urina lysis , dipst ick, auto Unknown Analyte Negati ve Not Available [facility] [place] With [address], [place], [address], 08/12/2017 16:44:37 08/13/19 18 08/12/2017 urina lysis , dipst ick, auto Unknown Analyte Clean Catch Not Available [facility] [place] With [address], [place], [address], 08/12/2017 16:44:37 08/13/19 18 08/12/2017 urina lysis , dipst ick, auto Unknown Analyte Automa joe Not Available [facility] With [address], [place], [address], 08/12/2017 16:44:37 09/10/19 18 09/09/2017 cultu re, urine results Sourc e: CCUR Colle cted: 09/09 19:07 Site: Recei roslyn : 09/09 20:17 URINE SCREE N(CUL TURE) FINAL 09/11 12:25 09/10 COLON Y COUNT : 10,00 0 - 100,0 00 CFU/M L Proba ble Staph yloco ccus sp.; ID and sensi tivit y in progr ess. 09/11 See [facility] [facility] Resul t Below ISOLA CHARAN AND SENSI TIVIT Y RESUL TS [facility] 01 Staph yloco ccus epide rmidi s __ [facility] ORG# 01 ANTIB IOTIC S VANESSA INT __ Amox/ K Clav' ate(c ) <=4/2 R Amp/S ulbac williamson(c ) <=8/4 R Ampic illin <=2 R Cefaz oneyda <=4 R Cipro floxa ignacio >2 R Dapto mycin <=0.5 S Genta micin <=4 S Levof loxac in >4 R Nitro furan toin <=32 S Oxaci llin >2 R Rifam pin <=1 S Tetra cycli ne <=4 S Trime th/Gaston lfa >2/38 R Vanco mycin 2 S Not Available [facility] [address] [facility], [place], [address], 09/11/2017 12:25:31 09/14/19 18 09/02/2017 elect caren dior am No observ ation record ed. [email or web address] [facility] [address], [place], [address], 09/13/2017 13:09:54 08/24/19 19 08/19/2018 elect caren thomasgr am No observ ation record ed. 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 BARCODE [facility] [address], [place], [address], 08/31/2018 10:51:58 Result Notes None recorded. Problems Name Problem SNOMED Code Status Onset Date Resolution Date Notes Provider Name and Address Organization Details Recorded Time Benign prostatic hyperplasia 755886959 Active 2016 Gallo Calle [facility] 7 14:30:26 Diabetes mellitus 79054828 Active 2018 ZEV RICHARDSON MD [address] [place] [address], [address], [facility] 9 17:09:02 Sinus tachycardia 28719953 Active 2018 ZEV RICHARDSON MD [address] [place] [address], [address], [facility] 9 17:10:01 Diabetic peripheral neuropathy 715552057 Active 2018 ZEV RICHARDSON MD [address] [place] [address], [address], [facility] 9 17:10:10 Problem Notes None recorded. Procedures Surgical History Date Name Laterality Status Provider Name and Address Organization Details Recorded Time 09/07/19 19 Echocardiogram completed ZEV RICHARDSON MD [address] [place] [address], [address], [facility] 09/08/2018 08:14:59 09/07/19 19 Stress Test - Nuclear completed ZEV RICHARDSON MD [address] [place] [address], [address], [facility] 09/08/2018 08:19:01 03/04/20 17 Catheter Insertion; Sanchez completed KATYA GUZMAN MD [address] [place] [address], [address], [facility] 03/09/2017 07:24:41 03/01/20 17 CONTACT LASER VAPORIZATION, WITH TRANSURETHRAL RESECTION OF PROSTATE (SURG) completed [facility] 03/02/2017 13:28:18 CYSTOSCOPY (SURG) completed [facility] 03/02/2017 12:04:11 Imaging Results None recorded. Procedure Notes None recorded. Medical Equipment None Reported. Allergies No known drug allergies Medications Name Sig Start Date Stop Date Status Note LastModified by Organization Details LastModified Time tizanidine 4 mg tablet Take 1 tablet every day by oral route. active Not Available Not Available No t Available metoprolol succinate ER 50 mg tablet,exten ded release Take 1 tablet every day by oral route. active Not Available Not Available No t Available simvastatin 10 mg tablet Take 1 tablet every day by oral route. active Not Available Not Available No t Available hydrocodone 10 mg-acetamino phen 325 mg tablet Take 1 tablet every 4 hours by oral route. active Not Available Not Available No t Available Macrobid 100 mg capsule Take 1 capsule twice a day by oral route for 10 days. 08/25 completed Not Available Not Available Not Available gabapentin 800 mg tablet Take 1 tablet every day by oral route. active Not Available Not Available No t Available lisinopril 30 mg tablet Take 1 tablet every day by oral route. active Not Available Not Available No t Available Bactrim DS 800 mg-160 mg tablet Take 1 tablet every 12 hours by oral route for 10 days. 08/25 completed Not Available Not Available Not Available alfuzosin ER 10 mg tablet,exten ded release 24 hr Take 1 tablet every day by oral route for 30 days. 08/25 completed Not Available Not Available Not Available Aspir-81 active Not Available Not Avai lable Not Available lisinopril 08/25 completed Not Available Not Available Not Available Humalog U-100 Insulin active Not Available Not Available Not Available gabapentin 08/25 completed Not Available Not Available Not Available Lantus U-100 Insulin 11/05 completed Not Available Not Available Not Available Vitals Date Recorded Body height Body mass index (BMI) Body weight Systolic And Diastolic Provider Name and Address Organization Details Last Updated DateTime 08/12/2017 185.42 cm 35 kg/m2 002969.98 g 140/90 mm[Hg] Gallo Calle [facility] 08/12/2017 16:43:37 Date Recorded Body height Body mass index (BMI) Body weight Heart rate Systolic And Diastolic Provider Name and Address Organization Details Last Updated DateTime 08/25/2018 185.42 cm 37.6 kg/m2 391509.8 3 g 94 /min 138/82 mm[Hg] Tara Danielle [facility] 9 14:09:51 Date Recorded Body height Body mass index (BMI) Body weight Systolic And Diastolic Provider Name and Address Organization Details Last Updated DateTime 09/09/2017 185.42 cm 35 kg/m2 514755.98 g 138/88 mm[Hg] Gallo Calle [facility] 09/09/2017 15:14:52 Social History Question Answer Notes LastModified by Organizat ion Details LastModified Time Tobacco Sm[facility] 04/30/2016 16:28:04 How Much Tobacco Do You Chew? None Information not available 08/25/2018 Which Illicit Or Recreational Drugs Have You Used? None Per Patient Information not available 08/25/2018 Marital Status [facility] Informatio n not available 04/30/2016 What Was The Date Of Your Most Recent Tobacco Screening? 08/25/2018 Information not available 05/23/2019 Sex: Unknown Functional Status Question Answer Note LastModified by Organizat ion Details LastModified Time What is your level of alcohol consumption? 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 Family History Relationship Description Onset Age of this Age Resolved Age Notes LastModified by Organization Details LastModified Time Unspecified Relation Kidney stone [facility] Not available 04/06 16:27:37 Unspecified Relation Diabetes mellitus [email or web address] Not available 2016 16:27:45 Unspecified Relation Family history of malignant neoplasm [email or web address] Not available 2016 16:27:52 Medical History Condition Response Kidney Stones Y Diabetes Y Thyroid Disorder Y Hypertension Y Past Encounters Encounter ID Performer Location Encounter Start Date Encounter Closed Date Diagnosis/Indication Diagnosis SNOMED-CT Code Diagnosis ICD10 Code Diagnosis IMO Codes Diagnosis Note [id number] KATYA GUZMAN MD [facility] [address],[place] [address] 8 04/30/2016 15:52:30 05/11/2016 14:10:45 Benign prostatic hyperplasia with outflow obstruction 110553968 N40.1 [id number] KATYA GUZMAN MD [facility] [address],[place] [address] 8 11/05/2016 14:21:56 11/06/2016 12:32:20 Benign prostatic hyperplasia with outflow obstruction 605151496 N40.1 [id number] KATYA GUZMAN MD SURGERY SCHEDULE [address] [place] [address] 11/17/2016 12:11:17 11/17/2016 12:13:18 [id number] KATYA GUZMAN MD [facility] [address],[place] [address] 8 03/04/2017 14:18:17 03/10/2017 12:10:25 Retention of urine 861118573 R33.9 [id number] KATYA GUZMAN MD [facility] [address],[place] [address] 8 03/18/2017 15:59:52 03/19/2017 09:07:31 Acute urinary tract infection 307682022 N39.0 Benign pro static hyperplasia with outflow obstruction 184349555 N40.1 [id number] KATYA GUZMAN MD [facility] [address],[place] [address] 8 08/12/2017 14:59:16 08/23/2017 10:41:14 Benign prostatic hyperplasia with outflow obstruction 195135607 N40.1 [id number] KATYA GUZMAN MD [facility] [address],[place] [address] 8 09/09/2017 15:01:19 09/20/2017 11:29:48 Acute urinary tract infection 712527835 N39.0 Benign pro static hyperplasia with outflow obstruction 931379193 N40.1 [id number] ZEV RICHARDSON MD CARDIOLOG Y [address] ,[address] [place], [place] [address] 08/25/2018 12:44:21 08/25/2018 14:45:44 Atypical chest pain 668038164 R07.89 Impression and plan as above. Dyspnea on exertion 6084 5006 R06.09 The patient presents with atypical chest pain and dyspnea on exertion with an intermedia te risk of ASCVD. In the setting of his diabetes this may represent an anginal equivalent . Accordingl y a stress test and echocardio gram will be obtained. [id number] ZEV RICHARDSON MD [facility] [address] [place] [address] 09/06/2018 07:56:00 09/08/2018 13:01:01 [id number] ZEV [place]ICHARDSON [place] [address] 09/06/2018 08:06:39 09/08/2018 09:41:45 Dyspnea on exertion 63136645 R06.09 The patient presents with atypical chest pain and dyspnea on exertion with an intermedia te risk of ASCVD. In the setting of his diabetes this may represent an anginal equivalent . Accordingl y a stress test and echocardio gram will be obtained. Health Concerns Section Related Observation LastModified by Organization Detai ls LastModified Time None Recorded Concern Status LastModified by Organization Details LastModified Time None Recorded Advance Directives Directive None Recorded Payers Insurance Date Sequence Insurance Name Policy Number Policy Villarreal Covered Member ID Villarreal Member ID Guarantor Name 05/15/2016 1 *SELF PAY* Ti teresa Barker 02/28/2020 1 [facility] [id number] Jackeline Barker [id number] Eren Barker 02/28/2020 1 [facility] [id number] Eren Barker [id number] Eren Barker Notes Date Note Type Note Provider Name and Address Organization Details Recorded Time 08/12/2017 text/html 42-year-old male in the office for acute evaluation of benign prostatic hyperplasia with lower urinary tract symptoms. He has history of greenlight laser vaporization of the prostate. He has discontinued Uroxatral. He had abrupt onset of worsening lower urinary tract symptoms. The force of stream has dramatically weakened. He has urinary hesitancy. He voids 6-8 times daily and 1-2 times nightly. KATYA GUZMAN MD [address] [place] [address] [place], [address], [facility] 08/21/2017 11:33:02 09/09/2017 text/html 42-year-old male in the office for follow-up evaluation of benign prostatic hyperplasia with lower urinary tract symptoms. He has history of greenlight laser vaporization of prostate and had abrupt onset recurrence of symptoms. He underwent cystoscopy with TUIP and bladder neck contracture opening on 09/02/17. His voiding symptoms are much improved. He continues to have some dysuria with frequency and urgency. Urinalysis suspicious for UTI. KATYA GUZMAN MD [address] [place] [address], [address], [facility] 09/19/2017 19:51:07 08/25/2018 text/html Mr. Elkins is a 43-year-old white male seen in consultation at the request of Sindi Hyatt APRN. The patient was undergoing a routine office visit when he felt as if his blood sugar had fallen so it was checked and found to be 268. His heart rate was found to be elevated at 110 in the setting of sinus tachycardia. He was asked to drink a glass of water and his heart rate was subsequently rechecked and found to be 122. The EKG interpretation was of sinus tachycardia and possible inferior infarct. The patient does admit to episodes of substernal chest pressure over the last 5-6 months that last anywhere from 5 minutes to 3 hours. They are not exertional nor may they be reproduced with physical activity. They typically happen in the late afternoon when the patient is relaxing watching television. They're occasionally associated with some diaphoresis and on some occasions he notes a very focal area of burning over his left deltoid area. The patient has diabetes and hypertension as coronary artery disease risk factors in addition to hyperlipidemia for which he is receiving low dose of Zocor. He suffers from significant hypertriglyceridemia and is being prescribed a fibrate acid derivative. His most recent lipid profile shows a total cholesterol 146, triglyceride of 524, and HDL of 30 with a non-calculable LDL. His father has been told of plaque . Assuming an LDL of 100 he has an intermediate 13% 10 year ASCVD risk. The patient denies problems with orthopnea, PND, syncope. ZEV RICHARDSON MD [address] [place] [address], [address], [facility] 08/25/2018 14:40:00
--- OUTSIDE RECORDS SUMMARY | 2025-03-11 02:13 | XMS_ITS | Patient Health Record ---
Author Organization [facility] Address [address] [place], [place] [address] Care Team Providers Care Airplane And Engine Inspector Name Role Phone KorinaNoris mariscal Primary Care Provider Yunior Porras Unavailable [phone] Shivani Singh Unavailable [phone] Migration, Provider Unavailable Unavailable Allergies No Known [...] 10:17:57 AM Interpretation: Performing Lab:CB, [facility] [id number], [place]iz[place]xkzDS[address] [place] Notes/Report: NON-FASTING; NON-FASTING; NON-FASTING; NON-FASTING [...] of LDL-C. Luis DARLING et al. GRETTA. 2013;310(44): 0931-8955 ([email or web address]) CHOL/HDLC RATIO 3.6 <5.0 (calc) NON HDL CHOLESTEROL 105 <130 mg/dL (calc) For patients with diabetes plus 1 major ASCVD risk factor, treating to a non-HDL-C goal of <100 mg/dL (LDL-C of <70 mg/dL) is considered a therapeutic option. COMPREHENSIVE METABOLIC PANE Rand (27507) Reviewed date:01/01/2025 10:17:57 AM Interpretation: Performing Lab:T[facility] [id number] [facility] [place] Notes/Report: NON-FASTING; NON-FASTING; NON-FASTING; NON-FASTING [...] (496) Reviewed date:01/01/2025 10:17:57 AM Interpretation: Performing Lab:TRENA [id number] [facility], [place] ZmgdWZ[address] [place] Notes/Report: NON-FASTING; NON-FASTING; NON-FASTING; NON-FASTING [...] Reviewed date:01/01/2025 10:17:57 AM Interpretation: Performing Lab:TRENA [facility] [id number] [facility] [place] MlbjAP[address] [place] Notes/Report: NON-FASTING; NON-FASTING; NON-FASTING; NON-FASTING PSA, TOTAL 0.39 < OR = 4.00 ng/mL The total PSA value from this assay system is standardized against the WHO standard. The test result will be approximately 20% lower when compared to the equimolar-standardized total PSA (Stephanie Continental). Comparison of serial PSA results should be interpreted with this fact in mind. This test was performed using the Siemens chemiluminescent method. Values obtained from different assay methods cannot be used interchangeably. PSA levels, regardless of value, should not be interpreted as absolute evidence of the presence or absence of disease. MRI SPINE CERVICL WO Reviewed date:01/19/2025 09:44:03 AM Interpretation: Performing Lab: Notes/Report: Venous Doppler : Lower Extre mity Reviewed date:04/12/2024 10:19:45 AM Interpretation: Performing Lab: Notes/Report: Reason For Referral Reason Please arrange Left Lower Extremity venous US for left foot edema, need to rule out DVT. Patient prefers US to be done at [facility] if possible to be done quickly. Diagnosis 1 Swelling of left madhav t (M79.89) Referral Organization [facility] Referring Provider First Name Shivani Referring Provider Last Name Francisco Referring Provider Speciality Family Pra ctice Referral Priority Urgent Referral Appointment Date 04/12/2024 Reason Yunior Porras Arth ur 01/18/2025 08:22:26 PM EDT > has a disc protrusion in his neck... Diagnosis 1 Cervicalgia (M54.2) Diagnosis 2 Neck pain (M54.2) Diagnosis 3 Radiculopathy, cervi luis region (M54.12) Referral Organization [facility] Referring Provider First Name Yunior Referring Provider Last Name Vern Referring Provider Speciality Internal M edicine General Notes Marci Berry 10:28:16 AM > faxed and they will call him Referral Priority Routine Medications Medication SIG (Take, Route, Frequency, Duration) Notes Start Date End Date Status Mounjaro 12.5 MG/0.5ML 10mg SUBCUTANEOUSLY ONCE A WEEK; Duration: 30 days 06/20/2024 Active CONTOUR NEXT GLUCOSE TEST STRIPS BY Dr. ZPRERNA *Please review for potential replacement for e-prescription and drug interaction check* Active NovoLOG 100 unit/mL INJECT 200 UNITS UNDER THE SKIN NEEDED USING THE INSULIN PUMP; Duration: 30 Active BD SYRINGE 3CC - IM ONCE EVERY 2 WEEKS; Duration: 1 DAYS *Please review for potential replacement for e-prescription and drug interaction check* 03/13/2020 Active oxyCODONE HCl 10 MG 1 tab(s) orally ever y 6 hours Active busPIRone HCl 10 MG 1 tab(s) orally 2 times a day; Duration: 90 days Active Aspirin 81 MG 1 tab(s) orally once a day; Duration: 30 day(s) Active Testosterone Cypionate 200 MG/ML INJECT 2 ML INTO A MUSCLE EVERY OTHER WEEK; Duration: 30 02/28/2025 Active Venlafaxine HCl ER 225 mg TAKE 1 TABLET 1 TIME EACH DAY; Duration: 90 Active Vitamin D3 125 MCG 1 CAP(S) ORALLY ONCE A DAY 500mcg *Please review and pick correct strength-formulati on from [employer] options. If intended option is not shown, discontinue and re-order from Quick Search* Active Kerendia 10 MG 1 tab orally once a day Active Metoprolol Succinate ER 25 MG 1 tablet Orally Once a day; Duration: 90 days Active Losartan Potassium 25 MG 1 tablet Orally Once a day; Duration: 90 days 12/28/2024 Active tiZANidine HCl 4 mg TAKE 1 TABLET EVERY 12 HOURS; Duration: 30 Active Gabapentin 600 MG 1 tab(s) orally 4 times a day; Duration: 30 day(s) 04/26/2023 Active Immunizations Vaccine Route Administration Date Status Comme nts Boostrix IM Intramuscular 07/29/2020 Administered Hep A Adult 2 Dose IM Intramuscular 07/25/2020 Administere d Hep-B (Pediatric/Adol.)preservat lorna free/Engerix-B IM Intramuscular 07/25/2020 Administered MMR-ll SC Subcutaneous 07/25/2020 Administered Social History Tobacco Use: Social History Observation Description Date Details (start date - stop date) Never Smoker NA - NA Smoking: Question Answer Notes Are you a: nonsmoker Problems Problem Type SNOMED Code ICD Code Onset Dates Problem Status W/U Status Risk Notes Problem Type 1 diabetes mellitus with other specified complication (E10.69) Active confirmed Problem Mixed hyperlipidemia (533293154) Mixed hyperlipidemia (E78.2) Active confirmed Problem Insomnia (132749470) Other insomnia (G47.09) Active confirmed Problem Chronic pain (80131354) Other chronic pain (G89.29) Active confirmed Problem Dental caries (70469936) Dental caries, unspecified (K02.9) Active confirmed Problem Periapical abscess (disorder) (774945021) Periapical abscess without sinus (K04.7) Active confirmed Problem Cervical radiculopathy (09998892) Radiculopathy, cervical region (M54.12) Active confirmed Problem Cervicalgia (05096857) Cervicalgia (M54.2) Active confirmed Problem Vitamin D deficiency (80978060) Vitamin D deficiency (E55.9) Active confirmed Problem General examination of patient (426369816) Routine medical exam (Z00.00) Active confirmed Problem Hematuria (82314879) Hematuria (R31.9) Active confirmed Problem Neuropathy (909405207) Neuropathy (G62.9) Active confirmed Problem Essential hypertension (20936232) Essential hypertension (I10) Active confirmed Problem Androgen deficiency (92507530) Androgen deficiency (E29.1) Active confirmed Problem Inflammatory polyarthropathy (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, 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) Active confirmed Problem Neck pain (59311825) Neck pain (M54.2) Active confirmed Problem Atherosclerosis of coronary artery without angina pectoris (742386095572607) Atherosclerosis of [place] coronary artery of [place] heart without angina pectoris (I25.10) Active confirmed Problem Atherosclerotic heart disease of [place] coronary artery without angina pectoris (302122046325102) Coronary artery disease involving [place] coronary artery of [place] heart without angina pectoris (I25.10) Active confirmed Problem Erectile dysfunction (disorder) (164527403) Erectile dysfunction, unspecified erectile dysfunction type (N52.9) Active confirmed Problem History of polyp of colon (situation) (900364436) History of colon polyps (Z86.010) Active confirmed Problem Posttraumatic stress disorder (33364130) PTSD (post-traumatic stress disorder) (F43.10) Active confirmed Problem Obstructive sleep apnea syndrome (26145197) VALENTINO (obstructive sleep apnea) (G47.33) Active confirmed Problem Generalized anxiety disorder (44870771) JOS (generalized anxiety disorder) (F41.1) Active confirmed Problem Polyneuropathy due to diabetes mellitus type I (467573020) Diabetic polyneuropathy associated with type 1 diabetes mellitus (E10.42) Active confirmed Problem Chronic sinusitis (71003978) Purulent post-nasal discharge (J32.9) Active confirmed Problem Anxiety attack (632510519) Anxiety attack (F41.0) Active confirmed Problem Carpal tunnel syndrome (94216241) Carpal tunnel syndrome, bilateral (G56.03) Active confirmed Problem Other specified diabetes mellitus with other specified complication, unspecified whether medical terminologist insulin use (E13.69) Active confirmed Vital Signs Heart Rate 80 /min 03/08/2025 Temperature 98 degrees Fahrenheit 03/08/2025 Blood pressure diastolic 78 mm Hg 03/08/2025 Height 73 in 03/08/2025 Blood pressure systolic 130 mm Hg 03/08/2025 Weight 248.3 lbs 03/08/2025 BMI 32.76 kg/m2 03/08/2025 Encounters Encounter Location Date Provider Diagnosis [facility] [address] [place], [place] [address] 07/08/2024 Provider Migration Androgen deficiency E29.1 and Diabetic polyneuropathy associated with type 1 diabetes mellitus E10.42 [facility] [address] [address] 04/11/2024 Shivani Singh Swelling of left madhav t M79.89 and Recurrent acute suppurative otitis media of right ear without spontaneous rupture of tympanic membrane H66.004 [place] [facility] [address] [address] 05/16/2024 Yunior Porras Essential hypertensi on I10 ; Androgen deficiency E29.1 ; Peripheral edema R60.9 and Atherosclerosis of [place] coronary artery of [place] heart without angina pectoris I25.10 [place] [facility] [address] [address] 06/20/2024 Yunior Porras Cervicalgia M54.2 ; Diabetic polyneuropathy associated with type 1 diabetes mellitus E10.42 ; Type 1 diabetes mellitus with other specified complication E10.69 and VALENTINO (obstructive sleep apnea) G47.33 [place] [facility] [address] [address] 08/08/2024 Yunior Porras Type 1 diabetes mellitus with other specified complication E10.69 and Coronary artery disease involving [place] coronary artery of [place] heart without angina pectoris I25.10 [place] [facility] [address] [address] 10/05/2024 Yunior Porras Type 1 diabetes mellitus with other specified complication E10.69 ; Essential hypertension I10 and Routine medical exam Z00.00 [place] [facility] [address] [address] 12/28/2024 Yunior Porras Essential hypertensi on I10 ; Routine medical exam Z00.00 ; Type 1 diabetes mellitus with other specified complication E10.69 ; Dental caries, unspecified K02.9 ; Neck pain M54.2 ; Elevated PSA R97.20 and Radiculopathy, cervical region M54.12 [place] [facility] [address] [address] 03/08/2025 Yunior Porras Type 1 diabetes mellitus with other specified complication E10.69 ; Essential hypertension I10 ; VALENTINO (obstructive sleep apnea) G47.33 ; Coronary artery disease involving [place] coronary artery of [place] heart without angina pectoris I25.10 and Neuropathy G62.9 [place] [facility] [address] [address] 03/30/2024 Noris Klever [place] [facility] [address] [address] 05/18/2024 Yunior Porras [place] [facility] [address] [address] 06/12/2024 Yunior Vern [place] [facility] [address] [address] 07/11/2024 Noris Ernst [place] [facility] [address] [address] 10/10/2024 Yunior Porras Muscle spasm of back M62.830 [place] [facility] [address] [address] 01/05/2025 Noris Ernst [place] [facility] [address] [address] 01/15/2025 Noris Ernst Type 1 diabetes mellitus with other specified complication E10.69 and Muscle spasm of back M62.830 Assessments Encounter Date Diagnosis (ICD Code) Assessment Notes Treatment Notes Treatment Clinical Notes Section Notes 04/11/2024 Recurrent acute suppurative otitis media of [...] agrees with the plan of care above. 05/16/2024 Essential hypertension (ICD-10 - I10) Stable, WNL in clinic today, continue current management. 05/16/2024 Androgen deficiency (ICD-10 - E29.1) CBC on 2/4 with cardiology noted hgb of 17.7, otherwise labs grossly stable. Will have patient follow up in 2 months for repeat CBC and total testosterone. 06/20/2024 Diabetic polyneuropathy associated with type 1 diabetes mellitus (ICD-10 - E10.42) Good candidate for GLP for weight loss as well as neuropathy improvement as well as VALENTINO and other issues. 07/08/2024 Androgen deficiency (ICD-10 - E29.1) 07/08/2024 Diabetic polyneuropathy associated with type 1 diabetes mellitus (ICD-10 - E10.42) 08/08/2024 Type 1 diabetes mellitus with other specified complication (ICD-10 - E10.69) Overall doing very nicely. Good weight loss, good improvement of diabetes control. Increase dose to 5 mg weekly. Follow-up 2 months for titration and side effect reevaluation 08/08/2024 Coronary artery disease involving [place] coronary artery of [place] heart without angina pectoris (ICD-10 - I25.10) Doing well with the addition of GLP. No side effects of chest pain, abdominal pain. On statin and other goal-directed therapies 10/05/2024 Type 1 diabetes mellitus with other [...] - Continue metoprolol and aspirin for CAD 10/10/2024 Muscle spasm of back (ICD-10 - M62.830) 12/28/2024 Routine medical exam (ICD-10 - Z00.00) [...] CKD and may need to d/c metoprolol 06/20/2024 Cervicalgia (ICD-10 - M54.2) X-ray ordered. Please note all reviewed personally, then will reassess whether PT or other intervention will be needed 01/15/2025 Type 1 diabetes mellitus with other specified complication (ICD-10 - E10.69) 03/08/2025 Type 1 diabetes mellitus with other specified complication (ICD-10 - E10.69) Has done well with Mounjaro. A1c 6.4% at last lab draw. Will increase to 12.5, side effects discussed, follow-up 3 months, will do labs at that point 03/08/2025 Essential hypertension (ICD-10 - I10) Blood pressure under good control, no changes in plans 01/15/2025 Muscle spasm of back (ICD-10 - M62.830) 03/08/2025 VALENTINO (obstructive sleep apnea) (ICD-10 - G47.33) Doing better with sleep apnea treatment. No change 12/28/2024 Type 1 diabetes mellitus with other specified complication (ICD-10 - E10.69) - on insluin pump with decreasing insulin requirement given 70 lb weight loss since starting wegovy - continue on insulin pump, will increase dose of Wegovy today - Hgb A1c ordered today as well as urine microalbumin 10/05/2024 Routine medical exam (ICD-10 - Z00.00) HRA reviewed. Depression screening normal. No need for cognitive impairment screening. Colonoscopy normal 01/26, 5-year follow-up recommended given mother's family history. Up-to-date with vaccines. No recent falls. Excellent functional status. Nontobacco user Wears seatbelts 05/16/2024 Peripheral edema (ICD-10 - R60.9) No notable edema on exam today, patient has been taking torsemide per cardiology. Continue management per cardiology. 06/20/2024 Type 1 diabetes mellitus with other specified complication (ICD-10 - E10.69) Discussed risk of hypoglycemia, he continues to monitor glucose well. A1c has been very well-controlled 05/16/2024 Atherosclerosis of [place] coronary artery of [place] heart without angina pectoris (ICD-10 - I25.10) [...] cardiac cath data once it is available 12/28/2024 Dental caries, unspecified (ICD-10 - K02.9) - following with dentist, treating for dental abscess with clindamycin followed by tooth extraction January 03 per patient 06/20/2024 VALENTINO (obstructive sleep apnea) (ICD-10 - [...] start the medicine if it is getting 03/08/2025 Coronary artery disease involving [place] coronary artery of [place] heart without angina pectoris (ICD-10 - I25.10) Stable, GLP helpful, other medications on board 03/08/2025 Neuropathy (ICD-10 - G62.9) Patient ask about medical marijuana. I discussed with him that I would be very concerned about this given his other multiple medical problems and risks of dementia, heart disease, excetra. He will stay on opiates. Managed through pain clinic, did discuss about trying to cut back on gabapentin given some memory concerns that he is had. 12/28/2024 Neck pain (ICD-10 - M54.2) -Subsacute, [...] X ray : Spines, Cervical 06/20/2024 C-TESTOSTERONE 05/30/2020 C-TESTOSTERONE 03/04/2020 C-CMP 05/30/2020 C-TSH 05/30/2020 C-THYROID PROFILE 03/27/2019 C-HGBA1C 05/30/2020 C-DRUG SCREEN 10 PANEL 07/05/2020 M-Complete Blood Count Auto Diff 021 M-Comprehensive Metabolic Panel 07/26/19 M-Comprehensive Metabolic Panel 12/19/19 M-Comprehensive Metabolic Panel 02/24/20 M-Basic Metabolic Panel 05/15/2019 M-Hemoglobin A1C 02/23/2022 M-Hemoglobin A1C 02/17/2019 M-Hemoglobin A1C 05/15/2019 M-Hemoglobin A1C 07/25/2020 M-Lipid Panel 07/25/2020 M-Lipid Panel 05/15/2019 M-Lipid Panel 12/18/2022 M-Lipid Panel 02/23/2022 M-Vitamin B12 09/30/2023 M-Vitamin D 25 Hydroxy 09/30/2023 M-Vitamin D 25 Hydroxy 12/18/2022 M-Testosterone, Free+Total LC/MS 022 M-Testosterone, Total, LC/MS 07/25/2020 M-Testosterone 12/18/2022 M-QuantiFERON TB Gold (In Tube) 06/28/19 SED RATE BY MODIFIED WESTERGREN (809) RHEUMATOID FACTOR (4418) 07/06/2023 DANIAL MULTIPLEX W/REFLEX 11 AB CASCADE (19 946) 07/06/2023 Next Appt Details Provider Name:Yunior Bahena Vern, 06/12/2025 04:30:00 PM, [address], [address], Insurance Providers Payer Name Payer Address Payer Phone Subscriber Number Group Number Insured Name Patient Relationship to Insured Coverage Start Date Coverage End Date [employer] [address] [address] [place] [address] [id number] Eren Barker Self - patient is the insured Medications [...] Date(Month/Year) BAck surgery 11/30/21- L4-5 fusion 07/2021 [facility] 03/2019
--- NOTE | 2025-03-11 02:17 | ECG_ITS ---
APPROVED REPORT Exam: Resting ECG HR:84 bpm ECG Measurements Heart Rate 84 AXES NH 124 P 66 QRSd 104 QRS 66 QT 394 T 88 QTc 434 Conclusion SINUS RHYTHM NONSPECIFIC T-WAVE ABNORMALITY No STEMI Electronically signed by : JERALD MENDEZ, 03/12/2025 07:50:55
[2025-03-11 02:32] LABS: Hematocrit 48.2 % (42.0-52.0); Hemoglobin 15.7 g/dL (14.1-18.0); Immature Granulocytes % 0.3 %; Mean Corpuscular HGB Conc 32.6 g/dL (31.8-35.4); Mean Corpuscular Hemoglobin 27.2 pg (27.0-31.2); Mean Corpuscular Volume 83.5 fl (80-94); Nucleated Red Blood Cells % 0 %; Platelet Count 222 K/mm3 (142-424); Red Blood Count 5.77 M/mm3 (4.60-6.20); Red Cell Distribution Width-SD 40.3 fL; White Blood Count 7.4 K/mm3 (4.8-10.8)
[2025-03-11 02:32] LABS: Lactate Venous 1.4 mmol/L (0.4-2.0); VBG HCO3 26.3 mmol/L (23-30); VBG PCO2 46.3 mmol/L (35-51); VBG PH 7.37 mmol/L (7.31-7.41); VBG PO2 36.8 mmol/L (28-40)
[2025-03-11 02:40] LABS: Alanine Aminotransferase 21 U/L (12-78); Albumin Level 3.8 g/dl (3.5-5.0); Albumin/Globulin Ratio 1.2 (1.1-1.8); Alkaline Phosphatase 58 U/L (38-126); Anion Gap 7.9 mEq/L (5-15); Aspartate Amino Transferase 30 U/L (17-59); Bilirubin,Total 0.6 mg/dl (0.2-1.3); Blood Urea Nitrogen 13 mg/dl (9-20); Calcium 8.8 mg/dl (8.4-10.2); Carbon Dioxide 27 mmol/L (22.0-30.0); Chloride 100 mmol/L (98-107); Creatinine Clearance Estimated 155 mL/min (50-200); Creatinine,Serum 0.90 mg/dl (0.66-1.25); Estimated Glomerular Filt Rate 90 ml/min (>60); GFR (African American) 109 ML/MIN (>60); Globulin 3.2 g/dL (1.3-3.2); Glucose 217 mg/dl (74-100); Potassium 3.9 mmoL/L (3.5-5.1); Sodium 131 mmol/L (136-145); Total Protein,Serum 7.0 g/dl (6.3-8.2)
[2025-03-11 02:46] LABS: D-Dimer 0.38 ug/mL (0.0-0.5)
[2025-03-11] MEDS: LACTATED RINGERS 1000ML 1,000 ML 999 ML IV (02:58)
[2025-03-11 03:02] LABS: Troponin I < 0.01 ng/ml (0.00-0.034)
[2025-03-11 03:29] LABS: Free T4 (Free Thyroxine) 0.73 ng/dl (0.78-2.19)
[2025-03-11 03:40] LABS: Hepatitis C Ab Qual. W/ RFX NEGATIVE (Negative)
[2025-03-11 03:43] LABS: Thyroid Stimulating Hormone 0.20 uIU/mL (0.465-4.68)
[2025-03-11] MEDS: ACETAMINOPHEN 500MG TAB 1000 MG PO (04:30)
--- NOTE | 2025-03-11 04:35 | CT_ITS ---
PROCEDURE INFORMATION: Exam: CT Cervical Spine Without Contrast Exam date and time: 03/11/2025 5:05 AM Age: 49 years old Clinical indication: Injury or trauma; Fall; Other: Syncope TECHNIQUE: Imaging protocol: Computed tomography of the cervical spine without contrast. Radiation optimization: All CT scans at this facility use at least one of these dose optimization techniques: automated exposure control; mA and/or kV adjustment per patient size (includes targeted exams where dose is matched to clinical indication); or iterative reconstruction. COMPARISON: MR CERVICAL SPINE WO CON 01/16/2025 7:11 AM FINDINGS: Bones: No acute fracture. Normal alignment. No significant disc bulge or herniation. Narrowing and irregularity is seen at C6-C7, posterior osteophyte complex is noted at that level with moderate spinal stenosis. No severe spinal canal stenosis. No significant neural foraminal narrowing. Lungs: Lung apices are normal. Soft tissues: Unremarkable. IMPRESSION: 1. No acute cervical spine fracture. 2. Degenerative changes most prominent at C5-C6 and C6-C7, not significantly changed from recent MRI.
--- NOTE | 2025-03-11 04:35 | CT_ITS ---
PROCEDURE INFORMATION: Exam: CT Head Without Contrast Exam date and time: 03/11/2025 5:03 AM Age: 49 years old Clinical indication: Injury or trauma; Fall; Blunt trauma (contusions or hematomas); Additional info: Syncope struck head TECHNIQUE: Imaging protocol: Computed tomography of the head without contrast. Radiation optimization: All CT scans at this facility use at least one of these dose optimization techniques: automated exposure control; mA and/or kV adjustment per patient size (includes targeted exams where dose is matched to clinical indication); or iterative reconstruction. COMPARISON: MR CERVICAL SPINE WO CON 01/16/2025 7:11 AM FINDINGS: Brain: Normal. No hemorrhage. Unremarkable white matter. No mass effect. Cerebral ventricles: No ventriculomegaly. Paranasal sinuses: Diffuse mucoperiosteal thickening is seen within the maxillary frontal ethmoidal and sphenoid sinuses. Mastoid air cells: Visualized mastoid air cells are well aerated. Bones: Unremarkable. No acute fracture. Soft tissues: Unremarkable. IMPRESSION: 1. No acute process noted. 2. Pansinusitis.
--- NOTE | 2025-03-11 05:11 | HMH.EDGENADL ---
Discharge Plan Disposition Patient Disposition: Admitted Condition: Good Clinical Impressions Clinical Impression: Syncope Discharge ED Provider: Cornelia Veras Adult HPI General Chief complaint: Syncope Stated complaint: passed out, tired Time Seen by Provider: 03/11/25 02:09 Mode of Arrival: Ambulatory Source of Information: Patient and Spouse Description of Symptoms (Recalled from ER Triage Doc. by RN): PT brought to the Ed for evaluation of syncope episode. PT stated he got up to go to kitchen and that is the last thing he remembers until was yelling his name. PT c/o BAY History of Present Illness HPI narrative: 49-year-old male presents to the ER for evaluation of syncope. Patient states he got up to go to the kitchen and woke up on the floor. He states in the past he has had episodes of near syncope with ringing in the ears and lightheadedness but this is the first time he has ever fully passed out. He denies any associated chest pain, nausea, vomiting, numbness, tingling, or weakness. He states he has some headache in the back of his head where he struck his head on the floor. He does not take any blood thinners. Denies palpitations. Denies any recent illness. No other complaints or concerns. Related Data Home Medications ?Medication ?Instructions ?Recorded ?Confirmed gabapentin 600 mg tablet 600 mg PO QID 12/03/23 03/09/25 insulin aspart U-100 100 unit/mL 200 unit SQ DAILY 12/03/23 03/09/25 subcutaneous solution (Novolog U-100 Insulin aspart) tizanidine 4 mg tablet 4 mg PO BID 12/03/23 03/09/25 aspirin 81 mg tablet 81 mg PO DAILY 01/18/24 03/09/25 finerenone 10 mg tablet (Kerendia) 10 mg PO DAILY 01/18/24 03/09/25 rosuvastatin 20 mg tablet 20 mg PO HS 05/09/24 03/09/25 testosterone cypionate 200 mg/mL 200 mg IM WEEKLY 05/09/24 03/09/25 intramuscular oil oxycodone 10 mg tablet 10 mg PO QID Chronic back pain 05/25/24 03/09/25 metoprolol succinate 100 mg 50 mg PO DAILY 10/09/24 03/09/25 tablet,extended release 24 hr oxycodone-acetaminophen 10 mg-325 1 tab PO Q6H PRN 10/09/24 03/09/25 mg tablet tirzepatide 7.5 mg/0.5 mL mg SQ 10/09/24 03/09/25 subcutaneous pen injector (Neetu) Previous Rx's ?Medication ?Instructions ?Recorded buspirone 10 mg tablet 15 mg (1.5 x 10 mg) PO BID #90 tabs 03/09/25 prazosin 2 mg capsule 4 mg (2 x 2 mg) PO HS 30 days #60 03/09/25 caps propranolol 10 mg tablet 10 mg PO ONCE PRN panic attacks 30 03/09/25 days #30 tabs venlafaxine 75 mg capsule,extended 75 mg PO DAILY 30 days #30 caps 03/09/25 release 24 hr Allergies Allergy/AdvReac Type Severity Reaction Status Date / Time No Known Allergies Allergy Verified 03/09/25 08:01 [facility] Disclaimer: The information contained in this section may have been updated after the patient was seen, as this information can be updated by other users. Medical History Mixed hearing loss of right ear SNHL (sensorineural hearing loss) moderate SNHL @ 3-4 KHZ per audiometric Tympanic membrane perforation Right chronic serous otitis media Tinnitus, right ear History of ear infection Hearing difficulty of right ear Abnormal electrocardiography Angina pectoris Appendicitis Chest pain Coronary artery disease Diabetes mellitus Hyperlipidemia Hypertension Palpitations Renal insufficiency Shortness of breath Syncope and collapse Sinus tachycardia Posttraumatic stress disorder VALENTINO (obstructive sleep apnea) Dizziness CAD (coronary artery disease) Surgical History History of cardiac cath History of placement of ear tubes Hx of appendectomy History of extraction of renal calculus History of back surgery Hx laparoscopic cholecystectomy Family History Grandfather Alcoholism Mother Thyroid disorder Kidney disease Diabetes Daughter Seizures Social History Smoking Status: Never smoker second hand exposure: No alcohol intake: current alcohol intake frequency: a few times a week counseling given: No substance use type: denies use current occupational status: retired Travel in the last 8 weeks?: None caregiver/support person: Yes (for his sister in law; she is totally blind) foster care: No household members: spouse housing: house marital status: number of children: 2 number of grandchildren: 0 education level: high school service: No correction: No current occupation: retired; he worked with [employer] current occupational exposures/hazards: No Hx Recent Travel: No sexually active: Yes caffeine: Yes physical activity: none working smoke detector in home: Yes fire extinguisher in home: Yes carbon monox detector in home: No firearms in home: Yes firearms unloaded and locked: Yes do you feel safe at home: Yes victim of physical abuse: No victim of emotional abuse: No victim of sexual abuse: No Have you lived/traveled outside [place] in past 30 days?: No Contact w/someone who lives/traveled outside [place] past 30 days?: No Exposure to someone with infectious disease in past 14 days?: No Do you have a fever (greater than 100.4 F or 38 C)?: No Have you tested positive for COVID-19?: No Exposed to someone with COVID-19 in past 14 days?: No Do you have a sore throat?: No Do you have a cough?: No Do you have any weakness?: Yes Do you have any diarrhea?: No Are you experiencing any unusual bleeding?: No Do you have any muscle aches/pain?: No Do you have any abdominal pain?: No Are you experiencing loss of taste or smell?: No Other Medical History Have you received the Flu Vaccine for this season: No Have you received the Pneumonia Vaccine: No ROS Obtained: Yes Systems reviewed as appropriate & no additional complaints except as documented Per HPI Physical Exam General General appearance: alert and in no apparent distress Head Head exam: atraumatic and normocephalic Eye Eye exam: Present PERRL and EOMI ENT ENT exam: Present mucous membranes moist Neck Neck exam: Present normal inspection and full ROM; Absent tenderness Chest Chest inspection: Present symmetric chest wall rise; Absent tenderness Respiratory Respiratory exam: Present normal lung sounds bilaterally; Absent respiratory distress, wheezes or stridor Cardiovascular Cardiovascular exam: Present regular rate and normal rhythm Abdominal Exam Abdominal exam: Present soft; Absent distention, tenderness, guarding or rebound Extremities Exam Extremities exam: Present full ROM and normal capillary refill; Absent edema Neurological Exam Neurological exam: Present alert, oriented X3, CN II-XII intact and normal gait; Absent motor sensory deficit Psychiatric Psychiatric exam: Present normal affect and normal mood Skin Skin exam: Present warm and dry Medical Decision Making Medical Records Medical records reviewed: Yes I reviewed the patient's medical records. Screening: Per USPSTF and CDC recommendations, given the prevalence of disease in our region, it is our hospital?s policy to screen for HIV and viral Hepatitis for all patients aged 18 and over and those with ongoing risk factors. MR Comment: Most recent cardiology note from October was reviewed by me and demonstrates patient has a history of drug-eluting stent placed in 2019. He did have complaints of dizziness and lightheadedness secondary to blood pressure and it appears they have been changing his home medications since he started losing weight. Most recent recommendation from Dre Edwards was to continue monitoring blood pressure and if it remained low to decrease Toprol to 25 mg daily and if no improvement stop the Toprol. Angel Inquiry Pt receiving controlled substance: No Vital Signs: 03/11/25 02:13 03/11/25 02:17 03/11/25 03:30 Temperature 97.5 F L 97.5 F L Temperature Source Oral Pulse Rate 84 78 Pulse Rate [Right] 84 Respiratory Rate 14 14 19 Blood Pressure 127/64 165/87 H Blood Pressure [Right Arm] 127/64 Blood Pressure Mean [Right Arm] 85 02 Sat by Pulse Oximetry 98 98 98 Oxygen Delivery Method Room Air Room Air Room Air 03/11/25 04:41 03/11/25 06:01 03/11/25 06:03 Temperature 98.6 F Temperature Source Pulse Rate 84 85 85 Pulse Rate [Right] Respiratory Rate 18 18 16 Blood Pressure 136/81 142/72 H 142/72 H Blood Pressure [Right Arm] Blood Pressure Mean [Right Arm] 02 Sat by Pulse Oximetry 98 98 Oxygen Delivery Method Room Air Room Air Room Air Lab Data Lab Results 03/11/25 02:25: WBC 7.4, RBC 5.77, Hgb 15.7, Hct 48.2, MCV 83.5, MCH 27.2, MCHC 32.6, RDW 13.3, Plt Count 222, MPV 9.0, Neut % (Auto) 58.9, Lymph % (Auto) 26.7, [place] % (Auto) 7.0, Eos % (Auto) 6.6, Baso % (Auto) 0.5, Neut # (Auto) 4.3, Lymph # (Auto) 2.0, [place] # (Auto) 0.5, Eos # (Auto) 0.5 H, Baso # (Auto) 0.0, D-Dimer 0.38, Sodium 131 L, Potassium 3.9, Chloride 100, Carbon Dioxide 27, Anion Gap 7.9, BUN 13, Creatinine 0.90, Estimated Creat Clear 155, Estimated GFR 90, Est GFR ( Amer) 109, Glucose 217 H, Calcium 8.8, Total Bilirubin 0.6, AST 30, ALT 21, Alkaline Phosphatase 58, Troponin I < 0.01, Total Protein 7.0, Albumin 3.8, Globulin 3.2, Albumin/Globulin Ratio 1.2, TSH 0.20 L, Free T4 0.73 L, HCV Ab KATY w/Rflx PCR Qn Negative, HIV Ag/Ab Combo Qual Negative 03/11/25 02:28: VBG pH 7.37, VBG pCO2 46.3, VBG pO2 36.8, VBG HCO3 26.3, VBG Total CO2 27.7 H, VBG O2 Saturation 72.1 H, VBG Base Excess 1.0, VBG Lactic Acid 1.4 03/11/25 05:21: Troponin I 0.02 03/11/25 02:25 03/11/25 02:25 Orders (Tests/Meds): ED MEDICATIONS Discontinued Medications Generic Name Dose Route Start Last Admin Trade Name Freq PRN Reason Stop Dose Admin Acetaminophen 1,000 mg 03/11/25 04:28 03/11/25 04:30 Acetaminophen 500mg Tab PO 03/11/25 04:29 1,000 mg ONCE ONE Administration Lactated Ringer's 1,000 mls @ 999 mls/hr 03/11/25 02:17 03/11/25 04:38 Lactated Ringer's 1000 Ml Bag IV 03/11/25 03:17 Infused .Q1H1M ONE Infusion Ketorolac Tromethamine 30 mg 03/11/25 05:39 03/11/25 05:45 Ketorolac 30mg/Ml Vial IV 03/11/25 05:40 30 mg ONCE ONE Administration ORDERS Category Date Time Status CT cervical spine wo con Stat Cat Scan 03/11/25 04:[address] head/brain wo con Stat Cat Scan 03/11/25 04:35 Completed CXR --portable [XR chest portable] Stat Exams 03/11/25 05:42 Completed CBC w/Auto Diff [Complete Blood Count Auto Diff] Stat Lab 03/11/25 02:25 Completed CMP [Comprehensive Metabolic Panel] Stat Lab 03/11/25 02:25 Completed D-Dimer Stat Lab 03/11/25 02:25 Completed Free T4 (Free Thyroxine) Stat Lab 03/11/25 02:25 Completed HIV Combo Stat Lab 03/11/25 02:25 Completed Hepatitis C Ab Qual. W/ RFX Stat Lab 03/11/25 02:25 Completed TSH [Thyroid Stimulating Hormone] Stat Lab 03/11/25 02:25 Completed Trop I [Troponin I] Stat Lab 03/11/25 02:25 Completed Troponin I Q3H Lab 03/11/25 05:21 Completed Troponin I Q3H Lab 03/11/25 08:30 Ordered VBG [Venous Blood Gas] Stat RT 03/11/25 02:28 Completed Medical Decision Narrative: In summary, this 49-year-old male with a history of CAD, diabetes, hypertension, hyperlipidemia presents to the emergency department today with syncope. On initial evaluation patient is hemodynamically stable, afebrile, GCS 15, independently ambulatory into the ER, no focal findings appreciated on exam, notably his cardiopulmonary exam is benign with no peripheral edema, normal rate and rhythm. Differential diagnosis includes but is not limited to ACS, PE, arrhythmia, thyroid derangement, electrolyte abnormality, dehydration, vasovagal syncope, I did consider the possibility of intracranial bleed since patient does take aspirin daily though I do not suspect that he had acute intracranial hemorrhage that caused the syncope. I did also consider the possibility of arrhythmia genic abnormalities such as WPW, Brugada, HCM, or prolonged QT. Based on these concerns, I ordered hematologic and serum labs, cardiac workup, CT imaging. ECG personally interpreted demonstrates sinus rhythm, rate 84, normal axis, normal SC and QTc, no ischemic changes, no STEMI, no WPW, no Brugada, no evidence of HCM, no prolonged QT. Patient received IV fluids initially for treatment. Labs personally reviewed demonstrate no leukocytosis or anemia, normal platelets, VBG with normal pH, no hypercarbia, VBG lactic normal at 1.4, D-dimer normal at 0.38, PE is excluded by years criteria so CTA PE is not indicated. CMP with slight hyponatremia which is nonactionable at this time, no transaminitis, good kidney function, undetectable initial troponin. Low TSH and T4. Patient was complaining of headache. Tylenol administered. Patient placed into ED observation at 0400 for serial troponins to rule out evolving UT and preclude unnecessary admission. He remains on the quality assurance monitor and has been frequently reassessed. XR personally interpreted demonstrates no acute thoracic abnormality, see radiology read for final interpretation. CT imaging personally interpreted demonstrate no acute intracranial bleed, mass, or midline shift, no skull fracture, see radiology read for final interpretation. CT C-spine without acute osseous injury. See radiology read for final interpretation. Patient still had some headache after receiving Tylenol so Toradol was administered since he does not have intracranial pathology. Repeat troponin was uptrending at 0.02. This is still within normal however with patient's cardiac history and unprovoked syncope with no prodromal symptoms that would be indicative of vasovagal etiology, this does significantly increase my concern about the etiology of his syncope potentially being cardiac in nature. I recommended to the patient that he be admitted to the hospital for continued cardiac monitoring, trend troponin, and workup of his syncope. On further discussion he is agreeable to this. I discussed this case with the hospitalist, Cristhian, including the patient's history and current findings. We discussed that he is hemodynamically stable, alert, oriented, and well-appearing with no evidence of traumatic injury. Patient was graciously accepted for admission. He was admitted in stable condition. Critical Care Critical Care Time Critical Care Time: No
--- NOTE | 2025-03-11 05:42 | XR_ITS ---
PROCEDURE INFORMATION: Exam: XR Chest Exam date and time: 03/11/2025 5:49 AM Age: 49 years old Clinical indication: Other: Syncope TECHNIQUE: Imaging protocol: Radiologic exam of the chest. Views: 1 view. COMPARISON: CT ANGIO CHEST PE PROTOCOL 02/24/2023 10:38 AM FINDINGS: Lungs: Unremarkable. No consolidation. Pleural spaces: Unremarkable. No pleural effusion. No pneumothorax. Heart/Mediastinum: Unremarkable. No cardiomegaly. Bones/joints: Unremarkable. IMPRESSION: No acute findings.
[2025-03-11] MEDS: KETOROLAC 30MG/ML VIAL 30 MG IV (05:45)
[2025-03-11 05:47] LABS: Troponin I 0.02 ng/ml (0.00-0.034)
--- NOTE | 2025-03-11 06:24 | P.HP_ITS ---
<Statement entered by Angel Padron MD - 03/11/25 14:13> Agree with plan of care as outlined by the SCULPTURE CONSERVATOR below. Personally evaluated patient. He endorses several month history of dizziness/lightheadedness, presyncope but never syncope until yesterday. He does take a few sedative medications including gabapentin, Percocet, tizanidine these are chronic and preceded before symptoms started. Also has propranolol on med list, but has not taken this. Had an episode of syncope without precipitating symptoms, concern for cardiogenic syncope. At the same time patient has significant hypothyroidism, has had issues in the past with thyroid dosing and discontinued medication. Started IV levothyroxine 150 mcg daily. Monitor overnight on cardiac telemetry, follow-up ECHO in the morning. History of Present Illness *Admission Date: 03/11/25 *Reason for visit:: Passed out *History of present illness: This is a 49-year-old male who has a past medical stenting to the LAD, angina, hypothyroidism, coronary artery disease, diabetes, hyperlipidemia, hypertension, renal insufficiency, obstructive sleep apnea, and palpitations who presents after he passed out. Due to patient's symptoms, he presented to the emergency room for evaluation. While in the emergency room, chest x-ray was negative for any acute cardiopulmonary process. CT scan of the head was negative for any acute intracranial process. CT scan of the cervical spine was negative for any acute findings. Patient's EKG revealed a sinus rhythm with a QTc of 434, normal axis, negative STEMI. Due to patient's symptoms, he presented to the emergency room for evaluation. During my evaluation of patient, patient states he got up to go to the kitchen and woke up patient mentions he has had episodes of near syncope in the past with ringing in the ears and lightheadedness but this time he just passed Sanchez out. On further questioning, patient states he does have a history of hypothyroidism. He was previously prescribed Synthroid but was discontinued and has been off this medication for approximately 1 year. He was seeing a stenciling machine tender Dr. Villafana who would perform ultrasounds of the thyroid and noticed cysts. He states that he was often on this medication because of cyst rupture and would flood his system with extra T4. He has a new stenciling machine tender that he has not seen in some time discontinue the thyroid medication. Of note, patient is also on testosterone therapy. Patient states he has been on testosterone for approximately 10 years or more. He states his levels are checked every 3 months. He reports that he has to have his dosage altered often. He is currently denying any lightheadedness, dizziness, fever, chills, rigors, nausea, vomiting, shortness of breath, headache, blurred vision, double vision, chest pain, shortness of breath, dyspnea, or diarrhea. Additional pertinent vitals obtained include a sodium 131, blood glucose of 217, troponins were negative, and TSH was 0.2/T4 was 0.73. [facility] Disclaimer: The information contained in this section may have been updated after the patient was seen, as this information can be updated by other users. Medical History Mixed hearing loss of right ear SNHL (sensorineural hearing loss) moderate SNHL @ 3-4 KHZ per audiometric Tympanic membrane perforation Right chronic serous otitis media Tinnitus, right ear History of ear infection Hearing difficulty of right ear Abnormal electrocardiography Angina pectoris Appendicitis Chest pain Coronary artery disease Diabetes mellitus Hyperlipidemia Hypertension Palpitations Renal insufficiency Shortness of breath Syncope and collapse Sinus tachycardia Posttraumatic stress disorder VALENTINO (obstructive sleep apnea) Dizziness CAD (coronary artery disease) Surgical History History of cardiac cath History of placement of ear tubes Hx of appendectomy History of extraction of renal calculus History of back surgery Hx laparoscopic cholecystectomy Family History Grandfather Alcoholism Mother Thyroid disorder Kidney disease Diabetes Daughter Seizures Social History Smoking Status: Never smoker second hand exposure: No alcohol intake: current alcohol intake frequency: a few times a week counseling given: No substance use type: denies use current occupational status: retired Travel in the last 8 weeks?: None caregiver/support person: Yes (for his sister in law; she is totally blind) foster care: No household members: spouse housing: house marital status: number of children: 2 number of grandchildren: 0 education level: high school service: No senior living: No current occupation: retired; he worked with [employer] current occupational exposures/hazards: No Hx Recent Travel: No sexually active: Yes caffeine: Yes physical activity: none working smoke detector in home: Yes fire extinguisher in home: Yes carbon monox detector in home: No firearms in home: Yes firearms unloaded and locked: Yes do you feel safe at home: Yes victim of physical abuse: No victim of emotional abuse: No victim of sexual abuse: No Have you lived/traveled outside [place] in past 30 days?: No Contact w/someone who lives/traveled outside US past 30 days?: No Exposure to someone with infectious disease in past 14 days?: No Do you have a fever (greater than 100.4 F or 38 C)?: No Have you tested positive for COVID-19?: No Exposed to someone with COVID-19 in past 14 days?: No Do you have a sore throat?: No Do you have a cough?: No Do you have any weakness?: Yes Do you have any diarrhea?: No Are you experiencing any unusual bleeding?: No Do you have any muscle aches/pain?: No Do you have any abdominal pain?: No Are you experiencing loss of taste or smell?: No Other Medical History Have you received the Flu Vaccine for this season: No Have you received the Pneumonia Vaccine: No Review of Systems Review of Systems Review of systems:: pertinent systems reviewed and negative unless documented below Constitutional Constitutional: Reports system reviewed and no additional complaints, except as documented Eyes Eyes: Reports system reviewed and no additional complaints, except as documented ENT Ears, Nose, Mouth, and Throat: Reports system reviewed and no additional complaints, except as documented *Cardiovascular Cardiovascular: Reports syncope *Respiratory Respiratory: Reports system reviewed and no additional complaints, except as documented *Gastrointestinal Gastrointestinal: Reports system reviewed and no additional complaints, except as documented *Genitourinary Genitourinary: Reports system reviewed and no additional complaints, except as documented *Musculoskeletal Musculoskeletal: Reports system reviewed and no additional complaints, except as documented Integumentary/Breasts Skin/Breast: Reports system reviewed and no additional complaints, except as documented *Neurologic Neurologic: Reports syncope Psychiatric Psychiatric: Reports system reviewed and no additional complaints, except as documented Endocrine Endocrine: Reports system reviewed and no additional complaints, except as documented Hematologic/Lymphatic Hematologic/Lymphatic: Reports system reviewed and no additional complaints, except as documented Allergic/Immunologic Allergic/Immunologic: Reports system reviewed and no additional complaints, except as documented Meds Home Medications and Allergies Home Medications ?Medication ?Instructions ?Recorded ?Confirmed ?Type gabapentin 600 mg tablet 600 mg PO QID 12/03/2303/09 History insulin aspart U-100 100 unit/mL 200 unit SQ DAILY 03/09/25 History subcutaneous solution (Novolog U-100 Insulin aspart) tizanidine 4 mg tablet 4 mg PO BID 12/03/23 5 History aspirin 81 mg tablet 81 mg PO DAILY 01/18/2408/27 History finerenone 10 mg tablet (Kerendia) 10 mg PO DAILY 01/0303/09/25 History rosuvastatin 20 mg tablet 20 mg PO HS 05/09/24 5 History testosterone cypionate 200 mg/mL 200 mg IM WEEKLY 07/2803/09/25 History intramuscular oil oxycodone 10 mg tablet 10 mg PO QID Chronic back pa in 05/25/24 03/09/25 History metoprolol succinate 100 mg 50 mg PO DAILY 10/09/24 History tablet,extended release 24 hr oxycodone-acetaminophen 10 mg-325 1 tab PO Q6H PRN 10/2703/09/25 History mg tablet tirzepatide 7.5 mg/0.5 mL mg SQ 10/09/24 03/09/25 Hist ory subcutaneous pen injector (Neetu) buspirone 10 mg tablet 15 mg (1.5 x 10 mg) PO BID # 90 tabs 03/09/25 03/09/25 Rx prazosin 2 mg capsule 4 mg (2 x 2 mg) PO HS 30 day s #60 03/09/25 03/09/25 Rx caps propranolol 10 mg tablet 10 mg PO ONCE PRN panic joel cks 30 03/09/25 03/09/25 Rx days #30 tabs venlafaxine 75 mg capsule,extended 75 mg PO DAILY 30 d ays #30 caps 03/09/25 03/09/25 Rx release 24 hr New Prescriptions to Start Prescriptions: Allergies Allergy/AdvReac Type Severity Reaction Status Date / Time No Known Allergies Allergy Verified 03/09/25 08:01 Exam Data for Last 24 hours Vital signs and Labs for Last 24 Hours: Temp Pulse Resp BP Pulse Ox O2 Del Method 98.6 F 85 16 142/72 H 98 Room Air 03/11/25 06:03 03/11/25 06:03 03/11/25 06:03 03/11/25 06:03 03/11/25 06:01 03/11/25 06:03 Laboratory Results - last 24 hr 03/11/25 02:25: WBC 7.4, RBC 5.77, Hgb 15.7, Hct 48.2, MCV 83.5, MCH 27.2, MCHC 32.6, RDW 13.3, Plt Count 222, MPV 9.0, Neut % (Auto) 58.9, Lymph % (Auto) 26.7, [place] % (Auto) 7.0, Eos % (Auto) 6.6, Baso % (Auto) 0.5, Neut # (Auto) 4.3, Lymph # (Auto) 2.0, [place] # (Auto) 0.5, Eos # (Auto) 0.5 H, Baso # (Auto) 0.0, D-Dimer 0.38, Sodium 131 L, Potassium 3.9, Chloride 100, Carbon Dioxide 27, Anion Gap 7.9, BUN 13, Creatinine 0.90, Estimated Creat Clear 155, Estimated GFR 90, Est GFR ( Amer) 109, Glucose 217 H, Calcium 8.8, Total Bilirubin 0.6, AST 30, ALT 21, Alkaline Phosphatase 58, Troponin I < 0.01, Total Protein 7.0, Albumin 3.8, Globulin 3.2, Albumin/Globulin Ratio 1.2, TSH 0.20 L, Free T4 0.73 L, HCV Ab KATY w/Rflx PCR Qn Negative, HIV Ag/Ab Combo Qual Negative 03/11/25 02:28: VBG pH 7.37, VBG pCO2 46.3, VBG pO2 36.8, VBG HCO3 26.3, VBG Total CO2 27.7 H, VBG O2 Saturation 72.1 H, VBG Base Excess 1.0, VBG Lactic Acid 1.4 03/11/25 05:21: Troponin I 0.02 I & O for Last 24 hours: Intake & Output 03/08/25 03/09/25 03/10/25 03/11/25 23:59 23:59 23:59 23:59 Intake Total 1000 / 1000 Balance 1000 / 1000 Weight 108.862 kg Constitutional Constitutional: no acute distress, mild distress, obese and cooperative *Routine HEENT Exam Head: Present normocephalic and atraumatic Eye: Present EOMI, PERRL and normal accommodation ENT: Present mucous membranes moist *Routine Neck Exam Neck: Present supple, full ROM and trachea midline *Routine Respiratory Exam Respiratory: Present CTA bilaterally, normal respiratory effort, able to speak in complete sentences and symmetric chest movement *Routine Cardiovascular Exam Cardiovascular: Present RRR, Normal S1 and Normal S2 *Routine Abdominal Exam Abdominal: Present soft and normoactive bowel sounds *Routine Rectal Exam Rectal:: deferred *Routine Genitalia Exam Genitalia:: deferred *Routine Extremities Exam Extremities: Present pulses intact and normal capillary refill Routine Back/Spine/Pelvis Exam Back/Spine: Present full ROM *Routine Skin Exam Skin: Present intact, dry, warm and normal turgor *Routine Neurological Exam Neurological: Present alert, oriented X3, CN II-XII intact, moving all extremities and normal speech Routine Psychiatric Exam Psychiatric: Present normal affect, normal thought process, cooperative, good insight and good judgment H&P: Result Impressions 49-year-old male who has known history of coronary artery disease and is status post 1 episode. Had an incidental finding of subtherapeutic TSH and T4. Patient does have a history of hypothyroidism and has not been prescribed Synthroid for greater than 1 year. Assessment and Plan *Assessment and plan (1) Syncope: Status: Acute Qualifiers: Syncope type: unspecified Qualified Code(s): R55 - Syncope and collapse Category: Medical Code(s): R55 - Syncope and collapse (2) Coronary artery disease: Status: Acute Qualifiers: Coronary Disease-Associated Artery/Lesion type: [place] artery [place] vs. transplanted heart: [place] heart Associated angina: without angina Qualified Code(s): I25.10 - Atherosclerotic heart disease of [place] coronary artery without angina pectoris Category: Medical Code(s): I25.10 - Atherosclerotic heart disease of [place] coronary artery without angina pectoris (3) Hypothyroidism: Status: Acute Qualifiers: Hypothyroidism type: unspecified Qualified Code(s): E03.9 - Hypothyroidism, unspecified Category: Medical Code(s): E03.9 - Hypothyroidism, unspecified (4) Diabetes mellitus type 2 in obese: Problem Comment: On insulin Status: Chronic Category: Medical Code(s): E11.69 - Type 2 diabetes mellitus with other specified complication; E66.9 - Obesity, unspecified Plan Assessment: Syncope Coronary artery disease - High suspicion patient's syncopal episode was due to a dysfunctioning thyroid - Regardless we will obtain 2D echo - Will consider die cut operator consultation - Will continue to trend patient's troponin Hypothyroidism - Will start oral send oral replacement 88 mcg of levothyroxine p.o. daily - Obtain free T3 - Ultrasound of the thyroid - Will trend TSH and T4 daily - Obtain thyroxine binding globulin level - Will obtain testosterone level Hyperglycemia due to diabetes -Accu-Cheks AC and at bedtime with mild scale sliding coverage Plan: Admit patient to the MedSurg unit on telemetry Saline lock Vital signs every 4 hours 1800 ADA/cardiac diet CBC/CMP daily 40 mg Lovenox subcu daily for DVT prophylax 4 mg Zofran IV push to 8 hours. Nausea vomit Full code All discussed this case with attending physician Dr. Juarez and I look forward to more input
--- NOTE | 2025-03-11 06:34 | PC.NURSE ---
PT ARRIVED TO THE FLOOR VIA WHEELCHAIR FROM ER AT 06:31
[2025-03-11] MEDS: HYDROCODONE/APAP 5/325 MG TABLET 1 TAB PO ×2 (06:54→12:51)
--- NOTE | 2025-03-11 08:59 | HMH.PHAINT1 ---
Pharmacy Intervention Comments: MEDICATION RECONCILIATION COMPLETED ON PATIENT USING EXTERNAL FILL HISTORY FROM PHARMACY AND LIST FROM BEHAVIORAL HEALTH. -RAMYA DAHL, JACKD
[2025-03-11] MEDS: LEVOTHYROXINE SODIUM 100 MCG VIAL 150 MCG IV (09:36)
[2025-03-11 09:38] LABS: Troponin I < 0.01 ng/ml (0.00-0.034)
[2025-03-11 10:53] LABS: Adenovirus,PCR Not Detected (NotDetected); Chlamydophila Pneumoniae, PCR Not Detected (NotDetected); Coronavirus 19, PCR Not Detected (NotDetected); Coronovirus HKU1,PCR Not Detected (NotDetected); Influenza A, PCR Not Detected (NotDetected); Influenza AH1, 2009 Not Detected (NotDetected); Influenza AH1, PCR Not Detected (NotDetected); Influenza AH3,PCR Not Detected (NotDetected); Influenza B, PCR Not Detected (NotDetected); Mycoplasma Pneumoniae, PCR Not Detected (NotDetected); Parainfluenza 1, PCR Not Detected (NotDetected); Parainfluenza 2, PCR Not Detected (NotDetected); Parainfluenza 3, PCR Not Detected (NotDetected); Parainfluenza 4, PCR Not Detected (NotDetected)
--- NOTE | 2025-03-11 11:04 | PC.NURSE ---
Addendum entered by Olga De La Garza RN 03/11/25 16:01: 1600: Patient's blood sugar per dexcom: 151 Hospital glucometer readin Patient states his insulin pump has given 5.2 units in the last 2 hours. Original Note: Per Dr. Padron, calibrate patient's Dexcom with hospital glucometer 4 times before using patient's Dexcom for readings. Per Vito, okay to discontinue insulin lispro and use patient's insulin pump. 11:00am- Patient's blood sugar per dexcom: 173 Hospital glucometer readin. Patient states his insulin pump has given 1 unit in the last 2 hours.
[2025-03-11 11:12] LABS: POC Glucose,Bedside 128 gm/dL (70-110)
[2025-03-11] MEDS: VENLAFAXINE XR 75MG CAPSULE 75 MG PO (13:33)
[2025-03-11] MEDS: ASPIRIN EC 81MG TABLET 81 MG PO (13:33)
[2025-03-11] MEDS: BUSPIRONE HCL 10 MG TABLET 15 MG PO ×2 (13:34→20:01)
[2025-03-11] MEDS: OXYCODONE 5MG W/APAP 325MG TABLET 1 EACH PO (13:34)
[2025-03-11 16:10] LABS: POC Glucose,Bedside 162 gm/dL (70-110)
[2025-03-11] MEDS: GABAPENTIN 600MG TABLET 600 MG PO ×2 (17:15→20:01)
--- NOTE | 2025-03-11 17:52 | PC.NURSE ---
Pt has been A&Ox4. Vital signs stable tolerating room air. Pt's BP has been elevated this afternoon. Hospitalist notified with no new orders at this time. Orthostatic blood pressures completed today. Pt has had no complaints of dizziness or syncope today. Pt resting comfortably supine in bed with no further needs voiced at this time.
[2025-03-11] MEDS: OXYCODONE 10MG W/APAP 325MG TABLET 1 EACH PO (20:01)
[2025-03-11] MEDS: PRAZOSIN 1MG CAP 4 MG PO (21:40)
[2025-03-11 21:50] LABS: POC Glucose,Bedside 155 gm/dL (70-110)
--- NOTE | 2025-03-11 22:05 | PC.NURSE ---
Addendum entered by Gunnar Saez RN 03/12/25 06:25: Pts blood sugar at 0600 on the hospital glucometer was 130. Pt dexcom was 144. Pt insulin pump gave 0.7 units over the last 2 hours. Original Note: Pt blood glucose on the hospital glucometer was 155. Pts dexcom read 185. Pt states he has received 5 units of insulin over he past two hours from his insulin pump.
[2025-03-12] VITALS: BP 172/82; PULSE 78; PULSE 80; RESP 16; TEMP 36.6; O2SAT 98
[2025-03-12 04:00] VITALS: BP 147/98; PULSE 100; PULSE 88; RESP 16; TEMP 36.6; O2SAT 97; BMI 32.5
--- NOTE | 2025-03-12 06:00 | US_ITS ---
PROCEDURE INFORMATION: Exam: US Soft Tissue Head and Neck, Thyroid Exam date and time: 03/12/2025 9:57 AM Age: 49 years old Clinical indication: Other: Syncope TECHNIQUE: Imaging protocol: Real-time ultrasound scan of the neck with image documentation. Exam focused on the thyroid. COMPARISON: US THYROID 05/20/2022 1:42 PM FINDINGS: Right thyroid lobe: Right lobe: 6 x 1.8 x 2.2 cm. Small isoechoic solid, well-circumscribed nodule with regular margins, wider than tall upper pole 0.8 x 0.7 x 0.5 cm. Macro calcification.TIRADS 4. Non simple colloid cyst midpole 0.6 x 0.6 x 0.5 cm.TIRADS 2. Left thyroid lobe: Left lobe: 6 x 2.3 x 1.9 cm. Small hypoechoic solid, well-circumscribed nodule with regular margins, wider than tall mid/lower pole 1 x 1.1 x 0.9 cm.TIRADS 3. Small isoechoic solid, well-circumscribed nodule with regular margins, wider than tall midpole 1.1 x 1.1 x 1 cm.TIRADS 3. Isthmus: No nodules IMPRESSION: Small thyroid nodules as described above. COMMENTS: 1. Recommendations for TI-RADS scores are listed below for reference. (See Reference: Mckinley) 2. TI-RADS 1, Benign. 0 points: No fine needle aspiration (FNA) or follow-up ultrasound recommended. 3. TI-RADS 2, Not suspicious. 2 points: No FNA or follow-up ultrasound recommended. 4. TI-RADS 3, Mildly suspicious. 3 points: FNA if equal or greater than 2.5 cm. Follow-up ultrasound if 1.5 to 2.4 cm in 1, 3, and 5 years. 5. TI-RADS 4, Moderately Suspicious. 4-6 points: FNA if equal or greater than 1.5 cm. Follow-up ultrasound if 1 to 1.4 cm in 1, 2, 3, and 5 years. 6. TI-RADS 5, Highly Suspicious. 7 points or greater: FNA if equal or greater than 1 cm. Follow-up ultrasound if 0.5 to 0.9 cm every year for 5 years. REFERENCES: Mckinley FN, Shadia WD, Bar EG et al. ACR Thyroid Imaging, Reporting and Data System (TI-RADS): White Paper of the ACR TI-RADS Committee. J Am Godfrey Radiol. 2017; 14: 587-595.
--- NOTE | 2025-03-12 06:14 | CA_ITS ---
APPROVED REPORT EXAM: Comprehensive 2D, Doppler, and color-flow Echocardiogram Service Or Work Dispatcher Chief: Vida Serrano CRT Ht: 6 ft 1 in Wt: 240lbs BSA: 2.33 BP: 142/72 mmHg Indications: Diabetes, Syncope, CAD, Hyperlipidemia, Hypertension/HDD, stents, Brother has a hole in his heart repaired at 3 yrs ols Echo Enhancing Agent Indication: Rule out Shunt Agent(s) / Amount(s) Used: Agitated Saline 5 cc Comments: B/S performed. 2D Dimensions LA Volume 55.70 mL LA Volume Index 23.40 mL/m2 (M/F) 16-34 M-Mode Dimensions RVDd 2.99 cm (0.9-2.6) LA Diam 3.95 cm (1.9-4.0) LVDd 4.28 cm (3.5-5.7) LVDs 1.82 cm (3.5-5.7) IVSd 1.90 cm (0.6-1.1) PWd 1.63 cm (0.6-1.1) EF (Teich) 87.80% FS 57.50% EDV (Teich) 82.20 mL TAPSE 2.64 (<1.7) ESV (Teich) 10.00 mL LV Diastology E Decel Time 217 (160-240 msec) E/A Ratio 1.20 MED A' 18.20 cm/s LAT A' 12.40 cm/s Aortic Valve NIGEL Index 1.36 cm2/m2 AoV Peak Sandip. 165.0 (50-130 cm/s) AO Peak GR. 10.90 mmHg AO Mean GR. 6.20 (<5 mmHg) AO VTI 33.7 (18-25 cm) NIGEL (VTI) 3.23 (2.5-4.5 cm2) Mitral Valve MV A Velocity 86.0 (40-130 cm/s) E/A Ratio 1.20 Pulmonary Valve PV Peak Velocity 130.0 (50-150 cm/s) Tricuspid Valve TR P. Velocity 212.00 cm/s RAP Estimate 10.00 mmHg RVSP 28.00 mmHg Left Ventricle The left ventricle is normal size. Left ventricular systolic function is normal. The left ventricular ejection fraction is within the normal range. There is normal left ventricular wall thickness. There is normal LV segmental wall motion. The left ventricular diastolic function is normal. LVEF is 55% Right Ventricle The right ventricle is normal size. The right ventricular systolic function is normal. Atria The left atrium size is normal. The right atrium size is normal. There is no color Doppler evidence of interatrial shunt. Agitated saline administration demonstrates no evidence of interatrial shunt. Aortic Valve The aortic valve opens well. There is no hemodynamically significant aortic valvular stenosis. No aortic regurgitation is present. Mitral Valve The mitral valve is normal in structure. No evidence of mitral valve stenosis. Trace mitral regurgitation is present. Tricuspid Valve The tricuspid valve leaflets are thin and pliable. Trace tricuspid regurgitation. There is insufficient TR jet to estimate RVSP. Pulmonic Valve The pulmonary valve is grossly normal in structure. Trace pulmonic valve regurgitation is present. Great Vessels The aortic root is normal in size. IVC is normal in size and collapses >50% with inspiration. Pericardium There is no pericardial effusion. Other Information Study Quality: Fair Conclusion Normal biventricular systolic function. No significant valvular stenosis or regurgitation. Agitated saline administration demonstrates no evidence of interatrial shunt. Electronically signed by : Adeline Soliman MD 03/12/2025 13:09:10
[2025-03-12] MEDS: LEVOTHYROXINE SODIUM 100 MCG VIAL 150 MCG IV (06:15)
[2025-03-12 06:30] LABS: POC Glucose,Bedside 130 gm/dL (70-110)
[2025-03-12 07:16] LABS: Hematocrit 51.1 % (42.0-52.0); Hemoglobin 16.6 g/dL (14.1-18.0); Immature Granulocytes % 0.2 %; Mean Corpuscular HGB Conc 32.5 g/dL (31.8-35.4); Mean Corpuscular Hemoglobin 27.2 pg (27.0-31.2); Mean Corpuscular Volume 83.8 fl (80-94); Nucleated Red Blood Cells % 0 %; Platelet Count 209 K/mm3 (142-424); Red Blood Count 6.10 M/mm3 (4.60-6.20); Red Cell Distribution Width-SD 40.4 fL; White Blood Count 5.6 K/mm3 (4.8-10.8)
[2025-03-12 07:28] LABS: Albumin Level 3.6 g/dl (3.5-5.0); Chloride 102 mmol/L (98-107); Sodium 139 mmol/L (136-145)
[2025-03-12 07:29] LABS: Potassium 3.9 mmoL/L (3.5-5.1)
[2025-03-12 07:31] LABS: Alanine Aminotransferase 18 U/L (12-78); Anion Gap 11.9 mEq/L (5-15); Aspartate Amino Transferase 24 U/L (17-59); Blood Urea Nitrogen 10 mg/dl (9-20); Carbon Dioxide 29 mmol/L (22.0-30.0); Creatinine Clearance Estimated 178 mL/min (50-200); Creatinine,Serum 0.80 mg/dl (0.66-1.25); Estimated Glomerular Filt Rate 103 ml/min (>60); GFR (African American) 125 ML/MIN (>60)
[2025-03-12 07:32] LABS: Albumin/Globulin Ratio 1.2 (1.1-1.8); Alkaline Phosphatase 68 U/L (38-126); Bilirubin,Total 0.2 mg/dl (0.2-1.3); Calcium 8.3 mg/dl (8.4-10.2); Globulin 3.0 g/dL (1.3-3.2); Glucose 135 mg/dl (74-100); Total Protein,Serum 6.6 g/dl (6.3-8.2)
[2025-03-12 08:00] VITALS: BP 137/75; PULSE 89; RESP 16; TEMP 36.8; O2SAT 99
[2025-03-12] MEDS: BUSPIRONE HCL 10 MG TABLET 15 MG PO (09:28)
[2025-03-12] MEDS: GABAPENTIN 600MG TABLET 600 MG PO ×3 (09:28→16:29)
[2025-03-12] MEDS: ASPIRIN EC 81MG TABLET 81 MG PO (09:28)
[2025-03-12] MEDS: VENLAFAXINE XR 75MG CAPSULE 75 MG PO (09:28)
[2025-03-12] MEDS: OXYCODONE 10MG W/APAP 325MG TABLET 1 EACH PO ×2 (09:36→16:27)
[2025-03-12 10:00] LABS: Free T4 (Free Thyroxine) 0.84 ng/dl (0.78-2.19)
[2025-03-12 10:10] LABS: Triiodothyronine (T3) Free 3.5 pg/mL (2.0-4.4)
[2025-03-12 10:17] LABS: Thyroid Stimulating Hormone 0.02 uIU/mL (0.465-4.68)
--- NOTE | 2025-03-12 11:52 | MR_ITS ---
PROCEDURE INFORMATION: Exam: MR Head Without Contrast Exam date and time: 03/12/2025 2:41 PM Age: 49 years old Clinical indication: Dizziness and syncope TECHNIQUE: Imaging protocol: Magnetic resonance imaging of the head without contrast. COMPARISON: CT HEAD/BRAIN WO CON 03/11/2025 5:03 AM FINDINGS: Brain: No brain parenchymal signal abnormality. No acute infarct. No mass effect or midline shift. No extra-axial collection. No acute intracranial hemorrhage. Basal cisterns are patent. Cerebral ventricles: Normal. No ventriculomegaly. Bones: Unremarkable. Paranasal sinuses: Mucosal thickening involving the visualized paranasal sinuses. Mastoid air cells: Normal as visualized. No mastoid effusion. Orbital cavities: Unremarkable. Soft tissues: Unremarkable. IMPRESSION: Essentially unremarkable exam.
[2025-03-12 12:00] VITALS: BP 169/80; PULSE 87; RESP 16; TEMP 36.7; O2SAT 99
[2025-03-12 16:00] VITALS: BP 178/89; PULSE 82; RESP 16; TEMP 36.9; O2SAT 99
--- NOTE | 2025-03-12 16:55 | EXP.DC.SUM ---
General Admission date:: 03/11/25 HPI HPI HPI: This is a 49-year-old male who has a past medical stenting to the LAD, angina, hypothyroidism, coronary artery disease, diabetes, hyperlipidemia, hypertension, renal insufficiency, obstructive sleep apnea, and palpitations who presents after he passed out. Due to patient's symptoms, he presented to the emergency room for evaluation. While in the emergency room, chest x-ray was negative for any acute cardiopulmonary process. CT scan of the head was negative for any acute intracranial process. CT scan of the cervical spine was negative for any acute findings. Patient's EKG revealed a sinus rhythm with a QTc of 434, normal axis, negative STEMI. Due to patient's symptoms, he presented to the emergency room for evaluation. During my evaluation of patient, patient states he got up to go to the kitchen and woke up patient mentions he has had episodes of near syncope in the past with ringing in the ears and lightheadedness but this time he just passed Sanchez out. On further questioning, patient states he does have a history of hypothyroidism. He was previously prescribed Synthroid but was discontinued and has been off this medication for approximately 1 year. He was seeing a armored truck driver Dr. Villafana who would perform ultrasounds of the thyroid and noticed cysts. He states that he was often on this medication because of cyst rupture and would flood his system with extra T4. He has a new armored truck driver that he has not seen in some time discontinue the thyroid medication. Of note, patient is also on testosterone therapy. Patient states he has been on testosterone for approximately 10 years or more. He states his levels are checked every 3 months. He reports that he has to have his dosage altered often. He is currently denying any lightheadedness, dizziness, fever, chills, rigors, nausea, vomiting, shortness of breath, headache, blurred vision, double vision, chest pain, shortness of breath, dyspnea, or diarrhea. Additional pertinent vitals obtained include a sodium 131, blood glucose of 217, troponins were negative, and TSH was 0.2/T4 was 0.73. 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 He endorses several month history of dizziness/lightheadedness, presyncope but never syncope until yesterday. He does take a few sedative medications including gabapentin, Percocet, tizanidine these are chronic and preceded before symptoms started. Also has propranolol on med list, but has not taken this. Had an episode of syncope without precipitating symptoms, concern for cardiogenic syncope. At the same time patient has significant hypothyroidism, has had issues in the past with thyroid dosing and discontinued medication. Started IV levothyroxine 150 mcg daily. Monitor overnight on cardiac telemetry, follow-up ECHO in the morning. No syncopal/dizziness events during hospital course. No cardiac events. Will place on event monitor. Low TSH and free T4 low initially, suggesting secondary hypothyroidism. Treated with IV levothyroxine during hospital course. Will need further evaluation by endocrinology, obtained brain MRI and on my independent review did not show any gross masses. Started a lower dose levothyroxine 100 mcg for now, follow-up with endocrinology for further evaluation management. Exam Data for Last 24 hours Vital signs and Labs for Last 24 Hours: Temp Pulse Resp BP Pulse Ox O2 Del Method 98.0 F 87 16 169/80 H 99 Room Air 03/12/25 12:00 03/12/25 12:00 03/12/25 12:00 03/12/25 12:00 03/12/25 12:00 03/12/25 16:51 Laboratory Results - last 24 hr 03/11/25 08:45: Free T3 3.5 03/11/25 21:39: POC Glucose 155 H 03/12/25 06:12: WBC 5.6, RBC 6.10, Hgb 16.6, Hct 51.1, MCV 83.8, MCH 27.2, MCHC 32.5, RDW 13.3, Plt Count 209, MPV 9.0, Neut % (Auto) 46.8, Lymph % (Auto) 35.2, [place] % (Auto) 9.0, Eos % (Auto) 8.1, Baso % (Auto) 0.7, Neut # (Auto) 2.6, Lymph # (Auto) 2.0, [place] # (Auto) 0.5, Eos # (Auto) 0.5 H, Baso # (Auto) 0.0, Sodium 139, Potassium 3.9, Chloride 102, Carbon Dioxide 29, Anion Gap 11.9, BUN 10, Creatinine 0.80, Estimated Creat Clear 178, Estimated GFR 103, Est GFR ( Amer) 125, Glucose 135 H, Calcium 8.3 L, Total Bilirubin 0.2, AST 24, ALT 18, Alkaline Phosphatase 68, Total Protein 6.6, Albumin 3.6, Globulin 3.0, Albumin/Globulin Ratio 1.2, TSH 0.02 L D, Free T4 0.84 03/12/25 06:23: POC Glucose 130 H I & O for Last 24 hours: Intake & Output 03/09/25 03/10/25 03/11/25 03/12/25 23:59 23:59 23:59 23:59 Intake Total 2280 / 2580 900 / 900 Output Total 0 / 0 Balance 2280 / 2580 900 / 900 Weight 111.811 kg 111.584 kg Constitutional Constitutional: no acute distress *Routine HEENT Exam Head: Present normocephalic Eye: Present EOMI and PERRL ENT: Present mucous membranes moist *Routine Neck Exam Neck: Present supple; Absent lymphadenopathy *Routine Respiratory Exam Respiratory: Present CTA bilaterally *Routine Cardiovascular Exam Cardiovascular: Present RRR *Routine Abdominal Exam Abdominal: Present soft and normoactive bowel sounds; Absent tenderness *Routine Extremities Exam Extremities: Absent cyanosis, clubbing or edema *Routine Skin Exam Skin: Present warm; Absent rash *Routine Neurological Exam Neurological: Present alert and oriented X3 Results Data Completed and Pending Labs on day of discharge: Labs from last 24 hours 03/12/25 03/12/25 03/11/25 06:23 06:12 21:39 WBC 5.6 RBC 6.10 Hgb 16.6 Hct 51.1 MCV 83.8 MCH 27.2 MCHC 32.5 RDW 13.3 Plt Count 209 MPV 9.0 Neut % (Auto) 46.8 Lymph % (Auto) 35.2 [place] % (Auto) 9.0 Eos % (Auto) 8.1 Baso % (Auto) 0.7 Neut # (Auto) 2.6 Lymph # (Auto) 2.0 [place] # (Auto) 0.5 Eos # (Auto) 0.5 H Baso # (Auto) 0.0 Sodium 139 Potassium 3.9 Chloride 102 Carbon Dioxide 29 Anion Gap 11.9 BUN 10 Creatinine 0.80 Estimated Creat Clear 178 Estimated GFR 103 Est GFR ( Amer) 125 Glucose 135 H POC Glucose 130 H 155 H Calcium 8.3 L Total Bilirubin 0.2 AST 24 ALT 18 Alkaline Phosphatase 68 Total Protein 6.6 Albumin 3.6 Globulin 3.0 Albumin/Globulin Ratio 1.2 TSH 0.02 L D Free T4 0.84 Free T3 03/11/25 08:45 WBC RBC Hgb Hct MCV MCH MCHC RDW Plt Count MPV Neut % (Auto) Lymph % (Auto) [place] % (Auto) Eos % (Auto) Baso % (Auto) Neut # (Auto) Lymph # (Auto) [place] # (Auto) Eos # (Auto) Baso # (Auto) Sodium Potassium Chloride Carbon Dioxide Anion Gap BUN Creatinine Estimated Creat Clear Estimated GFR Est GFR ( Amer) Glucose POC Glucose Calcium Total Bilirubin AST ALT Alkaline Phosphatase Total Protein Albumin Globulin Albumin/Globulin Ratio TSH Free T4 Free T3 3.5 DS: Diagnosis Discharge Diagnosis (1) Syncope: Status: Acute Code(s): R55 - Syncope and collapse Qualifiers: Syncope type: unspecified Qualified Code(s): R55 - Syncope and collapse (2) Coronary artery disease: Status: Acute Code(s): I25.10 - Atherosclerotic heart disease of [place] coronary artery without angina pectoris Qualifiers: Associated angina: without angina Coronary Disease-Associated Artery/Lesion type: [place] artery [place] vs. transplanted heart: [place] heart Qualified Code(s): I25.10 - Atherosclerotic heart disease of [place] coronary artery without angina pectoris (3) Hypothyroidism: Status: Acute Code(s): E03.9 - Hypothyroidism, unspecified Qualifiers: Hypothyroidism type: unspecified Qualified Code(s): E03.9 - Hypothyroidism, unspecified (4) Diabetes mellitus type 2 in obese: Status: Chronic Code(s): E11.69 - Type 2 diabetes mellitus with other specified complication; E66.9 - Obesity, unspecified Problem details: On insulin Meds Home Medications and Allergies Home Medications ?Medication ?Instructions ?Recorded ?Confirmed ?Type gabapentin 600 mg tablet 600 mg PO QID 12/03/23 03/11/25 History insulin aspart U-100 100 unit/mL 0 unit SQ DIRECTED 12/03/23 03/11/25 History subcutaneous solution (Novolog U-100 Insulin aspart) tizanidine 4 mg tablet 4 mg PO BID 12/03/23 03/11/25 History aspirin 81 mg tablet 81 mg PO DAILY 01/18/24 03/11/25 History finerenone 10 mg tablet (Kerendia) 20 mg PO DAILY 01/18/24 03/11/25 History testosterone cypionate 200 mg/mL 400 mg IM DIRECTED 05/09/24 03/11/25 History intramuscular oil oxycodone-acetaminophen 10 mg-325 1 tab PO Q6H 10/09/24 03/11/25 History mg tablet buspirone 10 mg tablet 15 mg (1.5 x 10 mg) PO BID #90 tabs 03/09/25 03/11/25 Rx venlafaxine 75 mg capsule,extended 75 mg PO DAILY 30 days #30 caps 03/09/25 03/11/25 Rx release 24 hr losartan 25 mg tablet 25 mg PO DAILY 03/11/25 03/11/25 History prazosin 1 mg capsule 4 mg PO HS 03/11/25 03/11/25 History tirzepatide 10 mg/0.5 mL 10 mg SQ WEEKLY 03/11/25 03/11/25 History subcutaneous pen injector (Neetu) levothyroxine 100 mcg capsule 100 mcg PO DAILY #30 caps 03/12/25 Rx New Prescriptions to Start Prescriptions: levothyroxine Angel Padron Allergies Allergy/AdvReac Type Severity Reaction Status Date / Time No Known Allergies Allergy Verified 03/09/25 08:01 Discharge Plan Disposition Patient Disposition: Home, Self-Care Condition: Fair Follow up Plan Follow up with: Yunior Porras MD [Primary Care Provider, Internal Medicine] - Enter time for follow up Tiffani Stephenson MD [Staff Physician, Endocrinology] - 1 week Referral Note: Suspected secondary hypothyroidism Prescriptions/Medication Reconciliation: New levothyroxine 100 mcg capsule 100 mcg PO DAILY Qty: 30 0RF Continued testosterone cypionate 200 mg/mL oil 400 mg IM DIRECTED Patient Comments: INJECT 2 ML INTO A MUSCLE EVERY OTHER WEEK Rx Instructions: INJECT 2ML IM EVERY OTHER WEEK Vraylar 1.5 mg capsule 1.5 mg PO DAILY 0RF oxycodone-acetaminophen 10-325 mg tablet 1 tab PO Q6H Patient Comments: TAKE 1 TABLET EVERY 6 HOURS venlafaxine 75 mg capsule,extended release 24hr 75 mg PO DAILY 30 Days Qty: 30 2RF buspirone 10 mg tablet 15 mg PO BID Qty: 90 2RF Kerendia 10 mg Tablet 20 mg PO DAILY aspirin 81 mg Tablet 81 mg PO DAILY losartan 25 mg tablet 25 mg PO DAILY prazosin 1 mg capsule 4 mg PO HS Mounjaro 10 mg/0.5 mL pen injector 10 mg SQ WEEKLY gabapentin 600 mg tablet 600 mg PO QID Patient Comments: TAKE 1 TABLET 4 TIMES EACH DAY DIRECTED tizanidine 4 mg tablet 4 mg PO BID Patient Comments: TAKE 1 TABLET 2 TIMES EACH DAY insulin aspart U-100 [Novolog U-100 Insulin aspart] 100 unit/mL solution 0 unit SQ DIRECTED Patient Comments: INJECT 200 UNITS UNDER THE SKIN 1 TIME EACH DAY DIRECTED USING THE INSULIN PUMP Pt averaging 40-50 units since adding Monjaro Discontinued propranolol 10 mg tablet 10 mg PO DAILYP PRN (Reason: panic attacks) Problem Reconciliation Problems Reviewed?: Yes Patient Discharge Instructions Patient Instructions: DI for Syncope in Adults (Fainting), DI for Hypothyroidism Print Language: M[place]ese Providers Primary Care Provider: Yunior Porras Admit Provider: Angel Padron Attending Provider: Angel Padron
[2025-03-13 03:36] LABS: Triiodothyronine (T3) Free 3.4 pg/mL (2.0-4.4)
--- NOTE | 2025-03-13 10:10 | SW/DCPLANNER ---
Spoke with patient on the phone. Patient stated that he is doing well. Patient stated that he is aware of his upcoming appointments and that he is going to call his primary care provider to schedule a follow up with them. Patient stated that his new medicine was brought to his room on the day he was discharged. Patient stated that he has no concerns or questions at this time. Juan Brown
[2025-03-14 01:14] LABS: Testosterone,Free 35.6 pg/mL (6.8-21.5)
== END 2025-03-12 17:48 | disposition home or self-care (01) ==
LOC: ER 02:07 → 2ND 06:05
PROVIDERS: Nurse Practitioner Family; Admitting Provider Student in an Organized Health Care Education/Training Program; Emergency Provider Emergency Medicine; PCP Internal Medicine Adolescent Medicine; Visit Provider Student in an Organized Health Care Education/Training Program
DX: R55 Syncope and collapse (principal); I25.10 Atherosclerotic heart disease of native coronary artery without angina pectoris; E03.9 Hypothyroidism, unspecified; E11.69 Type 2 diabetes mellitus with other specified complication; E66.9 Obesity, unspecified; E78.5 Hyperlipidemia, unspecified; H90.71 Mixed conductive and sensorineural hearing loss, unilateral, right ear, with unrestricted hearing on the contralateral side; G47.33 Obstructive sleep apnea (adult) (pediatric); Z90.49 Acquired absence of other specified parts of digestive tract; Z79.82 Long term (current) use of aspirin; Z79.899 Other long term (current) drug therapy; Z79.890 Hormone replacement therapy; Z79.4 Long term (current) use of insulin; E04.2 Nontoxic multinodular goiter; Z96.22 Myringotomy tube(s) status; J32.4 Chronic pansinusitis; M47.812 Spondylosis without myelopathy or radiculopathy, cervical region; R94.31 Abnormal electrocardiogram [ECG] [EKG]
CPT/HCPCS: 0223U; 36415; 70450; 70551; 71045; 72125; 76536; 80053; 82533; 82803; 82962; 84402; 84439; 84443; 84481; 84484; 85025; 85378; 86803; 87389; 93005; 93306; 99285; G0378; J0650; J1650; J1885; J7120